=== PATIENT | female | born 1970 | race Caucasian/White ===

== ENCOUNTER → 2022-02-22 | Outpatient (CLI) | payer BC, SELFPAY ==
[2022-02-22 20:54] LABS: Ferritin 84 ng/mL (8-252); Free T3 2.4 pg/mL (2.18-3.98); T4 Free Direct 0.95 ng/dL (0.76-1.46); Thyroid Stim Hormone (TSH) 4.06 uIU/mL (0.358-3.74)
== END | disposition home or self-care (01) ==
LOC: LABSPEC 15:11
PROVIDERS: Referring Provider Nurse Practitioner Family; Visit Provider Nurse Practitioner Family
DX: E03.9 Hypothyroidism, unspecified (principal); R06.00 Dyspnea, unspecified; R53.83 Other fatigue; D64.9 Anemia, unspecified
CPT/HCPCS: 82728; 84439; 84443; 84481

== ENCOUNTER → 2023-06-02 | Outpatient (CLI) | payer BC, SELFPAY ==
[2023-06-02 12:36] VITALS: BP 154/68; PULSE 83; RESP 18; TEMP 36.3; O2SAT 98; BMI 42.0
--- NOTE | 2023-06-02 15:46 | PRO.PCM_ITS ---
Procedure Report Date of Procedure: 06/02/23 PICC insertion Procedures Radiology Radiology Access Procedures: [id number] Central Line/Midline PICC Line Consent Consent obtained:: Yes Consent given by (patient or responsible green party):: Patient Line successful (if no, document why in comments):: Yes Insertion Reason for Insertion: [facility] Medication Date of Insertion: 06/02/23 Ok to use: Yes Type of PICC inserted: Dual Power PICC PICC Lot #: [id number] PICC Reference #: [id number] Microintroducer Used: Yes (in kit) Ultrasound/Equipment Used: Probe Cover Kit Trimmed Length (cm): 44 Insertion Length (cm): 42 Exposed Length (cm): 2 Tip Placement: SVC (Superior Vena Cava) Placement Confirmation: 3CG Insertion Vein: Right Basilic Insertion Attempts: 1 Local Anesthesia Used: Lidocaine 1% (in kit) Dressing Applied: Tegaderm (CHG Tegaderm with kit StatLock) Arm Measurement above site (in cm): 40 Patient Tolerated Procedure: Well Threading Difficulties: No
== END | disposition home or self-care (01) ==
PROVIDERS: PCP Nurse Practitioner Family; Referring Provider Nurse Practitioner Family; Visit Provider Nurse Practitioner Family
DX: N93.0 Postcoital and contact bleeding (principal); B96.5 Pseudomonas (aeruginosa) (mallei) (pseudomallei) as the cause of diseases classified elsewhere; B95.2 Enterococcus as the cause of diseases classified elsewhere; B96.4 Proteus (mirabilis) (morganii) as the cause of diseases classified elsewhere
CPT/HCPCS: 36569

== ENCOUNTER 2025-06-25 19:28 | Outpatient (CLI) | payer BC, SELFPAY ==
--- OUTSIDE RECORDS SUMMARY | 2025-06-25 19:34 | XMS RPT_ITS | CCD ---
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 Name Role Phone Jericho Hair Unavailable Kurpita, Ruslana Vasylivna Unavailable [phone] JOCRAIG, ML Unavailable Unavailable TIFFANY, ML Unavailable Unavailable KURPITA, RUSLANA Unavailable Unavailable URSULA BADILLO Unavailable Unavailable KURPITA, RUSLANA Unavailable Unavailable LUIS ALFREDO SALAZAR Unavailable Unavailable Kurpita, Ruslana Vasylivna Primary Care Provider Krishan Thomason MD, Paco Primary Care Provider [phone] Krishan Thomason MD, Paco Primary Care Provider [phone] Krishan LU, Paco Lopez Primary Care Provi ramana Roz Chinchilla Attending Unavailable Faraz PROFILING MACHINE SET UP OPERATOR, Ursula Harmon Primary Care Unavailmelisa e Faraz PROFILING MACHINE SET UP OPERATOR, Ursula Harmon Consulting Unavailabl e Faraz PROFILING MACHINE SET UP OPERATOR, Ursula Harmon Referring Unavailabl e Faraz PROFILING MACHINE SET UP OPERATOR, Ursula Harmon Primary Care Unavailabl e Faraz PROFILING MACHINE SET UP OPERATOR, Ursula Harmon Attending Unavailabl e Faraz PROFILING MACHINE SET UP OPERATOR, Ursula Harmon Referring Unavailabl e Faraz PROFILING MACHINE SET UP OPERATOR, Ursula Harmon Attending Unavailabl e Faraz AUDITOR/QUALITY, Ursula Primary Care Provider KURPITA, RUSLANA VASYLIVNA Admitting Unava ilable URSULA RUTH Primary Care Unavailable KURPITA, RUSLANA VASYLIVNA Admitting Unava ilable URSULA RUTH Primary Care Unavailable URSULA RUTH Admitting Unavailable URSULA RUTH Primary Care Unavailable URSULA RUTH Primary Care Unavailable KRISTA ALCARAZ Attending Unavailmelisa Fernandez MD, Paco Cervantesylanthony Primary Care Provi ramana [facility], [facility] Provider JAMES, MESSI Attending Unavailable JAMES, MESSI Attending Unavailable JAMES, MESSI Attending Unavailable KENY, CAITLIN Attending Unavailable KENY, CAITLIN Referring Unavailable KENY, CAITLIN Referring Unavailable KENY, CAITLIN Attending Unavailable KENY, CAITLIN Referring Unavailable KENY, CAITLIN Attending Unavailable [place] DO, Ml Primary Care Provider JOLLY, ML Primary Care Unavailable JOLLY, ML Attending Unavailable JOLLY, ML Attending Unavailable JOLLY, ML Primary Care Unavailable JOLLY, ML Attending Unavailable JOLLY, ML Primary Care Unavailable MICHENER, URSULA Primary Care Unavailable MICHENER, URSULA Primary Care Unavailable MICHENER, URSULA Admitting Unavailable Michener AUDITOR/QUALITY, Ursula Primary Care Provider [phone] MICHENER, URSULA Primary Care Unavailable JERICHO BROWN Attending Unavailable MICHENER, URSULA Primary Care Unavailable JERICHO BROWN Referring Unavailable JERICHO BROWN Admitting Unavailable MICHENER, URSULA Primary Care Unavailable BAN SYKES Attending Unavailable DANIELLE SHAY Attending Unavailable MICHENER, URSULA Primary Care Unavailable AMALIA YADAV Attending Unavailable MICHENER, URSULA Primary Care Unavailable MICHENER, URSULA Attending Unavailable MICHENER, URSULA Referring Unavailable KURPITA, RUSLANA Primary Care Unavailable NEKKANTI, PAVITHRA Attending Unavailable NEKKANTI, PAVITHRA Referring Unavailable KURPITA, RUSLANA Primary Care Unavailable NEKKANTI, PAVITHRA Attending Unavailable KURPITA, RUSLANA Primary Care Unavailable NEKKANTI, PAVITHRA Referring Unavailable MICHENER, URSULA Referring Unavailable MICHENER, URSULA Attending Unavailable KURPITA, RUSLANA Primary Care Unavailable NEKKANTI, PAVITHRA Attending Unavailable KURPITA, RUSLANA Primary Care Unavailable NEKKANTI, PAVITHRA Referring Unavailable NEKKANTI, PAVITHRA Referring Unavailable KURPITA, RUSLANA Primary Care Unavailable NEKKANTI, PAVITHRA Attending Unavailable NEKKANTI, PAVITHRA Referring Unavailable KURPITA, RUSLANA Primary Care Unavailable NEKKANTI, PAVITHRA Attending Unavailable MICHENER, URSULA Attending Unavailable MICHENER, URSULA Referring Unavailable KURPITA, RUSLANA Primary Care Unavailable NEKKANTI, PAVITHRA Attending Unavailable KURPITA, RUSLANA Primary Care Unavailable NEKKANTI, PAVITHRA Referring Unavailable MICHENER, URSULA Attending Unavailable MICHENER, URSULA Referring Unavailable KURPITA, RUSLANA Primary Care Unavailable NEKKANTI, PAVITHRA Attending Unavailable NEKKANTI, PAVITHRA Referring Unavailable KURPITA, RUSLANA Primary Care Unavailable NEKKANTI, PAVITHRA Attending Unavailable NEKKANTI, PAVITHRA Referring Unavailable KURPITA, RUSLANA Primary Care Unavailable NEKKANTI, PAVITHRA Attending Unavailable NEKKANTI, PAVITHRA Referring Unavailable KURPITA, RUSLANA Primary Care Unavailable NEKKANTI, PAVITHRA Attending Unavailable NEKKANTI, PAVITHRA Referring Unavailable KURPITA, RUSLANA Primary Care Unavailable NEKKANTI, PAVITHRA Attending Unavailable NEKKANTI, PAVITHRA Referring Unavailable KURPITA, RUSLANA Primary Care Unavailable NEKKANTI, PAVITHRA Attending Unavailable NEKKANTI, PAVITHRA Referring Unavailable KURPITA, RUSLANA Primary Care Unavailable NEKKANTI, PAVITHRA Referring Unavailable KURPITA, RUSLANA Primary Care Unavailable NEKKANTI, PAVITHRA Attending Unavailable NEKKANTI, PAVITHRA Attending Unavailable KURPITA, RUSLANA Primary Care Unavailable NEKKANTI, PAVITHRA Referring Unavailable MICHENER, URSULA Referring Unavailable MICHENER, URSULA Attending Unavailable KURPITA, RUSLANA Primary Care Unavailable MICHENER, URSULA Referring Unavailable MICHENER, URSULA Attending Unavailable KURPITA, RUSLANA Primary Care Unavailable NEKKANTI, PAVITHRA Attending Unavailable KURPITA, RUSLANA Primary Care Unavailable NEKKANTI, PAVITHRA Referring Unavailable MICHENER, URSULA Referring Unavailable MICHENER, URSULA Attending Unavailable KURPITA, RUSLANA Primary Care Unavailable NEKKANTI, PAVITHRA Referring Unavailable KURPITA, RUSLANA Primary Care Unavailable NEKKANTI, PAVITHRA Attending Unavailable MICHENER, URSULA Referring Unavailable KURPITA, RUSLANA Primary Care Unavailable NEKKANTI, PAVITHRA Attending Unavailable NEKKANTI, PAVITHRA Attending Unavailable KURPITA, RUSLANA Primary Care Unavailable NEKKANTI, PAVITHRA Referring Unavailable MICHENER, URSULA Referring Unavailable MICHENER, URSULA Attending Unavailable KURPITA, RUSLANA Primary Care Unavailable NEKKANTI, PAVITHRA Referring Unavailable KURPITA, RUSLANA Primary Care Unavailable NEKKANTI, PAVITHRA Attending Unavailable MICHENER, URSULA Attending Unavailable MICHENER, URSULA Referring Unavailable KURPITA, RUSLANA Primary Care Unavailable MICHENER, URSULA Attending Unavailable MICHENER, URSULA Referring Unavailable KURPITA, RUSLANA Primary Care Unavailable MALERICH, PATIENCE G Attending Unavailable SELF, SELF Referring Unavailable KURPITA, RUSLANA Primary Care Unavailable NEKKANTI, PAVITHRA Attending Unavailable NEKKANTI, PAVITHRA Referring Unavailable KURPITA, RUSLANA Primary Care Unavailable MALERICH, PATIENCE G Attending Unavailable SELF, SELF Referring Unavailable KURPITA, RUSLANA Primary Care Unavailable MALERICH, PATIENCE G Attending Unavailable KURPITA, RUSLANA Primary Care Unavailable SELF, SELF Referring Unavailable MALERICH, PATIENCE G Attending Unavailable SELF, SELF Referring Unavailable KURPITA, RUSLANA Primary Care Unavailable PLOTNER, KACIE N Attending Unavailable KURPITA, RUSLANA Primary Care Unavailable SELF, SELF Referring Unavailable PLOTNER, KACIE N Attending Unavailable KURPITA, RUSLANA Primary Care Unavailable SELF, SELF Referring Unavailable NEKKANTI, PAVITHRA Attending Unavailable NEKKANTI, PAVITHRA Referring Unavailable KURPITA, RUSLANA Primary Care Unavailable NEKKANTI, PAVITHRA Attending Unavailable NEKKANTI, PAVITHRA Referring Unavailable KURPITA, RUSLANA Primary Care Unavailable NEKKANTI, PAVITHRA Attending Unavailable NEKKANTI, PAVITHRA Referring Unavailable KURPITA, RUSLANA Primary Care Unavailable NEKKANTI, PAVITHRA Attending Unavailable KURPITA, RUSLANA Primary Care Unavailable NEKKANTI, PAVITHRA Referring Unavailable NEKKANTI, PAVITHRA Referring Unavailable KURPITA, RUSLANA Primary Care Unavailable NEKKANTI, PAVITHRA Attending Unavailable MICHENER, URSULA Referring Unavailable KURPITA, RUSLANA Primary Care Unavailable NEKKANTI, PAVITHRA Attending Unavailable Allergies Allergy Classification Reported Allergen(s) Allergy Type Date of Onset Reaction(s) Facility Unclassified (1 source) ALLERGIES NOT ON FILE; Translations: [ALLERGIES NOT ON FILE] Propensity to adverse reactions (disorder) [facility] Repository (20 sources) amoxicillin; Translations: [AMOXICILLIN] Drug Allergy 8 Nausea Only [facility] (20 sources) cefuroxime; Translations: [CEFUROXIME AXETIL] Drug Allergy 8 Nausea Only [facility] (20 sources) lactase; Translations: [LACTASE] Drug Allergy 5 [facility] (20 sources) peanut allergenic extract; Translations: [PEANUT] Drug Allergy 5 [facility] (20 sources) wheat gluten extract; Translations: [gluten] Drug Allergy 5 [facility] (20 sources) cornstarch; Translations: [CORN STARCH] Drug Allergy 8 [facility] (20 sources) Ciprofloxacin; Translations: [CIPROFLOXACIN] Drug Allergy 0 GI Intolerance [facility] (20 sources) hydrOXYzine; Translations: [HYDROXYZINE HCL] Drug Allergy 0 Palpitations [facility] (20 sources) Cefuroxime Drug Allergy 8 [facility] (20 sources) Latex; Translations: [LATEX] Propensity to adverse reactions to drug 6 Itching, Rash [facility] (8 sources) Penicillins Propensity to adverse reactions to drug 6 [facility] (13 sources) Cornflour Propensity to adverse reactions to drug 8 [facility] (14 sources) Gluten Propensity to adverse reactions to drug 5 [facility] (13 sources) Latex Propensity to adverse reactions to drug 6 [facility] (13 sources) Penicillins Propensity to adverse reactions to drug 6 [facility] (1 source) GLUTEN PROTEIN; Translations: [GLUTEN PROTEIN] Propensity to adverse reactions to food (disorder) 5 [facility] Repository Medications Current Medications Medication Drug Class(es) Dates Sig (Normalized) Sig (Original) acyclovir 400 mg oral tablet (20 sources) Herpesvirus Nucleoside Analog DNA Polymerase Inhibitor, Herpes Simplex Virus Nucleoside Analog DNA Polymerase Inhibitor, Herpes Zoster Virus Nucleoside Analog DNA Polymerase Inhibitor take 1 tablet by mouth twice daily acyclovir (ZOVIRAX) 400 MG tablet Take 1 (one) tablet (400 mg total) by mouth 2 (two) times a day . Active amoxicillin 500 mg oral capsule (20 sources) Penicillin-class Antibacterial take 1 capsule by mouth three times daily amoxicillin (AMOXIL) 500 MG capsule Take 1 (one) capsule (500 mg total) by mouth 3 (three) times a day . Active azithromycin 500 mg oral tablet (20 sources) Macrolide Antimicrobial take 1 tablet by mouth twice daily azithromycin (ZITHROMAX) 500 MG tablet Take 1 (one) tablet (500 mg total) by mouth 2 (two) times a day . Active cephalexin 500 mg oral capsule (20 sources) Cephalosporin Antibacterial take 1 capsule by mouth four times daily cephALEXin (KEFLEX) 500 MG capsule Take 1 (one) capsule (500 mg total) by mouth 4 (four) times a day Not currently taking . Active cholecalciferol, vitamin D3, (cholecalciferol, vit D3,,bulk,) 100,000 unit/gram Powd (13 sources) take 05512 [IU] by mouth once daily in the morning cholecalciferol, vitamin D3, (cholecalciferol, vit D3,,bulk,) 100,000 unit/gram Powd Take 10,000 Units by mouth every morning . Active take 13899 [IU] by m outh once daily in the morning cholecalciferol, vitamin D3, (cholecalci ferol, vit D3,,bulk,) 100,000 unit/gram Powd Take 10,000 Units by mouth every morning . 0 Active esomeprazole 20 mg delayed release oral capsule (20 sources) Proton Pump Inhibitor take 1 capsule by mouth once daily before breakfast esomeprazole (NEXIUM) 20 MG capsule Indications: heartburn Take 1 (one) capsule (20 mg total) by mouth every morning before breakfast Reasons: heartburn. Active Estradiol (3 sources) Estrogen ESTRADIOL ORAL c ream on upper thigh once daily Active estrogens, conjugated (nursing home) 0.625 mg/ml vaginal cream (20 sources) Estrogen estrogens conjug ated 0.625 MG/GM Cream Insert 0.5 g vaginally daily. Active fluconazole 150 mg oral tablet (16 sources) Azole Antifungal take 1 tablet by mouth once daily fluconazole (DIFLUCAN) 150 MG tablet Take 1 (one) tablet (150 mg total) by mouth daily . Active take 1 tablet by mouth every oth er day fluconazole (DIFLUCAN) 150 mg tablet TAKE 1 TABLET (150 MG) BY MOUTH EVERY OTHER DAY. Active gentamicin 3 mg/ml / prednisoLONE acetate 10 mg/ml ophthalmic suspension (3 sources) Corticosteroid take 1 drop(s) into the eye(s) twice daily gentamicin-prednisoLONE (PRED-G) 0.3-1 % ophthalmic drops 1 drop 2 (two) times a day. Liquid into bladder Active hydrocortisone 10 mg oral tablet (20 sources) Corticosteroid take 0.5 tablet by mouth once daily hydrocortisone (CORTEF) 10 MG tablet Take 0.5 (one-half) tablet (5 mg total) by mouth daily . Active hydrocortisone ( CORTEF) 10 MG tablet Take 5 mg by mouth daily . 0 Active hydrOXYzine pamoate 25 mg oral capsule (20 sources) Antihistamine Start: 04-07-2018 take 1 capsule by mouth three times daily as needed for anxiety hydrOXYzine (VISTARIL) 25 MG capsule Take 1 (one) capsule (25 mg total) by mouth 3 (three) times a day as needed for anxiety. 10 capsule 04/07/2018 Active Lactobac #2-Bifido #1-S. therm (Visbiome) 900 billion cell powder in packet (3 sources) Lactobac #2-Bifi do #1-S. therm (Visbiome) 900 billion cell powder in packet Active Lactobac #2-Bifido #1-S. therm (VSL#3 DS) 900 billion cell PwPk (20 sources) take 1 dose by mouth once daily Lactobac #2-Bifido #1-S. therm (VSL#3 DS) 900 billion cell PwPk Take 1 packet by mouth daily. Active take 1 dose by mouth once daily Lactobac #2-Bifido #1-S. therm (VSL#3 DS) 900 billion cell PwPk Take 1 packet by mouth daily. 0 Active Lactobacillus #2-Bifidobacte r #1-S. Therm 900 Billion Cell Packet (2 sources) take 1 dose by mouth once daily Lactobac #2-Bifido #1-S. therm (VSL#3 DS) 900 billion cell PwPk Take 1 packet by mouth daily. Active Magnesium (20 sources) take 800 mg by mouth once daily in the morning MAGNESIUM PO take 800 mg by mouth daily every morning.. Active take 800 mg by mouth once daily in the morning MAGNESIUM PO take 800 mg by mouth daily every morning.. 0 Active metFORMIN hydrochloride 1000 mg oral tablet (20 sources) Biguanide take 1 tablet by mouth twice daily at mealtime metFORMIN (GLUCOPHAGE) 1000 MG tablet Take 1 (one) tablet (1,000 mg total) by mouth 2 (two) times a day with meals . Active take 2 tablets by [facility] twice daily at mealtime metFORMIN (GLUCOPHAGE) 500 mg tablet SILVANO E 2 TABLETS (1,000 MG) BY MOUTH 2 TIMES PER DAY WITH MEALS Active metroNIDAZOLE 7.5 mg/ml topical cream (7 sources) Nitroimidazole Antimicrobial Start: 12-11-2024 metroNIDAZOLE 0.75 % Cream cream Indications: Rosacea Apply to affected areas on the face up to twice daily for rosacea 45 g 1 12/11/2024 Active metroNIDAZOLE (M ETROGEL) 0.75 % vaginal gel INSERT 1 APPLICATORFUL VAGINALLY TWICE DAILY FOR 5 DAYS Active mupirocin 0.02 mg/mg topical ointment (12 sources) RNA Synthetase Inhibitor Antibacterial Start: 10-05-2023 Mupirocin 2 % ointment Apply to any sores twice daily 30 g 2 10/05/2023 Active nystatin 750329 unt/ml oral suspension (20 sources) Polyene Antifungal take 5 mL by mouth four times daily nystatin (MYCOSTATIN) 100,000 unit/mL suspension Take 5 mL (500,000 Units total) by mouth 4 (four) times a day . Active take 969788 [IU] by mouth four times daily nystatin (MYCOSTATIN) 100,000 unit/mL suspension Take 500,000 Units by mouth 4 (four) times a day. 0 Active take 2 tablets by mouth twice da saman NYSTATIN ORAL Take 2 tablets by mouth 2 (two) times a day . Active Probiotic Product (PROBIOTIC PO) (20 sources) Probiotic Produc t (PROBIOTIC PO) take by mouth at bedtime.. Active Probiotic Produc t (PROBIOTIC PO) take by mouth at bedtime.. 0 Active progesterone 100 mg oral cap pamella (20 sources) Progesterone progesterone 100 MG Cap Take 1 capsule by mouth. Active take 250 mg by mouth once daily PROGESTERONE MICRONIZED ORAL 250mg, once daily Active take 1 capsule by mouth every mo nth progesterone 100 MG Cap take 100 mg by mouth.. 0 Active propranolol hydrochloride 40 mg oral tablet (20 sources) beta-Adrenergic Pricila Start: 03-13-2020 propranolol 40 MG tablet as needed. 03/13/2020 Active rifAXIMin 200 mg oral tablet (20 sources) Rifamycin Antibacterial take 1 tablet by mouth three times daily rifaximin (XIFAXAN) 200 mg tablet Take 1 (one) tablet (200 mg total) by mouth 3 (three) times a day . Active sulfamethoxazole 400 mg / trimethoprim 80 mg oral tablet (5 sources) Dihydrofolate Reductase Inhibitor Antibacterial, Sulfonamide Antimicrobial take 1 tablet by mouth twice daily Sulfamethoxazole- trimethoprim 400-80 MG per tablet Take 1 tablet by mouth 2 times daily. 4/8/25 reports she is taking a break right now Active Testosterone (20 sources) Androgen testosterone 0.1 % topical cream Apply topically 1 (one) time each day. Active Testosterone Pro pionate (FIRST-TESTOSTERONE MC) 2 % Cream Indications: Spider veins of both lower extremities Place on skin. Active Testosterone Pro pionate (FIRST-TESTOSTERONE MC) 2 % Cream Indications: Spider veins of both lower extremities Place on skin. 0 Active Testosterone Pro pionate (FIRST-TESTOSTERONE MC) 2 % Cream Indications: Spider veins of both lower extremities by Transdermal route.. 0 Active thyroid (nursing home) 15 mg oral tablet (20 sources) Start: 01-31-2021 take 1 tablet by mouth once daily [place] Thyroid 15 MG tablet Take 1 tablet by mouth daily. 01/31/2021 Active Start: 01-17-2020 Nature-Throid 32.5 mg tablet 01/17/2020 Active take 2 tablets by mo ut once daily thyroid (ARMOUR) 60 mg tablet Take 2 (two) tablets (120 mg total) by mouth daily . Active take 2 tablets by mo ut once daily thyroid, pork, ([place] Thyroid) 30 mg tablet Take 2 tablets (60 mg total) by mouth 1 (one) time each day. Active take 1 tablet by edouard once daily thyroid, pork, (WP Thyroid) 81.25 mg tablet Take 1 tablet every day by oral route. Active THYROID ORAL (2 sources) take 180 mg by mouth once daily THYROID ORAL Take 180 mg by mouth daily WP Thyroid- T3 /T4 Combo. Active traZODone hydrochloride 50 mg oral tablet (20 sources) Serotonin Reuptake Inhibitor End: 01-12-20 24 take 1 tablet by mouth once daily as needed traZODone (DESYREL) 50 MG tablet Take 1 (one) tablet (50 mg total) by mouth nightly as needed . Active liothyronine sodium 0.005 mg oral tablet (20 sources) l-Triiodothyronine take 2 tablets by mouth once daily liothyronine (CYTOMEL) 5 MCG tablet Take 2 (two) tablets (10 mcg total) by mouth daily . Active UNABLE TO FIND (3 sources) UNABLE TO FIND cream, on upper thigh once daily Active valACYclovir 1000 mg oral tablet (20 sources) Herpesvirus Nucleoside Analog DNA Polymerase Inhibitor, Herpes Simplex Virus Nucleoside Analog DNA Polymerase Inhibitor, Herpes Zoster Virus Nucleoside Analog DNA Polymerase Inhibitor Start: 04-09-20 18 End: 04-19-20 18 take 1 tablet by mouth twice daily valACYclovir (VALTREX) 1000 MG tablet Take 1 (one) tablet (1,000 mg total) by mouth 2 (two) times a day for 10 days. 20 tablet 0 04/09/2018 04/19/2018 Active take 1 tablet by mouth once grant y valACYclovir (VALTREX) 1000 MG tablet Take 1 (one) tablet (1,000 mg total) by mouth daily . Active take 1 tablet by mouth once grant y valACYclovir (VALTREX) 1000 MG tablet Take 1,000 mg by mouth daily . Active vitamin B12 (20 sources) Vitamin B12 Cyanocobalamin ( VITAMIN B12 PO) Take by mouth daily. Active Cyanocobalamin ( VITAMIN B12 PO) Take by mouth daily. 0 Active VITAMIN D PO (20 sources) take 22211 [IU] by m outh once daily in the morning VITAMIN D PO take 10,000 Units by mouth daily every morning.. Active take 81442 [IU] by m outh once daily in the morning VITAMIN D PO take 10,000 Units by mouth daily every morning.. 0 Active vitamin E acetate, bulk, 50 % Powd (13 sources) take 400 mg by mouth once daily in the morning vitamin E acetate, bulk, 50 % Powd Take 400 mg by mouth every morning . Active take 400 mg by mouth once daily in the morning vitamin E acetate, bulk, 50 % Powd Take 400 mg by mouth every morning . 0 Active VITAMIN E PO (20 sources) take 400 mg by mouth once daily in the morning VITAMIN E PO take 400 mg by mouth daily every morning.. Active take 400 mg by mouth once daily in the morning VITAMIN E PO take 400 mg by mouth daily every morning.. 0 Active zolpidem tartrate 6.25 mg extended release oral tablet (20 sources) gamma-Aminobutyric Acid-ergic Agonist Start: 01-31-2020 zolpidem (AMBIEN CR) 6.25 MG ER tablet Indications: Insomnia, unspecified type Take 1 (one) tablet (6.25 mg total) by mouth nightly as needed for sleep (Days supply per fill: 3) . 3 tablet 01/31/2020 Active Completed/Discontinued Medications Medication Drug Class(es) Dates Sig (Normalized) Sig (Original) almond oil, sweet, oil external oil (3 sources) End: 01-12-2024 almond oil, sweet, oil external oil 01/12/2024 Discontinued almond oil, swee t, oil external oil Active Bioflavonoid Products (LINDSEY C PO) (18 sources) End: 12-11-2024 Bioflavonoid Products (LINDSEY C PO) 12/11/2024 Discontinued (Medication Reconciliation (suppress cancel msg)) Bioflavonoid Pro ducts (LINDSEY C PO) Active Bioflavonoid Pro ducts (LINDSEY C PO) cefixime 400 mg oral capsule (14 sources) Cephalosporin Antibacterial Start: 04-10-2024 End: 12-11-2024 take 1 capsule by mouth once daily Cefixime 400 MG capsule Take 1 capsule by mouth daily. 04/10/2024 12/11/2024 Discontinued (Medication Reconciliation (suppress cancel msg)) Digestive Enzymes (ENZYME DIGEST PO) (18 sources) End: 12-11-2024 Digestive Enzymes (ENZYME DIGEST PO) as needed.. 12/11/2024 Discontinued (Medication Reconciliation (suppress cancel msg)) Digestive Enzyme s (ENZYME DIGEST PO) as needed.. Active Digestive Enzyme s (ENZYME DIGEST PO) as needed.. 0 Active Diphenhydramine 50 Mg/Ml Injection Solution (1 source) Histamine-1 Receptor Antagonist Start: 04-07-2018 End: 04-07-2018 diphenhydrAMINE (BENADRYL) injection 25 mg heparin (2 sources) Unfractionated Heparin, Anti-coagulant Start: 06-16-2023 End: 06-16-2023 heparin, porcine (PF) injection 500 Units Multiple Minerals (MINERAL COMPLEX PO) (18 sources) End: 12-11-2024 take 1 tablet by mouth once daily in the morning Multiple Minerals (MINERAL COMPLEX PO) take 1 tablet by mouth daily every morning.. 12/11/2024 Discontinued (Medication Reconciliation (suppress cancel msg)) take 1 tablet by edouard th once daily in the morning Multiple Minerals (MINERAL COMPLEX PO) take 1 tablet by mouth daily every morning.. Active take 1 tablet by edouard th once daily in the morning Multiple Minerals (MINERAL COMPLEX PO) take 1 tablet by mouth daily every morning.. 0 Active omeprazole 40 mg delayed release oral capsule (3 sources) Proton Pump Inhibitor End: 01-12-2024 omeprazole (PriLOSEC) [address] capsule 01/12/2024 Discontinued 24 hr oxybutynin chloride 10 mg extended release oral tablet (6 sources) Cholinergic Muscarinic Antagonist Start: 06-29-2022 End: 11-04-2023 take 1 tablet by mouth once daily oxybutynin CR 10 MG Tab SR 24 HR tablet Take 1 tablet by mouth daily. 30 tablet 3 06/29/2022 11/04/2023 Discontinued oxymetazoline hydrochloride 10 mg/ml topical cream (3 sources) End: 01-12-2024 oxymetazoline (Rhofade) 1 % cream 01/12/2024 Discontinued 125 ml sodium chloride 9 mg/ml prefilled syringe (10 sources) Start: 06-16-2023 End: 06-16-2023 sodium chloride (PF) (NS) flush 20 mL Start: 04-09-2018 End: 04-09-2018 sodium chloride 0.9% (NS) mario bradley 1,000 mL Start: 04-09-2018 End: 04-09-2018 sodium chloride (PF) (NS) fl ush 5 mL Start: 04-07-2018 End: 04-07-2018 sodium chloride 0.9% (NS) mario bradley 1,000 mL Start: 04-07-2018 End: 04-07-2018 sodium chloride (PF) (NS) fl ush 5 mL Start: 02-16-2018 End: 02-16-2018 sodium chloride 0.9% (NS) mario bradley 1,000 mL Start: 02-16-2018 End: 02-17-2018 sodium chloride (PF) (NS) fl ush 5 mL terbinafine hydrochloride 10 mg/ml topical cream (10 sources) Allylamine Antifungal Start: 11-24-2021 End: 11-04-2023 terbinafine 1 % Cream cream Indications: Dermatitis Apply to the groin twice daily for 1 wee 42 g 1 11/24/2021 11/04/2023 Discontinued Problems Active Problems Problem Classification Problem Date Documented Date Episodic/Chronic Abdominal pain (2 sources) Pelvic and perineal pain; Translations: [Pelvic and perineal pain] Onset: 05-29-2025 Episodic Allergic reactions (5 sources) Inflammatory dermatosis; Translations: [Dermatitis, unspecified] Onset: 06-13-2025 Episodic Bacterial infection; unspecified site (7 sources) Pseudomonas (aeruginosa) (mallei) (pseudomallei) as the cause of diseases classified elsewhere; Translations: [Enterococcus as the cause of diseases classified elsewhere] Onset: 06-01-2023 Episodic Cardiac dysrhythmias (3 sources) Palpitations Episodic Disorders of teeth and jaw (2 sources) Jaw pain; Translations: [Jaw pain] Onset: 06-12-2025 Episodic External Injury - Adverse effects of medical drugs (1 source) Adverse reaction to drug Episodic Fluid and electrolyte disorders (1 source) Dehydration Episodic Genitourinary symptoms and ill-defined conditions (4 sources) Urge incontinence of urine; Translations: [Urge incontinence] Onset: 06-12-2025 Chronic Genitourinary symptoms and ill-defined conditions (3 sources) Urgent desire to urinate; Translations: [Urgency of urination] Episodic Malaise and fatigue (2 sources) Chronic fatigue, unspecified; Translations: [Chronic fatigue, unspecified] Onset: 02-27-2024 Chronic Malaise and fatigue (2 sources) Fatigue; Translations: [Asthenia] Episodic Menopausal disorders (2 sources) Other primary ovarian failure; Translations: [Other primary ovarian failure] Onset: 05-01-2024 Chronic Neoplasms of unspecified nature or uncertain behavior (6 sources) Neoplasm of uncertain behavior of skin; Translations: [Neoplasm of uncertain behavior of skin] Onset: 06-24-2025 Episodic Other and ill-defined heart disease (2 sources) Heart disease, unspecified; Translations: [Heart disease, unspecified] Onset: 05-01-2024 Chronic Other and unspecified benign neoplasm (4 sources) Senile angioma; Translations: [Hemangioma of skin and subcutaneous tissue] Episodic Other and unspecified benign neoplasm (4 sources) Multiple benign melanocytic nevi ; Translations: [Melanocytic nevi of unspecified upper limb, including shoulder] Episodic Other and unspecified benign neoplasm (1 source) Angiokeratoma of skin; Translations: [Other benign neoplasm of skin, unspecified] 05-24-2024 Episodic Other and unspecified benign neoplasm (1 source) Fibrous papule of nose; Translations: [Melanocytic nevi of other parts of face] 05-24-2024 Episodic Other and unspecified benign neoplasm (1 source) Melanocytic nevus; Translations: [Melanocytic nevi, unspecified] 06-13-2025 Episodic Other and unspecified benign neoplasm (1 source) Dermatofibroma; Translations: [Other benign neoplasm of skin, unspecified] 06-13-2025 Episodic Other and unspecified benign neoplasm (2 sources) Melanocytic nevi, unspecified; Translations: [Melanocytic nevi, unspecified] Onset: 06-13-2025 Episodic Other and unspecified benign neoplasm (2 sources) Other benign neoplasm of skin, unspecified; Translations: [Other benign neoplasm of skin, unspecified] Onset: 06-13-2025 Episodic Other bone disease and musculoskeletal deformities (20 sources) Segmental and somatic dysfunction of abdomen and other regions; Translations: [Segmental and somatic dysfunction of thoracic region] Onset: 07-14-2015 Resolved: 11-16-2024 07-14-2015 Episodic Other bone disease and musculoskeletal deformities (20 sources) Segmental and somatic dysfunction of thoracic region; Translations: [Somatic dysfunction of thoracic region] Onset: 07-14-2015 Resolved: 11-16-2024 07-14-2015 Episodic Other bone disease and musculoskeletal deformities (20 sources) Segmental and somatic dysfunction of lower extremity; Translations: [Somatic dysfunction of lower limb] Onset: 07-14-2015 Resolved: 11-16-2024 07-14-2015 Episodic Other bone disease and musculoskeletal deformities (20 sources) Segmental and somatic dysfunction of pelvic region; Translations: [Somatic dysfunction of pelvic region] Onset: 08-04-2015 Resolved: 11-16-2024 08-04-2015 Episodic Other bone disease and musculoskeletal deformities (17 sources) Segmental and somatic dysfunction; Translations: [Segmental and somatic dysfunction of cervical region] Onset: 10-22-2024 Episodic Other bone disease and musculoskeletal deformities (3 sources) Somatic dysfunction of cranium; Translations: [Segmental and somatic dysfunction of head region] 12-15-2023 Episodic Other bone disease and musculoskeletal deformities (5 sources) Cervical somatic dysfunction; Translations: [Segmental and somatic dysfunction of cervical region] 12-15-2023 Episodic Other bone disease and musculoskeletal deformities (4 sources) Somatic dysfunction of lumbar region; Translations: [Segmental and somatic dysfunction of lumbar region] 12-15-2023 Episodic Other bone disease and musculoskeletal deformities (2 sources) Somatic dysfunction of bilateral lower extremties; Translations: [Segmental and somatic dysfunction of lower extremity] 12-15-2023 Episodic Other bone disease and musculoskeletal deformities (3 sources) Somatic dysfunction of rib; Translations: [Segmental and somatic dysfunction of rib cage] 01-13-2024 Episodic Other bone disease and musculoskeletal deformities (2 sources) Segmental and somatic dysfunction of cervical region; Translations: [Segmental and somatic dysfunction of cervical region] Onset: 12-15-2023 Episodic Other bone disease and musculoskeletal deformities (3 sources) Segmental and somatic dysfunction of lumbar region; Translations: [Segmental and somatic dysfunction of lumbar region] Onset: 12-15-2023 Episodic Other bone disease and musculoskeletal deformities (2 sources) Somatic dysfunction of upper limb; Translations: [Segmental and somatic dysfunction of upper extremity] 10-22-2024 Episodic Other bone disease and musculoskeletal deformities (2 sources) Segmental and somatic dysfunction of upper extremity; Translations: [Segmental and somatic dysfunction of upper extremity] Onset: 10-22-2024 Episodic Other bone disease and musculoskeletal deformities (1 source) Somatic dysfunction of abdominal region; Translations: [Somatic dysfunction of abdominal region] Onset: 07-14-2015 07-14-2015 Other bone disease and musculoskeletal deformities (1 source) Somatic dysfunction of thoracic region; Translations: [Somatic dysfunction of thoracic region] Onset: 07-14-2015 07-14-2015 Other bone disease and musculoskeletal deformities (1 source) Somatic dysfunction of lower limb; Translations: [Somatic dysfunction of lower extremities] Onset: 07-14-2015 07-14-2015 Other bone disease and musculoskeletal deformities (1 source) Somatic dysfunction of pelvic region; Translations: [Somatic dysfunction of pelvic region] Onset: 08-04-2015 08-04-2015 Other bone disease and musculoskeletal deformities (1 source) Somatic dysfunction of sacral region; Translations: [Somatic dysfunction of sacral region] Onset: 07-14-2015 07-14-2015 Other bone disease and musculoskeletal deformities (1 source) Somatic dysfunction of head region; Translations: [Somatic dysfunction of head region] Onset: 07-14-2015 07-14-2015 Other circulatory disease (2 sources) Presence of other vascular implants and grafts; Translations: [Presence of other vascular implants and grafts] Onset: 06-17-2023 Chronic Other circulatory disease (1 source) Telangiectasia disorder; Translations: [Nevus, non-neoplastic] 05-24-2024 Episodic Other connective tissue disease (5 sources) Pain in right lower limb; Translations: [Pain in right leg] 08-13-2024 Episodic Other connective tissue disease (1 source) Tendinitis of right gluteal tendon; Translations: [Unspecified disorder of synovium and tendon, right thigh] 11-13-2024 Episodic Other connective tissue disease (1 source) Myofascial pain; Translations: [Myalgia, other site] 11-13-2024 Episodic Other connective tissue disease (2 sources) Unspecified disorder of synovium and tendon, right thigh; Translations: [Unspecified disorder of synovium and tendon, right thigh] Onset: 11-13-2024 Episodic Other connective tissue disease (2 sources) Myalgia, other site; Translations: [Myalgia, other site] Onset: 11-13-2024 Episodic Other connective tissue disease (2 sources) Muscle weakness (generalized); Translations: [Muscle weakness (generalized)] Onset: 06-12-2025 Episodic Other connective tissue disease (2 sources) Other specified disorders of muscle; Translations: [Other specified disorders of muscle] Onset: 06-12-2025 Episodic Other diseases of bladder and urethra (2 sources) Overactive bladder; Translations: [Overactive bladder] Onset: 06-12-2025 Chronic Other ear and sense organ disorders (20 sources) Sensorineural hearing loss; Translations: [Unspecified sensorineural hearing loss] Onset: 06-16-2015 06-16-2015 Chronic Other ear and sense organ disorders (1 source) Bilateral tinnitus; Translations: [Tinnitus, bilateral] 12-15-2023 Episodic Other ear and sense organ disorders (1 source) Tinnitus, bilateral; Translations: [Tinnitus, bilateral] Onset: 12-15-2023 Episodic Other endocrine disorders (4 sources) Adrenal cortical hypofunction; Translations: [Chronic adrenal insufficiency (HCC)] Onset: 04-01-2014 07-14-2015 Chronic Other endocrine disorders (1 source) Hypercortisolism; Translations: [Cushingoid side effect of steroids (HCC)] Chronic Other endocrine disorders (20 sources) Hypoadrenalism; Translations: [Unspecified adrenocortical insufficiency] Onset: 04-01-2014 07-14-2015 Chronic Other female genital disorders (2 sources) Postcoital and contact bleeding; Translations: [Postcoital and contact bleeding] Onset: 06-07-2023 Chronic Other female genital disorders (1 source) Vaginal irritation; Translations: [Other specified noninflammatory disorders of vagina] Episodic Other female genital disorders (1 source) Hypertrophy of labia; Translations: [Unspecified hypertrophy of vulva] Episodic Other infections; including parasitic (2 sources) Unspecified infectious disease; Translations: [Unspecified infectious disease] Onset: 06-01-2023 Episodic Other inflammatory condition of skin (2 sources) Rosacea; Translations: [Rosacea, unspecified] 12-11-2024 Chronic Other inflammatory condition of skin (2 sources) Rosacea, unspecified; Translations: [Rosacea, unspecified] Onset: 06-24-2025 Chronic Other inflammatory condition of skin (2 sources) Intertrigo; Translations: [Erythema intertrigo] Episodic Other nervous system disorders (10 sources) Pronator syndrome; 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, right upper limb] Onset: 08-16-2019 08-16-2019 Chronic Other nervous system disorders (11 sources) 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; 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, right upper limb] Onset: 08-16-2019 08-16-2019 Chronic Other nervous system disorders (2 sources) Other chronic pain; Translations: [Other chronic pain] Onset: 09-15-2015 Chronic Other non-epithelial cancer of skin (6 sources) History of malignant basal cell neoplasm of skin; Translations: [Personal history of other malignant neoplasm of skin] Onset: 06-13-2025 Episodic Other non-traumatic joint disorders (2 sources) Hip pain; Translations: [Pain in right hip] 11-15-2024 Episodic Other non-traumatic joint disorders (2 sources) Pain in right hip; Translations: [Pain in right hip] Onset: 11-15-2024 Episodic Other nutritional; endocrine; and metabolic disorders (1 source) Morbid obesity; Translations: [Morbid (severe) obesity due to excess calories] Onset: 02-09-2021 02-09-2021 Chronic Other nutritional; endocrine; and metabolic disorders (20 sources) Body mass index 40+ - severely obese; Translations: [Morbid (severe) obesity due to excess calories] Onset: 02-09-2021 02-09-2021 Chronic Other screening for suspected conditions (not mental disorders or infectious disease) (4 sources) Patient encounter status; Translations: [Encounter for screening for malignant neoplasm of skin] Episodic Other skin disorders (6 sources) Actinic keratosis; Translations: [Actinic keratosis] Episodic Other skin disorders (1 source) Scar; Translations: [Scar conditions and fibrosis of skin] Episodic Other skin disorders (4 sources) Skin tag; Translations: [Other hypertrophic disorders of the skin] Episodic Other skin disorders (1 source) Hypertrophic scar; Translations: [Hypertrophic scar] Episodic Other skin disorders (4 sources) Lentiginosis; Translations: [Other melanin hyperpigmentation] Episodic Other skin disorders (3 sources) Seborrheic keratosis; Translations: [Other seborrheic keratosis] Episodic Other skin disorders (1 source) Post-inflammatory hyperpigmentation; Translations: [Postinflammatory hyperpigmentation] 12-11-2024 Episodic Other skin disorders (1 source) Papule of skin; Translations: [Other skin changes] 12-11-2024 Episodic Other skin disorders (2 sources) Milia; Translations: [Epidermal cyst] 12-11-2024 Episodic Other skin disorders (1 source) Open comedone; Translations: [Acne vulgaris] 02-07-2025 Episodic Other skin disorders (2 sources) Actinic keratosis; Translations: [Actinic keratosis] Onset: 06-24-2025 Episodic Other skin disorders (2 sources) Epidermal cyst; Translations: [Epidermal cyst] Onset: 06-13-2025 Episodic Other skin disorders (2 sources) Other melanin hyperpigmentation; Translations: [Other melanin hyperpigmentation] Onset: 06-13-2025 Episodic Other skin disorders (2 sources) Scar conditions and fibrosis of skin; Translations: [Scar conditions and fibrosis of skin] Onset: 06-12-2025 Episodic Other upper respiratory disease (20 sources) Allergic rhinitis; Translations: [Allergic rhinitis, unspecified] Onset: 06-16-2015 06-16-2015 Chronic Prolapse of female genital organs (2 sources) Other female genital prolapse; Translations: [Other female genital prolapse] Onset: 06-12-2025 Chronic Residual codes; unclassified (1 source) Insomnia; Translations: [Insomnia, unspecified type] Episodic Residual codes; unclassified (4 sources) Pain, unspecified; Translations: [Pain, unspecified] Onset: 11-13-2024 Episodic Thyroid disorders (20 sources) Hypothyroidism; Translations: [Hypothyroidism, unspecified] Onset: 04-01-2014 07-14-2015 Chronic Unclassified (1 source) Unknown / UNK(Unknown) Onset: 05-11-2018 Unclassified (2 sources) ERRONEOUS ENCOUNTER--DISREGARD Unclassified (2 sources) Remove PICC Onset: 06-17-2023 Unclassified (2 sources) OMT Onset: 01-12-2024 Unclassified (1 source) Low back pain, unspecified; Translations: [Low back pain, unspecified] Onset: 09-15-2015 Unclassified (1 source) Pelvic and perineal pain unspecified side; Translations: [Pelvic and perineal pain unspecified side] Onset: 06-12-2025 Past or Other Problems Problem Classification Problem Date Documented Date Episodic/Chronic Mood disorders (3 sources) Mood disorders Onset: 12-15-2023 Resolved: 01-12-2024 12-15-2023 Other bone disease and musculoskeletal deformities (20 sources) Segmental and somatic dysfunction of sacral region; Translations: [Somatic dysfunction of sacral region] Onset: 07-14-2015 Resolved: 11-16-2024 07-14-2015 Episodic Other bone disease and musculoskeletal deformities (20 sources) Segmental and somatic dysfunction of head region; Translations: [Somatic dysfunction of head region] Onset: 07-14-2015 Resolved: 11-16-2024 07-14-2015 Episodic Other bone disease and musculoskeletal deformities (2 sources) Segmental and somatic dysfunction of rib cage; Translations: [Segmental and somatic dysfunction of rib cage] Onset: 08-13-2024 Episodic Other connective tissue disease (2 sources) Pain in right leg; Translations: [Pain in right leg] Onset: 08-13-2024 Episodic Other infections; including parasitic (20 sources) Acute infectious disease; Translations: [Unspecified infectious disease] Onset: 06-01-2023 06-01-2023 Episodic Other inflammatory condition of skin (20 sources) Pruritus of skin; Translations: [Pruritus, unspecified] Onset: 06-16-2015 06-16-2015 Episodic Other skin disorders (4 sources) Other skin changes; Translations: [Other skin changes] Onset: 06-17-2023 Episodic Other skin disorders (2 sources) Postinflammatory hyperpigmentation; Translations: [Postinflammatory hyperpigmentation] Onset: 12-11-2024 Episodic Otitis media and related conditions (20 sources) Dysfunction of eustachian tube; Translations: [Other specified disorders of Eustachian tube, unspecified ear] Onset: 06-16-2015 06-16-2015 Episodic Spondylosis; intervertebral disc disorders; other back problems (20 sources) Low back pain; Translations: [Neck pain] Onset: 09-15-2015 Resolved: 11-16-2024 09-15-2015 Episodic Unclassified (1 source) FATIGUE, LOW GRADE FEVER Onset: 05-14-2018 Unclassified (1 source) Low back pain, unspecified; Translations: [Low back pain, unspecified] Onset: 11-15-2024 Unclassified (1 source) Pelvic and perineal pain unspecified side; Translations: [Pelvic and perineal pain unspecified side] Onset: 06-12-2025 Urinary tract infections (20 sources) Urinary tract infection caused by Pseudomonas; Translations: [Urinary tract infection, site not specified] Onset: 06-01-2023 05-31-2023 Episodic Results Test Name Value Interpretation Reference Range Facility SURG PATH REQUESTon 06-13-20 Case Report [facility] Comment on above: Result Comment: Surg ical Pathology Report Case: [id number] Authorizing Provider: Kacie Keenan MD Collected: 06/13/2025 11:44 AM Ordering Location: [facility] Received: 06/13/2025 11:45 AM [place] Pathologist: Fernando Clemens MD Specimen: Skin Bx Not cyst/tag/debridement/ plastic Performed By: #### S URGP #### [facility] (DEFAULT) [address] [place] [address] Clinical History Associated Diagnoses : Neoplasm of uncertain behavior 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 Clinical History: R/O BCC. [facility] Comment on above: Performed By: #### S URGP #### [facility] (DEFAULT) [address] [place] [address] Diagnosis Comments This lesion is difficult to further characterize, as only the surface is present for evaluation. 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 Depending on the clinical setting, a rebiopsy could be considered. Initial and multiple deeper sections were examined. The patient's clinical history and corresponding images available in the electronic medical record were reviewed. [facility] Comment on above: Performed By: #### S URGP #### [facility] (DEFAULT) [address] [address] Gross Description [facility] Comment on above: Result Comment: The specimen is received in one properly labeled container with the patient's name and accession number. A. The specimen is designated "left nasal sidewall" and consists of an irregular shave of skin that measures 0.4 x 0.3 x <0.1 cm. The surface is ordoñez to white, finely granular and slightly roughened. The surgical margin is inked blue and the specimen is submitted whole. Please note that due to the size of the specimen it may or may not survive processing. TE 1 Lab Use Only: JobID [id number] Grosser for this case was: Desire Collins Performed By: #### S URGP #### [facility] (DEFAULT) [address] [address] Microscopic Description A. The lesion is transected and therefore its base cannot be fully evaluated. Histologic sections show narrow epithelial strands and keratinous cysts embedded in a desmoplastic stroma. Initial and multiple deeper sections were examined. [facility] Comment on above: Performed By: #### S URGP #### [facility] (DEFAULT) [address] [address] Pathologic Diagnosis [facility] Comment on above: Result Comment: A. S kin, left nasal sidewall, shave: Surface of basaloid and trichoepithelial proliferation, see comment. at 1229 EDT Performed By: #### S URGP #### [facility] (DEFAULT) [address] [address] Professional Interpretation Performed at: [facility] Comment on above: Result Comment: [facility] For Immediate Release to Patient's MyChart? Yes [address] [facility], [address] [place], [place] [address] Performed By: #### S URGP #### [facility] (DEFAULT) [address] [place] [address] XR HIP RIGHT 2-3 VIEWS (ROUT INE)on 11-13-2024 XR HIP RIGHT 2-3 VIEWS (ROUTINE) XRAY INTERPRETATION: XR Right Hip 32Views (AP, frog leg): Xrays ordered and reviewed by me. Normal bony alignment. No fracture or dislocation. No significant arthritic changes. Calcification near the enthesis of the gluteus medius tendon suggestive of calcific tendinopathy Dictated by: JERICHO BROWN on TueNov 13, 2024 1:03:36 PM EDT Transcribed by: JERICHO BROWN on TueNov 13, 2024 1:03:36 PM EDT Finalized by: JERICHO BROWN on TueNov 13, 2024 1:03:36 PM EDT Normal [facility] Comment on above: Order Comment: Injur y/Trauma or Illness?:Illness/Other How long have you had these symptoms (acute/chronic)?:Acute Reason for exam?:pain History of cancer?:no Surgeries, chemotherapy, or radiation?:none to chest Type of Exam?:Initial Additional signs and symptoms?:pain COMPREHENSIVE METABOLIC PANE Reed 05-01-2024 Albumin [Mass/Vol] 4.4 g/dL Normal 3.2-5.2 [facility] Comment on above: Order Comment: [facility] has implemented the eGFR calculation approach that does not have a coefficient for race that conforms to the NKF-ASN Task Force Recommendations. Performed By: #### [id number] #### [facility] [address] [place], [place] [address] Sudhir Artis M.D. [id number] ALP [Catalytic activity/Vol] 117 U/L Normal 40-150 [facility] Comment on above: Order Comment: [facility] has implemented the eGFR calculation approach that does not have a coefficient for race that conforms to the NKF-ASN Task Force Recommendations. Performed By: #### [id number] #### [facility] [address] [place] [address] Sudhir Artis M.D. [id number] ALT [Catalytic activity/Vol] 35 U/L Normal 0-35 U/L [facility] Comment on above: Order Comment: [facility] has implemented the eGFR calculation approach that does not have a coefficient for race that conforms to the NKF-ASN Task Force Recommendations. Performed By: #### [id number] #### [facility] [address] [place], [place] [id number] Sudhir Artis M.D. [id number] Anion gap [Moles/Vol] 22 mmol/L High 10-20 [facility] Comment on above: Order Comment: [facility] has implemented the eGFR calculation approach that does not have a coefficient for race that conforms to the NKF-ASN Task Force Recommendations. Performed By: #### [id number] #### [facility] [address] [place] [address] Sudhir Artis M.D. [id number] AST [Catalytic activity/Vol] 12 U/L Normal 0-35 U/L [facility] Comment on above: Order Comment: [facility] has implemented the eGFR calculation approach that does not have a coefficient for race that conforms to the NKF-ASN Task Force Recommendations. Performed By: #### [id number] #### [facility] [address] [place], [place] [id number] Sudhir Artis M.D. [id number] Bilirubin [Mass/Vol] 0.3 mg/dL Normal 0.0-1.3 [facility] Comment on above: Order Comment: [facility] has implemented the eGFR calculation approach that does not have a coefficient for race that conforms to the NKF-ASN Task Force Recommendations. Performed By: #### [id number] #### [facility] [address] [place] [address] Sudhir Artis M.D. [id number] Calcium [Mass/Vol] 9.7 mg/dL Normal 8.4-10.2 [facility] Comment on above: Order Comment: [facility] has implemented the eGFR calculation approach that does not have a coefficient for race that conforms to the NKF-ASN Task Force Recommendations. Performed By: #### 4 6126 #### [facility] [address] [place], [place] [address] Sudhir Artis M.D. [id number] Chloride [Moles/Vol] 103 mmol/L Normal 98-108 [facility] Comment on above: Order Comment: [facility] has implemented the eGFR calculation approach that does not have a coefficient for race that conforms to the NKF-ASN Task Force Recommendations. Performed By: #### 4 6126 #### [facility] [address] [place], [place] [address] Sudhir Artis M.D. [id number] Creatinine [Mass/Vol] 0.64 mg/dL Normal 0.40-1.10 [facility] Comment on above: Order Comment: [facility] has implemented the eGFR calculation approach that does not have a coefficient for race that conforms to the NKF-ASN Task Force Recommendations. Performed By: #### 4 6126 #### [facility] [address] [place] [address] Sudhir Artis M.D. [id number] EGFR 106 mL/min/1.73 m2 Normal >=60 [facility] Comment on above: Order Comment: [facility] has implemented the eGFR calculation approach that does not have a coefficient for race that conforms to the NKF-ASN Task Force Recommendations. Result Comment: Yun mated GFR was calculated using the 2020 CKD-EPI creatinine equation. Performed By: #### 4 6126 #### [facility] [address] [place] [address] Sudhir Artis M.D. [id number] Glucose [Mass/Vol] 155 mg/dL High 65-99 [facility] Comment on above: Order Comment: [facility] has implemented the eGFR calculation approach that does not have a coefficient for race that conforms to the NKF-ASN Task Force Recommendations. Performed By: #### 4 6126 #### [facility] [address] [place] [address] Sudhir Artis M.D. [id number] HCO3 (Bld) [Moles/Vol] 20 mmol/L Low 21-32 [facility] Comment on above: Order Comment: [facility] has implemented the eGFR calculation approach that does not have a coefficient for race that conforms to the NKF-ASN Task Force Recommendations. Performed By: #### 4 6126 #### [facility] [address] [place], [place] [address] Sudhir Artis M.D. [id number] Potassium [Moles/Vol] 4.2 mmol/L Normal 3.5-5.1 [facility] Comment on above: Order Comment: [facility] has implemented the eGFR calculation approach that does not have a coefficient for race that conforms to the NKF-ASN Task Force Recommendations. Performed By: #### 4 6126 #### [facility] [address] [place], [place] [address] Sudhir Artis M.D. [id number] Protein [Mass/Vol] 6.7 g/dL Normal 6.0-8.0 [facility] Comment on above: Order Comment: [facility] has implemented the eGFR calculation approach that does not have a coefficient for race that conforms to the NKF-ASN Task Force Recommendations. Performed By: #### 4 6126 #### [facility] [address] [place] [address] Sudhir Artis M.D. [id number] Sodium [Moles/Vol] 141 mmol/L Normal 135-145 [facility] Comment on above: Order Comment: [facility] has implemented the eGFR calculation approach that does not have a coefficient for race that conforms to the NKF-ASN Task Force Recommendations. Performed By: #### 4 6126 #### [facility] [address] [place] [address] Sudhir Artis M.D. [id number] Urea nitrogen [Mass/Vol] 12 mg/dL Normal 8-25 [facility] Comment on above: Order Comment: [facility] has implemented the eGFR calculation approach that does not have a coefficient for race that conforms to the NKF-ASN Task Force Recommendations. Performed By: #### 4 6126 #### [facility] [address] [place] [address] Sudhir Artis M.D. [id number] Urea nitrogen/Creatini ne [Mass ratio] 18.8 mg/mg Normal 10.0-20.0 [facility] Comment on above: Order Comment: [facility] has implemented the eGFR calculation approach that does not have a coefficient for race that conforms to the NKF-ASN Task Force Recommendations. Performed By: #### 4 6126 #### [facility] [address] [place] [address] 30338 Sudhir Artis M.D. [id number] CORTISOL, RANDOMon CORTISOL RANDOM 7.1 mcg/dL Normal [facility] Comment on above: Order Comment: No es tablished reference range. Performed By: #### 4 5320 #### [facility] [address] [place], [place] [address] Sudhir Artis M.D. [id number] DHEA-SULFATEon 05-01-2024 DHEA-SO4 125 mcg/dL Normal 8-188 [facility] Comment on above: Result Comment: Assa y performed by [employer] DXI Immunoassay. Performed By: #### 4 5442 #### [facility] [address] [place] [address]64 Sudhir Artis M.D. [id number] ESTRADIOLon 05-01-2024 ESTRADIOL 12 pg/mL Low 15-350 [facility] Comment on above: Order Comment: Estra diol Female: Pre Menopausal 15-350 pg/mL Post Menopausal <10 pg/mL Estradiol levels change during the menstrual cycle as follows: Post-menses as low as 15 pg/mL Levels rise during the follicular phase to the 300+ pg/mL range Levels fall in the luteal phase Menses occurs in the 50-100 pg/mL range Performed By: #### 4 5549 #### [facility] [address] [place] [address] Sudhir Artis M.D. [id number] PROGESTERONEon 05-01-2024 PROGESTERONE 2.0 ng/mL Normal [facility] Comment on above: Order Comment: Expec jie Values: Males: 0 -0.6 ng/mL Non females: Follicular phase: 0 - 1.5 ng/mL Luteal phase: 2.3 - 25.0 ng/mL Mid-luteal phase: 3.5 - 25.0 ng/mL Postmenopausal: 0 - 0.7 ng/mL Oral contraceptives: 0 -0.4 ng/mL females: First trimester: 8.1 - 42.0 ng/mL Performed By: #### 4 6361 #### [facility] [address] [place] [address]358 Sudhir Artis M.D. [id number] T3, FREEon 05-01-2024 Free T3 [Mass/Vol] 3.1 pg/mL Normal 2.0-4.4 [facility] Comment on above: Performed By: #### 4 6126 #### [facility] [address] [place] [address] Sudhir Artis M.D. [id number] T3, REVERSEon 05-01-2024 MARK - T3 REVERSE 17 ng/dL Normal 10-24 [facility] Comment on above: Result Comment: ADDITIONAL INFORMATION This test was developed and its performance characteristics determined by [facility] in a manner consistent with CLIA requirements. This test has not been cleared or approved by the [place]. Food and Drug Administration. Test Performed by: [facility] [address] [place] [address] [employer] Up Operator: Haley Jean Baptiste Ph.D.; CLIA# [id number] Performed By: #### 4 6453 #### [facility] [address] [facility] [address] MATT[place]AN T4, FREEon 05-01-2024 Free T4 [Mass/Vol] 1.1 ng/dL Normal 0.7-1.7 [facility] Comment on above: Performed By: #### 4 6567 #### [facility] [address] [place] [address] Sudhir Artis M.D. [id number] TESTOSTERONE, TOTALon 2023 Testosterone [Mass/Vol] 9 ng/dL Normal 6-82 [facility] Comment on above: Result Comment: Valu es <12.0 ng/dL may exhibit a high degree of imprecision and should be interpreted with caution. Performed By: #### 4 6126 #### [facility] [address] [place] [address] Sudhir Artis M.D. [id number] TSHon 05-01-2024 TSH Qn 1.64 m[IU]/L Normal 0.27-4.20 [facility] Comment on above: Performed By: #### 4 6126 #### [facility] [address] [place] [address] 00672 Sudhir Atris M.D. [id number] CBC WITH AUTO DIFFERENTIALon 02-27-2024 AUTO NRBC 0.0 % Normal [facility] Comment on above: Performed By: #### 4 6126 #### [facility] [address] [place] [address]148 Sudhir Artis M.D. [id number] AUTO NRBC ABS COUNT 0.00 K/mcL Normal 0.00-0.00 [facility] Comment on above: Performed By: #### 4 6125 #### [facility] [address] [place], [place] [address] Sudhir Artis M.D. [id number] BASOPHILS ABSOLUTE COUNT 0.03 K/mcL Normal 0.00-0.30 [facility] Comment on above: Performed By: #### 4 61 #### [facility] [address] [place] [address] Sudhir Artis M.D. [id number] Basophils/100 WBC (Bld) 0.6 % Normal [facility] Comment on above: Performed By: #### 4 6151 #### [facility] [address] [place] [address] Sudhir Artis M.D. [id number] Eosinophils (Bld) [#/Vol] 0.13 10*3/uL Normal 0.00-0.50 [facility] Comment on above: Performed By: #### 4 6126 #### [facility] [address] [place] [address] Sudhir Artis M.D. [id number] Eosinophils/100 WBC (Bld) 2.6 % Normal [facility] Comment on above: Performed By: #### 4 6196 #### [facility] [address] [place], [place] [address] Sudhir Artis M.D. [id number] Erythrocyte distribution width (RBC) [Ratio] 12.7 % Normal 11.6-14.8 [facility] Comment on above: Performed By: #### 4 2370 #### [facility] [address] [place], [place] [address] Sudhir Artis M.D. [id number] Hematocrit (Bld) [Volume fraction] 38.5 % Normal 36.0-46.0 [facility] Comment on above: Performed By: #### 4 9106 #### [facility] [address] [id number] Sudhir Artis M.D. [id number] Hemoglobin (Bld) [Mass/Vol] 12.4 g/dL Normal 12.0-16.0 [facility] Comment on above: Performed By: #### 4 6126 #### [facility] [address] [place] [address] Sudhir Artis M.D. [id number] IG ABSOLUTE 0.01 K/mcL Normal 0.00-0.30 [facility] Comment on above: Performed By: #### 4 6126 #### [facility] [address] [place] [address] Sudhir Artis M.D. [id number] IG PERCENT 0.20 % Normal [facility] Comment on above: Result Comment: The IG parameter is the percentage of metamyelocytes, myelocytes and promyelocytes. An immature granulocyte count (IG) of 1% or more suggests the possibility of infection, an IG count of 3% is very likely related to an infection. Performed By: #### 4 6126 #### [facility] [address] [place] [address] Sudhir Artis M.D. [id number] Lymphocytes (Bld) [#/Vol] 1.44 10*3/uL Normal 0.90-4.00 [facility] Comment on above: Performed By: #### 4 6156 #### [facility] [address] [place], [place] [address] Sudhir Artis M.D. [id number] Lymphocytes/100 WBC (Bld) 29.1 % Normal [facility] Comment on above: Performed By: #### 4 6132 #### [facility] [address] [place], [place] [address] Sudhir Artis M.D. [id number] MCH (RBC) [Entitic mass] 28.8 pg Normal 26.0-34.0 [facility] Comment on above: Performed By: #### 4 6126 #### [facility] [address] [place], [place] [address] Sudhir Artis M.D. [id number] MCV (RBC) [Entitic vol] 89.3 fL Normal 80.0-100.0 [facility] Comment on above: Performed By: #### 4 6199 #### [facility] [address] [place] [address] Sudhir Artis M.D. [id number] MEAN CORPUSCULAR HEMOGLOBIN CONC 32.2 g/dL Normal 31.0-37.0 [facility] Comment on above: Performed By: #### 4 6126 #### [facility] [address] [place] [address] Sudhir Artis M.D. [id number] Monocytes (Bld) [#/Vol] 0.25 10*3/uL Low 0.30-0.90 [facility] Comment on above: Performed By: #### 4 6126 #### [facility] [address] [place] [address] Sudhir Artis M.D. [id number] Monocytes/100 WBC (Bld) 5.1 % Normal [facility] Comment on above: Performed By: #### 4 6111 #### [facility] [address] [place], [place] [address] Sudhir Artis M.D. [id number] NEUTROPHILS ABSOLUTE COUNT 3.09 K/mcL Normal 1.70-7.00 [facility] Comment on above: Performed By: #### 4 1800 #### [facility] [address] [place], [place] [address] Sudhir Artis M.D. [id number] Neutrophils/100 WBC (Bld) 62.4 % Normal [facility] Comment on above: Performed By: #### 4 2669 #### [facility] [address] [place] [address] Sudhir Artis M.D. [id number] Platelet mean volume (Bld) [Entitic vol] 10.7 fL Normal 9.4-12.4 [facility] Comment on above: Performed By: #### 4 6126 #### [facility] [address] [place] [address] 8[address]56 Sudhir Artis M.D. [id number] Platelets (Bld) [#/Vol] 300 10*3/uL Normal 150-400 [facility] Comment on above: Performed By: #### 4 6126 #### [facility] [address] [place] [address] 30447 Sudhir Artis M.D. [id number] RBC (Bld) [#/Vol] 4.31 10*6/uL Normal 4.00-5.20 [facility] Comment on above: Performed By: #### 4 6126 #### [facility] [address] [place] [address] 94186 Sudhir Artis M.D. [id number] WBC (Bld) [#/Vol] 4.95 10*3/uL Normal 4.50-11.00 [facility] Comment on above: Performed By: #### 4 6126 #### [facility] [address] [place] [address] 00210 Sudhir Artis M.D. [id number] COMPREHENSIVE METABOLIC PANE [facility] 02-27-2024 Albumin [Mass/Vol] 4.2 g/dL Normal 3.2-5.2 [facility] Comment on above: Order Comment: [facility] has implemented the eGFR calculation approach that does not have a coefficient for race that conforms to the NKF-ASN Task Force Recommendations. Performed By: #### 4 6126 #### [facility] [address] [place] [address]36 Sudhir Artis M.D. [id number] ALP [Catalytic activity/Vol] 106 U/L Normal 40-150 [facility] Comment on above: Order Comment: [facility] has implemented the eGFR calculation approach that does not have a coefficient for race that conforms to the NKF-ASN Task Force Recommendations. Performed By: #### 4 6126 #### [facility] [address] [place], [place] [address] Sudhir Artis M.D. [id number] ALT [Catalytic activity/Vol] 31 U/L Normal 0-35 U/L [facility] Comment on above: Order Comment: [facility] has implemented the eGFR calculation approach that does not have a coefficient for race that conforms to the NKF-ASN Task Force Recommendations. Performed By: #### 4 6126 #### [facility] [address] [place], [place] [address] Sudhir Artis M.D. [id number] Anion gap [Moles/Vol] 16 mmol/L Normal 10-20 [facility] Comment on above: Order Comment: [facility] has implemented the eGFR calculation approach that does not have a coefficient for race that conforms to the NKF-ASN Task Force Recommendations. Performed By: #### 4 6126 #### [facility] [address] [place] [address] 97693 Sudhir Artis M.D. [id number] AST [Catalytic activity/Vol] 22 U/L Normal 0-35 U/L [facility] Comment on above: Order Comment: [facility] has implemented the eGFR calculation approach that does not have a coefficient for race that conforms to the NKF-ASN Task Force Recommendations. Performed By: #### 4 6126 #### [facility] [address] [place] [address] Sudhir Artis M.D. [id number] Bilirubin [Mass/Vol] 0.5 mg/dL Normal 0.0-1.3 [facility] Comment on above: Order Comment: [facility] has implemented the eGFR calculation approach that does not have a coefficient for race that conforms to the NKF-ASN Task Force Recommendations. Performed By: #### 4 6126 #### [facility] [address] [place] [address] 53618 Sudhir Artis M.D. [id number] Calcium [Mass/Vol] 9.6 mg/dL Normal 8.4-10.2 [facility] Comment on above: Order Comment: [facility] has implemented the eGFR calculation approach that does not have a coefficient for race that conforms to the NKF-ASN Task Force Recommendations. Performed By: #### 4 6126 #### [facility] [address] [place] [address]69 Sudhir Artis M.D. [id number] Chloride [Moles/Vol] 104 mmol/L Normal 98-108 [facility] Comment on above: Order Comment: [facility] has implemented the eGFR calculation approach that does not have a coefficient for race that conforms to the NKF-ASN Task Force Recommendations. Performed By: #### 4 6126 #### [facility] [address] [place] [address] 42566 Sudhir Artis M.D. [id number] Creatinine [Mass/Vol] 0.65 mg/dL Normal 0.40-1.10 [facility] Comment on above: Order Comment: [facility] has implemented the eGFR calculation approach that does not have a coefficient for race that conforms to the NKF-ASN Task Force Recommendations. Performed By: #### 4 6126 #### [facility] [address] [place] [address] 24259 Sudhir Artis M.D. [id number] EGFR 107 mL/min/1.73 m2 Normal >=60 [facility] Comment on above: Order Comment: [facility] has implemented the eGFR calculation approach that does not have a coefficient for race that conforms to the NKF-ASN Task Force Recommendations. Result Comment: Yun mated GFR was calculated using the 2020 CKD-EPI creatinine equation. Performed By: #### 4 6126 #### [facility] [address] [place] [address] 37762 Sudhir Artis M.D. [id number] Glucose [Mass/Vol] 159 mg/dL High 65-99 [facility] Comment on above: Order Comment: [facility] has implemented the eGFR calculation approach that does not have a coefficient for race that conforms to the NKF-ASN Task Force Recommendations. Performed By: #### 4 6126 #### [facility] [address] [place] [address] 39537 Sudhir Artis M.D. [id number] HCO3 (Bld) [Moles/Vol] 24 mmol/L Normal 21-32 [facility] Comment on above: Order Comment: [facility] has implemented the eGFR calculation approach that does not have a coefficient for race that conforms to the NKF-ASN Task Force Recommendations. Performed By: #### 4 6126 #### [facility] [address] [place] [address] 45815 Sudhir Artis M.D. [id number] Potassium [Moles/Vol] 4.4 mmol/L Normal 3.5-5.1 [facility] Comment on above: Order Comment: [facility] has implemented the eGFR calculation approach that does not have a coefficient for race that conforms to the NKF-ASN Task Force Recommendations. Performed By: #### 4 6126 #### [facility] [address] [place], [place] [address] Sudhir Artis M.D. [id number] Protein [Mass/Vol] 6.7 g/dL Normal 6.0-8.0 [facility] Comment on above: Order Comment: [facility] has implemented the eGFR calculation approach that does not have a coefficient for race that conforms to the NKF-ASN Task Force Recommendations. Performed By: #### 4 6126 #### [facility] [address] [place], [place] [address] Sudhir Artis M.D. [id number] Sodium [Moles/Vol] 140 mmol/L Normal 135-145 [facility] Comment on above: Order Comment: [facility] has implemented the eGFR calculation approach that does not have a coefficient for race that conforms to the NKF-ASN Task Force Recommendations. Performed By: #### 4 6126 #### [facility] [address] [place], [place] [address] Sudhir Artis M.D. [id number] Urea nitrogen [Mass/Vol] 11 mg/dL Normal 8-25 [facility] Comment on above: Order Comment: [facility] has implemented the eGFR calculation approach that does not have a coefficient for race that conforms to the NKF-ASN Task Force Recommendations. Performed By: #### 4 6126 #### [facility] [address] [place], [place] [address] Sudhir Artis M.D. [id number] Urea nitrogen/Creatini ne [Mass ratio] 16.9 mg/mg Normal 10.0-20.0 [facility] Comment on above: Order Comment: [facility] has implemented the eGFR calculation approach that does not have a coefficient for race that conforms to the NKF-ASN Task Force Recommendations. Performed By: #### 4 6126 #### [facility] [address] [place], [place] [address] Sudhir Artis M.D. [id number] DHEA-SULFATEon 02-27-2024 DHEA-SO4 151 mcg/dL Normal 8-188 [facility] Comment on above: Result Comment: Assa y performed by [employer] Immunoassay. Performed By: #### 4 5442 #### [facility] [address] [place], [place] [address] Sudhir Artis M.D. [id number] ESTRADIOLon 02-27-2024 ESTRADIOL 26 pg/mL Normal 15-350 [facility] Comment on above: Order Comment: [facility] has implemented the eGFR calculation approach that does not have a coefficient for race that conforms to the NKF-ASN Task Force Recommendations. Performed By: #### 4 6126 #### [facility] [address] [place] [address] 57011 Sudhir Artis M.D. [id number] PROGESTERONEon 02-27-2024 PROGESTERONE 2.4 ng/mL Normal [facility] Comment on above: Order Comment: [facility] has implemented the eGFR calculation approach that does not have a coefficient for race that conforms to the NKF-ASN Task Force Recommendations. Performed By: #### 4 6126 #### [facility] [address] [place], [place] [id number] Sudhir Artis M.D. [id number] T3, FREEon 02-27-2024 Free T3 [Mass/Vol] 3.6 pg/mL Normal 2.0-4.4 [facility] Comment on above: Performed By: #### 4 5662 #### [facility] [address] [place], [place] [id number] Sudhir Artis M.D. [id number] T4, FREEon 02-27-2024 Free T4 [Mass/Vol] 0.9 ng/dL Normal 0.7-1.7 [facility] Comment on above: Performed By: #### 4 6126 #### [facility] [address] [place] [address] Sudhir Artis M.D. [id number] TESTOSTERONE, TOTALon 2023 Testosterone [Mass/Vol] 34 ng/dL Normal 6-82 [facility] Comment on above: Performed By: #### 4 6126 #### [facility] [address] [place] [address] Sudhir Artis M.D. [id number] TSHon 02-27-2024 TSH Qn 1.00 m[IU]/L Normal 0.27-4.20 [facility] Comment on above: Performed By: #### 4 6613 #### [facility] [address] [place] [address] Sudhir Artis M.D. [id number] Osteopathic Manipulative Artemio atmenton 01-12-2024 Ml Allen DO 2023 8:19 AM Osteopathic Manipulative Treatment Date/Time: 01/12/2024 1:12 PM Performed by: Ml Allen DO Authorized by: Ml Allen DO Informed Consent: Consent given by: Patient Informed consent discussion completed by Physician/BRYAN with patient: Verbal Procedure: Based on patient's verbal history and today's physical exam findings, osteopathic manipulative treatment is indicated Technique(s) used: cranial manipulation and myofascial release technique Regions Accessed: head, cervical, thoracic and rib cage Total number of regions: 4 Post-procedure: Procedure was tolerated well and no complication were noted Patient instructed to: increase fluid intake, treat increased pain with ice and/or heat intermittently and employ a home exercise program Patient is to return: As needed Comments: Recommend f/u with chiropractic and consider acupuncture. [facility] Osteopathic Manipulative Artemio atmenton 12-29-2023 Ml Allen DO 2023 2:24 PM Osteopathic Manipulative Treatment Date/Time: 12/29/2023 2:20 PM Performed by: Ml Allen DO Authorized by: Ml Allen DO Informed Consent: Consent given by: Patient Informed consent discussion completed by Physician/BRYAN with patient: Verbal Procedure: Based on patient's verbal history and today's physical exam findings, osteopathic manipulative treatment is indicated Technique(s) used: balanced ligamentous tension, cranial manipulation and myofascial release technique Regions Accessed: head, cervical, thoracic, lumbar, sacral, pelvic and rib cage Total number of regions: 7 Post-procedure: Procedure was tolerated well and no complication were noted Patient instructed to: increase fluid intake, treat increased pain with ice and/or heat intermittently and employ a home exercise program Patient is to return: As needed [facility] Osteopathic Manipulative Artemio atmenton 12-15-2023 Ml Allen DO 2023 3:02 PM Osteopathic Manipulative Treatment Date/Time: 12/15/2023 3:00 PM Performed by: Ml Allen DO Authorized by: Ml Allen DO Informed Consent: Patient agrees, verbalizes understanding, and wants to proceed: yes Consent given by: Patient Informed consent discussion completed by Physician/BRYAN with patient: Verbal Procedure: Based on patient's verbal history and today's physical exam findings, osteopathic manipulative treatment is indicated Technique(s) used: balanced ligamentous tension, cranial manipulation and myofascial release technique Regions Accessed: head, cervical, thoracic, lumbar, sacral, pelvic and rib cage Total number of regions: 7 Post-procedure: Procedure was tolerated well and no complication were noted Patient instructed to: increase fluid intake, treat increased pain with ice and/or heat intermittently and employ a home exercise program Patient is to return: As needed [facility] POCT URINE DIPSTICK AUTOMATE Don 11-04-2023 Amorphous sediment LM Ql (Urine sed) [facility] Appearance (U) [facility] Bacteria LM Ql ([facility]rine sed) [facility]l (U) [facility] Casts LM.LPF (Urine sed) [#/Area] [facility] Color (U) yellow [facility] Crystals LM Nom (Urine sed) [facility] Epithelial cells.squamous LM.HPF (Urine sed) [#/Area] [facility] Flow cytometry specialist review Enrique (Unsp spec) [Interp] [facility] Glucose Auto test strip (U) [Mass/Vol] 500 mg/dL [facility] Interpretation and review of laboratory results Abnormal [facility] Ketones [Mass/Vol] Negative mg/dL [facility] Leukocyte esterase Qn (U) [facility] Leukocyte esterase Test strip Ql (U) small [facility] Microscopic observation Gram stain Nom (Bronch spec) [facility] Nitrite Ql (U) Negative [facility] pH (U) 5.5 [pH] 5 - 7 [facility] Protein Ql (U) Negative mg/dL [facility] RBC LM.HPF (Urine sed) [#/Area] [facility] RBC Ql (U) moderate [facility] Specific gravity (U) [Rel density] 1.010 1.001 - 1.035 [facility] Transitional cells LM Ql (Urine sed) [facility] Urobilinogen Qn (U) 0.2 [facility] WBC LM.HPF (Urine sed) [#/Area] [facility] XR CHEST PA/APon 06-17-2023 XR CHEST PA/AP EXAMINATION: XR CHEST PA/AP HISTORY: ORDERING SYSTEM PROVIDED HISTORY: eval for picc location, TECHNOLOGIST PROVIDED HISTORY: Illness/Other Reason for exam: States PICC line replacement today. States new soreness and discomfort after placement. States wants medical evaluation to verify no problems with PICC line. States told to present to ED if having new pain with PICC. States flushed and Heparin locked after placement. Denies chest pain Cancer History: no Surgery, RadiationHistory: none to chest Encounter Type: Initial Additional signs and symptoms: States PICC line replacement today. States new soreness and discomfort after placement. States wants medical evaluation to verify no problems with PICC line. States told to present to ED if having new pain with PICC. States flushed and Heparin locked after placement. Denies chest pain ORDERING SYSTEM PROVIDED DIAGNOSIS CODES: COMPARISON: 05/14/2018 FINDINGS: The lungs are clear of airspace consolidation. There is no appreciable pneumothorax or pleural effusion. The pulmonary vascularity is within normal limits for technique. The cardiomediastinal silhouette is within normal limits. Right PICC line tip in the superior vena cava. IMPRESSION: Lungs are clear no acute cardiopulmonary disease. Right PICC line tip in the superior vena cava. Workstation ID: [id number] Dictated by: DONA HARO on TueJun 17, 2023 1:58:13 AM EDT Transcribed by: DOAN HARO on TueJun 17, 2023 1:58:13 AM EDT Finalized by: DONA HARO on TueJun 17, 2023 1:58:13 AM EDT [facility] Comment on above: Order Comment: Injur y/Trauma or Illness?:Illness/Other How long have you had these symptoms (acute/chronic)?:Acute Reason for exam?:States PICC line replacement today. States new soreness and discomfort after placement. States wants medical evaluation to verify no problems with PICC line. States told to present to ED if having new pain with PICC. States flushed and Heparin locked after placement. Denies chest pain History of cancer?:no Surgeries, chemotherapy, or radiation?:none to chest Type of Exam?:Initial Additional signs and symptoms?:States PICC line replacement today. States new soreness and discomfort after placement. States wants medical evaluation to verify no problems with PICC line. States told to present to ED if having new pain with PICC. States flushed and Heparin locked after placement. Denies chest pain Procedure Reporton 3 Procedure Report [facility] Medical Records Department [address] [place] [address] Procedure Report 06/02/23 1546 MR#: [id number] Acct: [id number] Name: SARA ROJO Rep #: [id number] : 1970 53 From: Roz ROCHEC PCP: WALTER Modi Status:REG CLI Location: RAD Procedure Report Date of Procedure: 06/02/23 PICC insertion Procedures Radiology Radiology Access Procedures: [id number] Central Line/Midline PICC Line Consent Consent obtained:: Yes Consent given by (patient or responsible green party):: Patient Line successful (if no, document why in comments):: Yes Insertion Reason for Insertion: Part Time Flexible Clerk Medication Date of Insertion: 06/02/23 Ok to use: Yes Type of PICC inserted: Dual Power PICC PICC Lot #: [id number] PICC Reference #: [id number] Microintroducer Used: Yes (in kit) Ultrasound/Equipment Used: Probe Cover Kit Trimmed Length (cm): 44 Insertion Length (cm): 42 Exposed Length (cm): 2 Tip Placement: SVC (Superior Vena Cava) Placement Confirmation: 3CG Insertion Vein: Right Basilic Insertion Attempts: 1 Local Anesthesia Used: Lidocaine 1% (in kit) Dressing Applied: Tegaderm (CHG Tegaderm with kit StatLock) Arm Measurement above site (in cm): 40 Patient Tolerated Procedure: Well Threading Difficulties: No 06/02/23 7850 Cosigner Signature (if applicable): CC: PROFILING MACHINE SET UP OPERATOR-C Roz Chinchilla; PROFILING MACHINE SET UP OPERATOR-C Ursula Ruth Signed Normal [facility] DHEA Sulfateon 01-19-2023 DHEA SULFATE 211.0 ug/dL Normal 41.2-243.7 [facility] Comment on above: Order Comment: N Result Comment: Perf ormed at: [facility] [id number] [employer] Set Up Operator: Silas Martin PhD, Phone: [phone] Performed By: #### L 506.0400, L501.9520, L100.0100, L509.4001, L3300.1750, L501.43928, L509.3000, L500.4050, L503.6550, L506.1000, L503.0105, L503.6150, L3300.1500 #### [facility] [address] [place], [place], [id number] CBC W/Diff, Automatedon 01-03 Absolute Lymph 1.85 X10 3/uL Normal 0.83-4.51 [facility] Comment on above: Performed By: #### L 506.0400, L501.9520, L100.0100, L509.4001, L3300.1750, L501.75943, L509.3000, L500.4050, L503.6550, L506.1000, L503.0105, L503.6150, L3300.1500 #### [facility] [address] [place], [address] Absolute Neut 2.2 X10 3/uL Normal 2.0-7.7 [facility] Comment on above: Performed By: #### L 506.0400, L501.9520, L100.0100, L509.4001, L3300.1750, L501.29226, L509.3000, L500.4050, L503.6550, L506.1000, L503.0105, L503.6150, L3300.1500 #### [facility] [address] [place], [address] Basophils/100 WBC (Bld) 0.9 % Normal 0-1 [facility] Comment on above: Performed By: #### L 506.0400, L501.9520, L100.0100, L509.4001, L3300.1750, L501.25131, L509.3000, L500.4050, L503.6550, L506.1000, L503.0105, L503.6150, L3300.1500 #### [facility] [address] [place], [address] Eosinophils/100 WBC (Bld) 2.4 % Normal 0-5 [facility] Comment on above: Performed By: #### L 506.0400, L501.9520, L100.0100, L509.4001, L3300.1750, L501.71161, L509.3000, L500.4050, L503.6550, L506.1000, L503.0105, L503.6150, L3300.1500 #### [facility] [address] [facility] [place], [address] Erythrocyte distribution width (RBC) [Ratio] 12.2 % Normal 11.6-14.6 [facility] Comment on above: Performed By: #### L 506.0400, L501.9520, L100.0100, L509.4001, L3300.1750, L501.54065, L509.3000, L500.4050, L503.6550, L506.1000, L503.0105, L503.6150, L3300.1500 #### [facility] [address] [place], [address] Hematocrit (Bld) [Volume fraction] 39.7 % Normal 37-47 [facility] Comment on above: Performed By: #### L 506.0400, L501.9520, L100.0100, L509.4001, L3300.1750, L501.03544, L509.3000, L500.4050, L503.6550, L506.1000, L503.0105, L503.6150, L3300.1500 #### [facility] [address] [facility] [place], [address] Hemoglobin (Bld) [Mass/Vol] 12.9 g/dL Normal 12.0-15.0 [facility] Comment on above: Performed By: #### L 506.0400, L501.9520, L100.0100, L509.4001, L3300.1750, L501.16939, L509.3000, L500.4050, L503.6550, L506.1000, L503.0105, L503.6150, L3300.1500 #### [facility] [address] [facility] [place], [address] IG% 0.200 Normal 0.0-0.9 [facility] Comment on above: Result Comment: IG% - Immature Granulocytes (promyelocytes, myelocytes and metamyelocytes) > 1% indicates that a LEFT SHIFT is Present. Performed By: #### L 506.0400, L501.9520, L100.0100, L509.4001, L3300.1750, L501.75365, L509.3000, L500.4050, L503.6550, L506.1000, L503.0105, L503.6150, L3300.1500 #### [facility] [address] [facility] [place], [address] Lymphocytes/100 WBC (Bld) 39.8 % Normal 19-41 [facility] Comment on above: Performed By: #### L 506.0400, L501.9520, L100.0100, L509.4001, L3300.1750, L501.59771, L509.3000, L500.4050, L503.6550, L506.1000, L503.0105, L503.6150, L3300.1500 #### [facility] [address], [address] MCH (RBC) [Entitic mass] 30.0 pg Normal 27.0-32.0 [facility] Comment on above: Performed By: #### L 506.0400, L501.9520, L100.0100, L509.4001, L3300.1750, L501.75382, L509.3000, L500.4050, L503.6550, L506.1000, L503.0105, L503.6150, L3300.1500 #### [facility] [address] [facility] [place], [address] MCHC (RBC) [Mass/Vol] 32.5 g/dL Normal 32-36 [facility] Comment on above: Performed By: #### L 506.0400, L501.9520, L100.0100, L509.4001, L3300.1750, L501.85585, L509.3000, L500.4050, L503.6550, L506.1000, L503.0105, L503.6150, L3300.1500 #### [facility] [address] [place], [address] MCV (RBC) [Entitic vol] 92.3 fL Normal 81-99 [facility] Comment on above: Performed By: #### L 506.0400, L501.9520, L100.0100, L509.4001, L3300.1750, L501.07700, L509.3000, L500.4050, L503.6550, L506.1000, L503.0105, L503.6150, L3300.1500 #### [facility] [address] [facility] [place], [address] Monocytes/100 WBC (Bld) 8.6 % Normal 0-10 [facility] Comment on above: Performed By: #### L 506.0400, L501.9520, L100.0100, L509.4001, L3300.1750, L501.99969, L509.3000, L500.4050, L503.6550, L506.1000, L503.0105, L503.6150, L3300.1500 #### [facility] [address] [place], [address] Neutrophils/100 WBC (Bld) 48.1 % Normal 47-70 [facility] Comment on above: Performed By: #### L 506.0400, L501.9520, L100.0100, L509.4001, L3300.1750, L501.46793, L509.3000, L500.4050, L503.6550, L506.1000, L503.0105, L503.6150, L3300.1500 #### [facility] [address] [place], [place], [id number] (334) Nucleated RBC (Bld) [#/Vol] 0 10*3/uL Normal 0-5 [facility] Comment on above: Performed By: #### L 506.0400, L501.9520, L100.0100, L509.4001, L3300.1750, L501.12283, L509.3000, L500.4050, L503.6550, L506.1000, L503.0105, L503.6150, L3300.1500 #### [facility] [address] [place], [place], [id number] (578) Platelet mean volume (Bld) [Entitic vol] 10.9 fL Normal 6.2-12.0 [facility] Comment on above: Performed By: #### L 506.0400, L501.9520, L100.0100, L509.4001, L3300.1750, L501.35820, L509.3000, L500.4050, L503.6550, L506.1000, L503.0105, L503.6150, L3300.1500 #### [facility] [address] [facility] [place], [address] Platelets (Bld) [#/Vol] 310 10*3/uL Normal 150-450 [facility] Comment on above: Performed By: #### L 506.0400, L501.9520, L100.0100, L509.4001, L3300.1750, L501.85449, L509.3000, L500.4050, L503.6550, L506.1000, L503.0105, L503.6150, L3300.1500 #### [facility] [address] [place], [address] RBC (Bld) [#/Vol] 4.30 10*6/uL Normal 4.2-5.4 [facility] Comment on above: Performed By: #### L 506.0400, L501.9520, L100.0100, L509.4001, L3300.1750, L501.54712, L509.3000, L500.4050, L503.6550, L506.1000, L503.0105, L503.6150, L3300.1500 #### [facility] [address] [place], [address] RDW SD 41.6 fl Normal 35.1-43.9 [facility] Comment on above: Performed By: #### L 506.0400, L501.9520, L100.0100, L509.4001, L3300.1750, L501.66066, L509.3000, L500.4050, L503.6550, L506.1000, L503.0105, L503.6150, L3300.1500 #### [facility] [address] [facility] [place], [address] WBC (Bld) [#/Vol] 4.7 10*3/uL Normal 4.4-11.0 [facility] Comment on above: Performed By: #### L 506.0400, L501.9520, L100.0100, L509.4001, L3300.1750, L501.23357, L509.3000, L500.4050, L503.6550, L506.1000, L503.0105, L503.6150, L3300.1500 #### [facility] [address] [place], [address] Comprehensive Metabolic Prof sdon 01-17-2023 Albumin [Mass/Vol] 4.0 g/dL Normal 3.2-5.0 [facility] Comment on above: Performed By: #### L 506.0400, L501.9520, L100.0100, L509.4001, L3300.1750, L501.70361, L509.3000, L500.4050, L503.6550, L506.1000, L503.0105, L503.6150, L3300.1500 #### [facility] [address] [facility]. [place], [place], [id number] (368) Albumin/Globulin [Mass ratio] 0.9 {ratio} Normal 0.9-2.4 [facility] Comment on above: Performed By: #### L 506.0400, L501.9520, L100.0100, L509.4001, L3300.1750, L501.24810, L509.3000, L500.4050, L503.6550, L506.1000, L503.0105, L503.6150, L3300.1500 #### [facility] [address] [place], [place], [id number] ALK P 103 U/L Normal 45-117 [facility] Comment on above: Performed By: #### L 506.0400, L501.9520, L100.0100, L509.4001, L3300.1750, L501.19093, L509.3000, L500.4050, L503.6550, L506.1000, L503.0105, L503.6150, L3300.1500 #### [facility] [address] [place], [address] ALT [Catalytic activity/Vol] 37 U/L Normal 13-56 [facility] Comment on above: Performed By: #### L 506.0400, L501.9520, L100.0100, L509.4001, L3300.1750, L501.34807, L509.3000, L500.4050, L503.6550, L506.1000, L503.0105, L503.6150, L3300.1500 #### [facility] [address] [place], [address] AST [Catalytic activity/Vol] 19 U/L Normal 15-37 [facility] Comment on above: Performed By: #### L 506.0400, L501.9520, L100.0100, L509.4001, L3300.1750, L501.80724, L509.3000, L500.4050, L503.6550, L506.1000, L503.0105, L503.6150, L3300.1500 #### [facility] [address] [place], [place], [id number] Bilirubin [Mass/Vol] 0.30 mg/dL Normal 0.20-1.00 [facility] Comment on above: Result Comment: For patients on eltrombopag therapy, use of Dimension Horton TBIL is not recommended. Performed By: #### L 506.0400, L501.9520, L100.0100, L509.4001, L3300.1750, L501.57968, L509.3000, L500.4050, L503.6550, L506.1000, L503.0105, L503.6150, L3300.1500 #### [facility] [address] [place], [address] BUN/CRE 21.5 RATIO High 10-20 [facility] Comment on above: Performed By: #### L 506.0400, L501.9520, L100.0100, L509.4001, L3300.1750, L501.78564, L509.3000, L500.4050, L503.6550, L506.1000, L503.0105, L503.6150, L3300.1500 #### [facility] [address] [place], [address] CA,Total 9.6 mg/dL Normal 8.5-10.1 [facility] Comment on above: Performed By: #### L 506.0400, L501.9520, L100.0100, L509.4001, L3300.1750, L501.67561, L509.3000, L500.4050, L503.6550, L506.1000, L503.0105, L503.6150, L3300.1500 #### [facility] [address] [place], [address] Chloride [Moles/Vol] 101 mmol/L Normal 98-107 [facility] Comment on above: Performed By: #### L 506.0400, L501.9520, L100.0100, L509.4001, L3300.1750, L501.21892, L509.3000, L500.4050, L503.6550, L506.1000, L503.0105, L503.6150, L3300.1500 #### [facility] [address] [place], [address] CO2 [Moles/Vol] 29.0 mmol/L Normal 21.0-32.0 [facility] Comment on above: Performed By: #### L 506.0400, L501.9520, L100.0100, L509.4001, L3300.1750, L501.94107, L509.3000, L500.4050, L503.6550, L506.1000, L503.0105, L503.6150, L3300.1500 #### [facility] [address] [place], [address] Creatinine [Mass/Vol] 0.70 mg/dL Normal 0.55-1.02 [facility] Comment on above: Result Comment: The validity of the calculated GFR GFRAA in patients over 70 years has not been determined. Clinical correlation is essential. Performed By: #### L 506.0400, L501.9520, L100.0100, L509.4001, L3300.1750, L501.30669, L509.3000, L500.4050, L503.6550, L506.1000, L503.0105, L503.6150, L3300.1500 #### [facility] [address] [place], [place], [id number] EST GFR - AA 114 mL/min Normal >60 [facility] Comment on above: Result Comment: Afri can Uzbek GFR Calc Performed By: #### L 506.0400, L501.9520, L100.0100, L509.4001, L3300.1750, L501.12378, L509.3000, L500.4050, L503.6550, L506.1000, L503.0105, L503.6150, L3300.1500 #### [facility] [address] [place], [place], [id number] GAP 10 Normal 5-15 [facility] Comment on above: Performed By: #### L 506.0400, L501.9520, L100.0100, L509.4001, L3300.1750, L501.95793, L509.3000, L500.4050, L503.6550, L506.1000, L503.0105, L503.6150, L3300.1500 #### [facility] [address] [place], [place], [id number] GFR/1.73 sq M.predicted among non-blacks MDRD (S/P/Bld) [Vol rate/Area] 94 mL/min/{1.73_m2} Normal >60 [facility] Comment on above: Result Comment: Non- GFR Calc Performed By: #### L 506.0400, L501.9520, L100.0100, L509.4001, L3300.1750, L501.47815, L509.3000, L500.4050, L503.6550, L506.1000, L503.0105, L503.6150, L3300.1500 #### [facility] [address] [place], [address] Globulin (S) [Mass/Vol] 4.3 g/dL High 2.2-4.2 [facility] Comment on above: Performed By: #### L 506.0400, L501.9520, L100.0100, L509.4001, L3300.1750, L501.67059, L509.3000, L500.4050, L503.6550, L506.1000, L503.0105, L503.6150, L3300.1500 #### [facility] [address] [place], [address] Glucose [Mass/Vol] 88 mg/dL Normal 74-106 [facility] Comment on above: Performed By: #### L 506.0400, L501.9520, L100.0100, L509.4001, L3300.1750, L501.02936, L509.3000, L500.4050, L503.6550, L506.1000, L503.0105, L503.6150, L3300.1500 #### [facility] [address] [place], [address] Potassium [Moles/Vol] 3.5 mmol/L Normal 3.5-5.1 [facility] Comment on above: Performed By: #### L 506.0400, L501.9520, L100.0100, L509.4001, L3300.1750, L501.09789, L509.3000, L500.4050, L503.6550, L506.1000, L503.0105, L503.6150, L3300.1500 #### [facility] [address] [place], [address] Sodium [Moles/Vol] 140 mmol/L Normal 136-145 [facility] Comment on above: Performed By: #### L 506.0400, L501.9520, L100.0100, L509.4001, L3300.1750, L501.22871, L509.3000, L500.4050, L503.6550, L506.1000, L503.0105, L503.6150, L3300.1500 #### [facility] [address] [place], [place], [id number] (001) T PROT 8.3 g/dL High 6.4-8.2 [facility] Comment on above: Performed By: #### L 506.0400, L501.9520, L100.0100, L509.4001, L3300.1750, L501.76849, L509.3000, L500.4050, L503.6550, L506.1000, L503.0105, L503.6150, L3300.1500 #### [facility] [address] [place], [place], [id number] (961) Urea nitrogen [Mass/Vol] 15 mg/dL Normal 7-18 [facility] Comment on above: Performed By: #### L 506.0400, L501.9520, L100.0100, L509.4001, L3300.1750, L501.16635, L509.3000, L500.4050, L503.6550, L506.1000, L503.0105, L503.6150, L3300.1500 #### [facility] [address] [place], [address] Estradiolon 01-17-2023 ESTRADIOL 19.7 pg/mL Normal [facility] Comment on above: Result Comment: NORM AL REFERENCE RANGES FEMALE FOLLICULAR 21.4 - 164.8 pg/mL MID-CYCLE PEAK 49.9 - 367.2 pg/mL LUTEAL 40.2 - 259.0 pg/mL POST-MENOPAUSAL ON MHT <11.0 - 462.1 pg/mL NOT ON MHT <11.0 - 58.3 pg/mL MALE <11.0 - 52.5 pg/mL NOTE: [facility] HAS CONFIRMED THE DRUG FULVETRANT (FASLODEX) MAY CAUSE FALSELY ELEVATED ESTRADIOL RESULTS WHEN USING THIS TEST METHOD. IF PATIENT IS TAKING FULVESTRANT AN ALTERNATIVE METHOD SHOULD BE USED TO DETERMINE ESTRADIOL CONCENTRATION. Performed By: #### L 506.0400, L501.9520, L100.0100, L509.4001, L3300.1750, L501.15431, L509.3000, L500.4050, L503.6550, L506.1000, L503.0105, L503.6150, L3300.1500 #### [facility] [address] [place], [place], [id number] Ferritinon 01-17-2023 Ferritin [Mass/Vol] 93 ng/mL Normal 8-252 [facility] Comment on above: Performed By: #### L 506.0400, L501.9520, L100.0100, L509.4001, L3300.1750, L501.62797, L509.3000, L500.4050, L503.6550, L506.1000, L503.0105, L503.6150, L3300.1500 #### [facility] [address] [place], [place], [id number] Free T3on 01-17-2023 Free T3 [Mass/Vol] 2.3 pg/mL Normal 2.18-3.98 [facility] Comment on above: Performed By: #### L 506.0400, L501.9520, L100.0100, L509.4001, L3300.1750, L501.98746, L509.3000, L500.4050, L503.6550, L506.1000, L503.0105, L503.6150, L3300.1500 #### [facility] [address] [place], [address] Ironon 01-17-2023 Iron [Mass/Vol] 85 ug/dL Normal 50-170 [facility] Comment on above: Performed By: #### L 506.0400, L501.9520, L100.0100, L509.4001, L3300.1750, L501.96262, L509.3000, L500.4050, L503.6550, L506.1000, L503.0105, L503.6150, L3300.1500 #### [facility] [address] [place], [place], [id number] Progesterone Levelon 023 Progesterone 9.78 ng/mL Normal See Comment [facility] Comment on above: Result Comment: Prog esterone Reference Table: UNITS Female: Follicular 0.15 - 1.40 ng/mL Luteal 3.34 - 25.56 ng/mL Mid-luteal 4.44 - 28.03 ng/mL Postmenopausal 0.0 - 0.73 ng/mL : 1st Trimester 11.22 - 90.00 ng/mL 2nd Trimester 25.55 - 89.40 ng/mL 3rd Trimester 48.40 -422.50 ng/mL Performed By: #### L 506.0400, L501.9520, L100.0100, L509.4001, L3300.1750, L501.06760, L509.3000, L500.4050, L503.6550, L506.1000, L503.0105, L503.6150, L3300.1500 #### [facility] [address] [place], [address] T4 Free Directon 01-17-2023 T4 FREE DIRECT 0.96 ng/dL Normal 0.76-1.46 [facility] Comment on above: Performed By: #### L 506.0400, L501.9520, L100.0100, L509.4001, L3300.1750, L501.65954, L509.3000, L500.4050, L503.6550, L506.1000, L503.0105, L503.6150, L3300.1500 #### [facility] [address] [facility] [place], [place], [id number] Testosterone, Serum Totalon 01-17-2023 Testosterone [Mass/Vol] 28.86 ng/dL Normal [facility] Comment on above: Result Comment: CENT RAL 90% REFERENCE RANGES MALE AGE <50 197.44 - 669.58 ng/dL MALE AGE > or = 50 187.72 - 684.19 ng/dL FEMALE AGE <50 8.38 - 35.01 ng/dL FEMALE AGE > or = 50 <7.00 - 35.92 ng/dL Effective as of 03/31/21 Performed By: #### L 506.0400, L501.9520, L100.0100, L509.4001, L3300.1750, L501.35294, L509.3000, L500.4050, L503.6550, L506.1000, L503.0105, L503.6150, L3300.1500 #### [facility] [address] [place], [address] Thyroid Stim Hormone (TSH)on 01-17-2023 TSH 3.69 uIU/mL Normal 0.358-3.74 [facility] Comment on above: Performed By: #### L 506.0400, L501.9520, L100.0100, L509.4001, L3300.1750, L501.19132, L509.3000, L500.4050, L503.6550, L506.1000, L503.0105, L503.6150, L3300.1500 #### [facility] [address] [place], [address] Vitamin B12on 01-17-2023 Cobalamin (Vitamin B12) [Mass/Vol] pg/mL High 211-911 [facility] Comment on above: Performed By: #### L 506.0400, L501.9520, L100.0100, L509.4001, L3300.1750, L501.80480, L509.3000, L500.4050, L503.6550, L506.1000, L503.0105, L503.6150, L3300.1500 #### [facility] [address] [place], [place], [id number] Vitamin D,25 Hydroxyon 01-17 Vitamin D 25-OH 57.7 ng/mL Normal [facility] Comment on above: Result Comment: Alee min D 25(OH) Status Range Deficiency <20 ng/mL (50nmol/L) Insufficiency 20 - 30 ng/mL (50 - 75 nmol/L) Sufficiency 30 - 100 ng/mL (75 - 250 nmol/L) Toxicity >100 ng/mL (>250 nmol/L) Performed By: #### L 506.0400, L501.9520, L100.0100, L509.4001, L3300.1750, L501.22974, L509.3000, L500.4050, L503.6550, L506.1000, L503.0105, L503.6150, L3300.1500 #### [facility] [address] [facility] [place], [address] POCT URINE DIPSTICK AUTOMATE DOrdered By: Chana Bustos on 06-29-2022 Amorphous sediment LM Ql (Urine sed) [facility] Appearance (U[facility] Clear [facility] Bacteria LM Ql (Urine sed) [facility] Bilirubin Ql (U) Small [facility] Casts LM.LPF (Urine sed) [#/Area] [facility] Color (U) Green [facility] Crystals LM Nom (Urine sed) [facility] Epithelial cells.squamous LM.HPF (Urine sed) [#/Area] [facility] Flow cytometry specialist review Enrique (Unsp spec) [Interp] [facility] Glucose Auto test strip (U) [Mass/Vol] Negative mg/dL [facility] Ketones [Mass/Vol] Negative mg/dL [facility] Leukocyte esterase Qn (U) [facility] Leukocyte esterase Test strip Ql (U) Negative [facility] Microscopic observation Gram stain Nom (Bronch spec) [facility] Nitrite Ql (U) Negative [facility] pH (U) 7.0 [pH] 5 - 7 [facility] Protein Ql (U) Negative mg/dL [facility] RBC LM.HPF (Urine sed) [#/Area] [facility] RBC Ql (U) Trace [facility] Specific gravity (U) [Rel density] 1.015 1.001 - 1.035 [facility] Transitional cells LM Ql (Urine sed) [facility] Urobilinogen Qn (U) 0.2 [facility] WBC LM.HPF (Urine sed) [#/Area] [facility] - Chemistry and C hemistry - challengeon 02-22-2022 Free T4 [Mass/Vol] 0.95 ng/dL 0.76-1.46 [facility] Work Phone: No Panel Informationon 02-22 Free Triiodothyronine (T3) pg/dL 2.4 pg/mL 2.18-3.98 [facility] Work Phone: Thyroid Stimulating Hormone (TSH) 4.06 uIU/mL 0.358-3.74 [facility] Work Phone: Serum or plasma ferritin ara surement (mass/volume)on 02-22-2022 Ferritin [Mass/Vol] 84 ng/mL 8-252 [facility] Work Phone: Estriolon 08-06-2019 ESTRIOL, SERUM <0.10 Normal [facility] Comment on above: Order Comment: Who i s the referring provider? mary Fernandez This order was split into 2 orders: [id number] (FT3,TSH, , ,Free T4,Referring Provider [i]), [id number] (T3, Reverse,Thyroglobulin Ab,Thyroid Peroxidase Ab) A copy of this report will be faxed to: Paco Fernandez Items in this order include: Free T4, , , TSH, FT3 Fasting: NO Result Comment: Adult Reference Ranges for Estriol: Adult Males: < or = 0.18 ng/mL Adult Females (non): < or = 0.21 ng/mL : First Trimester: < or = 2.50 ng/mL Second Trimester: < or = 9.60 ng/mL Third Trimester: < or = 14.60 ng/mL This test was developed and its analytical performance characteristics have been determined by [facility]. It has not been cleared or approved by FDA. This assay has been validated pursuant to the CLIA regulations and is used for clinical purposes. Performed By: #### C 3768, C408, C400, C3403 #### [facility] [address] [place] [address] #### C1800, C1830, C1497 #### Refer to report for performing lab Estroneon 08-06-2019 ESTRONE 66 pg/mL Normal [facility] Comment on above: Order Comment: Who i s the referring provider? mary Fernandez This order was split into 2 orders: [id number] (FT3,TSH, , ,Free T4,Referring Provider [i]), [id number] (T3, Reverse,Thyroglobulin Ab,Thyroid Peroxidase Ab) A copy of this report will be faxed to: Paco Fernandez Items in this order include: Free T4, , , TSH, FT3 Fasting: NO Result Comment: Adult Female Reference Ranges for Estrone: Follicular Phase: 10-138 pg/mL Luteal Phase: 16-173 pg/mL Postmenopausal Phase: < or = 65 pg/mL Pediatric Female Reference Ranges for Estrone: Pre-pubertal (1-9 years): < or = 34 pg/mL 10-11 years: < or = 72 pg/mL 12-14 years: < or = 75 pg/mL 15-17 years: < or = 188 pg/mL This test was developed and its analytical performance characteristics have been determined by [facility]. It has not been cleared or approved by FDA. This assay has been validated pursuant to the CLIA regulations and is used for clinical purposes. Performed By: #### C 3768, C408, C400, C3403 #### [facility] [address] [place] [address] #### C1800, C1830, C1497 #### Refer to report for performing lab Testosterone, Total (Women/C hild)on 08-06-2019 Testosterone [Mass/Vol] 24 ng/dL Normal 2-45 [facility] Comment on above: Order Comment: Who i s the referring provider? mary Fernandez This order was split into 2 orders: [id number] (FT3,TSH, , ,Free T4,Referring Provider [i]), [id number] (T3, Reverse,Thyroglobulin Ab,Thyroid Peroxidase Ab) A copy of this report will be faxed to: Paco Fernandez Items in this order include: Free T4, , , TSH, FT3 Fasting: NO Result Comment: For additional information, please refer to http://education.LiveMinutes.Cellartis/faq/Total TestosteroneLCMSMS (This link is being provided for informational/e ducational purposes only.) This test was developed and its analytical performance characteristics have been determined by [facility]. It has not been cleared or approved by the FDA. This assay has been validated pursuant to the CLIA regulations and is used for clinical purposes. Performed By: #### C 3768, C408, C400, C3403 #### [facility] [address] [place] [address] #### C1800, C1830, C1497 #### Refer to report for performing lab DHEA-Son 08-03-2019 DHEA-S 206.6 ug/dl Normal 33.8-303.4 [facility] Comment on above: Order Comment: Who i s the referring provider? mary Fernandez This order was split into 2 orders: [id number] (FT3,TSH, , ,Free T4,Referring Provider [i]), [id number] (T3, Reverse,Thyroglobulin Ab,Thyroid Peroxidase Ab) A copy of this report will be faxed to: Paco Fernandez Items in this order include: Free T4, , , TSH, FT3 Fasting: NO Performed By: #### C 3768, C408, C400, C3403 #### [facility] [address] [place] [address] #### C1800, C1830, C1497 #### Refer to report for performing lab Estradiolon 08-03-2019 Estradiol 50.0 pg/mL Normal [facility] Comment on above: Order Comment: Who i s the referring provider? mary Fernandez This order was split into 2 orders: [id number] (FT3,TSH, , ,Free T4,Referring Provider [i]), [id number] (T3, Reverse,Thyroglobulin Ab,Thyroid Peroxidase Ab) A copy of this report will be faxed to: Paco Fernandez Items in this order include: Free T4, , , TSH, FT3 Fasting: NO Result Comment: Male <25 - 75 pg/mL Follicular phase 25 - 84 pg/mL Mid-cycle 198 - 693 pg/mL Luteal phase 190 - 270 pg/mL Postmenopausal Female 32 - 73 pg/mL Performed By: #### C 3768, C408, C400, C3403 #### [facility] [address] [place] [address] #### C1800, C1830, C1497 #### Refer to report for performing lab Progesteroneon 08-03-2019 Progesterone 56.14 ng/mL Normal [facility] Comment on above: Order Comment: Who i s the referring provider? mary Fernandez This order was split into 2 orders: [id number] (FT3,TSH, , ,Free T4,Referring Provider [i]), [id number] (T3, Reverse,Thyroglobulin Ab,Thyroid Peroxidase Ab) A copy of this report will be faxed to: Paco Fernandez Items in this order include: Free T4, , , TSH, FT3 Fasting: NO Result Comment: Male <0.1-0.60 ng/mL Follicular phase <1.0 ng/mL Luteal phase 2.50-34.0 ng/mL Postmenopausal Female <0.1-0.45 ng/mL Performed By: #### C 3768, C408, C400, C3403 #### [facility] [address] [place] [address] [address] [place] [address] #### C1800, C1830, C1497 #### Refer to report for performing lab DHEA-Son 11-13-2018 DHEA-S 161.4 ug/dl Normal 33.8-303.4 [facility] Comment on above: Order Comment: Who i s the referring provider? mary Fernandez This order was split into 2 orders: [id number] (FT3,TSH, , ,Free T4,Referring Provider [i]), [id number] (T3, Reverse,Thyroglobulin Ab,Thyroid Peroxidase Ab) A copy of this report will be faxed to: Paco Fernandez Items in this order include: Free T4, , , TSH, FT3 Fasting: NO Performed By: #### C 3768, C408, C400, C3403 #### [facility] [address] [place] [address] [address] [place] [id number] #### C1800, C1830, C1497 #### Refer to report for performing lab Estradiolon 11-13-2018 Estradiol 89.9 pg/mL Normal [facility] Comment on above: Order Comment: Who i s the referring provider? mary Fernandez This order was split into 2 orders: [id number] (FT3,TSH, , ,Free T4,Referring Provider [i]), [id number] (T3, Reverse,Thyroglobulin Ab,Thyroid Peroxidase Ab) A copy of this report will be faxed to: Paco Fernandez Items in this order include: Free T4, , , TSH, FT3 Fasting: NO Result Comment: Male <25 - 75 pg/mL Follicular phase 25 - 84 pg/mL Mid-cycle 198 - 693 pg/mL Luteal phase 190 - 270 pg/mL Postmenopausal Female 32 - 73 pg/mL Performed By: #### C 3768, C408, C400, C3403 #### [facility] [address] [place] [address] [address] [place] [address] #### C1800, C1830, C1497 #### Refer to report for performing lab Progesteroneon 11-13-2018 Progesterone 50.24 ng/mL Normal [facility] Comment on above: Order Comment: Who i s the referring provider? mary Fernandez This order was split into 2 orders: [id number] (FT3,TSH, , ,Free T4,Referring Provider [i]), [id number] (T3, Reverse,Thyroglobulin Ab,Thyroid Peroxidase Ab) A copy of this report will be faxed to: Paco Fernandez Items in this order include: Free T4, , , TSH, FT3 Fasting: NO Result Comment: Male <0.1-0.60 ng/mL Follicular phase <1.0 ng/mL Luteal phase 2.50-34.0 ng/mL Postmenopausal Female <0.1-0.45 ng/mL Performed By: #### C 3768, C408, C400, C3403 #### [facility] [address] [place] [address] #### C1800, C1830, C1497 #### Refer to report for performing lab Sex Hormone Binding Globulin on 11-13-2018 SEX HORMONE BINDING GLOBULIN 34 nmol/L Normal 17-124 [facility] Comment on above: Order Comment: Who i s the referring provider? mary Fernandez This order was split into 2 orders: [id number] (FT3,TSH, , ,Free T4,Referring Provider [i]), [id number] (T3, Reverse,Thyroglobulin Ab,Thyroid Peroxidase Ab) A copy of this report will be faxed to: Paco Fernandez Items in this order include: Free T4, , , TSH, FT3 Fasting: NO Performed By: #### C 3768, C408, C400, C3403 #### [facility] [address] [place] [address] #### C1800, C1830, C1497 #### Refer to report for performing lab Testosterone, Total (Women/C hild)on 11-13-2018 Testosterone [Mass/Vol] 37 ng/dL Normal 2-45 [facility] Comment on above: Order Comment: Who i s the referring provider? mary Fernandez This order was split into 2 orders: [id number] (FT3,TSH, , ,Free T4,Referring Provider [i]), [id number] (T3, Reverse,Thyroglobulin Ab,Thyroid Peroxidase Ab) A copy of this report will be faxed to: Paco Fernandez Items in this order include: Free T4, , , TSH, FT3 Fasting: NO Result Comment: Data from J Clin Invest 1974:53:819-828 and J Clin Endocrinol Metab 1973;36:4080-8406. Men with clinically significant hypogonadal symptoms and testosterone values repeatedly in the range of the 200-300 ng/dL or less, may benefit from testosterone treatment after adequate risk and benefits counseling. For additional information, please refer to http://education.Sanswire/faq/WOW961 (This link is being provided for informational/ educational purposes only.) This test was developed and its analytical performance characteristics have been determined by [facility]. It has not been cleared or approved by the US Food and Drug Administration. This assay has been validated pursuant to the CLIA regulations and is used for clinical purposes. Performed By: #### C 3768, C408, C400, C3403 #### [facility], [facility]. [address] [place] [address] #### C1800, C1830, C1497 #### Refer to report for performing lab DHEA-Son 09-13-2018 DHEA-S 212.9 ug/dl Normal 33.8-303.4 [facility] Comment on above: Order Comment: This order was split into 2 orders: [id number] ( , ,DHEA-S,Progesterone,Estradiol), [id number] (Testosterone, Total (Women/Child)) Items in this order include: Estradiol, Progesterone, DHEA-S, , Fasting: Unknown Performed By: #### C 4200, C4382, C3940 #### [facility], [facility]. [address] [place] [address] #### C3183 #### Refer to report for performing lab Estradiolon 09-13-2018 Estradiol 121.5 pg/mL Normal [facility] Comment on above: Order Comment: This order was split into 2 orders: [id number] ( , ,DHEA-S,Progesterone,Estradiol), [id number] (Testosterone, Total (Women/Child)) Items in this order include: Estradiol, Progesterone, DHEA-S, , Fasting: Unknown Result Comment: Male <25 - 75 pg/mL Follicular phase 25 - 84 pg/mL Mid-cycle 198 - 693 pg/mL Luteal phase 190 - 270 pg/mL Postmenopausal Female 32 - 73 pg/mL Performed By: #### C 4200, C4382, C3940 #### [facility] [address] [place] [address] #### C3183 #### Refer to report for performing lab Progesteroneon 09-13-2018 Progesterone 30.30 ng/mL Normal [facility] Comment on above: Order Comment: This order was split into 2 orders: [id number] ( , ,DHEA-S,Progesterone,Estradiol), [id number] (Testosterone, Total (Women/Child)) Items in this order include: Estradiol, Progesterone, DHEA-S, , Fasting: Unknown Result Comment: Male <0.1-0.60 ng/mL Follicular phase <1.0 ng/mL Luteal phase 2.50-34.0 ng/mL Postmenopausal Female <0.1-0.45 ng/mL Performed By: #### C 4200, C4382, C3940 #### [facility] [address] [place] [address] #### C3183 #### Refer to report for performing lab Testosterone, Total (Women/C hild)on 09-13-2018 Testosterone [Mass/Vol] 50 ng/dL High 2-45 [facility] Comment on above: Order Comment: Who i s the referring provider? mary Fernandez This order was split into 2 orders: [id number] (FT3,TSH, , ,Free T4,Referring Provider [i]), [id number] (T3, Reverse,Thyroglobulin Ab,Thyroid Peroxidase Ab) A copy of this report will be faxed to: Paco Fernandez Items in this order include: Free T4, , , TSH, FT3 Fasting: NO Result Comment: Data from J Clin Invest 1974:53:819-828 and J Clin Endocrinol Metab 1973;36:1116-8307. Men with clinically significant hypogonadal symptoms and testosterone values repeatedly in the range of the 200-300 ng/dL or less, may benefit from testosterone treatment after adequate risk and benefits counseling. For additional information, please refer to http://education.Sanswire/faq/GNS117 (This link is being provided for informational/ educational purposes only.) This test was developed and its analytical performance characteristics have been determined by [facility]. It has not been cleared or approved by the US Food and Drug Administration. This assay has been validated pursuant to the CLIA regulations and is used for clinical purposes. Performed By: #### C 3768, C408, C400, C3403 #### [facility], [facility]. [address] [place] [address] #### C1800, C1830, C1497 #### Refer to report for performing lab FT3on 09-08-2018 FT3 264 pg/dL Normal 200-490 [facility] Comment on above: Order Comment: Who i s the referring provider? mary Fernandez This order was split into 2 orders: [id number] (FT3,TSH, , ,Free T4,Referring Provider [i]), [id number] (T3, Reverse,Thyroglobulin Ab,Thyroid Peroxidase Ab) A copy of this report will be faxed to: Paco Fernandez Items in this order include: Free T4, , , TSH, FT3 Fasting: NO Performed By: #### C 3768, C408, C400, C3403 #### [facility] [address] [place] [address] #### C1800, C1830, C1497 #### Refer to report for performing lab Free T4on 09-08-2018 Free T4 [Mass/Vol] 0.9 ng/dL Normal 0.7-1.8 [facility] Comment on above: Order Comment: Who i s the referring provider? mary Fernandez This order was split into 2 orders: [id number] (FT3,TSH, , ,Free T4,Referring Provider [i]), [id number] (T3, Reverse,Thyroglobulin Ab,Thyroid Peroxidase Ab) A copy of this report will be faxed to: Paco Fernandez Items in this order include: Free T4, , , TSH, FT3 Fasting: NO Performed By: #### C 3768, C408, C400, C3403 #### [facility] [address] [place] [address] #### C1800, C1830, C1497 #### Refer to report for performing lab Referring Provider [i]on Referring Provider mary Fernandez Normal [facility] Comment on above: Order Comment: Who i s the referring provider? mary Fernandez This order was split into 2 orders: [id number] (FT3,TSH, , ,Free T4,Referring Provider [i]), [id number] (T3, Reverse,Thyroglobulin Ab,Thyroid Peroxidase Ab) A copy of this report will be faxed to: Paco Fernandez Items in this order include: Free T4, , , TSH, FT3 Fasting: NO Performed By: #### C 3768, C408, C400, C3403 #### [facility] [place] [address] #### C1800, C1830, C1497 #### Refer to report for performing lab T3, Reverseon 09-08-2018 T3 REVERSE, LC/MS/MS 14 ng/dL Normal 8-25 [facility] Comment on above: Order Comment: This order was split into 2 orders: [id number] (FT3,TSH, , ,Free T4,Referring Provider [i]), [id number] (T3, Reverse,Thyroglobulin Ab,Thyroid Peroxidase Ab) A copy of this report will be faxed to: Paco Fernandez Items in this order include: Thyroid Peroxidase Ab, Thyroglobulin Ab, T3, Reverse Fasting: NO Testing performed at: [facility], [address] [place], [address], Early Childhood Worker: CRISTIAN AVALOS MD,PHD,JENNIFER Result Comment: This test was developed and its analytical performance characteristics have been determined by [facility]. It has not been cleared or approved by FDA. This assay has been validated pursuant to the CLIA regulations and is used for clinical purposes. Performed By: #### C 3768, C408, C400, C3403 #### [facility] [address] [place] [address] #### C1800, C1830, C1497 #### Refer to report for performing lab TSHon 09-08-2018 TSH Qn 2.28 MIU/mL Normal 0.50-6.00 [facility] Comment on above: Order Comment: Who i s the referring provider? mary Fernandez This order was split into 2 orders: [id number] (FT3,TSH, , ,Free T4,Referring Provider [i]), [id number] (T3, Reverse,Thyroglobulin Ab,Thyroid Peroxidase Ab) A copy of this report will be faxed to: Paco Fernandez Items in this order include: Free T4, , , TSH, FT3 Fasting: NO Performed By: #### C 3768, C408, C400, C3403 #### [facility] [address] - [place] [id number] #### C1800, C1830, C1497 #### Refer to report for performing lab Thyroglobulin Abon 9 Thyroglobulin Ab Qn [IU]/mL Normal < or = 1 [facility] Comment on above: Order Comment: Fasti ng: NO Testing performed at: [facility], [address] [place] [address], [phone], Early Childhood Worker: DA URIBE MD Performed By: #### C 3768, C408, C400, C3403 #### [facility] [address] [place] [address] #### C1800, C1830, C1497 #### Refer to report for performing lab Thyroid Peroxidase Abon 0 THYROID PEROXIDASE ANTIBODIES <1 Normal <9 [facility] Comment on above: Order Comment: This order was split into 2 orders: [id number] (FT3,TSH, , ,Free T4,Referring Provider [i]), [id number] (T3, Reverse,Thyroglobulin Ab,Thyroid Peroxidase Ab) A copy of this report will be faxed to: Paco Fernandez Items in this order include: Thyroid Peroxidase Ab, Thyroglobulin Ab, T3, Reverse Fasting: NO Testing performed at: [facility], [address] [place] [address], [place], [address], Early Childhood Worker: DA URIBE MD Performed By: #### C 3768, C408, C400, C3403 #### [facility] [address] [place] [address] #### C1800, C1830, C1497 #### Refer to report for performing lab Thyroid Stimulating Hormoneo n 05-15-2018 Thyrotropin Qn (Bld) 2.91 mcIU/mL Normal 0.45-5.33 [facility] Comment on above: Performed By: #### 2 276-4, 29266-5, 2498-4, 2502-3 ####[facility] [address], [place] Basic Metabolic Panelon 09-0 Anion gap 3 molar conc 9.0 mmol/L Normal 6.0-18.0 [facility] Comment on above: Performed By: #### 2 276-4, 91057-9, 2498-4, 2502-3 ####[facility] [address], [place] Calcium mass conc 9.7 mg/dL Normal 8.9-10.3 [facility] Comment on above: Performed By: #### 2 276-4, 77043-7, 2498-4, 2502-3 ####[facility] [address], [place] Chloride molar conc 102 mmol/L Normal 98-107 [facility] Comment on above: Performed By: #### 2 276-4, 70176-0, 2498-4, 2502-3 ####[facility] [address] [place] CO2 molar conc 24 mmol/L Normal 22-32 [facility] Comment on above: Performed By: #### 2 276-4, 31069-1, 2498-4, 2502-3 ####[facility] [address], [place] Creatinine mass conc 0.66 mg/dL Normal 0.60-1.30 [facility] Comment on above: Performed By: #### 2 276-4, 78914-9, 2498-4, 2502-3 ####[facility] [address] [place] Glucose mass conc 97 mg/dL Normal 70-110 [facility] Comment on above: Performed By: #### 2 276-4, 58672-5, 2498-4, 2502-3 ####[facility] [address] [place] Potassium molar conc 3.9 mmol/L Normal 3.6-5.1 [facility] Comment on above: Performed By: #### 2 276-4, 29944-0, 2498-4, 2502-3 ####[facility] [address] [place] Sodium molar conc 135 mmol/L Low 136-145 [facility] Comment on above: Performed By: #### 2 276-4, 20209-1, 2498-4, 2502-3 ####[facility] [address] [place] Urea nitrogen mass conc (BldV) 12 mg/dL Normal 8-20 [facility] Comment on above: Performed By: #### 2 276-4, 30561-1, 2498-4, 2502-3 ####[facility] [address] [place] CBCon 05-14-2018 Erythrocyte distribution width Entitic volume (RBC) 12.9 % Normal 11.0-14.8 [facility] Comment on above: Performed By: #### 2 276-4, 42394-4, 2498-4, 2502-3 ####[facility] [address] [place] Hematocrit Auto Volume Fraction (Bld) 41.7 % Normal 35.0-45.0 [facility] Comment on above: Performed By: #### 2 276-4, 60665-4, 2498-4, 2502-3 ####[facility] [address] [place] Hemoglobin mass conc (Bld) 14.4 g/dL Normal 12.0-16.0 [facility] Comment on above: Performed By: #### 2 276-4, 90423-4, 2498-4, 2502-3 ####[facility] [address] [place] MCH Auto Entitic mass (RBC) 32.0 Picograms Normal 27.0-34.0 [facility] Comment on above: Performed By: #### 2 276-4, 26629-4, 2498-4, 2502-3 ####[facility] [address] [place] MCHC Auto mass conc (RBC) 34.4 g/dL Normal 32.0-36.0 [facility] Comment on above: Performed By: #### 2 276-4, 94472-9, 2498-4, 2502-3 ####[facility] [address] [place] MCV Auto Entitic volume (RBC) 92.9 fL Normal 80.0-97.0 [facility] Comment on above: Performed By: #### 2 276-4, 34120-6, 2498-4, 2502-3 ####[facility] [address] [place] Platelet mean volume Entitic volume (Bld) 7.9 FL Normal 6.2-12.1 [facility] Comment on above: Performed By: #### 2 276-4, 42783-6, 2498-4, 2502-3 ####[facility] [address] [place] Platelets Auto #/vol (Bld) 311 thou/mcL Normal 142-424 [facility] Comment on above: Performed By: #### 2 276-4, 92562-4, 2498-4, 2502-3 ####[facility] [address] [place] RBC Auto #/vol (Bld) 4.49 million/mcL Normal 3.80-5.10 [facility] Comment on above: Performed By: #### 2 276-4, 66441-9, 2498-4, 2502-3 ####[facility] [address] [place] WBC Auto #/vol (Bld) 6.5 thou/mcL Normal 4.6-10.2 [facility] Comment on above: Performed By: #### 2 276-4, 78301-9, 2498-4, 2502-3 ####[facility] [address] [place] Depart Summaryon 05-14-2018 Depart Summary EMERGENCY DEPARTMENT DISCHARGE SUMMARYPATIENT NAME:SARA ROJO MRN: (COL)-[id number]: 48 Years SEX: Female PHONE:[phone]: 05/14/2018 5:31 PM : 1970 ER PHYSICIAN:Luis Alfredo Salazar MD PCP: Paco Fernandez MD CHIEF COMPLAINT: Fatigue, Insomnia, Reported fever Allergies Ceftin (Reflux) amoxicillin (Reflux)Problems Active Hypothyroidism Prediabetes DISCHARGE DIAGNOSIS: DISCHARGE INSTRUCTIONS: Fatigue HISTORY OF PRESENT ILLNESS:I reviewed the nurses notes. 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 She states she was in [place] last month down on April 23 she was bitten by a flying insect over her right hand which she felt and since then has had some symptoms including fatigue feeling flushed and tired. She's had no weight loss nausea vomiting has had slight diarrhea and feeling of anxiousness. He's had no cold or cough symptoms chest pain sore throat or headache. She denies any urinary complaints. She has had a fever up to 100.4 which was noted at her doctor's office last week. He put her on a ukuh-lwd-rzgawza medication for what he thought was a possible parasite. Family History : Social History : MEDICAL DECISION MAKING: PROCEDURES:Free Text Sentence DISPOSITION:Time of Departure From ER 05/14/2018 18:42 Discharge/Transfer From ER Home 01 MEDICATION LISTS: CURRENT MEDICATION LISTMetFORMIN By Mouth. MEDICATIONS GIVEN DURING MEDICAL VISITNone LAB RESULTS:LABORATORY TESTS: Pending Lab Result(s): __ Date Order Results 05/14/2018 17:55 Thyroid Stimulating Hormone Ordered Abnormal Lab Result(s): __ Date Order Results 05/14/2018 17:55 Blood Urine A Trace-in 05/14/2018 17:55 Sodium Level L 135 mMol/L RADIOLOGY: DIAGNOSTICS: FOLLOW UP:With: Address: When: Paco Fernandez [address] [place] [address] [phone] Business (1) Within 5 to [address] [facility] ED Pat Eduon 05-14-2018 ED [facility] [id number] [place], [place] [phone] Discharge Instructions SARA ROJO , Please provide this information to your Primary Care/Specialist Name : SARA ROJO Current Date : 05/14/2018 18:43:36DOB : 1970 12:00 PM Primary Care Physician: Paco Fernandez MD Diagnosis : Follow-Up Instructions:SARA ROJO has been given these follow-up instructions: Provider: Specialty: Address: Date: Paco Fernandez MD Family Practice [address] [place] [address] [phone] (1) 5 to 7 days Laboratory Orders: Name: Status: Basic Metabolic Panel Completed CBC Completed Hepatic Function Panel Completed Urinalysis with Microscopic Automatic Completed Thyroid Stimulating Hormone Ordered Test Urine Completed GFRaa Completed GFRbb Completed Urinalysis Microscopic Completed Radiology Orders: None Ordered Diagnostic Tests: None Ordered Procedure(s) and Patient Education(s) : Fatigue EMERGENCY SERVICES MEDICATION LISTLista de Medicaciones de los Servicios de Emergencia Name SARA ROJO MRN ([facility])-[id number] [facility]# [id number] PLEASE READ THE FOLLOWING REGARDING YOUR MEDICATIONS Based on the information available during your visit we have given you the medication instructions below. Continue taking medications you took prior to your visit unless you have been told to change. Please share this information with your own doctor. Carry a list of your medications with you in case of an emergency. Update it when medications are stopped, doses are changed, or new medications (including zxeh-xcn-oidrfez products) are added. If you have any questions, check with your doctor. Por la informaci??n disponible pasha jules visita, las instrucciones de medicaci??n aparecen debajo. Favor de continuar tomando las medicaciones Ud. tanya?? antes de jules visita por lo menos que hay cambios. Favor de compartir esta informaci??n con jules medico. Lleva kathrine lista de medicaciones consigo por marcello de emergenc??a. Actualiza la lista cuando Ud. vera de braeden las medicaciones, si cambian las dosis, o si hay nuevas medicaciones a??adidas (incluyendo medicaciones vendidas sin prescripci??n). Favor de preguntar a jlues medico por cualquier elkin. THESE ARE THE MEDICATIONS YOU SHOULD BE TAKINGMetFORMIN By Mouth.MEDICATIONS GIVEN DURING MEDICAL VISITNone NON-MEDICATION PRESCRIPTION SCHEDULING PHONE NUMBER: MEDICATION CHANGE DETAILS (Not your Final Home Medication List) During the course of your visit, your home medication list was updated with the most current information. The details of those changes are shown below: NEW MEDICATIONSNoneUPDATED MEDICATIONSNoneUNCHANGED MEDICATIONSOther MedicationsMetFORMIN By Mouth.Comment STOP TAKING THESE MEDICATIONSNoneDO NOT TAKE UNTIL YOU TALK TO YOUR DOCTORNone [facility] [place], [place] [phone] Discharge Instructions Name: SARA ROJO Current Date: 05/14/2018 18:43:36 : 1970 12:00 PM Primary Physician: Paco Fernandez MD We would like to thank you for choosing [facility] and [facility] for your emergency medical needs. We examined and treated you today on an emergency basis only. This was not a substitute for, or an effort to provide, complete medical care. In most cases, you must let your doctor (or the doctor we referred you to) check you again. Tell your doctor about any new or lasting problems. We cannot recognize and treat all injuries or illnesses in one emergency department visit. After you leave, you should follow the directions attached. Instructions for obtaining X-rays:When following up with your doctor, you may need to take copies of your x-rays that were done in the Emergency Department. If you didn't receive these upon your discharge from the emergency department, please [phone]. When the final report becomes available and it is reviewed, the emergency department will attempt to contact you if there are any changes in your instructions. It is important that you leave accurate information with us on how to contact you. IF you cannot be contacted, YOU must contact the follow-up doctor that you were assigned to make sure that the final official x-ray report does not require a change in your treatment. Instructions for obtaining medical records:If you need a copy of your medical records for follow-up, please contact the Health Information Management Department [phone]. Their office hours are 8 AM- 4:30 PM, Tuesday through Tuesday. Please note: Results are not immediately available. Please allow a minimum of 36 hours for documentation and results.If you were prescribed an antibiotic:Antibiotics are life-saving drugs and they need to be used properly. Your team might change your antibiotic because test results show that a different antibiotic would be better to treat your infection. Like all medications, antibiotics have side effects. Some can be serious. This includes the risk of getting an antibiotic-resistant infection later, which may be difficult to treat. Remember to take your antibiotics as prescribed. If you have any questions please talk to your healthcare team. Seatbelts:There is no doubt that seatbelts save lives. Every day, people without seatbelts have more serious injuries. Have everyone buckle up, using age appropriate seatbelts or car seats, to reduce their risk of injury.Smoking:If you do smoke, we encourage you to stop. Smoking affects all aspects of your health and the health of those around you. Call the [place] [employer] at 8-076-NWEB-USA or the [place] [employer] at 8-583-XZE-1064 for more information.High blood pressure: Your screening blood pressure today was 119 mm Hg / 80 mm Hg. Hypertension (high blood pressure) is blood pressure over 120/80. People with hypertension should contact their primary care provider within 30 days to follow up. Check your patient portal for additional blood pressure information.Immunizations:Imm unization is a way to protect against deadly infections. Discuss this with your child's piercer, or Public Health Department. Your family practice doctor can determine if you need pneumonia or flu vaccine. [facility] Department can be reached at .Domestic Violence:If you are a victim of domestic violence (physical, verbal, or emotional), you are not alone. Discuss this with your physician or a friend and call Choices Hotline ( for assistance and support.You are the most important factor in your recovery. Follow the provided instructions carefully. Take your medications as prescribed. Most importantly, see a doctor again as discussed. If you have problems that we have not discussed, call or visit your doctor right away. If you do not have a primary care physician, we have provided one for you to follow up with. When you call for an appointment, please inform them that you were seen in the emergency department and the date of your visit. If you are unable to reach your doctor and are still experiencing problems, return to the emergency department. For assistance finding a primary care physician, call the Physician Referral Line at .Suicide Hotline:Your mental and emotional well-being is important. If you are in a mental health crisis or are having thoughts of suicide, please call the nationwide suicide hotline, anytime day or night, at 1-240-473-JDXO. Pharmacy Information:Below is a list of 24 hour pharmacies that we are aware of. We suggest that you call the specific pharmacy for their hours before traveling to a location. Hours may vary on holidays. [facility] [place] [address] [address] [place] [address] [phone] [address] [phone] [address] [phone] [place] [address] [phone] [place] [address] [phone] [place] [address] [phone] [place] [address] [phone] Take all medications as directed. If you need prescription assistance, contact the following agencies:?? Partnership for Prescription Assistance at or www.3C Plusx.org ?? [place] Best [facility] at or www.MyDocTimestrx.org ?? Good Rx at or [employer] Patient Education Materials SARA ROJO has been given the following patient education materials: Behavioral HealthFatigueFatigue is feeling tired all of the time, a lack of energy, or a lack of motivation. Occasional or mild fatigue is often a normal response to activity or life in general. However, long-lasting (chronic) or extreme fatigue may indicate an underlying medical condition.HOME CARE INSTRUCTIONSWatch your fatigue for any changes. The following actions may help to lessen any discomfort you are feeling:???Talk to your health care provider about how much sleep you need each night. Try to get the required amount every night.???Take medicines only as directed by your health care provider.???Eat a healthy and nutritious diet. Ask your health care provider if you need help changing your diet.???Drink enough fluid to keep your urine clear or pale yellow.???Practice ways of relaxing, such as yoga, meditation, massage therapy, or acupuncture.???Exercise regularly. ?Change situations that cause you stress. Try to keep your work and personal routine reasonable.???Do not abuse illegal drugs. ???Limit alcohol intake to no more than 1 drink per day for non women and 2 drinks per day for men. One drink equals 12 ounces of beer, 5 ounces of wine, or 1? ounces of hard liquor.???Take a multivitamin, if directed by your health care provider. SEEK MEDICAL CARE IF:???Your fatigue does not get better. ???You have a fever. ?You have unintentional weight loss or gain. ???You have headaches. ?You have difficulty: ?Falling asleep.???Sleeping throughout the night.???You feel angry, guilty, anxious, or sad. ?You are unable to have a bowel movement (constipation). ?You skin is dry. ?Your legs or another part of your body is swollen. ?SEEK IMMEDIATE MEDICAL CARE IF:???You feel confused. ?Your vision is blurry. ???You feel faint or pass out. ?You have a severe headache. ?You have severe abdominal, pelvic, or back pain. ?You have chest pain, shortness of breath, or an irregular or fast heartbeat. ?You are unable to urinate or you urinate less than normal. ?You develop abnormal bleeding, such as bleeding from the rectum, vagina, nose, lungs, or nipples.???You vomit blood. ?You have thoughts about harming yourself or committing suicide. ?You are worried that you might harm someone else. ?This information is not intended to replace advice given to you by your health care provider. Make sure you discuss any questions you have with your health care provider.Document Released: 06/18/2008 Document Revised: 09/12/2015 Document Reviewed: 12/24/2014[employer] Patient Education ?2016 [employer]><><><><><><><><><><><>< ><><><><><><><><><><><><><><> <><><><><><><><><><><><><> Patient Visit Summary Signature SARA ROJO has been given the following list of patient education materials, prescriptions and follow-up instructions: CHAD Jackson AMELIA R, have received the above patient education materials/instructions and have verbalized understanding: Date Time Patient Signature Date Time Provider Signature Normal [facility] ED Physician Noteson 018 ED Physician Notes Patient: SARA ROJO MRN: [facility])-[id number] Age: 48 years Sex: Female : 1970 Associated Diagnoses: None Author: Luis Alfredo Salazar MD History of Present Illness I reviewed the nurses notes. 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 She states she was in [place] last month down on April 23 she was bitten by a flying insect over her right hand which she felt and since then has had some symptoms including fatigue feeling flushed and tired. She's had no weight loss nausea vomiting has had slight diarrhea and feeling of anxiousness. He's had no cold or cough symptoms chest pain sore throat or headache. She denies any urinary complaints. She has had a fever up to 100.4 which was noted at her doctor's office last week. He put her on a aaqm-hwr-ivykdbg medication for what he thought was a possible parasite.Family History:Social History: Review of Systems Constitutional: No feverVision: No blurred visionENT: No rhinorrheaRespiratory: No coughAllergic: + allergiesGU: No blood in urineGI: No blood in stoolHematologic: No bruisingDermatologic: No skin rashMusculoskeletal: No pain in the extremitiesNeuro: No numbness of the extremities Health Status Allergies: Allergic Reactions (Selected)Severity Not DocumentedAmoxicillin- Reflux.Ceftin- Reflux.. Medications: (Selected) Documented MedicationsDocumentedMetFORMI N: PO, Each, 0 Refill(s). Past Medical/ Family/ Social History Medical history Past Medical History Problem List Active Prediabetes Surgical history: section ([id number]).Cholecystectomy ([id number]).. Family history: No family history items have been selected or recorded.. Social history: AlcoholRisk Assessment: Denies Alcohol UseSubstance AbuseRisk Assessment: Denies Substance Abuse. Physical Examination Vital Signs Vital Signs/Measurements 05/14/2018 17:41 EDT Temperature 98.7 Degrees F NML Pulse Rate 97 BPM NML Respiratory Rate 16 Br PM NML Pulse Oximetry 100 % NML Systolic BP 119 mm Hg NML Diastolic BP 80 mm Hg NML Pain Score 0 Pain Intensity Scale Numeric Rating Scale-Verbal (Adults) Weight 99 kg Weight Type Pt reported Weight Lb 218 lbs Weight Oz 4.13 oz Height 162.56 cm Height Ft 5 ft Height in 4 Inch BSA 2.03 m2 Body Mass Index 37.5 kg/m2 . PHYSICAL EXAM:CONSTITUTIONAL: Alert and oriented X3, well-nourished, well appearing, in no apparent distressHEAD: Normocephalic; atraumatic.EYES: PERRL, no scleral icterus.NOSE: The nose is normal in appearance without rhinorrheaRESP: Normal chest excursion with respiration; breath sounds clear and equal bilaterally; no wheezes,rhonchi, or ralesCARD: Regular rhythm, without murmurs, rub or gallopABD: Non-distended; non-tender, soft,without rigidity, rebound or guardingSKIN: Normal for age and race; warm and dry; no apparent lesionsVery shoddy cervical adenopathy anteriorly which a very small also is 1 small right axillary node noted and no left-sided x-ray notes.Throat is clear voice is normal no photophobia or neck stiffnessThere is a very small 1 millimeter or so diameter area of erythema over the right hand in the region of the webspace between thumb and index finger which is nontenderTESTING: Medical Decision Making Our lab work was unremarkable. She will be referred back to her family physician further evaluation if not better within the week. A TSH was still pending at the time of this dictation.CRITICAL CARE TIME: Results review: Procedure Reexamination/ Reevaluation Impression and Plan DIAGNOSIS: Fatigue, fever Plan Condition: Stable. Disposition: Discharged: to home. Patient was given the following educational materials: Fatigue. Follow up with: Paco Fernandez Within 5 to 7 days. Basic Information Patient information:: Chief Complaint from Nursing Triage Note : Chief Complaint-Triage 05/14/2018 17:41 EDT Chief Complaint-Triage Fatigue, Insomnia, Reported fever . Normal [facility] ED Physician Notes PDF Normal [facility] GFRaaon 05-14-2018 GFR/1.73 sq M predicted among blacks MDRD vol rate/area (S/P/Bld) mL/min/{1.73_m2} Normal [facility] Comment on above: Result Comment: The MDRD equation has not been validated for those over 70 years, women, patients with serious co-morbid conditions, or with extremes of bodysize, muscle mass of nutritional status. Performed By: #### 2 276-4, 40864-3, 2498-4, 2502-3 ####[facility] [address], [place] GFRbbon 05-14-2018 GFR/1.73 sq M predicted among non-blacks MDRD vol rate/area (S/P/Bld) mL/min/{1.73_m2} Normal [facility] Comment on above: Performed By: #### 2 276-4, 68465-4, 2498-4, 2502-3 ####[facility] [address], [place] Hepatic Function Panelon Albumin mass conc 4.5 g/dL Normal 3.5-4.8 [facility] Comment on above: Performed By: #### 2 276-4, 22109-7, 2498-4, 2502-3 ####[facility] [address], [place] ALP enzyme act/vol 66 Units/L Normal 32-91 [facility] Comment on above: Performed By: #### 2 276-4, 48828-1, 2498-4, 2502-3 ####[facility] [address], [place] ALT enzyme act/vol 44 Units/L Normal 14-63 [facility] Comment on above: Performed By: #### 2 276-4, 88442-5, 2498-4, 2502-3 ####[facility] [address], [place] AST enzyme act/vol 25 Units/L Normal 15-41 [facility] Comment on above: Performed By: #### 2 276-4, 51006-2, 2498-4, 2502-3 ####[facility] [address], [place] Bilirubin mass conc 0.5 mg/dL Normal 0.3-1.2 [facility] Comment on above: Performed By: #### 2 276-4, 83019-3, 2498-4, 2502-3 ####[facility] [address], [place] Bilirubin.direct mass conc 0.1 mg/dL Normal 0.1-0.5 [facility] Comment on above: Performed By: #### 2 276-4, 17964-1, 2498-4, 2502-3 ####[facility] [address], [place] Bilirubin.indirec t mass conc 0.4 mg/dL Normal 0.0-1.0 [facility] Comment on above: Performed By: #### 2 276-4, 47806-1, 2498-4, 2502-3 ####[facility] [address], [place] Protein mass conc 7.2 g/dL Normal 6.1-7.9 [facility] Comment on above: Performed By: #### 2 276-4, 20776-0, 2498-4, 2502-3 ####[facility] [address] [place] POC CBC and Differentialon 0 05-14-2018 Basophils Auto #/vol (Bld) 0.04 10*3/uL Invalid Interpretation Code [facility] Basophils/100 WBC Auto (Bld) 0.5 % Invalid Interpretation Code [facility] Eosinophils Auto #/vol (Bld) 0.11 10*3/uL Invalid Interpretation Code [facility] Eosinophils/100 WBC Auto (Bld) 1.5 % Invalid Interpretation Code [facility] Erythrocyte distribution width Auto Entitic volume (RBC) 12.5 % Invalid Interpretation Code 11.6 - 14.8 % [facility] Hematocrit Auto Volume Fraction (Bld) 40.8 % Invalid Interpretation Code 36 - 46 % [facility] Hemoglobin mass conc (Bld) 14.3 g/dL Invalid Interpretation Code 12 - 16 g/dL [facility] Immature granulocytes #/vol (Bld) 0.01 10*3/uL Invalid Interpretation Code [facility] Immature granulocytes/100 WBC (Bld) 0.10 % Invalid Interpretation Code [facility] Comment on above: The IG parameter is the percentage of metamyelocytes, myelocytes, and promyelocytes. Lymphocytes Auto #/vol (Bld) 1.83 10*3/uL Invalid Interpretation Code [facility] Lymphocytes/100 WBC Auto (Bld) 25.0 % Invalid Interpretation Code [facility] MCH Auto Entitic mass (RBC) 32.5 pg Invalid Interpretation Code 26 - 34 pg [facility] MCHC Auto mass conc (RBC) 35.0 g/dL Invalid Interpretation Code 31 - 37 g/dL [facility] MCV Auto Entitic volume (RBC) 92.7 fL Invalid Interpretation Code 80 - 100 fL [facility] Monocytes Auto #/vol (Bld) 0.49 10*3/uL Invalid Interpretation Code [facility] Monocytes/100 WBC Auto (Bld) 6.7 % Invalid Interpretation Code [facility] Neutrophils Auto #/vol (Bld) 4.83 10*3/uL Invalid Interpretation Code [facility] Neutrophils/100 WBC Auto (Bld) 66.2 % Invalid Interpretation Code [facility] Platelet mean volume Auto Entitic volume (Bld) 10.3 fL Invalid Interpretation Code 9 - 15.5 fL [facility] Platelets Auto #/vol (Bld) 295 10*3/uL Invalid Interpretation Code [facility] RBC Auto #/vol (Bld) 4.40 10*6/uL Invalid Interpretation Code [facility] WBC Auto #/vol (Bld) 7.31 10*3/uL Invalid Interpretation Code [facility] POC Liver Panel Pluson 05-14 Alanine molar conc (DBS) 49 U/L High 0 - 40 U/L [facility] Albumin mass conc 4.2 g/dL Invalid Interpretation Code 3.2 - 5.2 g/dL [facility] ALP enzyme act/vol (Bld) 65 U/L Invalid Interpretation Code 40 - 150 U/L [facility] Amylase enzyme act/vol 54 U/L Invalid Interpretation Code 25 - 115 U/L [facility] AST Ql 43 U/L Invalid Interpretation Code 0 - 45 U/L [facility] Bilirubin mass conc 0.6 mg/dL Invalid Interpretation Code 0 - 1.3 mg/dL [facility] Gamma glutamyl transferase enzyme act/vol 12 U/L Invalid Interpretation Code 7 - 33 U/L [facility] Interpretation and review of laboratory results Abnormal Invalid Interpretation Code [facility] Protein mass conc (U) 7.4 g/dL Invalid Interpretation Code 6 - 8 g/dL [facility] POC , Urineon 05-14 HCG ( test) Ql (U) Negative Invalid Interpretation Code Negative [facility] Interpretation and review of laboratory results Normal Invalid Interpretation Code [facility] Dilute urine specime ns, as indicated by a low specific gravity (<1.010) may not contain merchandiser retail representative levels of hCG. If is still suspected, a serum test or repeat urine test using a first morning urine specimen should be considered. Invalid Interpretation Code [facility] POC Urinalysis Dipstick, Aut oon 05-14-2018 Bilirubin Ql (U) Negative Invalid Interpretation Code Negative [facility] Glucose Ql (U) Negative Invalid Interpretation Code Negative mg/dL [facility] Hemoglobin Test strip Ql (U) Trace-intact Abnormal Negative [facility] Interpretation and review of laboratory results Abnormal Invalid Interpretation Code [facility] Ketones Ql (U) Negative Invalid Interpretation Code Negative mg/dL [facility] Leukocyte esterase Test strip Ql (U) Negative Invalid Interpretation Code Negative [facility] Nitrite Test strip Ql (U) Negative Invalid Interpretation Code Negative [facility] pH Test strip (U) 5.5 [pH] Invalid Interpretation Code [facility] Protein Test strip Ql (U) Negative Invalid Interpretation Code Negative mg/dL [facility] Specific gravity Relative Density (U) 1.010 Invalid Interpretation Code [facility] Urobilinogen Test strip Qn (U) 0.2 mg/dL Invalid Interpretation Code <2.0 [facility] POC Venous Blood Gases with Full Panelon 05-14-2018 Base excess Calculated molar conc (BldV) 0.7 Invalid Interpretation Code [facility] Calcium.ionized mass conc 4.6 mg/dL Invalid Interpretation Code 4.5 - 5.3 mg/dL [facility] Chloride molar conc 103 mmol/L Invalid Interpretation Code 98 - 108 mmol/L [facility] CO2 ppres (BldV) 44.9 Invalid Interpretation Code [facility] Creatinine mass conc 0.91 mg/dL Invalid Interpretation Code 0.4 - 1.1 mg/dL [facility] GFR/1.73 sq M predicted among non-blacks MDRD vol rate/area (S/P/Bld) The eGFR should be used for monitoring renal function only and not for medication dosing. Invalid Interpretation Code [facility] GFR/1.73 sq M.predicted MDRD vol rate/area 76 mL/min/{1.73_m2} Invalid Interpretation Code >=60 mL/min/1.7 3 m2 [facility] Glucose mass conc 94 mg/dL Invalid Interpretation Code 65 - 99 mg/dL [facility] HCO3 molar conc (Bld) 26.3 mmol/L Invalid Interpretation Code 24 - 28 mmol/L [facility] Hematocrit Auto Volume Fraction (Bld) 46 % Invalid Interpretation Code 36 - 46 % [facility] Hemoglobin mass conc (Bld) 15.5 g/dL Invalid Interpretation Code 12 - 16 g/dL [facility] Interpretation and review of laboratory results Abnormal Invalid Interpretation Code [facility] Lactate molar conc 1.0 mmol/L Invalid Interpretation Code 0.6 - 2 mmol/L [facility] Oxygen ppres (BldV) 43 High [facility] Oxygen saturation in Venous blood 77.1 % Invalid Interpretation Code [facility] pH (BldV) 7.38 Invalid Interpretation Code [facility] Potassium molar conc 3.7 mmol/L Invalid Interpretation Code 3.5 - 5.1 mmol/L [facility] Sodium molar conc 140 mmol/L Invalid Interpretation Code 135 - 145 mmol/L [facility] Test Urineon 05-14 HCG ( test) Ql (U) Negative Normal [facility] Comment on above: Performed By: #### 2 276-4, 86602-8, 2498-4, 2502-3 ####[facility] [address], [place] Urinalysis Microscopicon RBC LM.HPF #/area (Urine sed) 0-5 Normal 0-5/HPF [facility] Comment on above: Performed By: #### 2 276-4, 11386-1, 2498-4, 2502-3 ####[facility] [address], [place] WBC Urine 0-5 Normal 0-5/HPF [facility] Comment on above: Performed By: #### 2 276-4, 09889-7, 2498-4, 2502-3 ####[facility] [address], [place] Urinalysis with Microscopic Automaticon 05-14-2018 Appearance Nom (U) Clear Normal CLEAR [facility] Comment on above: Performed By: #### 2 276-4, 77732-1, 2498-4, 2502-3 ####[facility] [address], [place] Bilirubin Test strip mass conc (U) Negative Normal NEGATIVE [facility] Comment on above: Performed By: #### 2 276-4, 75574-2, 2498-4, 2502-3 ####[facility] [address], [place] Color Nom (U) Yellow Normal YELLOW [facility] Comment on above: Performed By: #### 2 276-4, 90486-9, 2498-4, 2502-3 ####[facility] [address], [place] Glucose Test strip mass conc (U) Negative Normal NORMAL [facility] Comment on above: Performed By: #### 2 276-4, 63089-8, 2498-4, 2502-3 ####[facility] [address], [place] Hemoglobin Test strip Ql (U) Trace-in Abnormal NEGATIVE [facility] Comment on above: Performed By: #### 2 276-4, 70430-0, 2498-4, 2502-3 ####[facility] [address], [place] Ketones mass conc (U) Negative Normal NEGATIVE [facility] Comment on above: Performed By: #### 2 276-4, 02770-2, 2498-4, 2502-3 ####[facility] [address], [place] Leukocyte esterase Test strip Ql (U) Negative Normal NEGATIVE [facility] Comment on above: Performed By: #### 2 276-4, 62615-7, 2498-4, 2502-3 ####[facility] [address], [place] Nitrite Test strip mass conc (U) Negative Normal NEGATIVE [facility] Comment on above: Performed By: #### 2 276-4, 36650-3, 2498-4, 2502-3 ####[facility] [address], [place] pH Test strip (U) 6MG/DL Normal 4.5-8.0 [facility] Comment on above: Performed By: #### 2 276-4, 99077-3, 2498-4, 2502-3 ####[facility] [address], [place] Protein mass conc (U) Negative Normal NEGATIVE [facility] Comment on above: Performed By: #### 2 276-4, 59763-2, 2498-4, 2502-3 ####[facility] [address], [place] Specific gravity Relative Density (U) 1.015 Normal 1.002-1.[address] [facility] Comment on above: Performed By: #### 2 276-4, 34445-6, 2498-4, 2502-3 ####[facility] [address], [place] Urobilinogen Test strip mass conc (U) 0.2MG/D Normal NORMAL [facility] Comment on above: Performed By: #### 2 276-4, 45346-6, 2498-4, 2502-3 ####[facility] [address], [place] XR Chest AP/PA and LATon No acute cardiopulmo nary disease. [employer] Workstation ID: [id number] Invalid Interpretation Code [employer] [facility] Interface, Rad In Fu ji Speechq - 05/14/2018 8:50 PM EDT CLINICAL HISTORY: Chills, weakness. EXAMINATION: PA UPRIGHT AND LATERAL CHEST: 05/14/2018 COMPARISON: PA and lateral chest 02/16/2018. FINDINGS: Two views are provided which demonstrate there is exclusion of the lung apices on the AP view. The visualized osseous structures are normal. The heart size seems normal. No focal infiltrates, pleural effusions, pulmonary edema, pneumothorax. IMPRESSION: No acute cardiopulmonary disease. [employer] Workstation ID: [id number] Invalid Interpretation Code [employer] [facility] CLINICAL HISTORY: Ch ills, weakness. EXAMINATION: PA UPRIGHT AND LATERAL CHEST: 05/14/2018 COMPARISON: PA and lateral chest 02/16/2018. FINDINGS: Two views are provided which demonstrate there is exclusion of the lung apices on the AP view. The visualized osseous structures are normal. The heart size seems normal. No focal infiltrates, pleural effusions, pulmonary edema, pneumothorax. Invalid Interpretation Code [employer] [facility] ED Physician Noteson 018 ED Physician Notes Patient: SARA ROJO MRN: ([id number] Age: 48 years Sex: Female : 1970 Associated Diagnoses: None Author: Ursula Badillo MD History of Present Illness I reviewed the nurses notes.48yo WF, non smoker, with history of 'low iron' comes to the ED with report of vaginal irritation/itching.Patient reports that since yesterday she has felt like her vagina is swollen and itching.She denies any significant discharge.No abdominal or pelvic pain.No fevers/chills/vomiting/diarrh ea.No dysuria.She has been for 25 years and is monogamous. Denies any concern for STI. Review of Systems Constitutional: No feverVision: No vision changesENT: No rhinorrheaRespiratory: No coughAllergic: No allergiesGU: No dysuriaGI: No abdominal/pelvic painHematologic: No bruisingDermatologic: No skin rashMusculoskeletal: No pain in the extremitiesNeuro: No numbness of the extremities Health Status Allergies: Allergic Reactions (Selected)Severity Not DocumentedAmoxicillin- Reflux.Ceftin- Reflux.. Medications: (Selected) PrescriptionsPrescribedDifluc an 150 mg oral tablet: 1 Tab, PO, Daily, 1 Tab, 0 Refill(s)Documented MedicationsDocumentedMetFORMI N: PO, Each, 0 Refill(s). Past Medical/ Family/ Social History Medical history Past Medical History Problem List No active or resolved problems charted Surgical history: section (62022241).Cholecystectomy (25564990).. Family history: No family history items have been selected or recorded.. Social history: Social and Psychosocial RjpgeiHgghtrr58/05/2018 Risk Assessment: Denies Alcohol UseSubstance Abuse04/09/2018 Risk Assessment: Denies Substance Abuse. Physical Examination Vital Signs Vital Signs/Measurements 04/09/2018 19:05 EDT Temperature 98.5 Degrees F NML Temperature Route Oral Pulse Rate 91 BPM NML Respiratory Rate 16 Br PM NML Pulse Oximetry 98 % NML Oxygen Delivery Room air Systolic BP 121 mm Hg NML Diastolic BP 72 mm Hg NML Weight 99.968 kg Weight Type Pt reported Weight Lb 220 lbs Weight Oz 6.27 oz Height 162.56 cm Height Type Pt reported Height Ft 5 ft Height in 4 Inch BSA 2.04 m2 Body Mass Index 37.8 kg/m2 . PHYSICAL EXAM:CONSTITUTIONAL: Alert well-appearing WF, no acute respiratory distress, appropriate with examHEAD: Normocephalic; atraumatic.EYES: PERRL, no scleral icterus.OP: MMMNOSE: The nose is normal in appearance without rhinorrheaRESP: Normal chest excursion with respiration; breath sounds clear and equal bilaterally; no wheezes, rhonchi, or ralesCARD: Regular rhythm, without murmurs, rub or gallopABD: Non-distended; non-tender, soft,without rigidity, rebound or guardingGU: normal ext genitalia without lesions, minimal erythema, some white mucous discharge, no cMTEXT: 2+ radial pulses bilaterallySKIN: Normal for age and race; warm and dry Medical Decision Making TESTING: pelvic examPatient in no distress. Reports that she is feeling improved.I d/w her the urine and pelvic results.She will follow up with her doctor tomorrow as she is concerned about possible allergy related symptoms.Will prescribe diflucan for her to take as needed.Will d/c.CRITICAL CARE TIME: Results review: Lab results : Lab 04/09/2018 19:35 EDT HCG Qualitative Urine NEGATIVE Color Urine Yellow Appearance Urine Clear Specific [place] Urine 1.010 pH Urine 6.5 Glucose Urine Negative Ketones Urine Negative Bilirubin Urine Negative Blood Urine Negative Urobilinogen Urine 0.2MG/D Leukocyte Esterase Urine Negative Nitrite Urine Negative Protein Urine Negative Bacterial Vaginosis NEGATIVE Trichomonas NEGATIVE . Reexamination/ Reevaluation Procedure Impression and Plan DIAGNOSIS:Vaginal irritation Basic Information Patient information:: Chief Complaint from Nursing Triage Note : Chief Complaint-Triage 04/09/2018 19:05 EDT Chief Complaint-Triage vaginal swelling started yesterday . Normal [facility] ED Physician Notes PDF Normal [facility] Bacterial Vaginosis Rapidon 04-09-2018 Bacterial Vaginosis Rapid Negative Normal [facility] Comment on above: Performed By: #### C D:[id number], CD:[id number] ####[facility] [address] [place], [place] Chlamydia Detection by NAATo n 04-09-2018 Chlamydia Detection by NAAT [facility] MicrobiologyPROCEDURE: Chlamydia Detection by NAATSOURCE: Swab BODY SITE:COLLECTED DATE/TIME: 04/09/2018 19:35 EDT RECEIVED DATE/TIME: 04/09/2018 19:35 EDTSTART DATE/TIME: 04/09/2018 19:35 EDT FREE TEXT SOURCE: SWAB-EndocervixINTERFACED REPORTSFinal Report []Verified Date/Time/Personnel: 04/10/2018 14:59 EDT CONTRIBUTOR_SYSTEM, CO_PNNEGATIVE * C TRACHOMATIS NUCLEIC ACID NOT DETECTEDCONTACT LABORATORY FOR RECOMMENDED ADDITIONAL TESTING IFRESULTS ARE INCONSISTENT WITH CLINICAL FINDINGS Normal [facility] Comment on above: Performed By: #### 2 276-4, 84272-8, 2498-4, 2502-3 ####[facility] [address], [place] Depart Summaryon 04-09-2018 Depart Summary EMERGENCY DEPARTMENT DISCHARGE SUMMARYPATIENT NAME:SARA ROJO MRN: [id number]: 48 Years SEX: Female PHONE:[id number]: 04/09/2018 6:54 PM : 1970 ER PHYSICIAN:Ursula Badillo MD PCP: Paco Fernandez MD CHIEF COMPLAINT: vaginal swelling started yesterday Allergies Ceftin (Reflux) amoxicillin (Reflux)Problems No Problems Documented DISCHARGE DIAGNOSIS: Vaginal discomfort DISCHARGE INSTRUCTIONS: Vaginal Yeast Infection, Adult HISTORY OF PRESENT ILLNESS:I reviewed the nurses notes. 48yo WF, non smoker, with history of 'low iron' comes to the ED with report of vaginal irritation/itching. Patient reports that since yesterday she has felt like her vagina is swollen and itching. She denies any significant discharge. No abdominal or pelvic pain. No fevers/chills/vomiting/diarrh ea. No dysuria. She has been for 25 years and is monogamous. Denies any concern for STI. MEDICAL DECISION MAKING: PROCEDURES:Free Text Sentence DISPOSITION:Time of Departure From ER 04/09/2018 20:42 Discharge/Transfer From ER Home 01 MEDICATION LISTS: CURRENT MEDICATION LISTfluconazole (Diflucan 150 mg oral tablet) 1 Tab(s) By Mouth once a day. Refills: 0.MetFORMIN By Mouth. MEDICATIONS GIVEN DURING MEDICAL VISITNone LAB RESULTS:LABORATORY TESTS: Pending Lab Result(s): __ Date Order Results 04/09/2018 19:34 GC Detection by NAAT Ordered 04/09/2018 19:34 Chlamydia Detection by NAAT Ordered RADIOLOGY: DIAGNOSTICS: FOLLOW UP:With: Address: When: Return to Emergency Department With: Address: When: Paco Fernandez [address] [place] [address] [phone] Business (1) Within 1 to [address] [facility] ED Pat Eduon 04-09-2018 ED [facility] Richard Paulino [id number] [place], [place] [phone] Department Discharge Instructions SARA ROJO , Please provide this information to your Primary Care/Specialist Name : SARA ROJO Current Date : 04/09/2018 20:43:22DOB : 1970 12:00 PM Primary Care Physician: Paco Fernandez MD Diagnosis : Vaginal discomfort Follow-Up Instructions:ROJOELBAIA Beverly has been given these follow-up instructions: Provider: Specialty: Address: Date: Paco Fernandez MD [address] [phone] (1) 1 to 2 days Provider: Specialty: Address: Date: Return to Emergency Department Laboratory Orders: Name: Status: Urinalysis with Microscopic Automatic with Reflex Completed Bacterial Vaginosis Rapid Completed Trichomonas Rapid Completed GC Detection by NAAT Ordered Chlamydia Detection by NAAT Ordered Test Urine Completed Radiology Orders: None Ordered Diagnostic Tests: None Ordered Procedure(s) and Patient Education(s) : Vaginal Yeast Infection, Adult EMERGENCY SERVICES MEDICATION LISTLista de Medicaciones de los Servicios de Emergencia Name SARA ROJO PLEASE READ THE FOLLOWING REGARDING YOUR MEDICATIONS Based on the information available during your visit we have given you the medication instructions below. Continue taking medications you took prior to your visit unless you have been told to change. Please share this information with your own doctor. Carry a list of your medications with you in case of an emergency. Update it when medications are stopped, doses are changed, or new medications (including uuys-kzz-frglxhq products) are added. If you have any questions, check with your doctor. Por la informaci??n disponible pasha jules visita, las instrucciones de medicaci??n aparecen debajo. Favor de continuar tomando las medicaciones Ud. tanya?? antes de jules visita por lo menos que hay cambios. Favor de compartir esta informaci??n con jules medico. Lleva kathrine lista de medicaciones consigo por marcello de emergenc??a. Actualiza la lista cuando Ud. vera de braeden las medicaciones, si cambian las dosis, o si hay nuevas medicaciones a??adidas (incluyendo medicaciones vendidas sin prescripci??n). Favor de preguntar a jules medico por cualquier elkin. THESE ARE THE MEDICATIONS YOU SHOULD BE TAKINGfluconazole (Diflucan 150 mg oral tablet) 1 Tab(s) By Mouth once a day. Refills: 0.MetFORMIN By Mouth.MEDICATIONS GIVEN DURING MEDICAL VISITNone NON-MEDICATION PRESCRIPTION SCHEDULING PHONE NUMBER: MEDICATION CHANGE DETAILS (Not your Final Home Medication List) During the course of your visit, your home medication list was updated with the most current information. The details of those changes are shown below: NEW MEDICATIONSPrinted Prescriptionsfluconazole (Diflucan 150 mg oral tablet) 1 Tab(s) By Mouth once a day. Refills: 0.Comment UPDATED MEDICATIONSNoneUNCHANGED MEDICATIONSOther MedicationsMetFORMIN By Mouth.Comment STOP TAKING THESE MEDICATIONSNoneDO NOT TAKE UNTIL YOU TALK TO YOUR DOCTORNone [facility] [phone] Discharge Instructions Name: CHADELBAYOLETTE Paul Current Date: 04/09/2018 20:43:22 : 1970 12:00 PM Primary Physician: Paco Fernandez MD We would like to thank you for choosing [facility] and [facility] for your emergency medical needs. We examined and treated you today on an emergency basis only. This was not a substitute for, or an effort to provide, complete medical care. In most cases, you must let your doctor (or the doctor we referred you to) check you again. Tell your doctor about any new or lasting problems. We cannot recognize and treat all injuries or illnesses in one emergency department visit. After you leave, you should follow the directions attached. Instructions for obtaining X-rays:When following up with your doctor, you may need to take copies of your x-rays that were done in the Emergency Department. If you didn't receive these upon your discharge from the emergency department, please [phone]. When the final report becomes available and it is reviewed, the emergency department will attempt to contact you if there are any changes in your instructions. It is important that you leave accurate information with us on how to contact you. IF you cannot be contacted, YOU must contact the follow-up doctor that you were assigned to make sure that the final official x-ray report does not require a change in your treatment. Instructions for obtaining medical records:If you need a copy of your medical records for follow-up, please contact the Health Information Management Department [phone]. Their office hours are 8 AM- 4:30 PM, Tuesday through Tuesday. Please note: Results are not immediately available. Please allow a minimum of 36 hours for documentation and results.If you were prescribed an antibiotic:Antibiotics are life-saving drugs and they need to be used properly. Your team might change your antibiotic because test results show that a different antibiotic would be better to treat your infection. Like all medications, antibiotics have side effects. Some can be serious. This includes the risk of getting an antibiotic-resistant infection later, which may be difficult to treat. Remember to take your antibiotics as prescribed. If you have any questions please talk to your healthcare team. Seatbelts:There is no doubt that seatbelts save lives. Every day, people without seatbelts have more serious injuries. Have everyone buckle up, using age appropriate seatbelts or car seats, to reduce their risk of injury.Smoking:If you do smoke, we encourage you to stop. Smoking affects all aspects of your health and the health of those around you. Call the [place] [employer] at 2-844-TFBR-[place] or the [place] at 9-094-BOV-6325 for more information.High blood pressure: Your screening blood pressure today was 121 mm Hg / 72 mm Hg. Hypertension (high blood pressure) is blood pressure over 120/80. People with hypertension should contact their primary care provider within 30 days to follow up. Check your patient portal for additional blood pressure information.Immunizations:Imm unization is a way to protect against deadly infections. Discuss this with your child's piercer, or Public Health Department. Your family practice doctor can determine if you need pneumonia or flu vaccine. The [facility] can be reached at .Domestic Violence:If you are a victim of domestic violence (physical, verbal, or emotional), you are not alone. Discuss this with your physician or a friend and call Choices Hotline ( for assistance and support.You are the most important factor in your recovery. Follow the provided instructions carefully. Take your medications as prescribed. Most importantly, see a doctor again as discussed. If you have problems that we have not discussed, call or visit your doctor right away. If you do not have a primary care physician, we have provided one for you to follow up with. When you call for an appointment, please inform them that you were seen in the emergency department and the date of your visit. If you are unable to reach your doctor and are still experiencing problems, return to the emergency department. For assistance finding a primary care physician, call the Physician Referral Line at .Suicide Hotline:Your mental and emotional well-being is important. If you are in a mental health crisis or are having thoughts of suicide, please call the nationwide suicide hotline, anytime day or night, at 3-928-631-QHNM. Pharmacy Information:Below is a list of 24 hour pharmacies that we are aware of. We suggest that you call the specific pharmacy for their hours before traveling to a location. Hours may vary on holidays. [facility] [address] [address] [phone] [address] [phone] [phone] [phone] [address] [address] [phone] [address] [phone] [place] [address] [phone] Take all medications as directed. If you need prescription assistance, contact the following agencies:?? Partnership for Prescription Assistance at or www.pparx.org ?? [place] [facility] at or www.iowabestrx.org ?? Good Rx at or www.ProterraRxAskU Patient Education Materials SARA ROJO has been given the following patient education materials: Obstetrics and GynecologyMonilial VaginitisVaginitis in a soreness, swelling and redness (inflammation) of the vagina and vulva. Monilial vaginitis is not a sexually transmitted infection. CAUSESYeast vaginitis is caused by yeast (rachel) that is normally found in your vagina. With a yeast infection, the rachel has overgrown in number to a point that upsets the chemical balance.SYMPTOMS???White, thick vaginal discharge.???Swelling, itching, redness and irritation of the vagina and possibly the lips of the vagina (vulva).???Burning or painful urination.???Painful intercourse.DIAGNOSISThings that may contribute to monilial vaginitis are:???Postmenopausal and virginal states.???.???Infect ions.???Being tired, sick or stressed, especially if you had monilial vaginitis in the past.???Diabetes. Good control will help lower the chance.??? control pills.???Tight fitting garments.???Using bubble bath, feminine sprays, douches or deodorant tampons.???Taking certain medications that kill germs (antibiotics). ???Sporadic recurrence can occur if you become ill.TREATMENTYour caregiver will give you medication.???There are several kinds of anti monilial vaginal creams and suppositories specific for monilial vaginitis. For recurrent yeast infections, use a suppository or cream in the vagina 2 times a week, or as directed.???Anti-monilial or steroid cream for the itching or irritation of the vulva may also be used. Get your caregiver's permission.???Painting the vagina with methylene blue solution may help if the monilial cream does not work.???Eating yogurt may help prevent monilial vaginitis.HOME CARE INSTRUCTIONS???Finish all medication as prescribed.???Do not have sex until treatment is completed or after your caregiver tells you it is okay.???Take warm sitz baths.???Do not douche.???Do not use tampons, especially scented ones.???Wear cotton underwear.???Avoid tight pants and panty hose.???Tell your sexual partner that you have a yeast infection. They should go to their caregiver if they have symptoms such as mild rash or itching. ???Your sexual partner should be treated as well if your infection is difficult to eliminate.???Practice safer sex. Use condoms.???Some vaginal medications cause latex condoms to fail. Vaginal medications that harm condoms are: ???Cleocin cream.???Butoconazole (Femstat?).???Terconazole (Terazol?) vaginal suppository.???Miconazole (Monistat?) (may be purchased over the counter).SEEK MEDICAL CARE IF:???You have a temperature by mouth above 102? F (38.9? C).???The infection is getting worse after 2 days of treatment.???The infection is not getting better after 3 days of treatment.???You develop blisters in or around your vagina.???You develop vaginal bleeding, and it is not your menstrual period.???You have pain when you urinate.???You develop intestinal problems.???You have pain with sexual intercourse.This information is not intended to replace advice given to you by your health care provider. Make sure you discuss any questions you have with your health care provider.Document Released: 06/01/2006 Document Revised: 11/13/2012 Document Reviewed: 02/13/2010[employer] Patient Education ?2016 [employer].<><><><><><><><><><><><>< ><><><><><><><><><><><><><><> <><><><><><><><><><><><><> Patient Visit Summary Signature SARA ROJO has been given the following list of patient education materials, prescriptions and follow-up instructions: CHAD Jackson AMELIA R, have received the above patient education materials/instructions and have verbalized understanding: Date Time Patient Signature Date Time Provider Signature Normal [facility] GC Detection by NAATon 04-09 Chlamydia sp Ag Ql (Unsp spec) [facility] MicrobiologyPROCEDURE: GC Detection by NAAT Cervix BODY SITE:COLLECTED DATE/TIME: 04/09/2018 19:35 EDT RECEIVED DATE/TIME: 04/09/2018 19:35 EDTSTART DATE/TIME: 04/09/2018 19:35 EDT FREE TEXT SOURCE: CERVIX-CervixINTERFACED REPORTSFinal Report []Verified Date/Time/Personnel: 04/10/2018 15:04 EDT CONTRIBUTOR_SYSTEM, CO_PNNEGATIVE * N.GONORRHOEAE NUCLEIC ACID NOT DETECTED*CONTACT LABORATORY FOR RECOMMENDED ADDITIONAL TESTINGIF RESULTS ARE INCONSISTENT WITH CLINICAL FINDINGS * Normal [facility] Comment on above: Performed By: #### 2 276-4, 39551-4, 2498-4, 2502-3 ####[facility] [address], [place] Test Urineon 04-09 HCG ( test) Ql (U) Negative Normal [facility] Comment on above: Performed By: #### 5 8077-9, 2106-3 ####[facility] [address], [place] Trichomonas Rapidon 04-09-20 18 Trichomonas Rapid Negative Normal [facility] Comment on above: Performed By: #### C D:[id number], CD:[id number] ####[facility] [address] [place], [place] Urinalysis with Microscopic Automatic with Reflexon 04-09-2018 Appearance Nom (U) Clear Normal CLEAR [facility] Comment on above: Performed By: #### 5 8077-9, 2105-11 #### [employer] [facility] Bilirubin Test strip mass conc (U) Negative Normal NEGATIVE [facility] Comment on above: Performed By: #### 5 8077-9, 2105-11 ####[employer] [facility] Color Nom (U) Yellow Normal YELLOW [facility] Comment on above: Performed By: #### 8077-9, 2105-11 ####[place] T[employer] [facility] Glucose Test strip mass conc (U) Negative Normal NORMAL [facility] Comment on above: Performed By: #### 5 8077-9, 2105-11 ####[employer] [facility] Hemoglobin Test strip Ql (U) Negative Normal NEGATIVE [facility] Comment on above: Performed By: #### 5 8077-9, 2105-11 ####[employer] [employer] [facility] Ketones mass conc (U) Negative Normal NEGATIVE [facility] Comment on above: Performed By: #### 5 8077-9, 2105-11 #### [employer] [facility] Leukocyte esterase Test strip Ql (U) Negative Normal NEGATIVE [facility] Comment on above: Performed By: #### 5 8077-9, 2105-11 ####[employer] [facility] Nitrite Test strip mass conc (U) Negative Normal NEGATIVE [facility] Comment on above: Performed By: #### 5 8077-9, 2105-11 ####[employer] [facility] pH Test strip (U) 6.5 [pH] Normal 4.5-8.0 [facility] Comment on above: Performed By: #### 5 8077-9, 2105-11 #### [employer] [facility] [employer] [place] [address] Protein mass conc (U) Negative Normal NEGATIVE [facility] Comment on above: Performed By: #### 5 8077-9, 2105-11 #### [employer] [facility] [employer] [place] [address] Specific gravity Relative Density (U) 1.010 Normal 1.002-1.[address] [facility] Comment on above: Performed By: #### 5 8077-9, 2105-11 #### [employer] [facility] [employer] [place] [address] Urobilinogen Test strip mass conc (U) 0.2MG/D Normal NORMAL [facility] Comment on above: Performed By: #### 5 8077-9, 2105-11 #### [employer] [facility] [employer] [place] [address] CBC Auto Differentialon 08-0 Basophils Auto #/vol (Bld) 0.06 K/mcL Invalid Interpretation Code 0.00 - 0.30 [facility] Basophils/100 WBC Auto (Bld) 0.9 % Invalid Interpretation Code [facility] Eosinophils Auto #/vol (Bld) 0.07 K/mcL Invalid Interpretation Code 0.00 - 0.50 [facility] Eosinophils/100 WBC Auto (Bld) 1.0 % Invalid Interpretation Code [facility] Erythrocyte distribution width Auto Entitic volume (RBC) 11.9 % Invalid Interpretation Code 11.6 - 14.8 % [facility] Hematocrit Auto Volume Fraction (Bld) 41.9 % Invalid Interpretation Code 36 - 46 % [facility] Hemoglobin mass conc (Bld) 14.0 g/dL Invalid Interpretation Code 12 - 16 g/dL [facility] Immature granulocytes #/vol (Bld) 0.03 K/mcL Invalid Interpretation Code 0.00 - 0.30 [facility] Immature granulocytes/100 WBC (Bld) 0.40 % Invalid Interpretation Code [facility] Comment on above: The IG parameter is the percentage of metamyelocytes, myelocytes, and promyelocytes. Lymphocytes Auto #/vol (Bld) 1.52 K/mcL Invalid Interpretation Code 0.90 - 4.00 [facility] Lymphocytes/100 WBC Auto (Bld) 22.0 % Invalid Interpretation Code [facility] MCH Auto Entitic mass (RBC) 31.3 pg Invalid Interpretation Code 26 - 34 pg [facility] MCHC Auto mass conc (RBC) 33.4 g/dL Invalid Interpretation Code 31 - 37 g/dL [facility] MCV Auto Entitic volume (RBC) 93.5 fL Invalid Interpretation Code 80 - 100 fL [facility] Monocytes Auto #/vol (Bld) 0.31 K/mcL Invalid Interpretation Code 0.30 - 0.90 [facility] Monocytes/100 WBC Auto (Bld) 4.5 % Invalid Interpretation Code [facility] Neutrophils Auto #/vol (Bld) 4.91 K/mcL Invalid Interpretation Code 1.70 - 7.00 [facility] Neutrophils/100 WBC Auto (Bld) 71.2 % Invalid Interpretation Code [facility] Nucleated RBC #/vol (Bld) 0.00 K/mcL Invalid Interpretation Code 0.00 - 0.00 [facility] Nucleated RBC/100 WBC Ratio (Bld) 0.0 % Invalid Interpretation Code [facility] Platelet mean volume Auto Entitic volume (Bld) 10.3 fL Invalid Interpretation Code 9 - 15.5 fL [facility] Platelets Auto #/vol (Bld) 280 K/mcL Invalid Interpretation Code 150 - 400 [facility] RBC Auto #/vol (Bld) 4.48 M/mcL Invalid Interpretation Code 4.00 - 5.20 [facility] WBC Auto #/vol (Bld) 6.90 K/mcL Invalid Interpretation Code 4.50 - 11.00 [facility] CBC w/ Diffon 04-07-2018 CBC w/ Diff The following orders were created for panel order CBC w/ Diff. Procedure Abnormality Status --------- ------ CBC Auto Differential[[id number]] Final result Please view results for these tests on the individual orders. Invalid Interpretation Code [facility] Comprehensive Metabolic Pane reed 04-07-2018 Albumin mass conc 4.6 g/dL Invalid Interpretation Code 3.2 - 5.2 g/dL [facility] ALP enzyme act/vol 72 U/L Invalid Interpretation Code 40 - 150 U/L [facility] ALT enzyme act/vol 46 U/L High 0 - 40 U/L [facility] Anion gap 3 molar conc 17 mmol/L Invalid Interpretation Code 10 - 20 mmol/L [facility] AST enzyme act/vol 32 U/L Invalid Interpretation Code 0 - 45 U/L [facility] Bilirubin mass conc 0.3 mg/dL Invalid Interpretation Code 0 - 1.3 mg/dL [facility] Calcium mass conc 9.9 mg/dL Invalid Interpretation Code 8.4 - 10.2 mg/dL [facility] Chloride molar conc 103 mmol/L Invalid Interpretation Code 98 - 108 mmol/L [facility] Creatinine mass conc 0.59 mg/dL Invalid Interpretation Code 0.4 - 1.1 mg/dL [facility] GFR/1.73 sq M predicted among non-blacks MDRD vol rate/area (S/P/Bld) The eGFR should be used for monitoring renal function only and not for medication dosing. Invalid Interpretation Code [facility] GFR/1.73 sq M.predicted CKD-EPI vol rate/area (S/P/Bld) 110 mL/min/1.73 m2 Invalid Interpretation Code >=60 [facility] Glucose mass conc 103 mg/dL High 65 - 99 mg/dL [facility] HCO3 molar conc 28 mmol/L Invalid Interpretation Code 21 - 32 mmol/L [facility] Potassium molar conc 5.0 mmol/L Invalid Interpretation Code 3.5 - 5.1 mmol/L [facility] Protein mass conc 7.7 g/dL Invalid Interpretation Code 6 - 8 g/dL [facility] Sodium molar conc 143 mmol/L Invalid Interpretation Code 135 - 145 mmol/L [facility] Urea nitrogen mass conc 12 mg/dL Invalid Interpretation Code 8 - 25 mg/dL [facility] Urea nitrogen/Creatini ne mass ratio 20.3 mg/mg High 10.0 - 20.0 [facility] EKG 12-leadon 04-07-2018 Atrial Rate 89 BPM Invalid Interpretation Code [facility] P [place] 56 degrees Invalid Interpretation Code [facility]USE P-R Interval 170 ms Invalid Interpretation Code [facility] Q-T Interval 392 ms Invalid Interpretation Code [facility] QRS Duration 92 ms Invalid Interpretation Code [facility] QTC Calculation (Bezet) 476 ms Invalid Interpretation Code [facility]USE R [place] -14 degrees Invalid Interpretation Code [facility] T [place] 23 degrees Invalid Interpretation Code [facility] Ventricular Rate 89 BPM Invalid Interpretation Code [facility] EKG 12-lead Normal sinus rhythm Normal ECG Confirmed by Lucho Mendez ([id number]) on 04/07/2018 1:41:01 PM Invalid Interpretation Code [facility] Lactic Acid, Plasmaon 2017 Interpretation and review of laboratory results Abnormal Invalid Interpretation Code [facility] Lactate molar conc 3.4 mmol/L High 0.6 - 2 mmol/L [facility] Lavender Topon 04-07-2018 Extra Tube Hold for add-ons. Invalid Interpretation Code [facility] Comment on above: Auto resulted. Repeat Lactate (in 4 hours)o n 04-07-2018 Interpretation and review of laboratory results Normal Invalid Interpretation Code [facility] Lactate molar conc 0.7 mmol/L Invalid Interpretation Code 0.6 - 2 mmol/L [facility] Urine Yellow Containeron Urine Yellow Container Invalid Interpretation Code [facility] EKG 12-leadon 02-17-2018 EKG 12-lead Trang adrian MD 02/16/2018 10:20 PM EKG 12-lead Date/Time: 02/16/2018 10:19 PM Performed by: TRANG SNYDER Authorized by: TRANG SNYDER Interpreted by ED attending physician Comparison: not compared with previous ECG Previous ECG: no previous ECG available Rhythm: sinus rhythm BPM: 96 Conduction: conduction normal ST Segments: ST segments normal QRS axis: normal T Waves: T waves normal [place] Interval: 156 QRS Interval: 88 QT Interval: 467 Clinical impression: normal ECG Invalid Interpretation Code [facility]USE XR Chest AP/PA and LATon XR Chest AP/PA and LAT Negative chest x-rays. [employer] Workstation ID: [id number] Invalid Interpretation Code [employer] [facility] XR Chest AP/PA and LAT Interface, Rad In [facility] - 02/16/2018 10:56 PM EDT EXAMINATION: XR CHEST AP/PA AND LAT HISTORY: ORDERING SYSTEM PROVIDED HISTORY: sob, palpitations, TECHNOLOGIST PROVIDED HISTORY: Reason for exam: sob, heart palpitations Illness/Other Cancer History: no Surgery, RadiationHistory: none to chest Encounter Type: Initial Additional signs and symptoms: no ORDERING SYSTEM PROVIDED DIAGNOSIS CODES: COMPARISON: 04/01/2014. FINDINGS: Two images. Cardiomediastinal shadows are normal. No pneumothorax, edema, infiltrate, or effusion. Lung volumes are normal. Bony thorax intact. IMPRESSION: Negative chest x-rays. [employer] Work[employer] ID: [id number] Invalid Interpretation Code [facility] XR Chest AP/PA and LAT EXAMINATION: XR CHEST AP/PA AND LAT HISTORY: ORDERING SYSTEM PROVIDED HISTORY: sob, palpitations, TECHNOLOGIST PROVIDED HISTORY: Reason for exam: sob, heart palpitations Illness/Other Cancer History: no Surgery, RadiationHistory: none to chest Encounter Type: Initial Additional signs and symptoms: no ORDERING SYSTEM PROVIDED DIAGNOSIS CODES: COMPARISON: 04/01/2014. FINDINGS: Two images. Cardiomediastinal shadows are normal. No pneumothorax, edema, infiltrate, or effusion. Lung volumes are normal. Bony thorax intact. Invalid Interpretation Code [facility] BMPon 02-16-2018 Anion gap 16 mmol/L Invalid Interpretation Code 10 - 20 mmol/L [facility] Bicarbonate (HCO3) 29 mmol/L Invalid Interpretation Code 21 - 32 mmol/L [facility] BUN/Creatinine Ratio 15.1 mg/mg Invalid Interpretation Code 10.0 - 20.0 [facility] Calcium 9.6 mg/dL Invalid Interpretation Code 8.4 - 10.2 mg/dL [facility] Chloride 98 mmol/L Invalid Interpretation Code 98 - 108 mmol/L [facility] Creatinine 0.73 mg/dL Invalid Interpretation Code 0.4 - 1.1 mg/dL [facility] eGFR (non-black) 100 mL/min/{1.73_m2} Invalid Interpretation Code >=60 [facility] eGFR (non-black) The eGFR should be u sed for monitoring renal function only and not for medication dosing. Invalid Interpretation Code [facility] Glucose mass conc 108 mg/dL High 65 - 99 mg/dL [facility] Interpretation and review of laboratory results Abnormal Invalid Interpretation Code [facility] Potassium molar conc 3.9 mmol/L Invalid Interpretation Code 3.5 - 5.1 mmol/L [facility] Sodium 139 mmol/L Invalid Interpretation Code 135 - 145 mmol/L [facility] Urea nitrogen 11 mg/dL Invalid Interpretation Code 8 - 25 mg/dL [facility] CBC Auto Differentialon 02-03 Basophils Auto #/vol (Bld) 0.03 K/mcL Invalid Interpretation Code 0.00 - 0.30 [facility] Basophils/100 WBC Auto (Bld) 0.4 % Invalid Interpretation Code [facility] Eosinophils 0.12 K/mcL Invalid Interpretation Code 0.00 - 0.50 [facility] Eosinophils/100 leukocytes 1.5 % Invalid Interpretation Code [facility] Erythrocyte distribution width Auto Entitic volume (RBC) 12.4 % Invalid Interpretation Code 11.6 - 14.8 % [facility] Erythrocytes (RBC) 4.69 M/mcL Invalid Interpretation Code 4.00 - 5.20 [facility] Hematocrit (HCT) 42.9 % Invalid Interpretation Code 36 - 46 % [facility] Hemoglobin mass conc (Bld) 14.4 g/dL Invalid Interpretation Code 12 - 16 g/dL [facility] Immature granulocytes #/vol (Bld) 0.01 K/mcL Invalid Interpretation Code 0.00 - 0.30 [facility] Immature granulocytes/100 WBC (Bld) 0.10 % Invalid Interpretation Code [facility] Comment on above: The IG parameter is the percentage of metamyelocytes, myelocytes, and promyelocytes. Lymphocytes 2.05 K/mcL Invalid Interpretation Code 0.90 - 4.00 [facility] Lymphocytes/100 leukocytes 26.0 % Invalid Interpretation Code [facility] MCH 30.7 pg Invalid Interpretation Code 26 - 34 pg [facility] MCHC mass conc (RBC) 33.6 g/dL Invalid Interpretation Code 31 - 37 g/dL [facility] MCV 91.5 fL Invalid Interpretation Code 80 - 100 fL [facility] Monocytes 0.48 K/mcL Invalid Interpretation Code 0.30 - 0.90 [facility] Monocytes/100 leukocytes 6.1 % Invalid Interpretation Code [facility] Neutrophils 5.20 K/mcL Invalid Interpretation Code 1.70 - 7.00 [facility] Neutrophils/100 WBC Auto (Bld) 65.9 % Invalid Interpretation Code [facility] Nucleated erythrocytes 0.00 K/mcL Invalid Interpretation Code 0.00 - 0.00 [facility] Nucleated erythrocytes/100 erythrocytes 0.0 % Invalid Interpretation Code [facility] Platelet mean volume (PMV) 10.4 fL Invalid Interpretation Code 9 - 15.5 fL [facility] Platelets 285 K/mcL Invalid Interpretation Code 150 - 400 [facility] WBC (Leukocytes) 7.89 K/mcL Invalid Interpretation Code 4.50 - 11.00 [facility] CBC w/ Diffon 02-16-2018 Creatinine The following orders were created for panel order CBC w/ Diff. Procedure Abnormality Status --------- ------ CBC Auto Differential[[id number]] Final result Please view results for these tests on the individual orders. Invalid Interpretation Code [facility] Magnesium Levelon 02-16-2018 Interpretation and review of laboratory results Normal Invalid Interpretation Code [facility] Magnesium 2.0 mg/dL Invalid Interpretation Code 1.6 - 2.4 mg/dL [facility] [place] Topon 02-16-2018 Extra Tube Hold for add-ons. Invalid Interpretation Code [facility] Comment on above: Auto resulted. [place] Topon 02-16-2018 Reasnor Top Invalid Interpretation Code [facility] Renner Drawon 02-16-2018 Creatinine The following orders were created for panel order Renner Draw. Procedure Abnormality Status --------- ------ Lavender Top[[id number]] Final result Mint Green Top[[id number]] Final result Gold Top[[id number]] Final result Light Blue Top[[id number]] Final result Byrd Top[[id number]] Final result Reasnor Top[[id number]] Final result Please view results for these tests on the individual orders. Invalid Interpretation Code [facility] Troponinon 02-16-2018 Troponin T.cardiac mass conc ug/L Invalid Interpretation Code <0.040 ng/mL [facility] Ferritin Levelon 07-15-2017 Ferritin mass conc 87 ng/mL Normal 11-336 [facility] Comment on above: Performed By: #### 2 276-4, 26976-1, 2498-4, 2502-3 ####[facility] [address], [place] Iron % Saturationon 07-15-20 17 Iron saturation mass fraction 30 % sat Normal 20-55 [facility] Comment on above: Performed By: #### 2 276-4, 93105-0, 2498-4, 2502-3 ####[facility] [address], [place] Iron Binding Capacity Profil lamar 07-15-2017 Iron binding capacity mass conc 392 mcg/dL Normal 228-428 [facility] Comment on above: Performed By: #### 2 276-4, 22095-9, 2498-4, 2502-3 ####[facility] [address], [place] Iron Levelon 07-15-2017 Iron mass conc 117 ug/dL Normal 37-145 [facility] Comment on above: Performed By: #### 2 276-4, 27499-3, 2498-4, 2502-3 ####[facility] [address], [place] Vital Signs Date Time Vital Sign Value Performing Clinician Keyana jon 11-15-2024 14:24-0400 Body temperature 98.2 [degF] Ban Sykes Naartjie Work Phone: [facility] 11-15-2024 14:24-0400 Diastolic blood pressure 82 mm[Hg] Ban Sykes Naartjie Work Phone: [facility] 11-15-2024 14:24-0400 Heart rate 95 /min Ban Sykes Naartjie Work Phone: [facility] 11-15-2024 14:24-0400 SaO2% (BldA) [Mass fraction] 95 % Ban Sykes Naartjie Work Phone: [facility] 11-15-2024 14:24-0400 Systolic blood pressure 119 mm[Hg] Ban Sykes Naartjie Work Phone: [facility] 11-13-2024 11:32-0400 Body mass index (BMI) [Ratio] 44.29 kg/m2 Jericho Brown Naartjie Work Phone: [facility] 11-13-2024 11:32-0400 Body weight 117.03 kg Jericho Brown Naartjie Work Phone: [facility] 11-13-2024 11:32-0400 Heart rate 92 /min Jericho Brown Naartjie Work Phone: [facility] 11-13-2024 11:32-0400 SaO2% (BldA) [Mass fraction] 96 % Jericho Brown Naartjie Work Phone: [facility] 10-22-2024 15:20-0500 Body height 162.6 cm Amalia Yadav Naartjie Work Phone: [facility] 10-22-2024 15:20-0500 Body mass index (BMI) [Ratio] 44.3 kg/m2 [facility] Naartjie Work Phone: [facility] 10-22-2024 15:20-0500 Body weight 117.07 kg Amalia Yadav DO Work Phone: [facility] 10-22-2024 15:20-0500 Diastolic blood pressure 79 mm[Hg] Amalia Yadav DO Work Phone: [facility] 10-22-2024 15:20-0500 Heart rate 96 /min Amalia Yadav DO Work Phone: [facility] 10-22-2024 15:20-0500 SaO2% (BldA) [Mass fraction] 96 % Amalia Yadav DO Work Phone: [facility] 10-22-2024 15:20-0500 Systolic blood pressure 125 mm[Hg] Amalia Yadav DO Work Phone: [facility] 08-13-2024 13:08-0500 Body height 162.6 cm Danielle Shay DO Work Phone: [facility] 08-13-2024 13:08-0500 Body mass index (BMI) [Ratio] 44.05 kg/m2 Danielle Shay DO Work Phone: [facility] 08-13-2024 13:08-0500 Body weight 116.39 kg Danielle Shay DO Work Phone: [facility] 08-13-2024 13:08-0500 Diastolic blood pressure 66 mm[Hg] Danielle Shay DO Work Phone: [facility] 08-13-2024 13:08-0500 Heart rate 93 /min Danielle Shay DO Work Phone: [facility] 08-13-2024 13:08-0500 SaO2% (BldA) [Mass fraction] 94 % Danielle Shay DO Work Phone: [facility] 08-13-2024 13:08-0500 Systolic blood pressure 107 mm[Hg] Danielle Jaspal DO Work Phone: [facility] 05-01-2024 11:21-0400 Body height 162.6 cm Juan Green MD Work Phone: [facility] 05-01-2024 11:21-0400 Body mass index (BMI) [Ratio] 41.71 kg/m2 Juan Green MD Work Phone: [facility] 05-01-2024 11:21-0400 Body weight 110.22 kg Juan Green MD Work Phone: [facility] 05-01-2024 11:21-0400 Respiratory rate 14 /min Juan Green MD Work Phone: [facility] 04-17-2024 09:17-0400 Body height 162.6 cm Juan Green MD Work Phone: [facility] 04-17-2024 09:17-0400 Body mass index (BMI) [Ratio] 41.71 kg/m2 Juan Green MD Work Phone: [facility] 04-17-2024 09:17-0400 Body weight 110.22 kg Juan Green MD Work Phone: [facility] 04-17-2024 09:17-0400 Respiratory rate 14 /min Juan Green MD Work Phone: [facility] 01-12-2024 13:04-0400 Body height 162.6 cm Ml Ackermanville DO Work Phone: [facility] 01-12-2024 13:04-0400 Body mass index (BMI) [Ratio] 44.46 kg/m2 Ml Ackermanville DO Work Phone: [facility] 01-12-2024 13:04-0400 Body temperature 97.81 [degF] Ml Ackermanville DO Work Phone: [facility] 01-12-2024 13:04-0400 Body weight 117.48 kg Ml Ackermanville DO Work Phone: [facility] 01-12-2024 13:04-0400 Diastolic blood pressure 72 mm[Hg] Ml Ackermanville DO Work Phone: [facility] 01-12-2024 13:04-0400 Heart rate 83 /min Ml Ackermanville DO Work Phone: [facility] 01-12-2024 13:04-0400 Respiratory rate 16 /min Ml Ackermanville DO Work Phone: [facility] 01-12-2024 13:04-0400 SaO2% (BldA) [Mass fraction] 97 % Ml Ackermanville DO Work Phone: [facility] 01-12-2024 13:04-0400 Systolic blood pressure 107 mm[Hg] Ml Ackermanville DO Work Phone: [facility] 12-29-2023 13:22-0400 Body height 162.6 cm Ml Ackermanville DO Work Phone: [facility] 12-29-2023 13:22-0400 Body mass index (BMI) [Ratio] 45.32 kg/m2 Ml Ackermanville DO Work Phone: [facility] 12-29-2023 13:22-0400 Body temperature 97.9 [degF] Ml Ackermanville DO Work Phone: [facility] 12-29-2023 13:22-0400 Body weight 119.75 kg Ml Ackermanville DO Work Phone: [facility] 12-29-2023 13:22-0400 Diastolic blood pressure 76 mm[Hg] Ml Ackermanville DO Work Phone: [facility] 12-29-2023 13:22-0400 Heart rate 80 /min Ml Ackermanville DO Work Phone: [facility] 12-29-2023 13:22-0400 Respiratory rate 16 /min Ml Ackermanville DO Work Phone: [facility] 12-29-2023 13:22-0400 SaO2% (BldA) [Mass fraction] 98 % Ml Ackermanville DO Work Phone: [facility] 12-29-2023 13:22-0400 Systolic blood pressure 116 mm[Hg] Ml Ackermanville DO Work Phone: [facility] 12-15-2023 13:10-0400 Body height 162.6 cm Ml Ackermanville DO Work Phone: [facility] 12-15-2023 13:10-0400 Body mass index (BMI) [Ratio] 46.35 kg/m2 Ml Ackermanville DO Work Phone: [facility] 12-15-2023 13:10-0400 Body temperature 98.2 [degF] Ml Ackermanville DO Work Phone: [facility] 12-15-2023 13:10-0400 Body weight 122.47 kg Ml Ackermanville DO Work Phone: [facility] 12-15-2023 13:10-0400 Diastolic blood pressure 70 mm[Hg] Ml Ackermanville DO Work Phone: [facility] 12-15-2023 13:10-0400 Heart rate 89 /min Ml Ackermanville DO Work Phone: [facility] 12-15-2023 13:10-0400 SaO2% (BldA) [Mass fraction] 95 % Ml Ackermanville DO Work Phone: [facility] 12-15-2023 13:10-0400 Systolic blood pressure 116 mm[Hg] Ml Ackermanville DO Work Phone: [facility] 11-04-2023 13:47-0500 Body height 162.6 cm Pavithra Chapin MD Work Phone: [facility] 11-04-2023 13:47-0500 Body mass index (BMI) [Ratio] 41.83 kg/m2 Pavithra Chapin MD Work Phone: [facility] 11-04-2023 13:47-0500 Body weight 110.54 kg Pavithra Chapin MD Work Phone: [facility] 11-04-2023 13:47-0500 Diastolic blood pressure 82 mm[Hg] Pavithra Chapin MD Work Phone: 4(181)714-948331 [address] 11-04-2023 13:47-0500 Systolic blood pressure 124 mm[Hg] Pavithra Chapin MD Work Phone: 7(252)606-661709 [place] [address] 07-05-2023 12:10-0400 Body height 162.6 cm Pavithra Chapin MD Work Phone: 4(363)005-207209 [place] [address] 07-05-2023 12:10-0400 Body mass index (BMI) [Ratio] 38.96 kg/m2 Pavithra Chapin MD Work Phone: 5(226)623-606331 [address] 07-05-2023 12:10-0400 Body weight 102.97 kg Pavithra Chapin MD Work Phone: 3(695)810-853009 [place] [address] 07-05-2023 12:10-0400 Diastolic blood pressure 68 mm[Hg] Pavithra Chapin MD Work Phone: 6(519)886-965509 [place] [address] 07-05-2023 12:10-0400 Systolic blood pressure 114 mm[Hg] Pavithra Chapin MD Work Phone: 2(149)304-033731 [address] 06-17-2023 11:23-0400 Body temperature 97.5 [degF] Injection [facility] 06-17-2023 11:23-0400 Diastolic blood pressure 80 mm[Hg] Injection [facility] 06-17-2023 11:23-0400 Heart rate 81 /min Injection [facility] 06-17-2023 11:23-0400 Respiratory rate 16 /min Injection [facility] 06-17-2023 11:23-0400 SaO2% (BldA) [Mass fraction] 97 % Injection [facility] 06-17-2023 11:23-0400 Systolic blood pressure 138 mm[Hg] Injection [facility] 06-29-2022 08:42-0400 Body height 162.6 cm Pavithra Chapin MD Work Phone: [facility] 06-29-2022 08:42-0400 Body mass index (BMI) [Ratio] 39.08 kg/m2 Pavithra Chapin MD Work Phone: [facility] 06-29-2022 08:42-0400 Body weight 103.28 kg Pavithra Chapin MD Work Phone: [facility] 01-31-2020 13:39-0400 BMI (Body Mass Index) 41.2 kg/m2 [facility] 01-31-2020 13:39-0400 Body Temperature 97.2 [degF] [facility] 01-31-2020 13:39-0400 Body weight 108.86 [facility] 01-31-2020 13:39-0400 BP Diastolic 46 mm[Hg] [facility] 01-31-2020 13:39-0400 BP Systolic 115 mm[Hg] [facility] 01-31-2020 13:39-0400 Height 162.6 cm [facility] 01-31-2020 13:39-0400 Pulse (Heart Rate) 77 /min [facility] 01-31-2020 13:39-0400 Pulse Oximetry 98 % [facility] 01-31-2020 13:39-0400 Respiratory Rate 18 /min [facility] 05-14-2018 21:03-0400 Body Temperature 97.9 [degF] Luis Alfredo Lemus [facility] 05-14-2018 21:03-0400 BP Diastolic 76 mm[Hg] Luis Alfredo Lemus [facility] 05-14-2018 21:03-0400 BP Systolic 117 mm[Hg] Luis Alfredo Lemus [facility] 05-14-2018 21:03-0400 Pulse (Heart Rate) 77 /min Luis Alfredo Lemus [facility] 05-14-2018 21:03-0400 Pulse Oximetry 99 % Luis Alfredo Lemus [facility] 05-14-2018 21:03-0400 Respiratory Rate 18 /min Luis Alfredo Lemus [facility] 05-14-2018 19:0400 BMI (Body Mass Index) 37.76 kg/m2 Luis Alfredo Lemus [facility] 05-14-2018 19:0400 Height 162.6 cm Luis Alfredo Lemus [facility] 05-14-2018 19:0400 Weight 99.79 kg Luis Alfredo Lemus [facility] 04-09-2018 13:21-0400 BP Diastolic 51 mm[Hg] [facility] 04-09-2018 13:21-0400 BP Systolic 117 mm[Hg] [facility] 04-09-2018 13:21-0400 Pulse (Heart Rate) 82 /min [facility] 04-09-2018 13:21-0400 Pulse Oximetry 98 % [facility] 04-09-2018 13:21-0400 Respiratory Rate 18 /min [facility] 04-09-2018 12:26-0400 BMI (Body Mass Index) 37.76 kg/m2 [facility] 04-09-2018 12:26-0400 Body Temperature 98.71 [degF] [facility] 04-09-2018 12:26-0400 Height 162.6 cm [facility] 04-09-2018 12:26-0400 Weight 99.79 kg [facility] 04-07-2018 14:48-0400 BP Diastolic 86 mm[Hg] [facility] 04-07-2018 14:48-0400 BP Systolic 154 mm[Hg] [facility] 04-07-2018 14:48-0400 Pulse (Heart Rate) 88 /min [facility] 04-07-2018 14:48-0400 Pulse Oximetry 99 % [facility] 04-07-2018 14:48-0400 Respiratory Rate 16 /min [facility] 04-07-2018 11:04-0400 BMI (Body Mass Index) 37.76 kg/m2 [facility] 04-07-2018 11:04-0400 Body Temperature 99.3 [degF] Ramón Newman [facility] 04-07-2018 11:04-0400 Height 162.6 cm Ramón Newman [facility] 04-07-2018 11:04-0400 Weight 99.79 kg Ramón Newman [facility] 02-16-2018 23:30-0400 BP Diastolic 67 mm[Hg] Trangcharity Snyder [facility] 02-16-2018 23:30-0400 BP Systolic 115 mm[Hg] Trangcharity Snyder [facility] 02-16-2018 23:30-0400 Pulse (Heart Rate) 86 /min Trang Snyder [facility] 02-16-2018 23:30-0400 Pulse Oximetry 98 % Trang Snyder [facility] 02-16-2018 23:30-0400 Respiratory Rate 18 /min Trang Snyder [facility] 02-16-2018 20:58-0400 BMI (Body Mass Index) 37.76 kg/m2 Trangcharity Snyder [facility] 02-16-2018 20:58-0400 Body Temperature 98.29 [degF] Trangcharity Snyder [facility] 02-16-2018 20:58-0400 Height 162.6 cm [facility] [place] [facility] 02-16-2018 20:58-0400 Weight 99.79 kg Trang Snyder [facility] Encounters Encounter Date Encounter Type Care Provider Facility Start: 06-24-2025 End: 06-24-2025 Office outpatient visit 15 minutes Kacie Keenan MD Work Phone: [facility] Comment on above: Neoplasm of uncertai n behavior of skin (Primary Dx); AK (actinic keratosis); Rosacea Start: 06-24-2025 ambulatory KACIE KEENAN Facili ty:[facility] Start: 06-13-2025 ambulatory KACIE N SERJIO Facili ty:[facility] Start: 06-13-2025 End: 06-13-2025 Office outpatient visit 15 minutes Kacie Keenan MD Work Phone: [facility] Comment on above: Actinic skin damage (Primary Dx); Multiple pigmented nevi; Lentigines; Actinic keratosis; Dermatofibroma; Milial cyst; Neoplasm of uncertain behavior of skin; History of basal cell carcinoma Start: 06-12-2025 ambulatory PAVITHRA NEKKANTI Facility :[facility] Start: 05-29-2025 ambulatory PAVITHRA NEKKANTI Facility :[facility] Start: 05-01-2025 ambulatory PAVITHRA NEKKANTI Facility :[facility] Start: 04-24-2025 ambulatory PAVITHRA NEKKANTI Facility :[facility] Start: 04-17-2025 ambulatory PAVITHRA NEKKANTI Facility :[facility] Start: 04-11-2025 ambulatory PAVITHRA NEKKANTI Facility :[facility] Start: 03-27-2025 ambulatory PAVITHRA NEKKANTI Facility :[facility] Start: 03-20-2025 ambulatory PAVITHRA NEKKANTI Facility :[facility] Start: 03-15-2025 ambulatory PAVITHRA NEKKANTI Facility :[facility] Start: 02-27-2025 ambulatory PAVITHRA NEKKANTI Facility :[facility] Start: 02-13-2025 ambulatory PAVITHRA NEKKANTI Facility :[facility] Start: 02-07-2025 ambulatory PATIENCE ESCOBEDO Fac ility:[facility] Start: 02-07-2025 End: 02-07-2025 Office outpatient visit 15 minutes Patience Escobedo MD Work Phone: [facility] [place] Comment on above: Neoplasm of uncertai n behavior of skin (Primary Dx); Open comedone Start: 02-06-2025 ambulatory PAVITHRA NEKKANTI Facility :[facility] Start: 01-23-2025 ambulatory PAVITHRA NEKKANTI Facility :[facility] Start: 01-16-2025 ambulatory PAVITHRA NEKKANTI Facility :[facility] Start: 01-02-2025 ambulatory PAVITHRA NEKKANTI Facility :[facility] Start: 12-19-2024 ambulatory PAVITHRA NEKKANTI Facility :[facility] Start: 12-12-2024 ambulatory PAVITHRA NEKKANTI Facility :[facility] Start: 12-11-2024 End: 12-11-2024 Office outpatient visit 25 minutes Patience Escobedo MD Work Phone: [facility] [place] Comment on above: Post-inflammatory hy perpigmentation (Primary Dx); Inflammatory papule; Milial cyst; Rosacea Start: 12-11-2024 ambulatory PATIENCE Maxwell ility:[facility] Start: 12-05-2024 ambulatory [facility] Facility :[facility] Start: 11-28-[address] [facility] Start: 11-15-2024 End: 11-19-2024 ambulatory [facility] Start: 11-15-2024 End: 11-15-2024 Office outpatient visit 15 minutes Ban Sykes DO Work Phone: [facility] Comment on above: Chronic bilateral lo w back pain without sciatica (Primary Dx); Right hip pain; Somatic dysfunction of pelvis region; Somatic dysfunction of lower extremity; Somatic dysfunction of abdominal region Start: 11-13-2024 End: 11-17-2024 ambulatory [facility] Start: 11-13-2024 End: 11-13-2024 Office outpatient new 20 minutes Jericho Brown DO Work Phone: [facility] Comment on above: 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); Chronic myofascial pain Start: 10-31-2024 ambulatory URSULA RUTH Facilit y:[facility] Start: 10-22-2024 End: 10-26-2024 ambulatory AMALIA [facility] Start: 10-22-2024 End: 10-22-2024 Office outpatient visit 15 minutes Amalia Yadav DO Work Phone: [facility] Comment on above: Chronic bilateral lo w back pain without sciatica (Primary Dx); Right leg pain; Somatic dysfunction of spine, cervical; Somatic dysfunction of thoracic region; Somatic dysfunction of rib; Somatic dysfunction of upper extremity; Somatic dysfunction of lumbar region; Somatic dysfunction of lower extremity Start: 10-17-2024 ambulatory URSULA MARYENER [facility]ilit y[facility] Start: 10-10-2024 ambulatory URSULA MICHENER [facility]ilit [facility] Start: 10-08-2024 End: 10-08-2024 Office outpatient visit 15 minutes Patience Escobedo MD Work Phone: [facility] [place] [facility] Comment on above: AK (actinic keratosi s) (Primary Dx); Skin cancer screening; Lentigines; Multiple benign nevi; SK (seborrheic keratosis); Shah angioma; Skin tag Start: 10-08-2024 ambulatory PATIENCE Montemayor CAINALLY Fac ility: Start: 10-03-2024 ambulatory URSULA MICHENER Facilit y: Start: 09-26-2024 ambulatory URSULA MICHENER Facilit y: Start: 09-20-2024 ambulatory PATIENCE Albina FANNY Fac ility: Start: 09-20-2024 End: 09-20-2024 Patient encounter procedure Patience Escobedo MD Work Phone: [facility] [place] [facility] Comment on above: AK (actinic keratosi s) (Primary Dx) Start: 09-19-2024 ambulatory URSULA MICHENER Facilit y: Start: 08-30-2024 ambulatory PAVITHRA NEKKANTI Facility : Start: 08-24-2024 ambulatory PAVITHRA NEKKANTI Facility : Start: 08-22-2024 ambulatory URSULA MICHENER Facilit y: Start: 08-14-2024 ambulatory URSULA MICHENER Facilit y: Start: 08-13-2024 End: 08-13-2024 Office outpatient new 30 minutes Danielle Shay DO Work Phone: [facility] Comment on above: Chronic bilateral lo w back pain with right-sided sciatica (Primary Dx); Right leg pain; Segmental and somatic dysfunction of thoracic region; Segmental and somatic dysfunction of rib cage; Segmental and somatic dysfunction of lower extremity; Somatic dysfunction of pelvis region Start: 08-13-2024 End: 08-17-2024 ambulatory DANIELLE SHAY [facility] Start: 08-10-2024 ambulatory URSULA MICHENER Facilit y: Start: 07-30-2024 ambulatory PAVITHRA NEKKANTI Facility : Start: 07-24-2024 ambulatory PAVITHRA NEKKANTI Facility : Start: 07-13-2024 ambulatory URSULA MICHENER Facilit y: Start: 07-11-2024 ambulatory PAVITHRA NEKKANTI Facility :[facility] Start: 07-05-2024 ambulatory URSULA RUTH Facilit y:[facility] Start: 06-28-2024 ambulatory URSULA FARAZ Facilit y:[facility] Start: 05-24-2024 End: 05-24-2024 Office outpatient visit 15 minutes Patience Escobedo MD Work Phone: [facility] [place] Comment on above: Angiokeratoma (Prima ry Dx); Fibrous papule of nose; Telangiectasia Start: 05-01-2024 End: 05-05-2024 [facility] Start: 05-01-2024 End: 05-01-2024 Office outpatient visit 15 minutes Juan Green MD Work Phone: [facility] [place] [facility] Comment on above: Dysfunction of both eustachian tubes (Primary Dx) Start: 04-17-2024 End: 04-17-2024 Office outpatient new 30 minutes Juan Green MD Work Phone: [facility] [place] [facility] Comment on above: Dysfunction of both eustachian tubes (Primary Dx); Recurrent acute otitis media of both ears Start: 02-27-2024 End: 03-02-2024 [facility] Start: 02-21-2024 ambulatory [facility] Start: 02-14-2024 End: 02-14-2024 Office outpatient visit 15 minutes Patience Escobedo MD Work Phone: [facility] [place] Comment on above: Intertrigo (Primary Dx) Start: 01-12-2024 End: 01-12-2024 ambulatory ML ALLEN [facility] Start: 01-12-2024 End: 01-12-2024 Office outpatient visit 10 minutes Ml Allen DO Work Phone: [facility] Comment on above: Neck pain, chronic ( Primary Dx); Cranial somatic dysfunction; Cervical somatic dysfunction; Thoracic region somatic dysfunction; Rib cage region somatic dysfunction Start: 01-12-2024 End: 01-12-2024 Patient encounter procedure Ml Allen DO Work Phone: [facility] Start: 12-29-2023 End: 12-29-2023 ambulatory ML ALLEN [facility] Start: 12-29-2023 End: 12-29-2023 Office outpatient visit 10 minutes Ml Allen DO Work Phone: [facility] Comment on above: Neck pain, chronic ( Primary Dx); Cranial somatic dysfunction; Cervical somatic dysfunction; Thoracic region somatic dysfunction; Lumbar region somatic dysfunction; Sacral region somatic dysfunction; Somatic dysfunction of both lower extremities; Pelvic somatic dysfunction Start: 12-29-2023 End: 12-29-2023 Patient encounter procedure Ml Allen DO Work Phone: [facility] Start: 12-15-2023 End: 12-15-2023 ambulatory ML ALLEN [facility] Start: 12-15-2023 End: 12-15-2023 Office outpatient visit 15 minutes Ml Allen DO Work Phone: [facility] Comment on above: Tinnitus, bilateral; Cranial somatic dysfunction; Cervical somatic dysfunction; Thoracic region somatic dysfunction; Lumbar region somatic dysfunction; Sacral region somatic dysfunction; Somatic dysfunction of both lower extremities; Pelvic somatic dysfunction Start: 12-15-2023 End: 12-15-2023 Patient encounter procedure Ml Allen DO Work Phone: [facility] Start: 11-04-2023 End: 12-01-2023 Office outpatient visit 15 minutes Pavithra Chapin MD Work Phone: [facility] Comment on above: Urinary urgency (Yumiko arpit Dx); Complicated UTI (urinary tract infection) Start: 10-05-2023 End: 10-05-2023 Office outpatient visit 15 minutes Patience Escobedo MD Work Phone: [facility] [place] [facility] Comment on above: Skin cancer screenin g (Primary Dx); History of basal cell carcinoma (BCC); Shah angioma; Multiple benign melanocytic nevi of upper extremity, lower extremity, and trunk; Lentigines; SK (seborrheic keratosis); Skin tag; Eczema, unspecified type Start: 09-19-2023 End: 09-19-2023 ambulatory CAITLIN KENY Facility:[facility] Start: 09-19-2023 Evaluation and manag ement of inpatient [facility] Start: 08-16-2023 End: 08-16-2023 ambulatory CAITLIN KENY Facility:[facility] Start: 08-16-2023 Evaluation and manag ement of inpatient [facility] Start: 08-03-2023 End: 08-03-2023 [facility] Start: 08-03-2023 Evaluation and manag ement of inpatient [facility] Start: 07-05-2023 End: 07-05-2023 Office outpatient visit 25 minutes Pavithra Chapin MD Work Phone: [facility] Comment on above: Complicated UTI (uri nary tract infection) (Primary Dx) Start: 06-17-2023 End: 06-17-2023 [facility] Start: 06-17-2023 End: 06-17-2023 Nursing evaluation of patient and report Ursula Ruth [facility] Work Phone: [facility] Start: 06-17-2023 End: 06-17-2023 Emergency department patient visit [facility] Start: 06-16-2023 End: 06-16-2023 ambulatory [facility] Start: 06-16-2023 End: 06-16-2023 Nursing evaluation of patient and report Paco Fernandez MD Work Phone: [facility] Comment on above: Acute infectious dis ease (Primary Dx); Urinary tract infection due to Pseudomonas aeruginosa Start: 06-09-2023 End: 06-09-2023 ambulatory [facility] Start: 06-02-2023 End: 06-02-2023 ambulatory Roz Chinchilla [place] [place] Start: 06-02-2023 Nursing evaluation o f patient and report Maureen Keane RN [facility] Start: 06-01-2023 Orders Only Maureen Keane RN [facility] Comment on above: Acute infectious dis ease; Urinary tract infection due to Pseudomonas aeruginosa Start: 05-31-2023 Orders Only Maureen Keane RN [facility] Comment on above: Pseudomonas urinary tract infection (Primary Dx) Start: 01-17-2023 ambulatory 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 Start: 10-19-2022 End: 10-19-2022 Office outpatient visit 15 minutes Dinesh West DO Work Phone: [facility] [place] [facility] Comment on above: Segmental and somati c dysfunction of thoracic region; Segmental and somatic dysfunction of lumbar region; Segmental and somatic dysfunction of sacral region Start: 10-05-2022 End: 10-05-2022 Office outpatient visit 15 minutes Patience Escobedo MD Work Phone: [facility] [place] [facility] Comment on above: Skin cancer screenin g (Primary Dx); History of basal cell carcinoma (BCC); Shah angioma; Multiple benign melanocytic nevi of upper extremity, lower extremity, and trunk; Lentigines; SK (seborrheic keratosis); Skin tag; Intertrigo Start: 06-29-2022 End: 06-29-2022 Office outpatient visit 25 minutes Pavithra Chapin MD Work Phone: [facility] Comment on above: Urinary urgency (Yumiko arpit Dx); Urge urinary incontinence; Vaginal irritation; Labial hypertrophy; Urge incontinence; Nocturia Start: 02-22-2022 End: 02-22-2022 Patient encounter procedure [facility], Specimen Start: 01-20-2022 End: 01-20-2022 Office outpatient visit 15 minutes Patience Escobedo MD Work Phone: [facility] [place] Comment on above: AK (actinic keratosi s) (Primary Dx); Neoplasm of uncertain behavior of skin; Hypertrophic scar Start: 01-07-2022 End: 01-07-2022 Patient encounter procedure Dinesh West DO Work Phone: [facility] Comment on above: ERRONEOUS ENCOUNTER- -DISREGARD (Primary Dx) Start: 01-05-2022 End: 01-05-2022 Office outpatient visit 15 minutes Patience Escobedo MD Work Phone: [facility] [place] Comment on above: Skin cancer screenin g (Primary Dx); History of basal cell carcinoma (BCC); AK (actinic keratosis); Scar; Shah angioma; Multiple benign melanocytic nevi of upper extremity, lower extremity, and trunk; Skin tag; Dermatitis Start: 12-17-2021 End: 12-17-2021 Office outpatient visit 15 minutes Dinesh West DO Work Phone: [facility] Comment on above: Segmental and somati c dysfunction of cervical region; Segmental and somatic dysfunction of thoracic region; Segmental and somatic dysfunction of lumbar region; Segmental and somatic dysfunction of sacral region Start: 04-09-2021 End: 04-09-2021 Patient encounter procedure Dinesh West DO Work Phone: [facility] Comment on above: ERRONEOUS ENCOUNTER- -DISREGARD (Primary Dx) Start: 01-31-2020 End: 01-31-2020 [facility] Comment on above: 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); Insomnia, unspecified type Start: 05-14-2018 End: 05-14-2018 Emergency department patient visit CARRIETONYAAbhinav FERNANDEZ Facility:P Start: 05-14-2018 End: 05-14-2018 Emergency department patient visit Luis Alfredo Lemus Work Phone: [facility] Comment on above: Weakness (Primary Dx ); Fatigue, unspecified type Start: 04-09-2018 End: 04-09-2018 [facility] Start: 04-09-2018 End: 04-09-2018 Emergency department patient visit Duane Higgins Work Phone: [facility] Start: 04-07-2018 End: 04-07-2018 Emergency department patient visit Ramón Butlerricardasydnee Work Phone: [facility] Start: 02-16-2018 End: 02-16-2018 Emergency department patient visit Trang Echavarria Claudio Work Phone: [facility] Start: 07-16-2017 End: 07-16-2017 Patient encounter ML JOLLY Facility:[facility] Procedures Date Procedure Procedure Detail Performing Clinician Start: 01-12-2024 Osteopathic manipulative tx 3-4 body regions Ml Ackermanville DO Work Phone: Start: 01-12-2024 Adult depression screening assessment Ml Ackermanville DO Work Phone: Start: 12-29-2023 Osteopathic manipulative tx 7-8 body regions Ml Ackermanville DO Work Phone: Start: 12-29-2023 Adult depression screening assessment Ml Ackermanville DO Work Phone: Start: 12-15-2023 Osteopathic manipulative tx 7-8 body regions Ml Ackerman[place] DO Work Phone: Start: 12-15-2023 Adult depression screening assessment Ml Ackermanville DO Work Phone: Start: 11-04-2023 Urnls dip stick/tablet rgnt auto w/o microscopy Pavithra Chapin MD Work Phone: Start: 06-29-2022 Urnls dip stick/tablet rgnt auto w/o microscopy Pavithra Chapin MD Work Phone: Start: 01-16-2021 Lipid 1996 panel - Serum or Plasma Dinesh West DO Work Phone: Start: 05-14-2018 End: 05-14-2018 Radiologic exam chest 2 views Luis Alfredo Lemus Work Phone: Start: 05-14-2018 End: 05-14-2018 Calcium ionized Luis Alfredo Lemus Work Phone: Start: 05-14-2018 End: 05-14-2018 Albumin serum plasma/whole blood Luis Alfredo Lemus Work Phone: Start: 05-14-2018 End: 05-14-2018 Bacteria identified in Blood by Culture Luis Alfredo Latifmiquelcas Work Phone: Start: 05-14-2018 End: 05-14-2018 Blood count complete auto&auto difrntl wbc Luis Alfredo Lemus Work Phone: Start: 05-14-2018 End: 05-14-2018 Choriogonadotropin ( test) [Presence] in Urine Luis Alfredo Latifmiquelcas Work Phone: Start: 05-14-2018 End: 05-14-2018 Urnls dip stick/tablet rgnt auto w/o microscopy Luis Alfredo Lemus Work Phone: Plan of Treatment Date Care Activity Detail Author Start: 09-09-2026 DTaP,Tdap,and Td Vaccines (3 - Td or Tdap) DTaP,Tdap,and Td Vaccines (3 - Td or Tdap) [facility] Start: 09-09-2026 Tetanus vaccination [facility] Start: 06-19-2026 End: 06-19-2026 Patient encounter procedure 06/19/2026 11:40 AM EDT Office Visit [facility] [place] [address] [place] [address] Kacie Keenan MD [address] [place] [address] [facility] [place] Start: 01-16-2026 Fasting lipid profile LIPID SCREENING [facility] Start: 01-16-2026 Lipid panel [facility] Start: 01-06-2026 End: 01-06-2026 Patient encounter procedure 01/06/2026 9:40 AM EDT Office Visit [facility] [place] [address] [place] [address] Kacie Keenan MD [address] [place] [phone] [facility] [place] Start: 10-10-2025 End: 10-10-2025 Patient encounter procedure [facility] Start: 08-21-2025 End: 08-21-2025 Patient encounter procedure 08/21/2025 10:00 AM EST Rehab Services Visit [facility]patient [facility] [address] [place] [address] Pavithra Chapin MD [address] [address] Charlotte Monroy, PT [address] [place] [address] [facility] Start: 08-14-2025 End: 08-14-2025 Patient encounter procedure 08/14/2025 10:00 AM EST Rehab Services Visit [facility] [address] [place] [address] Pavithra Chapin MD [address] [address] Charlotte Monroy, PT [address] [place] [address] [facility] Start: 08-07-2025 End: 08-07-2025 Patient encounter procedure 08/07/2025 10:00 AM EST Rehab Services Visit [facility] [address] [place] [address] Pavithra Chapin MD [address] [phone] Charlotte Monroy, PT [address] [place] [address] [facility] Start: 07-31-2025 End: 07-31-2025 Patient encounter procedure 07/31/2025 10:00 AM EST Rehab Services Visit [facility] [address] [place] [address] Pavithra Chapin MD [address] [phone] Charlotte Monroy, PT [address] [place] [address] [facility] Start: 07-24-2025 End: 07-24-2025 Patient encounter procedure 07/24/2025 10:00 AM EST Rehab Services Visit [facility] [address] [place] [address] Pavithra Chapin MD [address] [address] Charlotte Monroy, PT [address] [place] [address] [facility] Start: 07-17-2025 End: 07-17-2025 Patient encounter procedure 07/17/2025 10:45 AM EST Rehab Services Visit [facility] [address] [place] [address] Pavithra Chapin MD [address] [address] Charlotte Monroy, PT [address] [place] [address] [facility] Start: 07-10-2025 End: 07-10-2025 Patient encounter procedure 07/10/2025 12:45 PM EST Rehab Services Visit [facility] [address] [place] [address] Pavithra Chapin MD [address] [phone] Charlotte Monroy, PT [address] [place] [address] [facility] Start: 07-03-2025 End: 07-03-2025 Patient encounter procedure 07/03/2025 10:45 AM EDT Rehab Services Visit [facility] [address] [place] [address] Pavithra Chapin MD [address] [phone] Charlotte Monroy, PT [address] [place] [address] [facility] Start: 06-19-2025 End: 06-19-2025 Patient encounter procedure 06/19/2025 12:45 PM EDT Rehab Services Visit [facility] [address] [place] [address] Pavithra Chapin MD [address] [phone] Charlotte Monroy, PT [address] [place] [address] [facility] Start: 05-28-2025 End: 05-28-2025 Patient encounter procedure 05/28/2025 10:30 AM EDT Office Visit [facility] [address] [place] [address] Patience Escobedo MD [address] [facility] [address] [place] [address] [facility] Start: 05-06-2025 COVID-19 VACCINE ( season) COVID-19 VACCINE () [facility] Start: 05-06-2025 COVID-19 VACCINE ( season) COVID-19 VACCINE ( season) [facility] Start: 05-06-2025 Influenza vaccination [facility] Start: 03-27-2025 End: 03-27-2025 Patient encounter procedure 03/27/2025 10:30 AM EDT Rehab Services Visit [facility] [address] [place] [address] Pavithra Chapin MD [address] [place] [address] Charlotte Monroy, PT [facility] Start: 03-20-2025 End: 03-20-2025 Patient encounter procedure 03/20/2025 11:00 AM EDT Rehab Services Visit [facility] [address] [place] [address] Pavithra Chapin MD [address] [address] Charlotte Monroy, PT [facility] Start: 03-06-2025 End: 03-06-2025 Patient encounter procedure 03/06/2025 11:30 AM EDT Rehab Services Visit [facility] [address] [place] [address] Pavithra Chapin MD [address] [phone] Charlotte Monroy, PT [facility] Start: 02-27-2025 End: 02-27-2025 Patient encounter procedure 02/27/2025 11:30 AM EDT Rehab Services [facility] [address] [place] [address] Pavithra Chapin MD [address] [phone] Charlotte Monroy, PT [facility] Start: 02-20-2025 End: 02-20-2025 Patient encounter procedure 02/20/2025 11:30 AM EDT Rehab Services Visit [facility] [address] [place] [address] Pavithra Chapin MD [address] [phone] Charlotte Monroy, PT [facility] Start: 02-13-2025 End: 02-13-2025 Patient encounter procedure 02/13/2025 11:30 AM EDT Rehab Services Visit [facility] [address] [place] [address] Pavithra Chapin MD [address] [address] Charlotte Monroy, PT [facility] Start: 01-17-2025 End: 01-17-2025 Patient encounter procedure 01/17/2025 2:10 PM EDT Procedure visit [facility] [address] [place] [address] [facility] Start: 01-11-2025 Adolescent depression screening assessment Depression Screening [facility] Start: 01-02-2025 End: 01-02-2025 Patient encounter procedure 01/02/2025 11:00 AM EDT Rehab Services Visit [facility] [address] [place] [address] Pavithra Chapin MD [address] [address] Charlotte Monroy, PT [facility] Start: 12-28-2024 Adolescent depression screening assessment Depression Screening [facility] Start: 12-26-2024 End: 12-26-2024 Patient encounter procedure 12/26/2024 11:30 AM EDT Rehab Services Visit [facility] [address] [place] [address] Pavithra Chapin MD [address] [place] [phone] Charlotte Monroy, PT [facility] Start: 12-19-2024 End: 12-19-2024 Patient encounter procedure 12/19/2024 11:30 AM EDT Rehab Services Visit [facility] [address] [place] [address] Pavithra Chapin MD [address] [phone] Charlotte Monroy, PT [facility] Start: 12-17-2024 End: 12-17-2024 Patient encounter procedure 12/17/2024 1:10 PM EDT Procedure visit [facility] [address] [place] [address] [facility] Start: 12-14-2024 Adolescent depression screening assessment Depression Screening [facility] Start: 12-12-2024 End: 12-12-2024 Patient encounter procedure 12/12/2024 12:45 PM EDT Rehab Services Visit [facility] [address] [place] [address] Pavithra Chapin MD [address] [place] [address] Charlotte Monroy, PT [facility] Start: 12-03-2024 End: 12-03-2024 Patient encounter procedure 12/03/2024 1:30 PM EDT Office Visit [facility] [address] [place] [phone] [facility] Start: 11-21-2024 End: 11-21-2024 Patient encounter procedure 11/21/2024 11:00 AM EDT Rehab Services Visit [facility] [address] [place] [address] Ursula Ruth, AUDITOR/QUALITY [address] [place] [phone] Charlotte Monroy, PT [facility] Start: 11-15-2024 End: 11-15-2024 Patient encounter procedure 11/15/2024 2:10 PM EDT Procedure visit [facility] [address] [place] [phone] [facility] Start: 11-08-2024 End: 11-08-2024 Patient encounter procedure 11/08/2024 11:00 AM EST Office Visit [facility] [place] [address] [place] [address] Kacie Keenan MD [address] [place] [address] [facility] [place] Start: 11-07-2024 End: 11-07-2024 Patient encounter procedure 11/07/2024 11:00 AM EST Rehab Services Visit [facility] [address] [place] [address] Ursula Ruth CNP [address] [place] [address] Charlotte Monroy, PT [facility] Start: 10-31-2024 End: 10-31-2024 Patient encounter procedure 10/31/2024 11:00 AM EST Rehab Services Visit [facility] [address] [place] [address] Ursula Ruth CNP [address] [place] [phone] Charlotte Monroy, PT [facility] Start: 10-24-2024 End: 10-24-2024 Patient encounter procedure 10/24/2024 10:00 AM EST Rehab Services Visit [facility] [address] [place] [address] Ursula Ruth CNP [address] [place] [phone] Charlotte Monroy, PT [facility] Start: 10-22-2024 End: 10-22-2024 Patient encounter procedure 10/22/2024 3:10 PM EST Procedure visit [facility] [address] [place] [address] [place] [phone] [facility] Start: 10-17-2024 End: 10-17-2024 Patient encounter procedure 10/17/2024 11:00 AM EST Rehab Services Visit [facility] [address] [place] [address] Ursula Ruth CNP [address] [place] [phone] Charlotte Mnoroy, PT [facility] Start: 10-10-2024 End: 10-10-2024 Patient encounter procedure 10/10/2024 11:00 AM EST Rehab Services Visit [facility] [address] [place] [address] Ursula Ruth CNP [address] [place] [address] Charlotte Monroy, PT [facility] Start: 10-08-2024 End: 10-08-2024 Patient encounter procedure 10/08/2024 1:15 PM EST Office Visit [facility] [address] [place] [address] Patience Escobedo MD [address] [facility] [address] [place] [address] [facility] [place] [facility] Start: 10-03-2024 End: 10-03-2024 Patient encounter procedure 10/03/2024 11:00 AM EST Rehab Services Visit [facility] [address] [place] [address] Ursula Ruth CNP [address] [place] [address] Charlotte Monroy, PT [facility] Start: 09-26-2024 End: 09-26-2024 Patient encounter procedure 09/26/2024 12:30 PM EST Rehab Services Visit [facility] [address] [place] [address] Ursula Ruth CNP [address] [place] [address] Charlotte Monroy, PT [facility] Start: 08-23-2024 End: 08-23-2024 Patient encounter procedure 08/23/2024 11:30 AM EST Rehab Services Visit [facility] [address] [place] [address] Pavithra Chapin MD [address] [phone] Charlotte Monroy, PT [facility] Start: 08-16-2024 End: 08-16-2024 Patient encounter procedure 08/16/2024 11:30 AM EST Rehab Services Visit [facility] [address] [place] [address] Pavithra Chapin MD [address] [phone] Charlotte Monroy, PT [facility] Start: 08-09-2024 End: 08-09-2024 Patient encounter procedure 08/09/2024 11:30 AM EST Rehab Services Visit [facility] [address] [place] [address] Pavithra Chapin MD [address] [phone] Charlotte Monroy, PT [facility] Start: 08-01-2024 End: 08-01-2024 Patient encounter procedure 08/01/2024 11:00 AM EST Rehab Services Visit [facility] [address] [place] [phone] Pavithra Chapin MD [address] [phone] Charlotte Monroy, PT [facility] Start: 07-26-2024 End: 07-26-2024 Patient encounter procedure 07/26/2024 11:30 AM EST Rehab Services Visit [facility] [address] [place] [address] Pavithra Chapin MD [address] [phone] Charlotte Monroy, PT [facility] Start: 07-19-2024 End: 07-19-2024 Patient encounter procedure 07/19/2024 11:30 AM EST Rehab Services Visit [facility] [address] [place] [address] Pavithra Chapin MD [address] [phone] Charlotte Monroy, PT [facility] Start: 07-12-2024 End: 07-12-2024 Patient encounter procedure 07/12/2024 11:30 AM EST Rehab Services Visit [facility] [address] [place] [address] Pavithra Chapin MD [address] [phone] Charlotte Monroy, PT [facility] Start: 07-05-2024 End: 07-05-2024 Patient encounter procedure 07/05/2024 11:30 AM EDT Rehab Services Visit [facility] [address] [place] [address] Pavithra Chapin MD [address] [phone] Charlotte Monroy, PT [facility] Start: 06-28-2024 End: 06-28-2024 Patient encounter procedure 06/28/2024 11:30 AM EDT Rehab Services Visit [facility] [address] [place] [address] Pavithra Chapin MD [address] [address] Charlotte Monroy, PT [facility] Start: 06-20-2024 End: 06-20-2024 Patient encounter procedure 06/20/2024 10:00 AM EDT Rehab Services Visit [facility] [address] [place] [address] Pavithra Chapin MD [address] [address] Charlotte Monroy, PT [facility] Start: 05-30-2024 End: 05-30-2024 Patient encounter procedure 05/30/2024 2:15 PM EDT Rehab Services Visit Outpatient [facility] [place] [address] [facility] [address] [place] [address] Ursula Ruth, PJ [address] [facility] [address] [place] [phone] Kristen Foote, PT [address] [facility] [address] [place] [address] Outpatient [facility] [place] Start: 05-15-2024 End: 05-15-2024 Patient encounter procedure 05/15/2024 10:00 AM EDT Rehab Services Visit Outpatient Rehabilitation Outpatient Care [address] [place] [phone] Ursula Ruth, AUDITOR/QUALITY [address] [facility] [address] [place] [phone] Carmen Metzger, PT [address] [facility] [place] [address] [facility] [place] Start: 05-09-2024 End: 05-09-2024 Patient encounter procedure 05/09/2024 1:30 PM EDT Rehab Services Visit [facility] [place] [address] [place], [place] [phone] Kristen Foote, PT [address] [facility] [address] [place] [address] Outpatient [facility] [place] Start: 05-06-2024 COVID-19 VACCINE ( season) COVID-19 VACCINE ( season) [facility] Start: 05-06-2024 COVID-19 Vaccine ( season) COVID-19 Vaccine ( season) [facility] Start: 05-06-2024 Influenza vaccination [facility] Start: 05-02-2024 End: 05-02-2024 Patient encounter procedure 05/02/2024 1:30 PM EDT Rehab Services Visit [facility]patient [facility] [place] [address] [place] [address] Kristen Foote, PT [address] [facility] [address] [place] [address] Outpatient [facility] [place] Start: 04-26-2024 End: 04-26-2024 Patient encounter procedure 04/26/2024 10:00 AM EDT Rehab Services Visit Outpatient Rehabilitation Outpatient Care [address] [place] [phone] Ursula Ruth, AUDITOR/QUALITY [address] [place] [phone] Carmen Metzger, PT [address] [place] [phone] [facility] [place] Start: 04-24-2024 End: 04-24-2024 Patient encounter procedure 04/24/2024 12:45 PM EDT Rehab Services Visit [facility] [place] [address] [place], [place] [phone] Kristen Foote, PT [address] [facility] [address] [place] [address] Out[facility] [place] Start: 04-18-2024 End: 04-18-2024 Patient encounter procedure 04/18/2024 2:15 PM EDT Rehab Services Visit [facility]patient [facility] [place] [address] [place], [place] [phone] Kristen Foote, PT [address] [facility] [address] [place] [address] Outpatient [facility] [place] Start: 02-23-2024 End: 02-23-2024 Patient encounter procedure 02/23/2024 1:00 PM EDT Rehab Services Visit Outpatient Rehabilitation [facility] [address] [place] [phone] Pavithra Chapin MD [address] [place] [address] Charlotte Monroy, PT Outpatient Rehabilitation [facility] Start: 02-20-2024 End: 02-20-2024 Patient encounter procedure 02/20/2024 11:30 AM EDT Rehab Services Visit [facility]patient [facility] [place] [address] [facility] [address] [place] [phone] Ursula Ruth, AUDITOR/QUALITY [address] [place] [phone] Carmen Metzger, PT [address] [place] [address] [place] [address] [facility] [place] Start: 02-07-2024 End: 02-07-2024 Patient encounter procedure 02/07/2024 12:45 PM EDT Procedure visit [facility] [address] [place] [phone] Ml Allen, 55 [place] [address] [facility] Start: 02-01-2024 End: 02-01-2024 Patient encounter procedure 02/01/2024 10:00 AM EDT Rehab Services Visit Outpatient Rehabilitation [facility] [address] [place] [phone] Pavithra Chapin MD [address] [place] [address] Charlotte Monroy, PT Outpatient Rehabilitation [facility] Start: 01-25-2024 End: 01-25-2024 Patient encounter procedure 01/25/2024 10:00 AM EDT Rehab Services Visit Outpatient Rehabilitation [facility] [address] [place] [address] Pavithra Chapin MD [address] [place] [address] Charlotte Monroy, PT Outpatient Rehabilitation [facility] Start: 01-17-2024 End: 01-17-2024 Patient encounter procedure 01/17/2024 10:00 AM EDT Rehab Services Visit Outpatient Rehabilitation [facility] [address] [place] [address] Pavithra Chapin MD [address] [place] [address] Charlotte Monroy, PT Outpatient Rehabilitation [facility] Start: 01-12-2024 End: 01-12-2024 Patient encounter procedure 01/12/2024 1:00 PM EDT Office Visit [facility] [address] [place] [phone] Ml Allen DO 55 [place] [address] [facility] Start: 01-11-2024 End: 01-11-2024 Patient encounter procedure 01/11/2024 10:00 AM EDT Rehab Services Visit Outpatient Rehabilitation [facility] [address] [place] [address] Pavithra Chapin MD [address] [address] Charlotte Monroy, PT Outpatient Rehabilitation [facility] Start: 01-04-2024 End: 01-04-2024 Patient encounter procedure 01/04/2024 10:00 AM EDT Rehab Services Visit Outpatient Rehabilitation [facility] [address] [place] [address] Pavithra Chapin MD [address] [address] Charlotte Monroy, PT Outpatient Rehabilitation [facility] Start: 01-02-2024 End: 01-02-2024 Patient encounter procedure 01/02/2024 1:30 PM EDT Rehab Services Visit Outpatient Rehabilitation Outpatient Care [address] [phone] Ursula Ruth, AUDITOR/QUALITY [address] [place] [phone] Carmen Metzger, PT [address] [place] [address] [place] [address] [facility] [place] Start: 12-29-2023 End: 12-29-2023 Patient encounter procedure 12/29/2023 1:15 PM EDT Procedure visit [facility] [address] [place] [phone] Ml Allen DO 55 [place] [address] [facility] Start: 12-28-2023 End: 12-28-2023 Patient encounter procedure Outpatient Rehabilitation [facility] Start: 12-20-2023 End: 12-20-2023 Patient encounter procedure 12/20/2023 10:00 AM EDT Rehab Services Visit Outpatient Rehabilitation [facility] [address] [place] [address] Pavithra Chapin MD [address] [place] [address] Charlotte Monroy, PT Outpatient Rehabilitation [facility] Start: 12-19-2023 End: 12-19-2023 Patient encounter procedure 12/19/2023 2:30 PM EDT Rehab Services Visit Outpatient [facility] Outpatient Care [address] [address] Pavithra Chapin MD [address] [place] [address] Carmen Metzger, PT [address] [place] [address] [place] [address] [facility] [place] Start: 12-14-2023 End: 12-14-2023 Patient encounter procedure 12/14/2023 10:00 AM EDT Rehab Services Visit Outpatient Rehabilitation [facility] [address] [place] [address] Pavithra Chapin MD [address] [address] Charlotte Monroy, PT Outpatient Rehabilitation [facility] Start: 12-13-2023 End: 12-13-2023 Patient encounter procedure 12/13/2023 12:30 PM EDT Rehab Services Visit Outpatient Rehabilitation Outpatient Care [address] [phone] Ursula Ruth, AUDITOR/QUALITY [address] [phone] Carmen Metzger, PT [address] [place] [address] [place] [address] Outpatient Rehabilitation Outpatient [facility] Start: 12-07-2023 End: 12-07-2023 Patient encounter procedure 12/07/2023 1:00 PM EDT Rehab Services Visit Outpatient [facility] [address] [place] [address] Pavithra Chapin MD [address] [address] Charlotte Monroy, PT Outpatient Rehabilitation [facility] Start: 12-06-2023 End: 12-06-2023 Patient encounter procedure 12/06/2023 3:30 PM EDT Rehab Services Visit Outpatient Rehabilitation Outpatient [address] [address] Pavithra Chapin MD [address] [address] Carmen Metzger, PT [address] [place] [address] [place] [address] Outpatient Rehabilitation Outpatient [facility] Start: 10-26-2023 End: 10-26-2023 Patient encounter procedure 10/26/2023 12:00 PM EST Rehab Services Visit Outpatient Rehabilitation [facility] [address] [place] [address] Pavithra Chapin MD [address] [address] Charlotte Monroy, PT Outpatient Rehabilitation [facility] Start: 10-24-2023 End: 10-24-2023 Patient encounter procedure 10/24/2023 12:30 PM EST Rehab Services Visit Outpatient Rehabilitation Outpatient [address] [phone] Pavithra Chapin MD [address] [address] Carmen Metzger, PT [address] [place] [address] Outpatient Rehabilitation Outpatient [facility] Start: 10-12-2023 End: 10-12-2023 Patient encounter procedure 10/12/2023 12:00 PM EST Rehab Services Visit Outpatient Rehabilitation [facility] [address] [place] [address] Pavithra Chapin MD [address] [address] Charlotte Monroy, PT Outpatient Rehabilitation [facility] Start: 10-05-2023 End: 10-05-2023 Patient encounter procedure D[facility]at[facility] [place] Start: 09-28-2023 End: 09-28-2023 Patient encounter procedure 09/28/2023 12:00 PM EST Rehab Services Visit Outpatient Rehabilitation [facility] [address] [place] [address] Pavithra Chapin MD [address] [phone] Charlotte Monroy, PT Outpatient Rehabilitation [facility] Start: 09-21-2023 End: 09-21-2023 Patient encounter procedure 09/21/2023 12:00 PM EST Rehab Services Visit Outpatient Rehabilitation [facility] [address] [place] [address] Pavithra Chapin MD [address] [phone] Charlotte Monroy, PT Outpatient Rehabilitation [facility] Start: 09-14-2023 End: 09-14-2023 Patient encounter procedure 09/14/2023 12:00 PM EST Rehab Services Visit Outpatient Rehabilitation [facility] [address] [place] [address] Pavithra Chapin MD [address] [phone] Charlotte Monroy, PT Outpatient Rehabilitation [facility] Start: 09-07-2023 End: 09-07-2023 Patient encounter procedure 09/07/2023 12:00 PM EST Rehab Services Visit Outpatient Rehabilitation [facility] [address] [place] [address] Pavithra Chapin MD [address] [phone] Charlotte Monroy, PT Outpatient Rehabilitation [facility] Start: 08-24-2023 End: 08-24-2023 Patient encounter procedure 08/24/2023 1:00 PM EST Rehab Services Visit Outpatient Rehabilitation [facility] [address] [place] [phone] Pavithra Chapin MD [address] [address] Charlotte Monroy, PT Outpatient Rehabilitation [facility] Start: 08-17-2023 End: 08-17-2023 Patient encounter procedure 08/17/2023 1:30 PM EST Rehab Services Visit Outpatient Rehabilitation Outpatient [facility] [address] [facility] [address] [place] [address] Ursula Ruth, AUDITOR/QUALITY [address] [place] [phone] Carmen Metzger, PT [address] [place] [address] [place] [address] Outpatient [facility] [place] Start: 08-10-2023 End: 08-10-2023 Patient encounter procedure 08/10/2023 1:00 PM EST Rehab Services Visit Outpatient [facility] [address] [place] [phone] Pavithra Chapin MD [address] [place] [address] Charlotte Monroy, PT Outpatient Rehabilitation [facility] Start: 06-23-2023 End: 06-23-2023 Nursing evaluation of patient and report 06/23/2023 11:30 AM EDT Nurse Only [facility] [address] [facility] [address] [place] [address] [facility] Start: 05-06-2023 COVID-19 VACCINE ( season) COVID-19 VACCINE ( season) [facility] Start: 05-06-2023 Influenza vaccination [facility] Start: 01-03-2023 Screening for malignant neoplasm of cervix Cervical Cancer Screening: Pap Smear [facility] Start: 12-20-2022 End: 12-20-2022 ambulatory 12/20/2022 Rehab Services Visit Physical Therapy Pavithra Chapin MD [address] [place] [address] Charlotte Mnoroy, PT Outpatient Rehabilitation [facility] Start: 12-01-2022 Thyroid stimulating hormone measurement TSH [facility] Start: 11-15-2022 End: 11-15-2022 ambulatory 11/15/2022 Rehab Services Visit Physical Therapy Pavithra Chapin MD [address] [place] [address] Charlotte Monroy, PT Outpatient Rehabilitation [facility] Start: 07-08-2022 End: 07-08-2022 Patient encounter procedure 07/08/2022 Office Visit Dermatology Patience Escobedo MD [address] [facility] [address] [place] [address] Dermatology [place] Start: 05-06-2022 Influenza vaccination [facility] Start: 2022 Administration of herpes zoster vaccine Zoster Vaccines (1 of 2) [facility] Start: 2022 Pneumococcal vaccination PNEUMOCOCCAL VACCINE SERIES (1 of 1 - PCV) [facility] Start: 2022 Pneumococcal Vaccine: Age 50+ (1 of 1 - PCV) Pneumococcal Vaccine: Age 50+ (1 of 1 - PCV) [facility] Start: 2022 Screening for malignant neoplasm of colon Flexible sigmoidoscopy [facility] Start: 2022 Zoster vaccine hzv live for subcutaneous use ZOSTER (SHINGLES) VACCINE (1 of 2) [facility] Start: 02-15-2022 End: 02-15-2022 Patient encounter procedure 02/15/2022 Office Visit Sports Medicine Luis Alfredo Brock DO [address] [place] [phone] Sports Medicine [facility] Start: 01-07-2022 End: 01-07-2022 Patient encounter procedure 01/07/2022 Office Visit Sports Medicine Dinesh West DO [address] [facility] [place] [phone] Sports Medicine [facility] [place] Start: 01-05-2022 End: 01-05-2022 Patient encounter procedure 01/05/2022 Office Visit Dermatology Patience Escobedo MD [address] [facility] [address] [place] [address] Dermatology [place] Start: 05-25-2021 End: 05-25-2021 Patient encounter procedure 05/25/2021 Office 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 [employer]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 [employer]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 Pavithra Chapin MD [address] [place] [address] Obstetrics, Gynecology and Midwifery [facility] Start: 05-06-2021 Influenza vaccination INFLUENZA VACCINE (#1) [facility] Start: 04-14-2021 End: 04-14-2021 ambulatory 04/14/2021 Rehab Services Visit Physical Therapy Pavithra Chapin MD [address] [place] [address] Charlotte Monroy, PT Outpatient Rehabilitation [facility] Start: 05-06-2020 Influenza vaccination given Sequential Influenza Vaccine (Season Ended) [facility] Start: 09-20-2019 Hepatitis C screening Hepatitis C Screening [facility] Start: 09-20-2019 HIV screening HIV Screening [facility] Start: 09-20-2019 Screening for malignant neoplasm of colon Colorectal Cancer Screening: Colonoscopy [facility] Start: 09-20-2019 Social Influencers of Health Screening Social [employer] of Health Screening [facility] Start: 05-06-2018 Influenza vaccination [facility] Start: 2017 Colonoscopy COLORECTAL CANCER SCREENING DISCUSSION [facility] Start: 2017 Screening for malignant neoplasm of colon COLORECTAL CANCER SCREENING DISCUSSION [facility] Start: 04-21-2012 Thyroid stimulating hormone measurement TSH [facility] Start: 2012 Screening for malignant neoplasm of breast [facility] Start: 2012 Screening mammography MAMMOGRAM SCREENING DISCUSSION [facility] Start: 2002 Screening for malignant neoplasm of cervix [facility] Start: 1993 Screening for malignant neoplasm of cervix [facility] Start: 1991 Hepatitis B vaccination HEP B VACCINE (1 of 3 - 19+ 3-dose series) [facility] Start: 1991 Hepatitis B Vaccines (1 of 3 - 19+ 3-dose series) Hepatitis B Vaccines (1 of 3 - 19+ 3-dose series) [facility] Start: 1991 Third diphtheria, tetanus and acellular pertussis (DTaP) vaccination TDAP (ADULT) [facility] Start: 1991 Zoster Vaccines (1 of 2) Zoster Vaccines (1 of 2) [facility] Start: 1990 Hepatitis C screening Hepatitis C Screening [facility] Start: 1990 Tetanus vaccination TETANUS [facility] Start: 1987 HIV screening [facility] Start: 1984 COVID-19 VACCINE (1) COVID-19 VACCINE (1) [facility] Start: 1984 Depression screening using PHQ-9 (Patient Health Questionnaire 9) score [facility] Start: 1978 Pneumococcal Vaccine: Pediatrics (0 to 5 Years) and At-Risk Patients (6 to 64 Years) (1 of 2 - PCV) Pneumococcal Vaccine: Pediatrics (0 to 5 Years) and At-Risk Patients (6 to 64 Years) (1 of 2 - PCV) [facility] Start: 1977 COVID-19 VACCINE (#1) COVID-19 VACCINE (#1) [facility] Start: 1977 COVID-19 VACCINE (1) COVID-19 VACCINE (1) [facility] Start: 1975 History and physical examination, annual for health maintenance Wellness Visit [facility] Start: 1972 COVID-19 VACCINE (#1) COVID-19 VACCINE (#1) [facility] Start: 1972 Hepatitis B vaccination HEP B VACCINE (1 of 3 - 3-dose series) [facility] Start: 1972 Hepatitis C antibody, confirmatory test HEPATITIS C VIRUS SCREENING [facility] Start: 1972 Hepatitis C screening HEPATITIS C VIRUS SCREENING [facility] Start: 1972 Screening for malignant neoplasm of breast Breast Cancer Screening [facility] Start: 1972 Screening for malignant neoplasm of cervix PAP SMEAR [facility] Start: 1972 Screening for malignant neoplasm of colon [facility] Start: 1972 Screening mammography Mammogram [facility] Start: 1972 Tetanus vaccination TETANUS EVERY 10 YR [facility] Bacteria identified Cx Nom (Bld) [facility] BACTERIAL VAGINOSIS PANEL BACTERIAL VAGINOSIS PANEL Microbiology Routine Vaginal irritation 06/29/2022 3:31 PM EDT [facility] RACHEL/ TRICHOMONAS PANEL RACHEL/ TRICHOMONAS PANEL Microbiology Routine Vaginal irritation 06/29/2022 3:31 PM EDT [facility] End: 06-01-2024 CBC panel - Blood by Automated count [facility] Work Phone: Comment on above: weekly for 4 Occurrences starting 2022 until 06/01/2024 monthly for 10 Occur rences starting 06/01/2023 until 06/01/2024 End: 06-01-2024 Comprehensive metabolic 2000 panel - Serum or Plasma [facility] Comment on above: weekly for 4 Occurrences starting 2022 until 06/01/2024 monthly for 12 Occur rences starting 06/01/2023 until 06/01/2024 Destruction premalignant lesion 1st NH DESTRUC PREMALIGNANT, FIRST LESION NH Charge Routine AK (actinic keratosis) Ordered: 01/05/2022 [facility] Comment on above: Ordered: 01/05/2022 Destruction premalignant lesion 1st NH DESTRUCTION PREMALIGNANT LESION 1ST NH Charge Routine AK (actinic keratosis) Ordered: 09/20/2024 [facility] Comment on above: Ordered: 09/20/2024 Destruction premalignant lesion 1st NH DESTRUCTION PREMALIGNANT LESION 1ST NH Charge Routine AK (actinic keratosis) Ordered: 10/08/2024 [facility] Comment on above: Ordered: 10/08/2024 Destruction premalignant lesion 1st NH DESTRUCTION PREMALIGNANT LESION 1ST NH Charge Routine Actinic keratosis Ordered: 06/13/2025 [facility] Comment on above: Ordered: 06/13/2025 Destruction premalignant lesion 1st NH DESTRUCTION PREMALIGNANT LESION 1ST NH Charge Routine AK (actinic keratosis) Ordered: 06/24/2025 [facility] Comment on above: Ordered: 06/24/2025 Ferritin Ferritin Add-On 04/07/2018 11:27 AM EDT [facility] Carol post-voiding residual urine&/bladder cap NH CAROL,POST-VOID RES,US,NON-IMAGING NH Charge Routine Urinary urgency Ordered: 06/29/2022 [facility] Comment on above: Ordered: 06/29/2022 Myringotomy aspir&/eustachian tube nfltj NH MYRINGOTOMY ASPIR&/EUSTACHIAN TUBE NFLTJ NH Charge Routine Dysfunction of both eustachian tubes Recurrent acute otitis media of both ears Ordered: 04/17/2024 [facility] Comment on above: Ordered: 04/17/2024 Myringotomy aspir&/eustachian tube nfltj NH MYRINGOTOMY ASPIR&/EUSTACHIAN TUBE NFLTJ NH Charge Routine Dysfunction of both eustachian tubes Ordered: 05/01/2024 [facility] Comment on above: Ordered: 05/01/2024 Osteopathic manipulative tx 1-2 body regions NH OSTEOPATHIC MANIP,1-2 BODY REGN NH Charge Routine Segmental and somatic dysfunction of cervical region Segmental and somatic dysfunction of thoracic region Segmental and somatic dysfunction of lumbar region Segmental and somatic dysfunction of sacral region Ordered: 12/17/2021 [facility] Comment on above: Ordered: 12/17/2021 Osteopathic manipulative tx 1-2 body regions NH OSTEOPATHIC MANIP,1-2 BODY REGN NH Charge Routine Segmental and somatic dysfunction of thoracic region Segmental and somatic dysfunction of lumbar region Segmental and somatic dysfunction of sacral region Ordered: 10/19/2022 [facility] Comment on above: Ordered: 10/19/2022 Punch biopsy skin single lesion NH PUNCH BIOPSY SKIN SINGLE LESION NH Charge Routine Neoplasm of uncertain behavior of skin Ordered: 06/24/2025 [facility] Comment on above: Ordered: 06/24/2025 Renner Draw Renner Draw STA T 04/07/2018 11:27 AM EDT [facility] SURG PATH REQUEST SURG PATH REQU EST Surg Path Routine Neoplasm of uncertain behavior of skin 01/20/2022 1:09 PM EDT [facility] SURG PATH REQUEST SURG PATH REQU EST Surg Path Routine Neoplasm of uncertain behavior of skin 06/13/2025 11:44 AM EDT [facility] SURG PATH REQUEST SURG PATH REQU EST Surg Path Routine Neoplasm of uncertain behavior of skin 06/24/2025 12:02 PM EDT [facility] Tangential biopsy sk in single lesion NH TANGENTIAL BIOPSY SKIN SINGLE LESION NH Charge Routine Neoplasm of uncertain behavior of skin Ordered: 01/20/2022 [facility] Comment on above: Ordered: 01/20/2022 Tangential biopsy sk in single lesion NH TANGENTIAL BIOPSY SKIN SINGLE LESION NH Charge Routine Neoplasm of uncertain behavior of skin Ordered: 06/13/2025 [facility] Comment on above: Ordered: 06/13/2025 Urine Culture [employer] Urine Culture [employer] Container STAT 04/07/2018 2:03 PM EDT [facility] Immunizations Immunization Date Immunization Notes Care Provider Fa [place] 09-09-2016 tetanus toxoid, redu gabi diphtheria toxoid, and acellular pertussis vaccine, adsorbed Ml Ackermanville DO Work Phone: [facility] 10-17-2011 diphtheria, tetanus toxoids and acellular pertussis vaccine Ml Ackermanville DO Work Phone: [facility] Payers Date Payer Category Payer Managed Care (unspecified) [facility] Member Subscriber Plan / Payer (Effective 2024-Present) Name: Sara Rojo Relation to Subscriber: Spouse Name: CHADLIESA Date of : 1898 Address: [address] [place] [address] Payer ID: [id number] (NAIC) Type: Not on file Address: [address] [place] [id number] 2023 Self-pay 2020 Unknown ANTHEM ANTHEM HM O PPO POS [id number] 2020-Present [address] [place] [address] [id number] [id number]. 7.3.079578.315 2017 Unknown [id number] 2014 Blue Cross Blue Shield 1.2.8 [id number]. 7.3.882137.315 2014 Unknown ANTHEM ANTHEM BLUE/PREF/HMO/PPO xxxxxxxxxxxx 2014-Present [id number] 1.2.840.581477.1.13.385.2. 7.3.798667.315 2014 Unknown 1.2.840.451770. 1.13.172.2. 7.3.506668.315 2014 Unknown [id number] 1972 Unknown [id number] .0.1.820962.3.579.2. 1972 Unknown [id number] 2.840.1.061349.3.579.2. 1972 Unknown [id number] .840.1.219123.3.579.2. 1972 Unknown [id number] .0.1.190132.3.579.2. 1972 Unknown [id number] .840.1.780127.3.579.2. 1142 1972 Unknown [id number] .840.1.365195.3.579.2. 1142 1972 Unknown [id number] 2.840.1.427028.3.579.2. 1143 1972 Unknown [id number] 2.840.1.879739.3.579.2. 900 1972 Unknown [id number] 2.840.1.738138.3.579.2. 900 1972 Unknown [id number] 2.840.1.645355.3.579.2. 903 1972 Unknown [id number] 2.840.1.448352.3.579.2. 903 1972 Unknown [id number] 2.840.1.815451.3.579.2. 90 1972 Unknown [id number] 2.0.1.995087.3.579.2. 90 1972 Unknown [id number] 2..1.564183.3.579.2. 90 1972 Unknown [id number] 2.840.1.892768.3.579.2. 594 1972 Unknown [id number] .0.1.271624.3.579.2. 594 1972 Unknown [id number] 10.21.830.1.059621.3.579.2. 594 1972 Unknown [id number] 10.21.830.1.139107.3.579.2. 594 1972 Unknown [id number] 840.1.122400.3.579.2. 594 1972 Unknown [id number] 840.1.589786.3.579.2. 594 1972 Unknown [id number] 2.840.1.109443.3.579.2. 594 1972 Unknown [id number] 2840.1.530305.3.579.2. 594 1972 Unknown [id number] 840.1.494659.3.579.2. 594 1972 Unknown [id number] .840.1.955097.3.579.2. 594 1972 Unknown [id number] .840.1.270961.3.579.2. 594 1972 Unknown [id number] .840.1.978476.3.579.2. 594 1972 Unknown [id number] .840.1.908850.3.579.2. 594 1972 Unknown [id number] .0.1.022216.3.579.2. 594 1972 Unknown [id number] 10.21.830.1.946454.3.579.2. 594 1972 Unknown [id number] 10.21.830.1.650634.3.579.2. 594 1972 Unknown [id number] 840.1.126823.3.579.2. 594 1972 Unknown [id number] 10.21.830.1.893608.3.579.2. 594 1972 Unknown [id number] 10.21.830.1.974307.3.579.2. 594 1972 Unknown [id number] 10.21.830.1.236573.3.579.2. 594 1972 Unknown [id number] 840.1.267293.3.579.2. 594 1972 Unknown [id number] 840.1.630316.3.579.2. 594 1972 Unknown [id number] 840.1.229344.3.579.2. 594 1972 Unknown [id number] 840.1.798991.3.579.2. 594 1972 Unknown [id number] 840.1.878818.3.579.2. 594 1972 Unknown [id number] .840.1.437917.3.579.2. 594 1972 Unknown [id number] 2.840.1.007936.3.579.2. 594 1972 Unknown [id number] .0.1.079312.3.579.2. 594 1972 Unknown [id number] 2.840.1.490051.3.579.2. 594 1972 Unknown [id number] .0.1.010830.3.579.2. 594 1972 Unknown [id number] .0.1.921641.3.579.2. 594 1972 Unknown [id number] .1.028575.3.579.2. 594 1972 Unknown [id number] .0.1.155907.3.579.2. 594 1972 Unknown [id number] .1.496093.3.579.2. 594 1972 Unknown [id number] .1.226243.3.579.2. 594 1972 Unknown [id number] .1.524810.3.579.2. 594 1972 Unknown [id number] 10.21.830.1.518221.3.579.2. 594 1972 Unknown [id number] 10.21.830.1.209673.3.579.2. 594 1972 Unknown [id number] .840.1.176920.3.579.2. 594 1972 Unknown [id number] 840.1.978801.3.579.2. 594 1972 Unknown [id number] 2.16.840.1.907866.3.579.2. 594 1972 Unknown [id number] 2.16.840.1.493866.3.579.2. 594 Unknown [id number] 2.16.840.1.024865.3.579.2. 462 Unknown [id number] 2.16.840.1.253425.3.579.2. 462 Unknown [id number] 2.16.840.1.512793.3.579.2. 462 Unknown [id number] 2.16.840.1.528216.3.579.2. 512 Unknown [id number] 2.16.840.1.780322.3.579.2. 512 Unknown [id number] 2.16.840.1.315094.3.579.2. 512 Social History Date Type Detail Facility Start: 02-16-2018 End: 07-05-2023 Tobacco smoking status NHIS Never smoker [facility] Start: 1970 Sex Assigned At Not on file [facility] [place] Start: 01-31-2020 End: 06-13-2025 Alcohol intake Current non-drinker of alcohol (finding) [facility] Exposure to SARS-CoV -2 (event) Not sure [facility] Start: 04-21-2011 End: 07-05-2023 Tobacco use and exposure Never used [facility] Start: 12-04-2021 End: 10-19-2022 Exposure to SARS-CoV-2 (event) Unable to assess [facility] Start: 1970 Sex Assigned At Female [facility] Start: 07-23-2021 End: 06-13-2025 Alcohol intake [facility] Start: 07-23-2021 End: 06-13-2025 Tobacco use panel [facility] Start: 04-07-2018 Gender identity Identifies as female gender (finding) [facility] Start: 04-07-2018 Sexual orientation Choose not to dis close [facility] Start: 12-15-2023 End: 01-12-2024 Alcoholic beverage intake Lifetime non-drinker (finding) [facility] Start: 06-26-2021 Alcohol Comment What is your l evel of alcohol consumption: None [employer] Start: 10-08-2012 Sex Female (finding) [facility] Medical Equipment Procedure Code Equipment Code Equipment Original Text Equi pment Identifier Dates Goals Date Patient Goal Desired Activity /State Personal health goal Comment on above: Formatting of this n ote might be different from the original. Goals established 11/15/2022 Note: Re-establish goals to start PT now that Pt is back in [place] plus new goals below on 06/21/2023 Pt will demonstrate and verbalize independence with home exercise program including though not limited to bladder training, pelvic girdle strengthening, body mechanics, scar tissue release, ROM in order to reduce urinary leakage. 02/02/2023: Goal met with current exercises Pt will demonstrate 30 degrees B hip internal rotation to optimize pelvic girdle mechanics for continence. 02/02/2023: Right side pain is down; B hip mobility continue 06/21/2023: progressing continue for the right side Pt will perform 5x sit to stand test in 10 seconds or less without urinary leakage to improve Pt continence. 02/02/2023: Not tested today; but with sit to stands no leakage 06/21/2023: Pt continue to work on time of this, no leakage today Pt will report < 20% impairment or better on the ICIQ to reduce severity of urinary incontinence. 02/02/2023: progression, Pt having PT in [place] to continue 06/21/2023: progressing continue Pt will demonstrate abdominal strength on the Sarhmann scale up to or greater than level 2.0 to support posture, body mechanics, organs, continence. 02/02/2023: progression, Pt having PT in [place] to continue 06/21/2023: 1.0 today 6. NEW 06/21/2023 Pt will demonstrate normative relaxation of pelvic floor muscles following tonic contraction 10 second hold and phasic contractions x 10 reps for muscle coordination and continence. 7. NEW 06/21/2023 Pt will demonstrate hip flexor strength functional with 10 raises over yoga block and / strength tested isolation for strength around the lower urinary tract. Formatting of this n ote might be different from the original. Goals established 11/15/2022 Note: Re-establish goals to start PT now that Pt is back in [place] plus new goals below on 06/21/2023 Pt will demonstrate and verbalize independence with home exercise program including though not limited to bladder training, pelvic girdle strengthening, body mechanics, scar tissue release, ROM in order to reduce urinary leakage. 02/02/2023: Goal met with current exercises Pt will demonstrate 30 degrees B hip internal rotation to optimize pelvic girdle mechanics for continence. 02/02/2023: Right side pain is down; B hip mobility continue 06/21/2023: progressing continue for the right side Pt will perform 5x sit to stand test in 10 seconds or less without urinary leakage to improve Pt continence. 02/02/2023: Not tested today; but with sit to stands no leakage 06/21/2023: Pt continue to work on time of this, no leakage today Pt will report < 20% impairment or better on the ICIQ to reduce severity of urinary incontinence. 02/02/2023: progression, Pt having PT in [place] to continue 06/21/2023: progressing continue Pt will demonstrate abdominal strength on the Sarhmann scale up to or greater than level 2.0 to support posture, body mechanics, organs, continence. 02/02/2023: progression, Pt having PT in [place] to continue 06/21/2023: 1.0 today 6. NEW 06/21/2023 Pt will demonstrate normative relaxation of pelvic floor muscles following tonic contraction 10 second hold and phasic contractions x 10 reps for muscle coordination and continence. 7. NEW 06/21/2023 Pt will demonstrate hip flexor strength functional with 10 raises over yoga block and 5/5 strength tested isolation for strength around the lower urinary tract. 8. NEW 08/17/2023 Pt will participate in trials of dry needling to improve mobility of scar to improve overall abdominal/LE mobility and minimize pain/tightness related to scar. Formatting of this n ote might be different from the original. Goals established 11/15/2022 Note: Re-establish goals to start PT now that Pt is back in [place] plus new goals below on 06/21/2023 Pt will demonstrate and verbalize independence with home exercise program including though not limited to bladder training, pelvic girdle strengthening, body mechanics, scar tissue release, ROM in order to reduce urinary leakage. 02/02/2023: Goal met with current exercises 11/22/2023: Pt compliance high Pt will demonstrate 30 degrees B hip internal rotation to optimize pelvic girdle mechanics for continence. 02/02/2023: Right side pain is down; B hip mobility continue 06/21/2023: progressing continue for the right side 11/22/2023: progressing continue; was 20 degrees start of session today Pt will perform 5x sit to stand test in 10 seconds or less without urinary leakage to improve Pt continence. 02/02/2023: Not tested today; but with sit to stands no leakage 06/21/2023: Pt continue to work on time of this, no leakage today 11/22/2023: No leakage, just pressure sensation and right groin Pt will report < 20% impairment or better on the ICIQ to reduce severity of urinary incontinence. 02/02/2023: progression, Pt having PT in [place] to continue 06/21/2023: progressing continue 11/22/2023: progressing continue; at 40% impairment Pt will demonstrate abdominal strength on the Sarhmann scale up to or greater than level 2.0 to support posture, body mechanics, organs, continence. 02/02/2023: progression, Pt having PT in [place] to continue 06/21/2023: 1.0 today 11/22/2023: 1.0 today 6. NEW 06/21/2023 Pt will demonstrate normative relaxation of pelvic floor muscles following tonic contraction 10 second hold and phasic contractions x 10 reps for muscle coordination and continence. 11/22/2023: with tactile cues able to perform this today though not for 10 reps 7. NEW 06/21/2023 Pt will demonstrate hip flexor strength functional with 10 raises over yoga block and 5/5 strength tested isolation for strength around the lower urinary tract. 11/22/2023: progressing continue 8. NEW 08/17/2023 Pt will participate in trials of dry needling to improve mobility of scar to improve overall abdominal/LE mobility and minimize pain/tightness related to scar. 9: NEW 11/25/2023 Pt will demonstrate symmetrical AROM Mandibular translation for improved muscle performance, decreased pain, improved mechanics with jaw ROM (also carry over to eating, breathing, talking, etc and connection with head neck mobility and pelvic floor function). 10. NEW 11/25/2023 Pt will demonstrate improvement in score on the Patient Specific Functional Scale by an average score by 2 points or improvement in single activity score by 3 points for significant improvement in functional mobility, daily activity performance, independence. 11. NEW 11/25/2023 Pt will demonstrate consistent adherence to TMJ home program and posture education for integration into adl's and sustainability of improvements from PT upon discharge. Formatting of this n ote might be different from the original. Goals established 11/15/2022 Note: Re-establish goals to start PT now that Pt is back in [place] plus new goals below on 06/21/2023 Pt will demonstrate and verbalize independence with home exercise program including though not limited to bladder training, pelvic girdle strengthening, body mechanics, scar tissue release, ROM in order to reduce urinary leakage. 02/02/2023: Goal met with current exercises 11/22/2023: Pt compliance high Pt will demonstrate 30 degrees B hip internal rotation to optimize pelvic girdle mechanics for continence. 02/02/2023: Right side pain is down; B hip mobility continue 06/21/2023: progressing continue for the right side 11/22/2023: progressing continue; was 20 degrees start of session today 01/25/2024: goal met Pt will perform 5x sit to stand test in 10 seconds or less without urinary leakage to improve Pt continence. 02/02/2023: Not tested today; but with sit to stands no leakage 06/21/2023: Pt continue to work on time of this, no leakage today 11/22/2023: No leakage, just pressure sensation and right groin 01/25/2024: goal met Pt will report < 20% impairment or better on the ICIQ to reduce severity of urinary incontinence. 02/02/2023: progression, Pt having PT in [place] to continue 06/21/2023: progressing continue 11/22/2023: progressing continue; at 40% impairment 01/25/2024: progressing continue Pt will demonstrate abdominal strength on the Sarhmann scale up to or greater than level 2.0 to support posture, body mechanics, organs, continence. 02/02/2023: progression, Pt having PT in [place] to continue 06/21/2023: 1.0 today 11/22/2023: 1.0 today 01/25/2024: goal met today; just some straining with it 6. NEW 06/21/2023 Pt will demonstrate normative relaxation of pelvic floor muscles following tonic contraction 10 second hold and phasic contractions x 10 reps for muscle coordination and continence. 11/22/2023: with tactile cues able to perform this today though not for 10 reps 01/25/2024: working on repetitions 7. NEW 06/21/2023 Pt will demonstrate hip flexor strength functional with 10 raises over yoga block and 5/5 strength tested isolation for strength around the lower urinary tract. 11/22/2023: progressing continue 01/25/2024: did not test today 8. NEW 08/17/2023 Pt will participate in trials of dry needling to improve mobility of scar to improve overall abdominal/LE mobility and minimize pain/tightness related to scar. 9: NEW 11/25/2023 Pt will demonstrate symmetrical AROM Mandibular translation for improved muscle performance, decreased pain, improved mechanics with jaw ROM (also carry over to eating, breathing, talking, etc and connection with head neck mobility and pelvic floor function). 10. NEW 11/25/2023 Pt will demonstrate improvement in score on the Patient Specific Functional Scale by an average score by 2 points or improvement in single activity score by 3 points for significant improvement in functional mobility, daily activity performance, independence. 11. NEW 11/25/2023 Pt will demonstrate consistent adherence to TMJ home program and posture education for integration into adl's and sustainability of improvements from PT upon discharge. Formatting of this n ote might be different from the original. Goals established 11/15/2022 Note: Re-establish goals to start PT now that Pt is back in [place] plus new goals below on 06/21/2023 Pt will demonstrate and verbalize independence with home exercise program including though not limited to bladder training, pelvic girdle strengthening, body mechanics, scar tissue release, ROM in order to reduce urinary leakage. 02/02/2023: Goal met with current exercises 11/22/2023: Pt compliance high Pt will demonstrate 30 degrees B hip internal rotation to optimize pelvic girdle mechanics for continence. 02/02/2023: Right side pain is down; B hip mobility continue 06/21/2023: progressing continue for the right side 11/22/2023: progressing continue; was 20 degrees start of session today 01/25/2024: goal met Pt will perform 5x sit to stand test in 10 seconds or less without urinary leakage to improve Pt continence. 02/02/2023: Not tested today; but with sit to stands no leakage 06/21/2023: Pt continue to work on time of this, no leakage today 11/22/2023: No leakage, just pressure sensation and right groin 01/25/2024: goal met Pt will report < 20% impairment or better on the ICIQ to reduce severity of urinary incontinence. 02/02/2023: progression, Pt having PT in [place] to continue 06/21/2023: progressing continue 11/22/2023: progressing continue; at 40% impairment 01/25/2024: progressing continue 06/20/2024: Goal met as incontinence is mild Pt will demonstrate abdominal strength on the Sarhmann scale up to or greater than level 2.0 to support posture, body mechanics, organs, continence. 02/02/2023: progression, Pt having PT in [place] to continue 06/21/2023: 1.0 today 11/22/2023: 1.0 today 01/25/2024: goal met today; just some straining with it 6. NEW 06/21/2023 Pt will demonstrate normative relaxation of pelvic floor muscles following tonic contraction 10 second hold and phasic contractions x 10 reps for muscle coordination and continence. 11/22/2023: with tactile cues able to perform this today though not for 10 reps 01/25/2024: working on repetitions 06/20/2024: Pt has met this goal, though summer with sickness and limited PT treatments 7. NEW 06/21/2023 Pt will demonstrate hip flexor strength functional with 10 raises over yoga block and 5/5 strength tested isolation for strength around the lower urinary tract. 11/22/2023: progressing continue 01/25/2024: did not test today 06/20/2024: progressing, still stiffness more than weakness 8. NEW 08/17/2023 Pt will participate in trials of dry needling to improve mobility of scar to improve overall abdominal/LE mobility and minimize pain/tightness related to scar. 9: NEW 11/25/2023 Pt will demonstrate symmetrical AROM Mandibular translation for improved muscle performance, decreased pain, improved mechanics with jaw ROM (also carry over to eating, breathing, talking, etc and connection with head neck mobility and pelvic floor function). 06/20/2024: progressing continue 10. NEW 11/25/2023 Pt will demonstrate improvement in score on the Patient Specific Functional Scale by an average score by 2 points or improvement in single activity score by 3 points for significant improvement in functional mobility, daily activity performance, independence. 06/20/2024: progressing continue 11. NEW 11/25/2023 Pt will demonstrate consistent adherence to TMJ home program and posture education for integration into adl's and sustainability of improvements from PT upon discharge. 06/20/2024: changes in her medical status with this; re-assessment today with more shoulder/ thoracic spine release prior to jaw 12. NEW 06/20/2024 Pt will demonstrate 4/5 pelvic floor muscle strength on Laycock scale with full relaxation return to baseline. 13. NEW 06/20/2024 Pt will demonstrate improvement in thoracic spine mobility for wall antony with hand and arm contact at 80% ROM. Comment on above: Formatting of this n ote might be different from the original. Goals established with Pt at evaluation 04/14/2021 Pt will demonstrate and verbalize independence with home exercise program including though not limited to muscle coordination, nervous system down training, muscle strength in order to reduce pain and promote pelvic girdle strength for functional mobility in 16 weeks. Pt will demonstrate 10 second pelvic brace contraction with normative relaxation as measured with sEMG or PT palpation in 16 week for pelvic girdle strength. Pt will demonstrate 0-1/10 pressure sensation with external palpation to the levator ani to reduce severity of pelvic floor myalgia in 16 weeks. Pt will demonstrate < 10% impairment on the ICIQ short form in 16 weeks to reduce pain and incontinence. Clinical Notes 04-09-2021 to 06-24-2025 Kacie Keenan MD - 06/24/2025 10:30 AM EDTPatient InstructionsKayce Wild - 06/13/2025 9:20 AM Tiffani Keenan MD - 06/13/2025 9:20 AM EDTPatient InstructionsPatient InstructionsAttachments Note Date & Type Note Facility 06-24-2025 History of Present illness Narrative Follow-up from tangential bx. She asks about rough spot on forehead and vessels on face. Reasnor scaling macule at hairline L upper forehead Reasnor papule with central erythema L nasal SW Telangiectasias cheeks and perinasal with background patchy erythema A. Skin, left nasal sidewall, shave: Surface of basaloid and trichoepithelial proliferation, see comment. at 1229 EDT Diagnosis Comments This lesion is difficult to further characterize, as only the surface is present for evaluation. 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 Depending on the clinical setting, a rebiopsy could be considered. Initial and multiple deeper sections were examined. The patient's clinical history and corresponding images available in the electronic medical record were reviewed. ICD-10-CM 1. Neoplasm of uncertain behavior of skin D48.5 SURG PATH REQUEST [facility] PUNCH BIOPSY SKIN SINGLE LESION 2. AK (actinic keratosis) L57.0 NH DESTRUCTION PREMALIGNANT LESION 1ST 3. Rosacea L71.9 2 mm punch biopsy to subcutaneous fat after consent obtained reviewing risk of scarring, bleeding, infection Area prepped with alcohol and anesthetized with 2cc intradermal normal saline Biopsy performed and site closed with gel foam Specimen submitted to pathology <1cc estimated blood loss, procedure well-tolerated Wound covered with petroleum jelly and bandaid Wound care instructions provided Cryotherapy with liquid nitrogen x 2 cycles x 3 seconds each x 1 AK Educated regarding pain, blistering, dyspigmentation, potential for recurrence and wound care instructions Patient tolerated procedure well Post-procedure care instructions given Briefly discussed PDL for rosacea documented in this encounter [facility] 06-24-2025 Instructions Dianna Padron - 06/24/2025 10:30 AM EDT Skin Cancer Prevention 1. Every day, apply a broad spectrum sunscreen SPF 30 with reapplication every 2 hours when out in the sun for extended periods of time. 2. If possible, avoid being out in the sun during peak hours of 10am-4pm. 3. Wear protective clothing when out in the sun during sun exposure. Examples include broad-rimmed hats, long sleeved shirts, or pants. You can also purchase clothing with built in sun protection called UPF or ultraviolet protection factor. Many sports store sell clothing with this built in. Some popular brands carry a UPF line like [employer] or [employer]. You can also purchase clothing from companies such as [employer]) and [employer] which sell a variety of clothing with built in UPF. 4. Wear protective sunglasses while out in the sun. Purchase glasses which that block 99 to 100 percent of both UVA and UVB rays. Avoid sunglasses that are labeled "cosmetic" and those that don't offer details on UV protection. 5. Perform monthly self-skin exams. Observe for any new lesions or moles. Watch for changes in color, shape and size. Use the handy reminder of the ABCDEs. Look for lesions with: -Asymmetry. The left side looks different than the right. The top is different from the bottom. -Borders. The borders are irregular or resemble a fluffy cloud or a puzzle piece. -Color. The mole has variation of colors including ordoñez, brown, black, blue, red, pink And white. -Diameter. The mole is increasing in size or bigger than 6 mm (approx size of a pencil eraser) -Evolving. If any of your moles are changing in size, shape or color 6. If you have a history of melanoma, also examine the glands in your neck, armpits and groin. Your crank hand or oncologist with assist you with identifying the correct areas to examine. 7. Consider taking Vitamin D 3 supplementation of 1000 IU if practicing strict photoprotection. 8. If you have a personal or family history of melanoma, we recommend first degree relatives (your parents, your brothers and sisters and your children) receive a full skin exam by a crank hand. Wound Care for Open or Sutured Wounds after Skin Biopsy Wound care is done to clean the wound, prevent infection and prevent scab formation. Wounds heal faster when scabs are not allowed to form on wounds. When to do wound Care Leave original dressing in place for 24 hours. Then, do wound care once daily as directed. Stop wound care when skin has healed over or stiches are removed. Supplies (use items checked) _x_White Petroleum jelly (Vaseline or Aquaphor) _x_ Band-Aid or Non-Adherent gauze dressing (Telfa) and tape _x_Cotton tip applicators (Q-Tips) Care of the Wound 1. First wash your hands with soap and water. Gently remove the old dressing. If the dressing is stuck, wet the dressing with tap water, wait 3-5 minutes and then remove it, or remove old dressing in the bath or shower. 2. Then clean the wound by the method checked below : Allow soap, water, and/or shampoo to wash over wound, and then rinse the wound with tap water. 3. Dry the wound with a clean cotton ball or Q-tip. 4. With clean Q-tip , apply thick layer of ointment. 5. Cover the wound with a band-aid or non-stick pad. Cut the pad with clean scissors to fit the wound. Then tape around the pad. In case of bleeding To prevent bleeding, avoid drinking alcohol,. If there is a large amount of bleeding (hemorrhage), follow these steps: 1. Apply direct pressure firmly over the wound for 20 minutes, timed by the clock. If bleeding has not stopped, apply pressure for 20 more minutes along with ice. 2. If bleeding still has not stopped, continue holding pressure on the wound and call your crank hand or go to your local emergency room. In Case of Pain Local anesthesia will wear off in approximately 1-3 hours. The area may burn, throb, feel tender or sore but should NOT be excruciatingly painful. If your wound hurts, take Tylenol or Extra-Strength Tylenol (acetaminophen) as directed on bottle, as needed. What to Expect after Surgery The wound may have a slight pink or brown colored fluid leaking from it. This may show on the dressing. Mild pain. Mild tenderness at the wound site, like a bruise. Mild color changes to skin, like a bruise. A black eye can appear with facial surgeries. Swelling of the eyelids may happen with facial surgeries. Swelling will get worse for the first three days before it will start to improve. To reduce the amount of swelling that may occur, you can apply an ice pack to the area once an hour for 20 minutes at a time. Call your Doctor if you have: Bleeding not controlled by pressure. Increase in redness Pain not controlled by Tylenol Swelling Increases or severe pain Drainage of pus Fever over 100.5 degrees Red streaks extending from the operative site. A marble size bump ( Hematoma)under the skin that is blue/purple/and/or red Who to call [facility] at for problems Tuesday through Tuesday in the morning or afternoon. For Urgent problems in the evenings or after hours , call the hospital hard rock drill operator at and ask for the Cephalometric Analyst transportation department head. TEST RESULTS: We will make every effort to communicate your biopsy test results within ten business days. Certain results may take longer, but are usually received within fourteen days. Your results will be communicated to you in one of two ways; Mailed to you Reviewed with you over the phone If you have any questions about your visit today or your tests, please call us at [phone] Option 2. Please remember the side-effects of cryotherapy including blistering, skin discoloration, infection, non-healing, reoccurrence and rarely scarring. CRYOSURGERY CRYOSURGERY INVOLVES THE USE OF LIQUID NITROGEN TO REMOVE SKIN GROWTHS. LIQUID NITROGEN IS VERY COLD (-196C). WITH IT WE CAN TREAT MANY GROWTHS AND LEAVE VERY LITTLE SCARRING, ALTHOUGH SOMETIMES A LIGHT CHANGE IN PIGMENTATION CAN OCCUR. WHEN LIQUID NITROGEN IS APPLIED, THE SKIN TURNS WHITE AND THEN SLOWLY REDDENS. SOME STINGING OCCURS DURING TREATMENT, BUT SHOULD SUBSIDE WITHIN THE HOUR. THROBBING DISCOMFORT MAY OCCUR A FEW HOURS AFTER THE TREATMENT, TAKING TYLENOL, ELEVATING THE TREATMENT SITE AND THE USE OF COOL WATER COMPRESSES CAN HELP RELIEVE THE DISCOMFORT. A WELT WILL FORM FOLLOWING TREATMENT AND MAY BECOME A BLISTER IN A FEW HOURS. SWELLING MAY OCCUR 24-48 HOURS AFTER CRYOSURGERY. KEEP THE AREA CLEAN POSSIBLE AFTER TREATMENT. PLEASE USE THE FOLLOWING STEPS: 1. CLEAN THE TREATED AREA WITH SOAP AND WATER 1-2 TIME A DAY. 2. IF THE AREAS OPEN OR SCAB PLEASE KEEP THEM MOIST WITH VASELINE AT LEAST TWICE DAILY AND AVOID PICKING THE AREA. IF POSSIBLE, COVER WITH A BANDAID TO PROTECT THE AREA. 3. CALL THE OFFICE IF EVIDENCE OF INFECTION OCCURS. IF YOU MUST BREAK A BLISTER TO RELIEVE PRESSURE, USE A NEEDLE THAT HAS BEEN HEATED WITH A FLAME OR CLEANED WITH ALCOHOL. documented in this encounter [facility] 06-13-2025 History of Present illness Narrative Personal history of skin cancer? BCC History of abnormal moles (dysplastic nevus)? No Family history of skin cancer and type? Father - SCC or nursing? No Patient was reminded to remove makeup, nail equatorial guinean, hair pieces, and undergarments yes CC: Chief Complaint Patient presents with Skin Exam Full body, spots on face HPI: Sara Rojo is an 55 y.o. year old female who returns for follow-up: Duration: 6 month follow-up Location: full body Associated Symptoms: scattered spots Severity: mild Additional History: Hx of BCC, c/o spots on face. Physical Exam: Exam included: Scalp Face Lips Eyelids, conjunctiva neck chest abdomen back R arm L arm R leg L leg Digits, nails Mons Buttocks All normal except: Actinic damage to sun exposed areas Scattered over skin surface several brown and ordoñez macules and domed papules Scattered over skin surface, favoring photo-exposed areas, numerous brown macules Involving upper forehead pink, rough, macules x 1 - cryo Hyperpigmented, subcutaneous papule with + dimple sign left posterior shoulder Small, white, subcutaneous papule left nasal ala Left nasal sidewall 5 x 5 mm pink papule - pineda bx Impression/Plan: ICD-10-CM 1. Actinic skin damage L57.8 2. Multiple pigmented nevi D22.9 3. Lentigines L81.4 4. Actinic keratosis L57.0 NH DESTRUCTION PREMALIGNANT LESION 1ST 5. Dermatofibroma D23.9 6. Milial cyst L72.0 7. Neoplasm of uncertain behavior of skin D48.5 SURG PATH REQUEST NH TANGENTIAL BIOPSY SKIN SINGLE LESION 8. History of basal cell carcinoma Z85.828 - education, reassurance regarding benign-appearing lesions on exam today - hand-out provided on AVS reviewing sunsmarts including recommendation for daily sunscreen spf 30, sun-protective clothing, sun avoidance, and benefit of self skin exams Cryotherapy with liquid nitrogen x 2 cycles x 3 seconds each x 1 Educated regarding pain, blistering, dyspigmentation, potential for recurrence and wound care instructions Patient tolerated procedure well Post-procedure care instructions given - can try an at home comedone extractor for milial cysts Tangential biopsy performed after consent obtained reviewing risk of scarring, bleeding, infection Area prepped with alcohol and anesthetized with 1cc intradermal 1% lidocaine with 1:100,000 epinephrine Specimen submitted to pathology <1cc estimated blood loss, procedure well-tolerated Wound covered with petroleum jelly and bandaid Wound care instructions provided Return in about 1 year (around 06/13/2026) for skin exam. Prescriptions written or refilled today include: Requested Prescriptions No prescriptions requested or ordered in this encounter -Referring Provider for today's consult: Self, Self Allergies / Medications / Immunizations: The patient is allergic to ceftin [cefuroxime], corn starch, gluten meal, latex, and penicillins. The patient has a current medication list which includes the following prescription(s): armour thyroid, cyanocobalamin, estrogens conjugated, magnesium, metronidazole, mupirocin, probiotic product, progesterone, propranolol, sulfamethoxazole-trimethoprim, first-testosterone mc, vitamin d, and vitamin e. IKayce CMA, served as a scribe and medical brooch and bracelet maker for this encounter on 06/13/2025 I have reviewed this documentation from by Kayce Wild MA, scribe and medical brooch and bracelet maker, and it is accurate. Kacie Keenan MD documented in this encounter [facility] 06-13-2025 Instructions Kayce Gonzalezibhector Wild - 06/13/2025 9:20 AM EDT Images from the original note were not included. Can purchase a comedone extractor for milial cysts Recommend over the counter Isdin Eryfotona Actinica sunscreen for the face Skin Cancer Prevention 1. Every day, apply a broad spectrum sunscreen SPF 30. Reapply every 2 hours when out in the sun for extended periods of time. 2. If possible, avoid being out in the sun during peak hours of 10am-4pm. 3. Wear protective clothing when out in the sun during sun exposure. Examples include broad-rimmed hats, long sleeved shirts, or pants. You can also purchase clothing with built in sun protection called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 treatment - Follow-up in 8 weeks and as needed for continued OMT treatments [facility] 10-22-2024 Evaluation + Plan note Associated Problem(s): Somatic dysfunction of thoracic region - OMT performed using DMFR of the entire thoracic and posterior rib unit. Patient tolerated procedure well and tissue texture changes, mobility improved on recheck. [facility] 10-22-2024 Miscellaneous Notes Associated Problem(s): Low back pain - OMT performed in office today after verbal consent was obtained and benefits/risks were discussed. - Pt tolerated the treatments well and was with subjective improvement in their symptoms. Findings on osteopathic structural exam re-check and ROM testing showed complete resolution - Encouraged the pt to drink lots of water throughout the next 24 hours, to keep the treated regions active, and to take ibuprofen/Tylenol/ice for any post-treatment soreness. Encouraged the pt to reach out if they continue to have soreness 4-5 days after their treatment - Follow-up in 8 weeks and as needed for continued OMT treatments Associated Problem(s): Somatic dysfunction of thoracic region - OMT performed using DMFR of the entire thoracic and posterior rib unit. Patient tolerated procedure well and tissue texture changes, mobility improved on recheck. documented in this encounter [facility] 10-22-2024 Miscellaneous Notes Associated Problem(s): Low back pain - OMT performed in office today after verbal consent was obtained and benefits/risks were discussed. - Pt tolerated the treatments well and was with subjective improvement in their symptoms. Findings on osteopathic structural exam re-check and ROM testing showed complete resolution - Encouraged the pt to drink lots of water throughout the next 24 hours, to keep the treated regions active, and to take ibuprofen/Tylenol/ice for any post-treatment soreness. Encouraged the pt to reach out if they continue to have soreness 4-5 days after their treatment - Follow-up in 8 weeks and as needed for continued OMT treatments Associated Problem(s): Somatic dysfunction of thoracic region - OMT performed using DMFR of the entire thoracic and posterior rib unit. Patient tolerated procedure well and tissue texture changes, mobility improved on recheck. documented in this encounter [facility] 10-22-2024 Instructions Amalia Yadav DO - 10/22/2024 4:18 PM EST Postural Activation Exercises Pelvic Floor + Transversus Abdominus + Gluteal Activation = The Easy Squeezies While laying down: 1. Engage the pelvic floor. Imagine stopping the flow of urine with a squeeze. This is a Kegel squeeze. Engage and hold. 2. Gently suck in the belly button or draw your belly button towards your spine. Engage and hold. 3. Squeeze your glutes together until you feel an even engagement on both sides. Once you feel it's a balanced activation, hold. Try to reduce to focus the activation on your glutes, not your hamstrings. Hold all three of these for a 5-10 second count. Repeat at least 10 times. While sitting: All three can be engaged while sitting, it will feel like you're raising up off the seat with glute engagement. While standin. Stand with your feet about shoulder width apart, or a comfortable, natural stance. 2. Draw your belly button in and pull your feet apart without letting them move. Try to spread the floor with your feet. 3. You will feel tension build along the sides of your legs and ascend to the outside of your buttocks. Once you feel the tension there, hold it for 15-20 seconds. Hip bridges Step 1 - Set your pelvis with the Easy Squeezies Step 2 - Slowly lift hips off the table maintaining gluteal activation Step 3 - Hold for 15-60 seconds Once you lift off the ground, you need to feel the tension primarily in your buttocks. You will feel slight tension in the back of your legs (hamstrings), which is appropriate. However, the majority of the tension should be felt in your gluteal muscles. MODIFY: If you feel too much tension in your hamstrings, bring your bridge back down to the floor, reset your Easy Squeezies and start by raising 2-3 inches off of the floor. Intentionally squeeze your gluteal muscles until they are where the majority of the tension is felt. PROGRESSION: You can add a band above your knees for increased gluteal activation maintaining glute muscle engagement. Scapular activation 1. Pull the shoulder blades back and together - NOT UP. Your goal is to avoid activating your trapezius muscles, which will cause your shoulders to elevate. 2. While maintaining the scapular squeeze, pull the shoulder blades down into your back pockets. 3. Hold for at least 5 seconds and repeat 5-10 times. PROGRESSION: Band T's 1. Hold a band out in front of you. 2. As you pull the band apart, the majority of the squeeze/pull should come from the shoulder blades pulling together and then down (not up). 3. Hold for 3-5 seconds and repeat up to 15 times. To make sure you're doing this right, it's helpful to perform these in front of a window or mirror or any other reflective surface. Your goal is always to avoid activating your trapezius muscles, which will make your shoulders elevate. Combine upper and lower activation exercises while laying down or standing throughout the day and especially prior to engaging in exercise! The following attachments cannot be sent through Care Everywhere.Piriformis Syndrome: Exercises (Chilean)documented in this encounter [facility] 10-22-2024 Instructions Amalia Yadav DO - 10/22/2024 4:18 PM EST Postural Activation Exercises Pelvic Floor + Transversus Abdominus + Gluteal Activation = The Easy Squeezies While laying down: 1. Engage the pelvic floor. Imagine stopping the flow of urine with a squeeze. This is a Kegel squeeze. Engage and hold. 2. Gently suck in the belly button or draw your belly button towards your spine. Engage and hold. 3. Squeeze your glutes together until you feel an even engagement on both sides. Once you feel it's a balanced activation, hold. Try to reduce to focus the activation on your glutes, not your hamstrings. Hold all three of these for a 5-10 second count. Repeat at least 10 times. While sitting: All three can be engaged while sitting, it will feel like you're raising up off the seat with glute engagement. While standin. Stand with your feet about shoulder width apart, or a comfortable, natural stance. 2. Draw your belly button in and pull your feet apart without letting them move. Try to spread the floor with your feet. 3. You will feel tension build along the sides of your legs and ascend to the outside of your buttocks. Once you feel the tension there, hold it for 15-20 seconds. Hip bridges Step 1 - Set your pelvis with the Easy Squeezies Step 2 - Slowly lift hips off the table maintaining gluteal activation Step 3 - Hold for 15-60 seconds Once you lift off the ground, you need to feel the tension primarily in your buttocks. You will feel slight tension in the back of your legs (hamstrings), which is appropriate. However, the majority of the tension should be felt in your gluteal muscles. MODIFY: If you feel too much tension in your hamstrings, bring your bridge back down to the floor, reset your Easy Squeezies and start by raising 2-3 inches off of the floor. Intentionally squeeze your gluteal muscles until they are where the majority of the tension is felt. PROGRESSION: You can add a band above your knees for increased gluteal activation maintaining glute muscle engagement. Scapular activation 1. Pull the shoulder blades back and together - NOT UP. Your goal is to avoid activating your trapezius muscles, which will cause your shoulders to elevate. 2. While maintaining the scapular squeeze, pull the shoulder blades down into your back pockets. 3. Hold for at least 5 seconds and repeat 5-10 times. PROGRESSION: Band T's 1. Hold a band out in front of you. 2. As you pull the band apart, the majority of the squeeze/pull should come from the shoulder blades pulling together and then down (not up). 3. Hold for 3-5 seconds and repeat up to 15 times. To make sure you're doing this right, it's helpful to perform these in front of a window or mirror or any other reflective surface. Your goal is always to avoid activating your trapezius muscles, which will make your shoulders elevate. Combine upper and lower activation exercises while laying down or standing throughout the day and especially prior to engaging in exercise! The following attachments cannot be sent through Care Everywhere.Piriformis Syndrome: Exercises (Chilean)documented in this encounter [facility] 10-22-2024 History of Present illness Narrative Images from the original note were not included. Sara Rojo is a 54 y.o. female Chief Complaint Patient presents with Procedure omt Back Pain Neck Pain abdomen pain Assessment and Plan: Assessment & Plan Chronic bilateral low back pain without sciatica - OMT performed in office today after verbal consent was obtained and benefits/risks were discussed. - Pt tolerated the treatments well and was with subjective improvement in their symptoms. Findings on osteopathic structural exam re-check and ROM testing showed complete resolution - Encouraged the pt to drink lots of water throughout the next 24 hours, to keep the treated regions active, and to take ibuprofen/Tylenol/ice for any post-treatment soreness. Encouraged the pt to reach out if they continue to have soreness 4-5 days after their treatment - Follow-up in 8 weeks and as needed for continued OMT treatments Right leg pain Chronic, with contributions from multiple C-sections and fascial symptoms resulting OMT as below Somatic dysfunction of spine, cervical - OMT performed using BLT, ME. Patient tolerated procedure well and tissue texture changes, mobility improved on recheck. Somatic dysfunction of thoracic region - OMT performed using DMFR of the entire thoracic and posterior rib unit. Patient tolerated procedure well and tissue texture changes, mobility improved on recheck. Somatic dysfunction of rib - OMT performed using ST, ME to the diaphragm. Patient tolerated procedure well and tissue texture changes, mobility improved on recheck. Somatic dysfunction of upper extremity - OMT performed using BLT. Patient tolerated procedure well and tissue texture changes, mobility improved on recheck. Somatic dysfunction of lumbar region - OMT performed using ME. Patient tolerated procedure well and tissue texture changes, mobility improved on recheck. Somatic dysfunction of lower extremity - OMT performed using ST to the glute, DMFR/BLT combination technique for the fascial unwinding. Patient tolerated procedure well and tissue texture changes, mobility improved on recheck. Verbal consent provided to perform osteopathic manipulation today. Risks and benefits of procedure understood. HPI: OMT Last OMT with Dr. Shay on 08/13 In the process of tongue tie release, palate surgery Got benefit for about a week after last visit Pain throughout her back, shoulder, neck Continuing with pelvic floor PT weekly Injury History: No recent car accidents, surgeries No concussion history Physical Exam Vitals: 10/22/24 1520 BP: 125/79 BP Location: Right arm Patient Position: Sitting BP Cuff Size: X-large Adult Pulse: 96 SpO2: 96% Weight: 117.1 kg (258 lb 1.6 oz) Height: 5' 4" Body mass index is 44.3 kg/m . Physical Exam Constitutional: General: She is not in acute distress. Appearance: She is obese. She is not ill-appearing. HENT: Head: Normocephalic and atraumatic. Eyes: Extraocular Movements: Extraocular movements intact. Neck: Comments: Hypertonicity noted surrounding 1st rib, most prominent on the right (further documented in Osteopathic Exam) Pulmonary: Effort: Pulmonary effort is normal. Abdominal: General: Abdomen is flat. Musculoskeletal: Cervical back: Normal range of motion. Right lower leg: No edema. Left lower leg: No edema. Neurological: General: No focal deficit present. Mental Status: She is alert. Motor: No weakness. Gait: Gait normal. Psychiatric: Mood and Affect: Mood normal. Osteopathic Medical Exam: Cervical/Neck: Cervical Exam C2: Left: FRS TART Exam: Full TART exam positive. Thoracic: Treatment Comments: Arrow noting direction of myofascial restriction Lumbar: Osteopathic Lumbar Exam: L3: Left: ERS TART Exam: TART exam positive for tissue texture and ROM. Lower Extremity: Osteopathic Exam Hip: External Rotation Dysfunction: Right: Positive TART exam: Full TART exam positive. Treatment Comments: Drawing indicating fascial pull throughout RLE Upper Extremity: Ribs: 1: Inhalation: Right OMT Abbreviations BLT = Balanced ligamentous tension CD = Continuum distortion (FDM) CS = Counterstrain Beata = Cylinder distortion (FDM) DMFR = Direct myofascial release FD = Folding distortion (FDM) FDM = Fascial Distortion Model FPR = Facilitated positional release HTP = Herniated trigger point (FDM) HVLA = High velocity low amplitude IMFR = Indirect myofascial release LAS = Ligamentous Articular Strain LVMA = Low velocity medium amplitude ME = Muscle energy OMM = Osteopathic Manipulative Medicine OMT = Osteopathic Manipulative Treatment rFD = Refolding distortion (FDM) ROM = Range of Motion ST = Stills technique TB = trigger band (FDM) TF = Tectonic fixation (FDM) TP = Tender point TrPt = Trigger Point TTC = Tissue Texture Changes TTP = Tenderness to palpation uFD = Unfolding distortion (FDM) For any new medications prescribed today, patient was educated about indications for the medication, how to take the medication and potential side effects of the medications. Patient is instructed to call the office immediately if there are any new complaints or worsening of the current complaints. All questions answered. Portions of this note may have utilized [employer] Dictation software, please excuse for any typographical or grammatical errors. Patient instructions As part of your treatment today, Osteopathic Manipulative Therapy may have been performed. This may cause you to be sore over the next couple of days. Reviewed with patient to stay hydrated and discussed appropriate means for managing these symptoms Amalia Yadav DO PGY-3 [facility] documented in this encounter [facility] 10-22-2024 Note Sara Rojo is a 54 y.o. female Chief Complaint Patient presents with Procedure omt Back Pain Neck Pain abdomen pain Assessment and Plan: Assessment & Plan Chronic bilateral low back pain without sciatica - OMT performed in office today after verbal consent was obtained and benefits/risks were discussed. - Pt tolerated the treatments well and was with subjective improvement in their symptoms. Findings on osteopathic structural exam re-check and ROM testing showed complete resolution - Encouraged the pt to drink lots of water throughout the next 24 hours, to keep the treated regions active, and to take ibuprofen/Tylenol/ice for any post-treatment soreness. Encouraged the pt to reach out if they continue to have soreness 4-5 days after their treatment - Follow-up in 8 weeks and as needed for continued OMT treatments Right leg pain Chronic, with contributions from multiple C-sections and fascial symptoms resulting OMT as below Somatic dysfunction of spine, cervical - OMT performed using BLT, ME. Patient tolerated procedure well and tissue texture changes, mobility improved on recheck. Somatic dysfunction of thoracic region - OMT performed using DMFR of the entire thoracic and posterior rib unit. Patient tolerated procedure well and tissue texture changes, mobility improved on recheck. Somatic dysfunction of rib - OMT performed using ST, ME to the diaphragm. Patient tolerated procedure well and tissue texture changes, mobility improved on recheck. Somatic dysfunction of upper extremity - OMT performed using BLT. Patient tolerated procedure well and tissue texture changes, mobility improved on recheck. Somatic dysfunction of lumbar region - OMT performed using ME. Patient tolerated procedure well and tissue texture changes, mobility improved on recheck. Somatic dysfunction of lower extremity - OMT performed using ST to the glute, DMFR/BLT combination technique for the fascial unwinding. Patient tolerated procedure well and tissue texture changes, mobility improved on recheck. Verbal consent provided to perform osteopathic manipulation today. Risks and benefits of procedure understood. HPI: OMT Last OMT with Dr. Shay on 08/13 In the process of tongue tie release, palate surgery Got benefit for about a week after last visit Pain throughout her back, shoulder, neck Continuing with pelvic floor PT weekly Injury History: No recent car accidents, surgeries No concussion history Physical Exam Vitals: 10/22/24 1520 BP: 125/79 BP Location: Right arm Patient Position: Sitting BP Cuff Size: X-large Adult Pulse: 96 SpO2: 96% Weight: 117.1 kg (258 lb 1.6 oz) Height: 5' 4" Body mass index is 44.3 kg/m . Physical Exam Constitutional: General: She is not in acute distress. Appearance: She is obese. She is not ill-appearing. HENT: Head: Normocephalic and atraumatic. Eyes: Extraocular Movements: Extraocular movements intact. Neck: Comments: Hypertonicity noted surrounding 1st rib, most prominent on the right (further documented in Osteopathic Exam) Pulmonary: Effort: Pulmonary effort is normal. Abdominal: General: Abdomen is flat. Musculoskeletal: Cervical back: Normal range of motion. Right lower leg: No edema. Left lower leg: No edema. Neurological: General: No focal deficit present. Mental Status: She is alert. Motor: No weakness. Gait: Gait normal. Psychiatric: Mood and Affect: Mood normal. Osteopathic Medical Exam: Cervical/Neck: Cervical Exam C2: Left: FRS TART Exam: Full TART exam positive. Thoracic: Treatment Comments: Arrow noting direction of myofascial restriction Lumbar: Osteopathic Lumbar Exam: L3: Left: ERS TART Exam: TART exam positive for tissue texture and ROM. Lower Extremity: Osteopathic Exam Hip: External Rotation Dysfunction: Right: Positive TART exam: Full TART exam positive. Treatment Comments: Drawing indicating fascial pull throughout RLE Upper Extremity: Ribs: 1: Inhalation: Right OMT Abbreviations BLT = Balanced ligamentous tension CD = Continuum distortion (FDM) CS = Counterstrain Beata = Cylinder distortion (FDM) DMFR = Direct myofascial release FD = Folding distortion (FDM) FDM = Fascial Distortion Model FPR = Facilitated positional release HTP = Herniated trigger point (FDM) HVLA = High velocity low amplitude IMFR = Indirect myofascial release LAS = Ligamentous Articular Strain LVMA = Low velocity medium amplitude ME = Muscle energy OMM = Osteopathic Manipulative Medicine OMT = Osteopathic Manipulative Treatment rFD = Refolding distortion (FDM) ROM = Range of Motion ST = Stills technique TB = trigger band (FDM) TF = Tectonic fixation (FDM) TP = Tender point TrPt = Trigger Point TTC = Tissue Texture Changes TTP = Tenderness to palpation uFD = Unfolding distortion (FDM) For any new medications prescribed today, patient (more content not included)... [facility] 10-08-2024 History of Present illness Narrative Last office visit: 09/20/2024 CC: Chief Complaint Patient presents with Skin Exam Pt presents for FBSE HPI: Sara Rojo is an 54 y.o. year old female who presents for: FBSE Narrative/Interval History: Pt reports that lesion on the lip didn't totally clear up. Hx of AK: Location: right cutaneous lip 5 mm from lateral edge (09/20/2024) Treatment: cryotherapy General Questions for Skin Cancer Screening Yes No Comments Previous history of Skin Cancer? If yes, see comments [x] [] BCC-right restorationist Previous history of systemic cancers? If yes, see comments [] [x] Family history of skin cancer? [x] [] Dad-SCC Family History of Cancers? If so what types? [x] [] Mother - lung cancer Pathologic Diagnosis A. Skin, base of neck, shave: Intradermal melanocytic nevus. at 1110 01/13/2004 A. Skin, right restorationist, shave: - Melanocytic nevus, principally intradermal type 11/28/2002 A. Skin, left posterior hip, shave: - Compound nevus ROS: Constitutional: normal Skin: no other skin complaints PMHx: She has a past medical history of Anemia, Cat-scratch disease, EBV positive mononucleosis syndrome, GERD (gastroesophageal reflux disease), H. pylori infection, and Lyme disease. Allergies / Medications / Immunizations: The patient is allergic to ceftin [cefuroxime], corn starch, gluten meal, latex, and penicillins. The patient has a current medication list which includes the following prescription(s): armour thyroid, cyanocobalamin, estrogens conjugated, magnesium, probiotic product, progesterone, propranolol, sulfamethoxazole-trimethoprim, first-testosterone mc, vitamin d, vitamin e, bioflavonoid products, cefixime, digestive enzymes, multiple minerals, and mupirocin. Physical Exam: Physical Exam: WD, WN, NAD, A&O x 3. Exam included: A medical program specialist or DOCUMENTATION CONSULTANT was present as scribe and as medical brooch and bracelet maker during this portion of the visit. [x] A full body skin exam was performed including scalp, face, lips, eyelids, neck, back, chest, buttocks, groin, right arm, left arm, right leg, left leg, digits [] A focused waist up exam of scalp, face, lips, eyelids, neck, back, chest, left arm, right arm, and digits performed [] A lymph node exam was performed [] A genital exam was performed [] A focused exam of the following areas was performed: All normal except: Light brown, evenly pigmented macules in sun-exposed areas Scattered skin colored to dark brown macules and papules Stuck on skin colored to brown waxy papule(s) Shah angiomas: Bright red dome shaped papule(s) Pedunculated skin colored to brown papule(s) located axillae Actinic keratoses: Scaly erythmatous rough papules located right upper cutaneous lip 5 mm from lateral edge x 1 Impression/Plan: 1. Skin cancer screening 2. Lentigines Reviewed sunsmarts including recommendation for daily suscreen of spf 30, sun-protective clothing, sun avoidance, and benefit of self skin exams. 3. Multiple benign nevi The ABCD's of melanoma (Asymmetry, Border irregulatiry, Color irregulatiry, and Diameter bigger than a pencil eraser) discuss with patient. Patient was encouraged to perform self skin exams, and to followup sooner for new, changing, or worrisome moles. 4. SK (seborrheic keratosis) Information regarding seborrheic keratoses was provided. Pt asked to call if any lesions become irritated or bothersome 5. Shah angioma Explained that lesion is benign. Reassured. 6. Skin tag Discussed benign nature of these lesions and the option to monitor or remove cosmetically. - Patient Elects to Monitor 7. AK (actinic keratosis) The patient elected treatment with cryotherapy for actinic keratoses. -Verbal informed consent obtained. -Side effects discussed including hypopigmentation, blistering and possible scarring. -Liquid nitrogen x 2 cycles to a total of 1 lesions with use of cryac. -Wound care reviewed. If lesions do not improve, will need to biopsy to r/o SCC Informed pt to follow-up via [facility] in 6 weeks if scale is still present. Return in about 1 year (around 10/08/2025) for skin exam. Prescriptions written or refilled today include: Requested Prescriptions No prescriptions requested or ordered in this encounter I, Selene Browne CMA , served as a scribe and acted as the medical brooch and bracelet maker for this exam/procedure/test/treatment for this encounter on 10/08/2024 Attestation Below: This exam/procedure/test/treatment was conducted the presence of a medical brooch and bracelet maker. I have reviewed the dictated documentation as scribed by Selene Browne CMA and it accurately reflects the work performed and the decisions made. I saw and independently examined this patient today. I discussed my findings and the therapeutic plan with the patient. I agree with the history, physical examination, and medical decisions as outlined. I have reviewed the documentation, which accurately reflects the work performed and the decisions made. Patience Escobedo MD [facility] documented in this encounter [facility] 10-08-2024 Instructions Jahaira Browne - 10/08/2024 1:15 PM EST Cryosurgery Post Treatment Patient Instructions DEFINITION CRYOSURGERY INVOLVES THE USE OF LIQUID NITROGEN TO REMOVE SKIN GROWTHS. LIQUID NITROGEN IS VERY COLD (-196 C), WITH IT WE CAN TREAT MANY GROWTHS AND LEAVE VERY LITTLE SCARRING, ALTHOUGH SOMETIMES A LIGHT CHANGE IN PIGMENTATION CAN OCCUR. COURSE OF HEALING WHEN LIQUID NITROGEN IS APPLIED, THE SKIN TURNS WHITE AND THEN SLOWLY REDDENS. SOME STINGING OCCURS DURING TREATMENT, BUT SHOULD SUBSIDE WITHIN THE HOUR. THROBBING DISCOMFORT MAY OCCUR A FEW HOURS AFTER THE TREATMENT. A WELT WILL FORM FOLLOWING TREATMENT AND MAY BECOME A BLISTER IN A FEW HOURS. SWELLING MAY OCCUR 24-48 HOURS AFTER CRYOSURGERY. PAIN RELIEF IF THROBBING DISCOMFORT IS EXPERIENCED USING TYLENOL, ELEVATING THE TREATMENT SITE AND COOL WATER COMPRESSES CAN HELP RELIEVE THE DISCOMFORT. WOUND CARE KEEP THE AREA CLEAN POSSIBLE AFTER TREATMENT, PLEASE USE THE FOLLOWING STEPS: CLEAN THE TREATED AREA WITH SOAP AND WATER 1-2TIMES A DAY. THE AREAS MAY BE LEFT OPEN, UNLESS LOCATED WHERE CLOTHING MAY IRRITATE IT OR IF IT IS UNCOMFORTABLE. SPECIAL INSTRUCTIONS MAY BE GIVEN IN SOME CASES. CALL THE OFFICE IF EVIDENCE OF INFECTION OCCURS BREAKING BLISTERS IS DISCOURAGED BECAUSE WHEN SKIN IS BROKEN, INFECTION MAY OCCUR. IF YOU MUST BREAK A BLISTER TO RELIEVE PRESSURE, USE A NEEDLE THAT HAS BEEN HEATED WITH A FLAME OR CLEANED WITH ALCOHOL. Sunscreen Suggestions Remember to wear a sunscreen every day! Reapply sunscreen every 2 hours when active outdoors Daily sun protection - focusing on exposed areas of skin (face, ears, neck, arms, hands). These sunscreens tend to be a thinner consistency and leave less residue than waterproof products). CeraVe AM SPF 30 Eucerin Extra Protective Moisture Lotion L oreal Sublime Sun Olay Complete Daily Defense SunBLOCK with physical blockers - Titanium Dioxide and Zinc Oxide These are best for sensitive skin as well as for patients concerned about the chemicals in chemical blockers. They are more likely than others to leave a slightly whitish sheen on some skin especially around hairs Blue Lizard Burkinan Sunscreen Vanicream Sunscreen for Sensitive Skin Neutrogena Sensitive Skin Sunblock Glytone Sunscreen Lotion [place] Baby Sunscreen Lotion/Stick Other Special Circumstances Dry Skin - While each of these products can be used on all skin types, the creamier vehicle of CeraVe AM lends itself for use in patients with dry skin or those who prefer a thicker base. Sensitive Skin - If your skin is very sensitive, a strictly physical pricila agent is appropriate. The SunBLOCKS above are good as are: SkinCeuticals Physicial Fusion UV Defense SPF 30 contains zinc and titanium but no chemical sunscreen ingredients. both tinted and sheer options are available. Neutrogena Pure and Free Baby Faces SPF 50+ contains only physical blockers, fragrance free and tear-free. Marketed as part of a baby sunscreen line but it is an appropriate choice for any age group. Oily skin - Some patients with oily skin prefer a sunscreen that is as light as possible, especially during the humid summer months. Recs: La Christiano Posay Anthelios 60 Ultra Light Sunscreen Fluid, Neutrogena Pure and Free Liquid SPF, Shiseido Extra Smooth Sun Protection Lotion SPF 38. Acne-Prone Skin - I recommend moisturizers with sunscreen for use in the morning. They provide UV protection while also minimizing the irritation of topical acne medications. Some products are oil-free (using dimethicone rather than petrolatum (dimethicone can make the skin appear less oily by absorbing oil). Recs: Cetaphil DermaControl Moisturizer SPF30, Neutrogena Clear Face Sunscreen, EltaMD UV Clear SPF 46 contains niacinimide to soothe the skin. Red Skin/Rosacea - this type of skin can benefit from anti-inflammatory additives. Aveeno Ultra Calming Daily Moisturizer SPF 15 contains feverfew, a botanical similar to chamomile, which helps reduce irritated skin. Eucerin Redness Relief Daily Perfecting Lotion SPF 15, formulated with a licorice root extract to soothes red skin documented in this encounter [facility] 09-20-2024 History of Present illness Narrative Last office visit: 05/24/2024 CC: Chief Complaint Patient presents with Skin Lesion Pt reports lesion on the left upper lip Duration: 4-5 months Hx of BCC HPI: Sara Rojo is an 54 y.o. year old female who presents for: lesion on the upper lip Narrative/Interval History: Pt presents for a lesion on the upper lip - Duration: 1 month - Will appear and disappear for the past 4-5 months General Questions for Skin Cancer Screening Yes No Comments Previous history of Skin Cancer? If yes, see comments [x] [] BCC Previous history of systemic cancers? If yes, see comments [] [] Family history of skin cancer? [] [] Family History of Cancers? If so what types? [] [] ROS: Constitutional: normal Skin: no other skin complaints PMHx: She has a past medical history of Anemia, Cat-scratch disease, EBV positive mononucleosis syndrome, GERD (gastroesophageal reflux disease), H. pylori infection, and Lyme disease. Allergies / Medications / Immunizations: The patient is allergic to ceftin [cefuroxime], corn starch, gluten meal, latex, and penicillins. The patient has a current medication list which includes the following prescription(s): armour thyroid, bioflavonoid products, cefixime, cyanocobalamin, digestive enzymes, estrogens conjugated, magnesium, multiple minerals, mupirocin, probiotic product, progesterone, propranolol, first-testosterone mc, vitamin d, and vitamin e. Physical Exam: Physical Exam: WD, WN, NAD, A&O x 3. Exam included: A medical program specialist or DOCUMENTATION CONSULTANT was present as scribe and as medical brooch and bracelet maker during this portion of the visit. [] A full body skin exam was performed including scalp, face, lips, eyelids, neck, back, chest, buttocks, groin, right arm, left arm, right leg, left leg, digits [] A focused waist up exam of scalp, face, lips, eyelids, neck, back, chest, left arm, right arm, and digits performed [] A lymph node exam was performed [] A genital exam was performed [x] A focused exam of the following areas was performed: upper lip All normal except: Actinic keratoses: Scaly erythmatous rough papules located right cutaneous lip 5 mm from lateral edge x 1 Impression/Plan: 1. AK (actinic keratosis) The patient elected treatment with cryotherapy for actinic keratoses. -Verbal informed consent obtained. -Side effects discussed including hypopigmentation, blistering and possible scarring. -Liquid nitrogen x 2 cycles to a total of 1 lesions with use of cryac. -Wound care reviewed. If lesions do not improve, will need to biopsy to r/o SCC Return if symptoms worsen or fail to improve. Prescriptions written or refilled today include: Requested Prescriptions No prescriptions requested or ordered in this encounter I, Selene Browne CMA , served as a scribe and acted as the medical brooch and bracelet maker for this exam/procedure/test/treatment for this encounter on 09/20/2024 Attestation Below: This exam/procedure/test/treatment was conducted the presence of a medical brooch and bracelet maker. I have reviewed the dictated documentation as scribed by Selene Browne CMA and it accurately reflects the work performed and the decisions made. I saw and independently examined this patient today. I discussed my findings and the therapeutic plan with the patient. I agree with the history, physical examination, and medical decisions as outlined. I have reviewed the documentation, which accurately reflects the work performed and the decisions made. Patience Escobedo MD [facility] documented in this encounter [facility] 09-20-2024 Instructions Jahaira Browne - 09/20/2024 2:30 PM EST Cryosurgery Post Treatment Patient Instructions DEFINITION CRYOSURGERY INVOLVES THE USE OF LIQUID NITROGEN TO REMOVE SKIN GROWTHS. LIQUID NITROGEN IS VERY COLD (-196 C), WITH IT WE CAN TREAT MANY GROWTHS AND LEAVE VERY LITTLE SCARRING, ALTHOUGH SOMETIMES A LIGHT CHANGE IN PIGMENTATION CAN OCCUR. COURSE OF HEALING WHEN LIQUID NITROGEN IS APPLIED, THE SKIN TURNS WHITE AND THEN SLOWLY REDDENS. SOME STINGING OCCURS DURING TREATMENT, BUT SHOULD SUBSIDE WITHIN THE HOUR. THROBBING DISCOMFORT MAY OCCUR A FEW HOURS AFTER THE TREATMENT. A WELT WILL FORM FOLLOWING TREATMENT AND MAY BECOME A BLISTER IN A FEW HOURS. SWELLING MAY OCCUR 24-48 HOURS AFTER CRYOSURGERY. PAIN RELIEF IF THROBBING DISCOMFORT IS EXPERIENCED USING TYLENOL, ELEVATING THE TREATMENT SITE AND COOL WATER COMPRESSES CAN HELP RELIEVE THE DISCOMFORT. WOUND CARE KEEP THE AREA CLEAN POSSIBLE AFTER TREATMENT, PLEASE USE THE FOLLOWING STEPS: CLEAN THE TREATED AREA WITH SOAP AND WATER 1-2TIMES A DAY. THE AREAS MAY BE LEFT OPEN, UNLESS LOCATED WHERE CLOTHING MAY IRRITATE IT OR IF IT IS UNCOMFORTABLE. SPECIAL INSTRUCTIONS MAY BE GIVEN IN SOME CASES. CALL THE OFFICE IF EVIDENCE OF INFECTION OCCURS BREAKING BLISTERS IS DISCOURAGED BECAUSE WHEN SKIN IS BROKEN, INFECTION MAY OCCUR. IF YOU MUST BREAK A BLISTER TO RELIEVE PRESSURE, USE A NEEDLE THAT HAS BEEN HEATED WITH A FLAME OR CLEANED WITH ALCOHOL. documented in this encounter [facility] 08-13-2024 Note Supervision of care, Direct: I was present in the office at the time of patients visit today and physically saw the patient alongside the resident physician. I discussed the case with the resident physician and directly participated in the critical and sumner portions of the management provided. All critical aspects of the medical decision making were discussed. I agree with the resident's findings and plan as documented in his/her note with the following additions. Sara Rojo is a 54 y.o. female seen today in the office by the resident physician. -Back pain - Improvement in pain with OMT today. Continue home stretches, PT, and follow up in 2 months Tamiko Robles DO AUTHENTICATED BY TAMIKO ROBLES, [place] 08/13/2024 14:53:44 [facility] 08-13-2024 History of Present illness Narrative Supervision of care, Direct: I was present in the office at the time of patients visit today and physically saw the patient alongside the resident physician. I discussed the case with the resident physician and directly participated in the critical and sumner portions of the management provided. All critical aspects of the medical decision making were discussed. I agree with the resident's findings and plan as documented in his/her note with the following additions. Sara Rojo is a 54 y.o. female seen today in the office by the resident physician. -Back pain - Improvement in pain with OMT today. Continue home stretches, PT, and follow up in 2 months Tamiko Robles DO Images from the original note were not included. OMT Visit Note Assessment and Plan: 1. Chronic bilateral low back pain with right-sided sciatica (Primary) Patient reports 50% improvement in symptoms of pain / range of motion after OMT today. Suspicious for lower cross syndrome involvement and myofascial restriction 2/2 extensive surgical hx. Pt instructed to continue conservative management with home (stretches), heat therapy, increasing fluid intake, and prn Tylenol / Ibuprofen. Home stretches demonstrated with patient today. Planned f/u in 2mo for OMT visit, or earlier as needed. 2. Right leg pain Patient reports 75% improvement in symptoms of pain / range of motion after OMT today. Most suspicious for right LE fascial restriction, as noted above. Pt instructed to continue conservative management with home (stretches), heating therapy, increasing fluid intake, and prn Tylenol / Ibuprofen. Home stretches demonstrated with patient today. 3. Segmental and somatic dysfunction of thoracic region - OMT performed using ME, DMFR. Patient tolerated procedure well and tissue texture changes, mobility improved on recheck. 4. Segmental and somatic dysfunction of rib cage - OMT performed using FPR, Still's. Patient tolerated procedure well and tissue texture changes, mobility improved on recheck. 5. Segmental and somatic dysfunction of lower extremity - OMT performed using ME, Still's, SCS. Patient tolerated procedure well and tissue texture changes, mobility improved on recheck. 6. Somatic dysfunction of pelvis region - OMT performed using ME. Patient tolerated procedure well and tissue texture changes, mobility improved on recheck. After examination, we decided to proceed with osteopathic manipulation today. Verbal consent provided to perform osteopathic manipulation today. Risks and benefits of procedure understood. OMT Abbreviations: FPR = Facilitated positional release BLT = Balanced ligamentous tension ME = Muscle energy HVLA = High velocity low amplitude LVMA = Low velocity medium amplitude CS = Counterstrain LAS = Ligamentous Articular Strain ST = Stills technique DMFR = Direct myofascial release IMFR = Indirect myofascial release ROM = Range of Motion TTP = Tenderness to palpation TTC = Tissue Texture Changes TP = Tender point TrPt = Trigger Point OMT = Osteopathic Manipulative Treatment OMM = Osteopathic Manipulative Medicine Sara Rojo is a 54 y.o. female Chief Complaint Patient presents with Procedure omt Back Pain HPI: Patient presenting for evaluation of right head, right leg, right generalized discomfort, low back, mid back. Has had multiple surgeries in past leading to build up of scar tissue. Does have plan for palate surgery. Patient is a new patient for OMT clinic, but has had OMT in the past with success. 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 Physical Exam Constitutional: General: She is not in acute distress. Appearance: She is obese. She is not ill-appearing. HENT: Head: Normocephalic and atraumatic. Eyes: Extraocular Movements: Extraocular movements intact. Neck: Comments: Hypertonicity noted surrounding 1st rib, most prominent on the right (further documented in Osteopathic Exam) Pulmonary: Effort: Pulmonary effort is normal. Abdominal: General: Abdomen is flat. Musculoskeletal: Cervical back: Normal range of motion. Right lower leg: No edema. Left lower leg: No edema. Neurological: General: No focal deficit present. Mental Status: She is alert. Motor: No weakness. Gait: Gait normal. Psychiatric: Mood and Affect: Mood normal. Osteopathic Medical Exam: Thoracic: T5: Right: FRS T7: Right: FRS Thoracic Kyphosis: Increased TART Exam: Full TART exam positive. Pelvis: Right Innominate anterior. TART exam: Full TART exam positive. Lower Extremity: Osteopathic Exam Hip: External Rotation Dysfunction: Right: Positive TART exam: Full TART exam positive. Treatment Comments: Psoas tender-points noted bilaterally Ribs: 1: Inhalation: Right TART exam: TART exam positive for tissue texture, asymmetry and tenderness. Patient instructions: As part of your treatment today, Osteopathic Manipulative Therapy was performed. This may cause you to be sore over the next couple of days. Please drink 6-8 glasses per day and use an NSAID such as Tylenol or Advil if needed. Please call the office if there are any new complaints or worsening of current complaints. Danielel Shay D.O. PGY-[address] [facility] documented in this encounter [facility] 08-13-2024 History of Present illness Narrative Images from the original note were not included. OMT Visit Note Assessment and Plan: 1. Chronic bilateral low back pain with right-sided sciatica (Primary) Patient reports 50% improvement in symptoms of pain / range of motion after OMT today. Suspicious for lower cross syndrome involvement and myofascial restriction 2/2 extensive surgical hx. Pt instructed to continue conservative management with home (stretches), heat therapy, increasing fluid intake, and prn Tylenol / Ibuprofen. Home stretches demonstrated with patient today. Planned f/u in 2mo for OMT visit, or earlier as needed. 2. Right leg pain Patient reports 75% improvement in symptoms of pain / range of motion after OMT today. Most suspicious for right LE fascial restriction, as noted above. Pt instructed to continue conservative management with home (stretches), heating therapy, increasing fluid intake, and prn Tylenol / Ibuprofen. Home stretches demonstrated with patient today. 3. Segmental and somatic dysfunction of thoracic region - OMT performed using ME, DMFR. Patient tolerated procedure well and tissue texture changes, mobility improved on recheck. 4. Segmental and somatic dysfunction of rib cage - OMT performed using FPR, Still's. Patient tolerated procedure well and tissue texture changes, mobility improved on recheck. 5. Segmental and somatic dysfunction of lower extremity - OMT performed using ME, Still's, SCS. Patient tolerated procedure well and tissue texture changes, mobility improved on recheck. 6. Somatic dysfunction of pelvis region - OMT performed using ME. Patient tolerated procedure well and tissue texture changes, mobility improved on recheck. After examination, we decided to proceed with osteopathic manipulation today. Verbal consent provided to perform osteopathic manipulation today. Risks and benefits of procedure understood. OMT Abbreviations: FPR = Facilitated positional release BLT = Balanced ligamentous tension ME = Muscle energy HVLA = High velocity low amplitude LVMA = Low velocity medium amplitude CS = Counterstrain LAS = Ligamentous Articular Strain ST = Stills technique DMFR = Direct myofascial release IMFR = Indirect myofascial release ROM = Range of Motion TTP = Tenderness to palpation TTC = Tissue Texture Changes TP = Tender point TrPt = Trigger Point OMT = Osteopathic Manipulative Treatment OMM = Osteopathic Manipulative Medicine Sara Rojo is a 54 y.o. female Chief Complaint Patient presents with Procedure omt Back Pain HPI: Patient presenting for evaluation of right head, right leg, right generalized discomfort, low back, mid back. Has had multiple surgeries in past leading to build up of scar tissue. Does have plan for palate surgery. Patient is a new patient for OMT clinic, but has had OMT in the past with success. 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 Physical Exam Constitutional: General: She is not in acute distress. Appearance: She is obese. She is not ill-appearing. HENT: Head: Normocephalic and atraumatic. Eyes: Extraocular Movements: Extraocular movements intact. Neck: Comments: Hypertonicity noted surrounding 1st rib, most prominent on the right (further documented in Osteopathic Exam) Pulmonary: Effort: Pulmonary effort is normal. Abdominal: General: Abdomen is flat. Musculoskeletal: Cervical back: Normal range of motion. Right lower leg: No edema. Left lower leg: No edema. Neurological: General: No focal deficit present. Mental Status: She is alert. Motor: No weakness. Gait: Gait normal. Psychiatric: Mood and Affect: Mood normal. Osteopathic Medical Exam: Thoracic: T5: Right: FRS T7: Right: FRS Thoracic Kyphosis: Increased TART Exam: Full TART exam positive. Pelvis: Right Innominate anterior. TART exam: Full TART exam positive. Lower Extremity: Osteopathic Exam Hip: External Rotation Dysfunction: Right: Positive TART exam: Full TART exam positive. Treatment Comments: Psoas tender-points noted bilaterally Ribs: 1: Inhalation: Right TART exam: TART exam positive for tissue texture, asymmetry and tenderness. Patient instructions: As part of your treatment today, Osteopathic Manipulative Therapy was performed. This may cause you to be sore over the next couple of days. Please drink 6-8 glasses per day and use an NSAID such as Tylenol or Advil if needed. Please call the office if there are any new complaints or worsening of current complaints. Danielle Shay D.O. PGY-[address] [facility] documented in this encounter [facility] 08-13-2024 Note OMT Visit Note Assessment and Plan: 1. Chronic bilateral low back pain with right-sided sciatica (Primary) Patient reports 50% improvement in symptoms of pain / range of motion after OMT today. Suspicious for lower cross syndrome involvement and myofascial restriction 2/2 extensive surgical hx. Pt instructed to continue conservative management with home (stretches), heat therapy, increasing fluid intake, and prn Tylenol / Ibuprofen. Home stretches demonstrated with patient today. Planned f/u in 2mo for OMT visit, or earlier as needed. 2. Right leg pain Patient reports 75% improvement in symptoms of pain / range of motion after OMT today. Most suspicious for right LE fascial restriction, as noted above. Pt instructed to continue conservative management with home (stretches), heating therapy, increasing fluid intake, and prn Tylenol / Ibuprofen. Home stretches demonstrated with patient today. 3. Segmental and somatic dysfunction of thoracic region - OMT performed using ME, DMFR. Patient tolerated procedure well and tissue texture changes, mobility improved on recheck. 4. Segmental and somatic dysfunction of rib cage - OMT performed using FPR, Still's. Patient tolerated procedure well and tissue texture changes, mobility improved on recheck. 5. Segmental and somatic dysfunction of lower extremity - OMT performed using ME, Still's, SCS. Patient tolerated procedure well and tissue texture changes, mobility improved on recheck. 6. Somatic dysfunction of pelvis region - OMT performed using ME. Patient tolerated procedure well and tissue texture changes, mobility improved on recheck. After examination, we decided to proceed with osteopathic manipulation today. Verbal consent provided to perform osteopathic manipulation today. Risks and benefits of procedure understood. OMT Abbreviations: FPR = Facilitated positional release BLT = Balanced ligamentous tension ME = Muscle energy HVLA = High velocity low amplitude LVMA = Low velocity medium amplitude CS = Counterstrain LAS = Ligamentous Articular Strain ST = Stills technique DMFR = Direct myofascial release IMFR = Indirect myofascial release ROM = Range of Motion TTP = Tenderness to palpation TTC = Tissue Texture Changes TP = Tender point TrPt = Trigger Point OMT = Osteopathic Manipulative Treatment OMM = Osteopathic Manipulative Medicine Sara Rojo is a 54 y.o. female Chief Complaint Patient presents with Procedure omt Back Pain HPI: Patient presenting for evaluation of right head, right leg, right generalized discomfort, low back, mid back. Has had multiple surgeries in past leading to build up of scar tissue. Does have plan for palate surgery. Patient is a new patient for OMT clinic, but has had OMT in the past with success. 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 Physical Exam Constitutional: General: She is not in acute distress. Appearance: She is obese. She is not ill-appearing. HENT: Head: Normocephalic and atraumatic. Eyes: Extraocular Movements: Extraocular movements intact. Neck: Comments: Hypertonicity noted surrounding 1st rib, most prominent on the right (further documented in Osteopathic Exam) Pulmonary: Effort: Pulmonary effort is normal. Abdominal: General: Abdomen is flat. Musculoskeletal: Cervical back: Normal range of motion. Right lower leg: No edema. Left lower leg: No edema. Neurological: General: No focal deficit present. Mental Status: She is alert. Motor: No weakness. Gait: Gait normal. Psychiatric: Mood and Affect: Mood normal. Osteopathic Medical Exam: Thoracic: T5: Right: FRS T7: Right: FRS Thoracic Kyphosis: Increased TART Exam: Full TART exam positive. Pelvis: Right Innominate anterior. TART exam: Full TART exam positive. Lower Extremity: Osteopathic Exam Hip: External Rotation Dysfunction: Right: Positive TART exam: Full TART exam positive. Treatment Comments: Psoas tender-points noted bilaterally Ribs: 1: Inhalation: Right TART exam: TART exam positive for tissue texture, asymmetry and tenderness. Patient instructions: As part of your treatment today, Osteopathic Manipulative Therapy was performed. This may cause you to be sore over the next couple of days. Please drink 6-8 glasses per day and use an NSAID such as Tylenol or Advil if need (more content not included)... [facility] 05-24-2024 History of Present illness Narrative Patient has verified full name and . -last office visit: 02/14/2024 for [facility] CC: Chief Complaint Patient presents with Skin Lesion Patient has lesion on vaginal area, thigh, and arm. Patient has a family hx of skin cancer. No pain or itching. HPI: Sara Rojo is an 54 y.o. year old female who presents for: FBSE Narrative/Interval History: Patient has seen a spot on the labia she would like checked. General Questions for Skin Cancer Screening Yes No Comments Previous history of Skin Cancer? If yes, see comments [x] [] BCC- right restorationist Previous history of systemic cancers? If yes, see comments [] [x] Family history of skin cancer? [x] [] Dad- SCC Family History of Cancers? If so what types? [x] [] Mother-Lung Cancer ROS: Constitutional: normal Skin: no other skin complaints PMHx: She has a past medical history of Anemia, Cat-scratch disease, EBV positive mononucleosis syndrome, GERD (gastroesophageal reflux disease), H. pylori infection, and Lyme disease. Allergies / Medications / Immunizations: The patient is allergic to ceftin [cefuroxime], corn starch, gluten meal, latex, and penicillins. The patient has a current medication list which includes the following prescription(s): armour thyroid, cyanocobalamin, estrogens conjugated, magnesium, probiotic product, progesterone, propranolol, first-testosterone mc, vitamin d, vitamin e, bioflavonoid products, cefixime, digestive enzymes, multiple minerals, and mupirocin. Physical Exam: Physical Exam: WD, WN, NAD, A&O x 3. Exam included: A medical program specialist or DOCUMENTATION CONSULTANT was present as scribe and as medical brooch and bracelet maker during this portion of the visit. [] A full body skin exam was performed including scalp, face, lips, eyelids, neck, back, chest, buttocks, groin, right arm, left arm, right leg, left leg, digits [] A focused waist up exam of scalp, face, lips, eyelids, neck, back, chest, left arm, right arm, and digits performed [] A lymph node exam was performed [] A genital exam was performed [x] A focused exam of the following areas was performed: groin, face All normal except: - 3mm red/purple papule on left mucosal labia - 2mm flesh colored papule on nose -Telangiectasia on face Impression/Plan: 1. Favor Angiokeratoma left mucosal labia - favor that lesion is benign. Will follow for change 2. Fibrous papule of nose - Explained that lesion is benign. Reassured 3. Telangiectasia face - Patient is interested in PDL will [facility]. With female physician in [place] in about 1 year (around 05/24/2025) for Cosmetic consult with AP or JS for PDL. Prescriptions written or refilled today include: Requested Prescriptions No prescriptions requested or ordered in this encounter IDianna [facility] served as a scribe and acted as the medical brooch and bracelet maker for this exam/procedure/test/treatment for this encounter on 05/24/2024 Attestation Below: This exam/procedure/test/treatment was conducted the presence of a medical brooch and bracelet maker. I have reviewed the dictated documentation as scribed by Dianna Sutton and it accurately reflects the work performed and the decisions made. I saw and independently examined this patient today. I discussed my findings and the therapeutic plan with the patient. I agree with the history, physical examination, and medical decisions as outlined. I have reviewed the documentation, which accurately reflects the work performed and the decisions made. Patience Escobedo MD [facility] documented in this encounter [facility] 05-24-2024 Instructions Dianna Sutton - 05/24/2024 9:45 AM EDT Sunscreen Suggestions There are two types of sun rays that are harmful to the skin. UVA rays cause skin aging and skin cancer, such as melanoma. UVB rays cause sunburns, cataracts, and also contribute to skin cancer. The [employer] recommends wearing a broad spectrum, waterproof sunscreen with a Sun Protection Factor (SPF) of 15-30 or higher. It is important to check the ingredient label to be sure the sunscreen will protect the skin from both UVA and UVB sunrays. Your sunscreen should contain at least one of the following ingredients: titanium dioxide, zinc oxide, or avobenzone. Sunscreen will not be effective unless it is applied to all exposed skin. Sunscreens work best if they are applied 30 minutes before sun exposure. They should be reapplied every 2 hours and after any water exposure. Sunscreen is not perfect. It is important to use other methods to protect the skin from sun exposure also. Wear hats, sunglasses and other sun protective clothing when outdoors. Stay in the shade during the peak hours of sun exposure between 10 AM and 4 PM. Remember to wear a sunscreen every day! Reapply sunscreen every 2 hours when active outdoors Daily sun protection - focusing on exposed areas of skin (face, ears, neck, arms, hands). These sunscreens tend to be a thinner consistency and leave less residue than waterproof products). CeraVe AM SPF 30 Eucerin Extra Protective Moisture Lotion L oreal Sublime Sun Olay Complete Daily Defense SunBLOCK with physical blockers - Titanium Dioxide and Zinc Oxide These are best for sensitive skin as well as for patients concerned about the chemicals in chemical blockers. They are more likely than others to leave a slightly whitish sheen on some skin especially around hairs Blue Lizard Burkinan Sunscreen Vanicream Sunscreen for Sensitive Skin Neutrogena Sensitive Skin Sunblock Glytone Sunscreen Lotion [place] Baby Sunscreen Lotion/Stick Other Special Circumstances Dry Skin - While each of these products can be used on all skin types, the creamier vehicle of CeraVe AM lends itself for use in patients with dry skin or those who prefer a thicker base. Sensitive Skin - If your skin is very sensitive, a strictly physical pricila agent is appropriate. The SunBLOCKS above are good as are: SkinCeuticals Physicial Fusion UV Defense SPF 30 contains zinc and titanium but no chemical sunscreen ingredients. both tinted and sheer options are available. Neutrogena Pure and Free Baby Faces SPF 50+ contains only physical blockers, fragrance free and tear-free. Marketed as part of a baby sunscreen line but it is an appropriate choice for any age group. Oily skin - Some patients with oily skin prefer a sunscreen that is as light as possible, especially during the humid summer months. Recs: La Christiano Posay Anthelios 60 Ultra Light Sunscreen Fluid, Neutrogena Pure and Free Liquid SPF, Shiseido Extra Smooth Sun Protection Lotion SPF 38. Acne-Prone Skin - I recommend moisturizers with sunscreen for use in the morning. They provide UV protection while also minimizing the irritation of topical acne medications. Some products are oil-free (using dimethicone rather than petrolatum (dimethicone can make the skin appear less oily by absorbing oil). Recs: Cetaphil DermaControl Moisturizer SPF30, Neutrogena Clear Face Sunscreen, EltaMD UV Clear SPF 46 contains niacinimide to soothe the skin. Red Skin/Rosacea - this type of skin can benefit from anti-inflammatory additives. Aveeno Ultra Calming Daily Moisturizer SPF 15 contains feverfew, a botanical similar to chamomile, which helps reduce irritated skin. Eucerin Redness Relief Daily Perfecting Lotion SPF 15, formulated with a licorice root extract to soothes red skin Monitor your own skin for the warning signs of a melanoma: - A - Asymmetry. Your mole should look the same right side versus left side, and top versus bottom. - B - Borders. Your mole should have straight edges. Borders that are jagged or when you can't see where it starts and stops have an increased risk of being troublesome. - C - Color. All of your moles should be the same color which corresponds to your hair color, eye color, and skin type. Any mole that looks different, whether black, blue, red, white, or otherwise different is at a higher risk. - D - Diameter. Your moles should be less than 6mm which is the width of a pencil. - E - Evolution. If any mole is changing color, size, shape, or otherwise, it is at a higher risk. *If you are worried about a mole, please make an appointment to be seen. If a mole has one or more of these features, it does not mean that it is a melanoma, but does mean it is higher risk to be a melanoma and should be evaluated. documented in this encounter [facility] 05-01-2024 History of Present illness Narrative Images from the original note were not included. Office Visit Note - 05/01/2024 Patient: SARA ROJO Attending Physician: Juan Green MD CC: Chief Complaint Patient presents with Follow-up Patient here for possible tube insertion. Patient c/o left ear fullness. Informant: The history was obtained from the patient HPI: F/U visit for ETD. She notes a history of ETD for at least a few years bilaterally. She has seen Dr. Morgan at [facility] and also Dr. Sharp. She has previously been scoped with noted turbinate hty. They have recommended ear tubes. She saw Noemí ALMARAZ in 2019 and tubes/myringotomy were also discussed. She denies hearing loss, tinnitus, vertigo. She does note subjective right otorrhea. No prior otologic surgeries. She is planning to get a palatal expansion surgery. Last seen 04/17/24 with myringotomy at the time. She notes improved R ear fullness since, with persistent left ear fullness. The past medical history, past surgical history, family history, social history, medications, allergies, and review of systems were reviewed today and are documented in [facility] &/or a scanned document completed by the patient (or guardian). Physical Exam: Resp. rate 14, height 1.626 m (5' 4"), weight 110.2 kg (243 lb), not currently . Head and Face Inspection: Normocephalic and atraumatic without masses or lesions Palpation: No mastoid tenderness or fluctuance Salivary Glands: No masses or tenderness Facial Strength: Facial motility symmetric and full bilaterally Left- House-Brackman Grade 1/6 Right- House-Brackman Grade 1/6 Ear Periauricular Skin: Left - No lesions Right - No lesions Pinna: Left - External ear intact and fully developed Right - External ear intact and fully developed External canal: Left - Canal is patent with intact skin Right - Canal is patent with intact skin Tympanic Membranes: Left - Clear and mobile Right - Small perforation posteroinferiorly with some surrounding crust Middle Ears: Left - Aerated, no effusion, no masses Right - Aerated, no effusion, no masses Procedure Note: Preoperative diagnosis: Left Eustachian Tube Dysfunction Postoperative diagnosis: Same Procedure: Left Myringotomy Anesthesia: Topical Phenol Indications and Consent: The patient is a 54 y.o. female who presents for myringotomy for failure of the above condition to improve. Prior to the procedure, the benefits and risks of myringotomy were discussed with the patient (and/or the consenting guardian), including but not limited to bleeding, infection, injury to skin of the ear canal, recurrence of the present condition, persistent perforation of the tympanic membrane, hearing loss, and the need for further procedure(s). The patient (guardian) understood and wished to proceed. Procedure: The left tympanic membrane was visualized using the operating microscope. Topical phenol was applied to the surface of the tympanic membrane to provide local anesthesia. A myringotomy knife was then used to incise the tympanic membrane in a radial fashion in the anterior/inferior quadrant. Findings: Fluid present - None Tympanic Membrane - Normal Other Findings - none EBL: Minimal Complications: None Disposition: The patient's condition was stable throughout the procedure. She was discharged in good condition. Medical Decision Making: Data Reviewed: None Surgical/Management Risk Factors: Obesity Impression: Eustachian tube dysfunction, bilateral Aural fullness Plan: Discussed option of tubes in both ears. Would wait in right ear until TM has healed. She was interested in trial myringotomy on the left Myringotomy done today. Continue dry ear precautions She will call to schedule follow-up after she has recovered from her oral surgery Juan Green MD Professor - Otology, Neurotology & Cranial Base Surgery Department of Otolaryngology-Head and Neck Surgery [address] [place] [address], [address] [place], [place] [id number] [place] [address] documented in this encounter [facility] 04-17-2024 History of Present illness Narrative Images from the original note were not included. Office Visit Note - 04/17/2024 Patient: SARA ROJO Attending Physician: Juan Green MD CC: Chief Complaint Patient presents with Consult Patient referred for dysfunction of both eustachian tubes. Informant: The history was obtained from the patient. HPI: Ms. Sara Rojo is a 54 y.o. female with eustachian tube problems. She notes a history of ETD for at least a few years bilaterally. She has seen Dr. Morgan at [facility] and also Dr. Sharp. She has previously been scoped with noted turbinate hty. They have recommended ear tubes. She saw Noemí ALMARAZ in 2019 and tubes/myringotomy were also discussed. She gets episodes of R AOM requiring antibiotics (every few months for the last 2 years). She denies hearing loss, tinnitus, vertigo. She does note subjective right otorrhea. No prior otologic surgeries. She is planning to get a palatal expansion surgery. The past medical history, past surgical history, family history, social history, medications, allergies, and review of systems were reviewed today and are documented in IHIS &/or a scanned document completed by the patient (or guardian). Physical Exam: Resp 14 Ht 1.626 m (5' 4") Wt 110.2 kg (243 lb) BMI 41.71 kg/m Smoking Status Never Head and Face Inspection: Normocephalic and atraumatic without masses or lesions Palpation: No mastoid tenderness or fluctuance Salivary Glands: No masses or tenderness Facial Strength: Facial motility symmetric and full bilaterally Left- House-Brackman Grade 1/6 Right- House-Brackman Grade 1/6 Ear Periauricular Skin: Left - No lesions Right - No lesions Pinna: Left - External ear intact and fully developed Right - External ear intact and fully developed External canal: Left - Canal is patent with intact skin Right - Canal is patent with intact skin Tympanic Membranes: Left - Normal Right - Normal Middle Ears: Left - Aerated, no effusion, no masses Right - Aerated, no effusion, no masses Tuning Fork Exam: Armenta: Midline Rinne Right: Air conduction > Bone conduction Rinne Left: Air conduction > Bone conduction Procedure Note: Preoperative diagnosis: Bilateral Eustachian Tube Dysfunction Postoperative diagnosis: Same Procedure: Right Myringotomy Anesthesia: Topical Phenol Indications and Consent: The patient is a 54 y.o. female who presents for myringotomy for failure of the above condition to improve. Prior to the procedure, the benefits and risks of myringotomy were discussed with the patient (and/or the consenting guardian), including but not limited to bleeding, infection, injury to skin of the ear canal, recurrence of the present condition, persistent perforation of the tympanic membrane, hearing loss, and the need for further procedure(s). The patient (guardian) understood and wished to proceed. Procedure: The right tympanic membrane was visualized using the operating microscope. Topical phenol was applied to the surface of the tympanic membrane to provide local anesthesia. A myringotomy knife was then used to incise the tympanic membrane in a radial fashion in the posterior/inferior quadrant. Findings: Fluid present - None Tympanic Membrane - Normal Other Findings - none EBL: None Complications: None Disposition: The patient's condition was stable throughout the procedure. She was discharged in good condition. Medical Decision Making: Data Reviewed: None Independent Interpretation of Tests: None Surgical/Management Risk Factors: Obesity Impression: Eustachian tube dysfunction, right > left Recurrent AOM Plan: Ms. Rojo's history, physical examination, and audiogram are most consistent with a diagnosis of bilateral Eustachian Tube Dysfunction and Recurrent AOM. I had a discussion with the patient today regarding the natural history of the disease and the difficulty in treating the symptoms. Medical treatment options include observation, nasal steroid, oral steroid, oral decongestant, &/or autoinsufflation of the middle ear space. Surgical options include myringotomy with or without placement of a tympanostomy tube. All of these options were discussed with Ms. Rojo and her questions were answered. Based on Ms. Rojo's present condition, I have recommended we proceed with trial myringotomy and she agrees. We will see how she feels in 7-10 days and can discuss tubes if improvement with myringotomy. Juan Green MD Professor - Otology, Neurotology & Cranial Base Surgery Department of Otolaryngology-Head and Neck Surgery [address] [place] [address], [address] [place] [address] [place] [address] documented in this encounter [facility] 02-14-2024 History of Present illness Narrative Date of last visit: 10/05/2023 Diagnosis and treatment plan from last visit: FBSE CC: Chief Complaint Patient presents with Rash Did bring blood work with her Used to live in [place] had a was told she was not straight cath and now has multiple infections Got Bacterial swab results today from mouth and was positive for Prevotella Had GI Maps test Has been using Clindamycin HPI: Sara Rojo is an 53 y.o. year old female who presents for: FBSE Location: Groin Associated Symptoms: irritation, itching(not any more) Severity: mild Current Treatments: none Past Treatments: Ketoconazole Cream, Clindamycin Cream Narrative/Interval History: Patient has noticed some irritation in groin line for a while. She has been dealing with on going issue with Prevotella infection. She has been using Clindamycin Cream which does seem to help just a little. Has been using suppository every night and had bladder leakage when she sneezes. Mentions wanting an appointment at the [facility] but called them and they could not get her in until November 2024 Pt states worsens after overnight treatments with inserts and some drainage, also some urine loss ROS: Constitutional: normal Skin: no other skin complaints PMHx: She has a past medical history of Cat-scratch disease, EBV positive mononucleosis syndrome, H. pylori infection, and Lyme disease. Allergies / Medications / Immunizations: The patient is allergic to ceftin [cefuroxime], corn starch, gluten meal, latex, and penicillins. The patient has a current medication list which includes the following prescription(s): armour thyroid, bioflavonoid products, cyanocobalamin, digestive enzymes, estrogens conjugated, magnesium, multiple minerals, mupirocin, probiotic product, progesterone, propranolol, first-testosterone mc, vitamin d, and vitamin e. Physical Exam: Physical Exam: WD, WN, NAD, A&O x 3. Exam included: A medical program specialist or DOCUMENTATION CONSULTANT was present as scribe and as medical brooch and bracelet maker during this portion of the visit: [] A full body skin exam was performed including scalp, face, lips, eyelids, neck, back, chest, buttocks, groin, right arm, left arm, right leg, left leg, digits [] A focused waist up exam of scalp, face, lips, eyelids, neck, back, chest, left arm, right arm, and digits performed [] A lymph node exam was performed [] A genital exam was performed [x] A focused exam of the following areas was performed: groin All normal except: -Mild erythema in groin with mild erythema,with no scale or pustules but macerated 1.1cm patch blanchable patch of erythema left mid thigh Impression/Plan: 1. Favor Intertrigo -Counseled that intertrigo is often due to combination of moisture, heat, or yeast. -Start using barrier paste (zinc oxide 40%, aka diaper cream, can get over the counter) every day for 2 weeks. Return if symptoms worsen or fail to improve. Prescriptions written or refilled today include: Requested Prescriptions No prescriptions requested or ordered in this encounter IDianna [facility] served as a scribe and acted as the medical brooch and bracelet maker for this exam/procedure/test/treatment for this encounter on 02/14/2024 Attestation Below: This exam/procedure/test/treatment was conducted the presence of a medical brooch and bracelet maker. I have reviewed the dictated documentation as scribed by Dianna Sutton and it accurately reflects the work performed and the decisions made. I saw and independently examined this patient today. I discussed my findings and the therapeutic plan with the patient. I agree with the history, physical examination, and medical decisions as outlined. I have reviewed the documentation, which accurately reflects the work performed and the decisions made. Patience Escobedo MD [facility] documented in this encounter [facility] 02-14-2024 Instructions Dianna Sutton - 02/14/2024 3:00 PM EDT Images from the original note were not included. documented in this encounter [facility] 01-12-2024 History of Present illness Narrative Associated Order(s): Osteopathic Manipulative Treatment Post-Procedure Diagnose(s): Neck pain, chronic PATIENT'S PCP: Ml Allen DO LAST VISIT IN THIS DEPARTMENT: Visit date not found Sara Rojo is a 53 y.o. (: 1970) female who presents today for: Chief Complaint Patient presents with OMT neck ASSESSMENT AND PLAN: Neck pain, chronic (Primary) - Osteopathic Manipulative Treatment Cranial somatic dysfunction Cervical somatic dysfunction Thoracic region somatic dysfunction Rib cage region somatic dysfunction FOLLOW-UP: No follow-ups on file. SUBJECTIVE: Here for OMT for neck pain. She did not notice much relief after last treatment. Has upcoming surgery to expand her palate next week. Review of Systems Constitutional: ROS per HPI OBJECTIVE: Visit Vitals BP 107/72 (BP Location: Right arm, Patient Position: Sitting) Pulse 83 Temp 36.6 C (97.8 F) Resp 16 Ht 1.626 m (64") Wt 117 kg (259 lb) SpO2 97% BMI 44.46 kg/m Smoking Status Never BSA 2.18 m BP Readings from Last 3 Encounters: 01/12/24 107/72 12/29/23 116/76 12/15/23 116/70 Wt Readings from Last 3 Encounters: 01/12/24 117 kg (259 lb) 12/29/23 120 kg (264 lb) 12/15/23 122 kg (270 lb) Physical Exam: Physical Exam Constitutional: Appearance: Normal appearance. She is obese. Musculoskeletal: Comments: T1 rotated right. 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 R temporal IR. R 1st rib elevated. Neurological: Mental Status: She is alert. Osteopathic Manipulative Treatment Date/Time: 01/12/2024 1:12 PM Performed by: Ml Allen DO Authorized by: Ml Allen DO Informed Consent: Consent given by: Patient Informed consent discussion completed by Physician/BRYAN with patient: Verbal Procedure: Based on patient's verbal history and today's physical exam findings, osteopathic manipulative treatment is indicated Technique(s) used: cranial manipulation and myofascial release technique Regions Accessed: head, cervical, thoracic and rib cage Total number of regions: 4 Post-procedure: Procedure was tolerated well and no complication were noted Patient instructed to: increase fluid intake, treat increased pain with ice and/or heat intermittently and employ a home exercise program Patient is to return: As needed Comments: Recommend f/u with chiropractic and consider acupuncture. MEDICATION: Outpatient Encounter Medications as of 01/12/2024 Medication Sig Dispense Refill Accu-Chek Softclix Lancets USE TWICE DAILY blood sugar diagnostic (Accu-Chek Guide test strips) test strip USE TWICE DAILY DIRECTED ESTRADIOL ORAL cream on upper thigh once daily Lactobac #2-Bifido #1-S. therm (Visbiome) 900 billion cell powder in packet PROGESTERONE MICRONIZED ORAL 250mg, once daily thyroid, pork, (Erie Thyroid) 15 mg tablet thyroid, pork, (Erie Thyroid) 30 mg tablet Take 2 tablets (60 mg total) by mouth 1 (one) time each day. fluconazole (DIFLUCAN) 150 mg tablet TAKE 1 TABLET (150 MG) BY MOUTH EVERY OTHER DAY. (Patient not taking: Reported on 12/15/2023) gentamicin-prednisoLONE (PRED-G) 0.3-1 % ophthalmic drops 1 drop 2 (two) times a day. Liquid into bladder (Patient not taking: Reported on 12/29/2023) metFORMIN (GLUCOPHAGE) 1,000 mg tablet (Patient not taking: Reported on 12/15/2023) metFORMIN (GLUCOPHAGE) 500 mg tablet TAKE 2 TABLETS (1,000 MG) BY MOUTH 2 TIMES PER DAY WITH MEALS (Patient not taking: Reported on 12/15/2023) metroNIDAZOLE (METROGEL) 0.75 % vaginal gel INSERT 1 APPLICATORFUL VAGINALLY TWICE DAILY FOR 5 DAYS (Patient not taking: Reported on 12/29/2023) propranoloL (INDERAL) 40 mg tablet testosterone 0.1 % topical cream Apply topically 1 (one) time each day. thyroid, pork, (WP Thyroid) 81.25 mg tablet Take 1 tablet every day by oral route. (Patient not taking: Reported on 12/15/2023) UNABLE TO FIND cream, on upper thigh once daily (Patient not taking: Reported on 12/29/2023) valACYclovir (VALTREX) 1 gram tablet (Patient not taking: Reported on 12/15/2023) [DISCONTINUED] almond oil, sweet, oil external oil (Patient not taking: Reported on 12/15/2023) [DISCONTINUED] omeprazole (PriLOSEC) [address] capsule (Patient not taking: Reported on 12/29/2023) [DISCONTINUED] oxymetazoline (Rhofade) 1 % cream (Patient not taking: Reported on 12/15/2023) [DISCONTINUED] traZODone (DESYREL) 50 mg tablet (Patient not taking: Reported on 12/15/2023) No facility-administered encounter medications on file as of 01/12/2024. LABORATORY: No visits with results within 3 Month(s) from this visit. Latest known visit with results is: Abstract on 06/26/2021 Component Date Value Ref Range Status Depression Screening 05/18/2021 abstracted Final Pap smear 01/04/2020 no interpretation,abstracted Final Ml Allen DO documented in this encounter [facility] 12-29-2023 History of Present illness Narrative Associated Order(s): Osteopathic Manipulative Treatment Post-Procedure Diagnose(s): Neck pain, chronic PATIENT'S PCP: Ml Allen DO LAST VISIT IN THIS DEPARTMENT: Visit date not found Sara Rojo is a 53 y.o. (: 1970) female who presents today for: Chief Complaint Patient presents with OMT Neck and back ASSESSMENT AND PLAN: Neck pain, chronic (Primary) Cranial somatic dysfunction Cervical somatic dysfunction Thoracic region somatic dysfunction Lumbar region somatic dysfunction Sacral region somatic dysfunction Somatic dysfunction of both lower extremities Pelvic somatic dysfunction Other orders - Osteopathic Manipulative Treatment FOLLOW-UP: No follow-ups on file. SUBJECTIVE: Here for OMT today for her neck, upper back, and low back pain that has been chronic. No new injury. Will be having surgery to expand palate within the next month. She feels last OMT helped. She is also doing dry needling which is helping. She is stretching at home almost daily. Review of Systems Constitutional: ROS per HPI OBJECTIVE: Visit Vitals BP 116/76 (BP Location: Right arm, Patient Position: Sitting) Pulse 80 Temp 36.6 C (97.9 F) Resp 16 Ht 1.626 m (64") Wt 120 kg (264 lb) SpO2 98% BMI 45.32 kg/m Smoking Status Never BSA 2.2 m BP Readings from Last 3 Encounters: 12/29/23 116/76 12/15/23 116/70 05/18/21 116/79 Wt Readings from Last 3 Encounters: 12/29/23 120 kg (264 lb) 12/15/23 122 kg (270 lb) 05/18/21 102 kg (223 lb 15.8 oz) Physical Exam: Physical Exam Constitutional: Appearance: Normal appearance. She is obese. Musculoskeletal: Comments: Left ilium anterior. Sacral base flexed. Increased lumbar lordosis. T1 rotated right. OA restricted bilateral - Right greater than left. R temporal IR. Decreased dorsiflexion b/l ankles R>L. Thoracic diaphragm restricted. Neurological: Mental Status: She is alert. Osteopathic Manipulative Treatment Date/Time: 12/29/2023 2:20 PM Performed by: Ml Allen DO Authorized by: Ml Allen DO Informed Consent: Consent given by: Patient Informed consent discussion completed by Physician/BRYAN with patient: Verbal Procedure: Based on patient's verbal history and today's physical exam findings, osteopathic manipulative treatment is indicated Technique(s) used: balanced ligamentous tension, cranial manipulation and myofascial release technique Regions Accessed: head, cervical, thoracic, lumbar, sacral, pelvic and rib cage Total number of regions: 7 Post-procedure: Procedure was tolerated well and no complication were noted Patient instructed to: increase fluid intake, treat increased pain with ice and/or heat intermittently and employ a home exercise program Patient is to return: As needed MEDICATION: Outpatient Encounter Medications as of 12/29/2023 Medication Sig Dispense Refill ESTRADIOL ORAL cream on upper thigh once daily Lactobac #2-Bifido #1-S. therm (Visbiome) 900 billion cell powder in packet PROGESTERONE MICRONIZED ORAL 250mg, once daily propranoloL (INDERAL) 40 mg tablet testosterone 0.1 % topical cream Apply topically 1 (one) time each day. thyroid, pork, (Erie Thyroid) 30 mg tablet Take 2 tablets (60 mg total) by mouth 1 (one) time each day. Accu-Chek Softclix Lancets USE TWICE DAILY almond oil, sweet, oil external oil (Patient not taking: Reported on 12/15/2023) blood sugar diagnostic (Accu-Chek Guide test strips) test strip USE TWICE DAILY DIRECTED fluconazole (DIFLUCAN) 150 mg tablet TAKE 1 TABLET (150 MG) BY MOUTH EVERY OTHER DAY. (Patient not taking: Reported on 12/15/2023) gentamicin-prednisoLONE (PRED-G) 0.3-1 % ophthalmic drops 1 drop 2 (two) times a day. Liquid into bladder (Patient not taking: Reported on 12/29/2023) metFORMIN (GLUCOPHAGE) 1,000 mg tablet (Patient not taking: Reported on 12/15/2023) metFORMIN (GLUCOPHAGE) 500 mg tablet TAKE 2 TABLETS (1,000 MG) BY MOUTH 2 TIMES PER DAY WITH MEALS (Patient not taking: Reported on 12/15/2023) metroNIDAZOLE (METROGEL) 0.75 % vaginal gel INSERT 1 APPLICATORFUL VAGINALLY TWICE DAILY FOR 5 DAYS (Patient not taking: Reported on 12/29/2023) omeprazole (PriLOSEC) [address] capsule (Patient not taking: Reported on 12/29/2023) oxymetazoline (Rhofade) 1 % cream (Patient not taking: Reported on 12/15/2023) thyroid, pork, (Erie Thyroid) 15 mg tablet TAKE 1 TABLET (15 MG) BY MOUTH DAILY ON AN EMPTY STOMACH (Patient not taking: Reported on 12/29/2023) thyroid, pork, (WP Thyroid) 81.25 mg tablet Take 1 tablet every day by oral route. (Patient not taking: Reported on 12/15/2023) traZODone (DESYREL) 50 mg tablet (Patient not taking: Reported on 12/15/2023) UNABLE TO FIND cream, on upper thigh once daily (Patient not taking: Reported on 12/29/2023) valACYclovir (VALTREX) 1 gram tablet (Patient not taking: Reported on 12/15/2023) No facility-administered encounter medications on file as of 12/29/2023. LABORATORY: No visits with results within 3 Month(s) from this visit. Latest known visit with results is: Abstract on 06/26/2021 Component Date Value Ref Range Status Depression Screening 05/18/2021 abstracted Final Pap smear 01/04/2020 no interpretation,abstracted Final Ml Allen DO documented in this encounter [facility] 12-15-2023 History of Present illness Narrative Associated Order(s): Osteopathic Manipulative Treatment Post-Procedure Diagnose(s): Tinnitus, bilateral PATIENT'S PCP: Ml Allen DO LAST VISIT IN THIS DEPARTMENT: Visit date not found Sara Rojo is a 53 y.o. (: 1970) female who presents today for: Chief Complaint Patient presents with OMT Neck shoulders and back ASSESSMENT AND PLAN: Tinnitus, bilateral (Primary) Cranial somatic dysfunction Cervical somatic dysfunction Thoracic region somatic dysfunction Lumbar region somatic dysfunction Sacral region somatic dysfunction Somatic dysfunction of both lower extremities Pelvic somatic dysfunction Other orders - Osteopathic Manipulative Treatment FOLLOW-UP: No follow-ups on file. SUBJECTIVE: Here for OMT today for tinnitus and for her neck and low back pain that has been chronic. Denies injury. Had a slip onto her backside about a year ago. No hx of MVA. Has had 1 and 5 babies via . She does not work. She has been seeing a PROFILING MACHINE SET UP OPERATOR in [facility] - being treated bladder infections and for Lyme Disease. She is giving herself the antibiotic cocktail at home through a catheter. Has been getting OMT in [place], [place] - last time was about 6 wks ago. Review of Systems Constitutional: ROS per HPI OBJECTIVE: Visit Vitals BP 116/70 (BP Location: Left arm, Patient Position: Sitting) Pulse 89 Temp 36.8 C (98.2 F) Ht 1.626 m (64") Wt 122 kg (270 lb) SpO2 95% BMI 46.35 kg/m Smoking Status Never BSA 2.22 m BP Readings from Last 3 Encounters: 12/15/23 116/70 05/18/21 116/79 04/07/21 113/82 Wt Readings from Last 3 Encounters: 12/15/23 122 kg (270 lb) 05/18/21 102 kg (223 lb 15.8 oz) 04/07/21 106 kg (233 lb 15.9 oz) Physical Exam: Physical Exam Constitutional: Appearance: Normal appearance. She is obese. Musculoskeletal: Comments: Left ilium anterior. Sacral base flexed. Increased lumbar lordosis. T1 rotated right. OA restricted bilateral - Right greater than left. Neurological: Mental Status: She is alert. Osteopathic Manipulative Treatment Date/Time: 12/15/2023 3:00 PM Performed by: Ml Allen DO Authorized by: Ml Allen DO Informed Consent: Patient agrees, verbalizes understanding, and wants to proceed: yes Consent given by: Patient Informed consent discussion completed by Physician/BRYAN with patient: Verbal Procedure: Based on patient's verbal history and today's physical exam findings, osteopathic manipulative treatment is indicated Technique(s) used: balanced ligamentous tension, cranial manipulation and myofascial release technique Regions Accessed: head, cervical, thoracic, lumbar, sacral, pelvic and rib cage Total number of regions: 7 Post-procedure: Procedure was tolerated well and no complication were noted Patient instructed to: increase fluid intake, treat increased pain with ice and/or heat intermittently and employ a home exercise program Patient is to return: As needed MEDICATION: Outpatient Encounter Medications as of 12/15/2023 Medication Sig Dispense Refill ESTRADIOL ORAL cream on upper thigh once daily Lactobac #2-Bifido #1-S. therm (Visbiome) 900 billion cell powder in packet PROGESTERONE MICRONIZED ORAL 250mg, once daily testosterone 0.1 % topical cream Apply topically 1 (one) time each day. thyroid, pork, (Erie Thyroid) 30 mg tablet Take 2 tablets (60 mg total) by mouth 1 (one) time each day. UNABLE TO FIND cream, on upper thigh once daily Accu-Chek Softclix Lancets USE TWICE DAILY almond oil, sweet, oil external oil (Patient not taking: Reported on 12/15/2023) blood sugar diagnostic (Accu-Chek Guide test strips) test strip USE TWICE DAILY DIRECTED fluconazole (DIFLUCAN) 150 mg tablet TAKE 1 TABLET (150 MG) BY MOUTH EVERY OTHER DAY. (Patient not taking: Reported on 12/15/2023) gentamicin-prednisoLONE (PRED-G) 0.3-1 % ophthalmic drops 1 drop 2 (two) times a day. Liquid into bladder metFORMIN (GLUCOPHAGE) 1,000 mg tablet (Patient not taking: Reported on 12/15/2023) metFORMIN (GLUCOPHAGE) 500 mg tablet TAKE 2 TABLETS (1,000 MG) BY MOUTH 2 TIMES PER DAY WITH MEALS (Patient not taking: Reported on 12/15/2023) metroNIDAZOLE (METROGEL) 0.75 % vaginal gel INSERT 1 APPLICATORFUL VAGINALLY TWICE DAILY FOR 5 DAYS omeprazole (PriLOSEC) [address] capsule oxymetazoline (Rhofade) 1 % cream (Patient not taking: Reported on 12/15/2023) propranoloL (INDERAL) 40 mg tablet TAKE 1 TABLET BY MOUTH TWICE A DAY (PAR BRAND) (Patient not taking: Reported on 12/15/2023) thyroid, pork, (Erie Thyroid) 15 mg tablet TAKE 1 TABLET (15 MG) BY MOUTH DAILY ON AN EMPTY STOMACH thyroid, pork, (WP Thyroid) 81.25 mg tablet Take 1 tablet every day by oral route. (Patient not taking: Reported on 12/15/2023) traZODone (DESYREL) 50 mg tablet (Patient not taking: Reported on 12/15/2023) valACYclovir (VALTREX) 1 gram tablet (Patient not taking: Reported on 12/15/2023) No facility-administered encounter medications on file as of 12/15/2023. LABORATORY: No visits with results within 3 Month(s) from this visit. Latest known visit with results is: Abstract on 06/26/2021 Component Date Value Ref Range Status Depression Screening 05/18/2021 abstracted Final Pap smear 01/04/2020 no interpretation,abstracted Final Ml Allen DO documented in this encounter [facility] 11-04-2023 History of Present illness Narrative Reason for Visit: follow up Interval History: Dianna reports that she was doing catheters BID for instillations with PCP, being treated with linezolid. States that pseudomonas was cleared. Reports that urinary symptoms have been better after last treatment with meropenem and linezolid but has urinary urgency. Presents today for evaluation of seeing some blood with catheter use and some soreness. Going to PFPT with [place], is getting dry needling which has been helpful with pelvic floor symptoms. She has not seen ID. Previous History: Sara Rojo is a 53 y.o. female, presents in self-referral for consultation and evaluation of Uterovaginal prolapse. Previous abdominal/pelvic surgery: Laparoscopic cholecystectomy delivery x5 Endometrial ablation Previous urogynecologic workup: None Previous urogynecologic therapy and outcome: none Her primary complaint is prolapse but also complains of urinary incontinence and dyspareunia. She reports a several year(s) history of leakage of urine with coughing, laughing, sneezing, with urge, with a full bladder. She has urge predominant urinary incontinence. Her MELQUIADES episodes occur approximately 1 times per week(s). These leaks are small. These symptoms have been stable over the last few years. Her urge symptoms include urinary frequency, urinary urgency, urge-related incontinence and nocturia. She estimates 5 urge incontinent episodes per week(s). These leaks are small. These symptoms have been stable over the last few years. She voids every 2-3 hours. She reports nocturia times 1-2 and no enuresis. The patient is not using pads. At this point she feels that this is impacting her quality of life not at all. She has not attempted any interventions. With regard to voiding function, she does not have difficulty starting her stream of urine all of the time, feels that the flow is continuous, and that she empties to completion all the time. She denies hematuria, dysuria and kidney stones. She has a history of recurrent UTIs (5 UTIs in the last 18 months, treated with Macrobid/Keflex). Her last UTI was 4 months ago, and she reports improvement with better glycemic control as well as using Chromium, Burberine and Sygysium. The patient admits to a bulge of tissue above the vaginal opening occasionally (1x/month) for the last 1 year. Her complaints include frequent pressure that extends from her scar to her groin area. She notices the pressure is worse when her bladder is full and is partly relieved after emptying. She reports her symptoms have improved since her 20-lb weight loss, though continues to feel pressure most days. She does not have splinting with voiding. She does not have splinting with defecation. At this point her prolapse impacts her quality of life moderately. She has not tried any interventions. She reports using progesterone daily, as well as DHEA and estradiol creams 1x/week for perimenopausal symptoms (anxiety and vaginal dryness per patient). She denies constipation. She admits to fecal incontinence 1x/1-2 weeks when having fecal urgency. She has bowel movements 7 days per week. She denies stool softeners/laxatives. This is impacting her quality of life as she must have a bowel movement before leaving the house daily to avoid an accident. Her PO fluid intake includes: 48 oz water/day, 1 cups of decaf coffee/day, denies pop, denies alcohol . She is sexually active. She reports intermittent dyspareunia associated with vaginal dryness and occasionally with deep penetration and/or with insertion. She is not using lubrication. Since her endometrial ablation, she reports occasional vaginal sensitivity during her monthly spotting. Obstetrical History: The patient is a . She had 1 vaginal delivery and 5 deliveries. She had no operative delivery(s) and no significant lacerations / episiotomies. Her largest baby was 8 lbs, 13 oz, infant delivered by was 8lb 1oz. . Gynecological History: Paps: normal, last performed 2019. Mammograms: normal, last performed 2019. Menstrual: No LMP recorded. Patient has had an ablation. Spotting monthly Menopausal: No Prior hysterectomy: No BCM: N/A Sexual History: Sexually active: Yes Desires to be sexually active in future: Yes Dyspareunia: Yes (see HPI) No LMP recorded. Patient has had an ablation. Past Medical History: Diagnosis Date Cat-scratch disease EBV positive mononucleosis syndrome H. pylori infection Lyme disease Past Surgical History: Procedure Laterality Date BREAST SURGERY SECTION, CLASSIC CHOLECYSTECTOMY, LAPAROSCOPIC Medications: Outpatient Medications Prior to Visit Medication Sig Dispense Refill [place] Thyroid 15 MG tablet Take 1 tablet by mouth daily. Bioflavonoid Products (LINDSEY C PO) Cyanocobalamin (VITAMIN B12 PO) Take by mouth daily. Digestive Enzymes (ENZYME DIGEST PO) as needed.. estrogens conjugated 0.625 MG/GM Cream Insert 0.5 g vaginally daily. MAGNESIUM PO take 800 mg by mouth daily every morning.. Multiple Minerals (MINERAL COMPLEX PO) take 1 tablet by mouth daily every morning.. Mupirocin 2 % ointment Apply to any sores twice daily 30 g 2 oxybutynin CR 10 MG Tab SR 24 HR tablet Take 1 tablet by mouth daily. 30 tablet 3 Probiotic Product (PROBIOTIC PO) take by mouth at bedtime.. progesterone 100 MG Cap Take 1 capsule by mouth. propranolol 40 MG tablet terbinafine 1 % Cream cream Apply to the groin twice daily for 1 wee (Patient not taking: Reported on 10/05/2023) 42 g 1 Testosterone Propionate (FIRST-TESTOSTERONE MC) 2 % Cream Place on skin. VITAMIN D PO take 10,000 Units by mouth daily every morning.. VITAMIN E PO take 400 mg by mouth daily every morning.. No facility-administered medications prior to visit. Allergies: Allergies Allergen Reactions Ceftin [Cefuroxime] [place] Starch Gluten Meal Latex Penicillins GI Upset/Erosions in stomach. Social History reports that she has never smoked. She has never used smokeless tobacco. She reports that she does not drink alcohol and does not use drugs. Family History: family history includes Diabetes in her mother and paternal grandmother; Hypertension in her father, paternal grandmother, and paternal uncle; Lung Cancer in her mother. Denies family history of breast, ovarian, uterine, colon cancer. Review of Systems A comprehensive review of systems was negative. Per HPI, all other systems reviewed and negative Physical Exam: Smoking Status Never There is no height or weight on file to calculate BMI. General: Well appearing female, appropriate in interaction. Psychiatric: Appropriate mood and affect Head: extraocular eye movements are intact. Head with normal shape, no apparent lesions, masses or foreign bodies. Respiratory: Easy work of breathing, symmetric expansion Genitourinary: Deferred, previous exam: Cough test negative External genitalia without erythema or lesions, right labia with inferior labial hypertrophy, noted to physically feel irritated with touch during exam, Vaginal mucosa normal with minimal discharge, cervix normal in appearance POP-Q: Neurologic: Normal external genitalia sensation and bulbocavernosus/anal reflex Rectal: [id number] urinalysis: Lab Results Component Value Date APPEARANCE Clear 06/29/2022 COLOR Green 06/29/2022 SPECIFICGRAV 1.015 06/29/2022 BLOOD Trace 06/29/2022 PH 7.0 06/29/2022 PROTEIN Neg 06/29/2022 UROBILINOGEN 0.2 06/29/2022 NITRITE Neg 06/29/2022 LEUKOCYTE Neg 06/29/2022 LEUKOCESTUR Negative 02/09/2021 Post void residual: by bladder scan Assessment: This is a 53 y.o. female with ? Recurrent UTIs versus asymptomatic bacteruria; urinary urgency Plan: - I discussed with Dianna again today my concern about using abx chronically and that many patients have colonization and are overtreated based on laboratory testing. I advised that I would prefer to have her consult with ID based on the abx that she has been utilizing via bladder instillations. A new referral to ID was placed today. - reviewed OAB pathway management options given symptoms of urgency were reviewed to not necessarily be 2/2 to infectious process but idiopathic in nature. She is currently going to PFPT, reviewed behavioral modifications. Currently hold off on OAB medication therapy based on wishes but can review again in future but more pressing issue is use of abx chronically. - Voiced understanding of plan, all questions/concerns answered. Pavithra Chapin MD Division of Female Pelvic Medicine and Reconstructive Surgery Patient presents for vaginal bleeding and inflammation. Sara Rojo was offered and declined a Medical Power Reactor Supervisor for this exam/procedure/test 11/04/2023. Alesha Solano documented in this encounter [facility] 10-05-2023 History of Present illness Narrative -last office visit: 10/05/2022 CC: Chief Complaint Patient presents with Skin Exam -Spot on left lower leg, forehead at hairline Hx of BCC on right restorationist Father with hx of SCC HPI: Sara Rojo is an 53 y.o. year old female who presents for: FBSE Duration: 1 year Location: full body Associated Symptoms: scattered nevi and spots Severity: mild to moderate Modifying factors/treatments tried: skin checks Narrative/Interval History: Here for FBSE with hx of BCC. She has a spot on the left inner thigh she would like Dr. Escobedo to take a look at. Since she has been getting her scar treated since then she has noticed this issue. Social History- dealing with cat-scratch disease Hx of mole removal of buttocks and pubic area (both benign) Hx of acupuncture on the C section scar General Questions for Skin Cancer Screening Yes No Comments Previous history of Skin Cancer? If yes, see comments [x] [] BCC- right restorationist Previous history of systemic cancers? If yes, see comments [] [x] Family history of skin cancer? [x] [] Dad- SCC Family History of Cancers? If so what types? [x] [] Mother-Lung Cancer ROS: Constitutional: normal Skin: no other skin complaints PMHx: She has a past medical history of Cat-scratch disease, EBV positive mononucleosis syndrome, H. pylori infection, and Lyme disease. Allergies / Medications / Immunizations: The patient is allergic to ceftin [cefuroxime], corn starch, gluten meal, latex, and penicillins. The patient has a current medication list which includes the following prescription(s): armour thyroid, cyanocobalamin, digestive enzymes, estrogens conjugated, magnesium, multiple minerals, oxybutynin cr, probiotic product, progesterone, propranolol, first-testosterone mc, vitamin d, vitamin e, bioflavonoid products, mupirocin, and terbinafine. Physical Exam: Physical Exam: WD, WN, NAD, A&O x 3. Exam included: A medical program specialist or DOCUMENTATION CONSULTANT was present as scribe and as medical brooch and bracelet maker during this portion of the visit. [x] A full body skin exam was performed including scalp, face, lips, eyelids, neck, back, chest, buttocks, groin, right arm, left arm, right leg, left leg, digits [] A focused waist up exam of scalp, face, lips, eyelids, neck, back, chest, left arm, right arm, and digits performed [] A lymph node exam was performed [] A genital exam was performed [] A focused exam of the following areas was performed: All normal except: -Scar on back and right restorationist, NER -Shah angiomas: Bright red dome shaped papule(s) located torso -Scattered skin colored to dark brown brown macules and papules on torso, arms, legs. -Light brown, evenly pigmented macules in sun-exposed areas -Stuck on skin colored to brown waxy papule(s) located torso, arms -Pedunculated skin colored to brown papule(s) located underarms -Scaly, erythematous, lichenified thin plaques located left inner thigh Impression/Plan: 1. Skin cancer screening 2. History of basal cell carcinoma (BCC) Reviewed sunsmarts including recommendation for daily suscreen of spf 30, sun-protective clothing, sun avoidance, and benefit of self skin exams. 3. Shha angioma - Explained that lesion is benign. Reassured. 4. Multiple benign melanocytic nevi of upper extremity, lower extremity, and trunk 5. Lentigines The ABCD's of melanoma (Asymmetry, Border irregulatiry, Color irregulatiry, and Diameter bigger than a pencil eraser) discuss with patient. Patient was encouraged to perform self skin exams, and to followup sooner for new, changing, or worrisome moles. 6. SK (seborrheic keratosis) -Information regarding seborrheic keratoses was provided. Pt asked to call if any lesions become irritated or bothersome 7. Skin tag Explained that lesion(s) is/are skin tags. Reassured 8. Eczema, unspecified type Start using Mupirocin Ointment on the affected skin twice daily Return in about 1 year (around 10/05/2024) for skin exam, or sooner if needed. Prescriptions written or refilled today include: Requested Prescriptions Signed Prescriptions Disp Refills Mupirocin 2 % ointment 30 g 2 Sig: Apply to any sores twice daily IDianna [facility] served as a scribe and acted as the medical brooch and bracelet maker for this exam/procedure/test/treatment for this encounter on 10/05/2023 Attestation Below: This exam/procedure/test/treatment was conducted the presence of a medical brooch and bracelet maker. I have reviewed the dictated documentation as scribed by Dianna Sutton and it accurately reflects the work performed and the decisions made. I saw and independently examined this patient today. I discussed my findings and the therapeutic plan with the patient. I agree with the history, physical examination, and medical decisions as outlined. I have reviewed the documentation, which accurately reflects the work performed and the decisions made. Patience Escobedo MD [facility] documented in this encounter [facility] 07-05-2023 History of Present illness Narrative Patient was last seen on 06/29/22. Here today for follow up. Patient reports going to PT seems to be helping. She mentioned that [place] and her results showed multiple bacteria so she is now doing bladder instillations. Chana Bustos07/05/23 (12:22 PM) Reason for Visit: follow up Interval History: Last seen 06/2022. Here to discuss UTI concerns with present for visit. She reports that PCP (Camelia Garibay CNP) is managing bladder instillations with meropenem and then linezolid. Had UTI testing (UTI guidance test) with PCP with various bacteria that were identified, resulting in extended abx treatment. Has been on instillations for 2 weeks. States that she is feeling better with these instillations. Feels like MELQUIADES has improved 85%. States feeling less anxious with tx. Previous History: Sara Rojo is a 53 y.o. female, presents in self-referral for consultation and evaluation of Uterovaginal prolapse. Previous abdominal/pelvic surgery: Laparoscopic cholecystectomy delivery x5 Endometrial ablation Previous urogynecologic workup: None Previous urogynecologic therapy and outcome: none Her primary complaint is prolapse but also complains of urinary incontinence and dyspareunia. She reports a several year(s) history of leakage of urine with coughing, laughing, sneezing, with urge, with a full bladder. She has urge predominant urinary incontinence. Her MELQUIADES episodes occur approximately 1 times per week(s). These leaks are small. These symptoms have been stable over the last few years. Her urge symptoms include urinary frequency, urinary urgency, urge-related incontinence and nocturia. She estimates 5 urge incontinent episodes per week(s). These leaks are small. These symptoms have been stable over the last few years. She voids every 2-3 hours. She reports nocturia times 1-2 and no enuresis. The patient is not using pads. At this point she feels that this is impacting her quality of life not at all. She has not attempted any interventions. With regard to voiding function, she does not have difficulty starting her stream of urine all of the time, feels that the flow is continuous, and that she empties to completion all the time. She denies hematuria, dysuria and kidney stones. She has a history of recurrent UTIs (5 UTIs in the last 18 months, treated with Macrobid/Keflex). Her last UTI was 4 months ago, and she reports improvement with better glycemic control as well as using Chromium, Burberine and Sygysium. The patient admits to a bulge of tissue above the vaginal opening occasionally (1x/month) for the last 1 year. Her complaints include frequent pressure that extends from her scar to her groin area. She notices the pressure is worse when her bladder is full and is partly relieved after emptying. She reports her symptoms have improved since her 20-lb weight loss, though continues to feel pressure most days. She does not have splinting with voiding. She does not have splinting with defecation. At this point her prolapse impacts her quality of life moderately. She has not tried any interventions. She reports using progesterone daily, as well as DHEA and estradiol creams 1x/week for perimenopausal symptoms (anxiety and vaginal dryness per patient). She denies constipation. She admits to fecal incontinence 1x/1-2 weeks when having fecal urgency. She has bowel movements 7 days per week. She denies stool softeners/laxatives. This is impacting her quality of life as she must have a bowel movement before leaving the house daily to avoid an accident. Her PO fluid intake includes: 48 oz water/day, 1 cups of decaf coffee/day, denies pop, denies alcohol . She is sexually active. She reports intermittent dyspareunia associated with vaginal dryness and occasionally with deep penetration and/or with insertion. She is not using lubrication. Since her endometrial ablation, she reports occasional vaginal sensitivity during her monthly spotting. Obstetrical History: The patient is a . She had 1 vaginal delivery and 5 deliveries. She had no operative delivery(s) and no significant lacerations / episiotomies. Her largest baby was 8 lbs, 13 oz, infant delivered by was 8lb 1oz. . Gynecological History: Paps: normal, last performed 2019. Mammograms: normal, last performed 2019. Menstrual: No LMP recorded. Patient has had an ablation. Spotting monthly Menopausal: No Prior hysterectomy: No BCM: N/A Sexual History: Sexually active: Yes Desires to be sexually active in future: Yes Dyspareunia: Yes (see HPI) No LMP recorded. Patient has had an ablation. Past Medical History: Diagnosis Date Cat-scratch disease EBV positive mononucleosis syndrome H. pylori infection Lyme disease Past Surgical History: Procedure Laterality Date BREAST SURGERY SECTION, CLASSIC CHOLECYSTECTOMY, LAPAROSCOPIC Medications: Outpatient Medications Prior to Visit Medication Sig Dispense Refill [place] Thyroid 15 MG tablet Take 1 tablet by mouth daily. Bioflavonoid Products (LINDSEY C PO) Cyanocobalamin (VITAMIN B12 PO) Take by mouth daily. Digestive Enzymes (ENZYME DIGEST PO) as needed.. estrogens conjugated 0.625 MG/GM Cream Insert 0.5 g vaginally daily. MAGNESIUM PO take 800 mg by mouth daily every morning.. Multiple Minerals (MINERAL COMPLEX PO) take 1 tablet by mouth daily every morning.. oxybutynin CR 10 MG Tab SR 24 HR tablet Take 1 tablet by mouth daily. 30 tablet 3 Probiotic Product (PROBIOTIC PO) take by mouth at bedtime.. progesterone 100 MG Cap Take 1 capsule by mouth. propranolol 40 MG tablet terbinafine 1 % Cream cream Apply to the groin twice daily for 1 wee 42 g 1 Testosterone Propionate (FIRST-TESTOSTERONE MC) 2 % Cream Place on skin. VITAMIN D PO take 10,000 Units by mouth daily every morning.. VITAMIN E PO take 400 mg by mouth daily every morning.. No facility-administered medications prior to visit. Allergies: Allergies Allergen Reactions Ceftin [Cefuroxime] [place] Starch Gluten Meal Latex Penicillins GI Upset/Erosions in stomach. Social History reports that she has never smoked. She has never used smokeless tobacco. She reports that she does not drink alcohol and does not use drugs. Family History: family history includes Diabetes in her mother and paternal grandmother; Hypertension in her father, paternal grandmother, and paternal uncle; Lung Cancer in her mother. Denies family history of breast, ovarian, uterine, colon cancer. Review of Systems A comprehensive review of systems was negative. Per HPI, all other systems reviewed and negative Physical Exam: BP 114/68 (BP Location: Left arm, BP Position: Sitting) Ht 5' 4" (1.626 m) Wt 227 lb (103 kg) BMI 38.96 kg/m Smoking Status Never Body mass index is 38.96 kg/m . General: Well appearing female, appropriate in interaction. Psychiatric: Appropriate mood and affect Head: extraocular eye movements are intact. Head with normal shape, no apparent lesions, masses or foreign bodies. Respiratory: Easy work of breathing, symmetric expansion Genitourinary: Deferred, previous exam: Cough test negative External genitalia without erythema or lesions, right labia with inferior labial hypertrophy, noted to physically feel irritated with touch during exam, Vaginal mucosa normal with minimal discharge, cervix normal in appearance POP-Q: Neurologic: Normal external genitalia sensation and bulbocavernosus/anal reflex Rectal: [id number] urinalysis: Lab Results Component Value Date APPEARANCE Clear 06/29/2022 COLOR Green 06/29/2022 SPECIFICGRAV 1.015 06/29/2022 BLOOD Trace 06/29/2022 PH 7.0 06/29/2022 PROTEIN Neg 06/29/2022 UROBILINOGEN 0.2 06/29/2022 NITRITE Neg 06/29/2022 LEUKOCYTE Neg 06/29/2022 LEUKOCESTUR Negative 02/09/2021 Post void residual: by bladder scan Assessment: This is a 53 y.o. female with urge urinary incontinence and urgency, vaginal irritation, and posterior vaginal prolapse Plan: - had extensive discussion with patient and about current abx instillations that she is receiving and that would highly recommend discussion/management of these type of abx with ID involved as she has not seen them. It is unclear as if truly having recurrence as not all lab results have been positive cultures but had UTI guidance test completed. Discussed that we don't typically need to rely on this for management and a urine culture in setting of true infectious source would be positive and adequate for decision making of treatment. She reports feeling overall improved with this treatment regimen but again voiced concern about whether she would need this extensive of treatment and worry for continued development of antibiotic resistance. ID referral placed. RTC PRN Pavithra Chapin MD Division of Female Pelvic Medicine and Reconstructive Surgery documented in this encounter [facility] 06-17-2023 History of Present illness Narrative Patient had called in this am to report that she had been in ED last pm. She reports that she wants to have the picc line removed. I had instructed her to call her PROFILING MACHINE SET UP OPERATOR who had originally ordered the picc line to have her fax us an order. We did receive the order and scanned into chart. PICC line removed without any problems. Line intact 44 cm removed. Pressure applied x 5 minutes. Patient in trendelenburg position and holding breath while picc line removed. Patient arm does have areas of pinkness where some of the adhesives have been. Site itself is free of any signs of infection. Vaseline applied to gauze and applied to site, covered with opsite 3000. Patient instructed to leave in place x 24 hr then ok to remove. Patient verb understanding. Pain in right arm is much improved upon discharge documented in this encounter [facility] 10-19-2022 History of Present illness Narrative History of Present Illness Chief Complaint Patient presents with Middle Back - Follow-up Pt reports today with lower and middle back pain. Dull achy pain with stiffness. Average pain is 3-4/10. Heat and stretching for pain control. Lower Back - Follow-up Back Pain This is a recurrent problem. The current episode started 1 to 4 weeks ago. The problem occurs daily. The problem is unchanged. The pain is present in the lumbar spine, sacro-iliac and thoracic spine. The quality of the pain is described as aching. The pain does not radiate. The pain is moderate. The symptoms are aggravated by bending and twisting. Stiffness is present all day. Pertinent negatives include no bladder incontinence, fever, leg pain, numbness, paresthesias, tingling or weakness. She has tried home exercises and heat for the symptoms. The treatment provided mild relief. Review of Systems Constitutional: Negative for chills and fever. Genitourinary: Negative for bladder incontinence. Musculoskeletal: Positive for arthralgias, back pain and myalgias. Neurological: Negative for tingling, weakness, numbness and paresthesias. Vitals: not currently . Physical Exam Vitals and nursing note reviewed. Constitutional: Appearance: She is well-developed and well-nourished. HENT: Head: Normocephalic and atraumatic. Eyes: Extraocular Movements: EOM normal. Pupils: Pupils are equal, round, and reactive to light. Musculoskeletal: General: Tenderness present. No edema. Cervical back: Normal range of motion and neck supple. Lymphadenopathy: Cervical: No cervical adenopathy. Skin: General: Skin is warm and dry. Findings: No rash. Neurological: Mental Status: She is alert and oriented to person, place, and time. Motor: Motor strength is normal. No abnormal muscle tone. Coordination: Coordination normal. Gait: Gait normal. Deep Tendon Reflexes: Reflexes are normal and symmetric. Reflexes normal. Reflex Scores: Tricep reflexes are 2+ on the right side and 2+ on the left side. Bicep reflexes are 2+ on the right side and 2+ on the left side. Brachioradialis reflexes are 2+ on the right side and 2+ on the left side. Patellar reflexes are 2+ on the right side and 2+ on the left side. Achilles reflexes are 2+ on the right side and 2+ on the left side. Neurological Exam Mental Status Alert. Oriented to person, place, and time. Cranial Nerves CN III, IV, : Extraocular movements intact bilaterally. Pupils equal round and reactive to light bilaterally. Motor Strength is 5/5 throughout all four extremities. Reflexes Deep tendon reflexes are 2+ and symmetric in all four extremities. Right Left Brachioradialis 2+ 2+ Biceps 2+ 2+ Triceps 2+ 2+ Patellar 2+ 2+ Achilles 2+ 2+ Gait Normal gait. Assessment and Plan ICD-10-CM 1. Segmental and somatic dysfunction of thoracic region M99.02 [place] OSTEOPATHIC MANIP,1-2 BODY REGN 2. Segmental and somatic dysfunction of lumbar region M99.03 [place] OSTEOPATHIC MANIP,1-2 BODY REGN 3. Segmental and somatic dysfunction of sacral region M99.04 [place] OSTEOPATHIC MANIP,1-2 BODY REGN OSTEOPATHIC MANIPULATION THERAPY PROCEDURE NOTE Specific Osteopathic findings include: posterior T6, T7 and T8 right posterior L2-3, L4-5 and L5-S1 right and left Structural Evaluation reveals negative Scoliosis, negative Postural imbalance, and negative Pelvic Side Shift. The right shoulder , inferior angle of the scapula , iliac crest and femoral head heights are equal to corresponding areas on the left. OSTEOPATHIC MANIPULATION THERAPY PROCEDURE NOTE PROCEDURE PERFORMED BY: Dinesh West DO BIOINFORMATICS ANALYST(S): None ATTENDING: Dinesh West DO PROCEDURE DATE: 10/19/2022 PROCEDURE START TIME: 11:33 AM CONSENT: Informed consent was obtained prior to the procedure after discussion of the risks, benefits, and alternatives and expected outcomes were discussed with the patient; consent placed in chart. The possibilities of reaction to medication, pulmonary aspiration, bleeding, infection, the need for additional procedures, failure to diagnosis a condition, and creating a complication requiring transfusion or operation were discussed with the patient. The patient concurred with the proposed plan, giving informed consent. DOES THIS PROCEDURE REQUIRE A UNIVERSAL PROTOCOL? No. Unviersal Protocol is not required for this procedure. ANESTHESIA: None PROCEDURE DETAILS: Decreased intersegmental motion found at the following areas: lumbar spine, lumbosacral spine, thoracic spine and thoracolumbar spine. Osteopathic manipulation was performed to the above area(s) using high velocity, low amplitude, soft tissue manipulation and myofascial technique. Sara Rojo tolerated the procedure well without complications. Myofascial release technique was performed to the above area(s) for 30 minutes. Sara Rojo tolerated the procedure well without complications. SPECIMEN(S) REMOVED: None DISPOSITION OF SPECIMEN(S): N/A. ESTIMATED FLUIDS: NA. ESTIMATED BLOOD LOSS: None FINDINGS: See findings noted previously. CONDITION: Stable. Patient tolerated procedure well. COMPLICATIONS: None. PLAN: Follow-up prn. documented in this encounter [facility] 10-19-2022 Instructions Dinesh West DO - 10/19/2022 10:50 AM EST Patient instructed on a stretching, range of motion and flexibility program. Patient was advised on the use of ice, moist heat, and anti-inflammatory medication. Patient instructed on activity modification. Patient was instructed to follow up as directed. If Patient has no signs of improvement or symptoms worsen they are to follow up in 7-10 days. documented in this encounter [facility] 10-05-2022 History of Present illness Narrative -last office visit 01/20/2022 CC: Chief Complaint Patient presents with Skin Exam Pt presents for FBSE HPI: Sara Rojo is an 52 y.o. year old female who presents for: FBSE Duration: 6 months follow up Location: full body Associated Symptoms: scattered nevi and spots Severity: mild to moderate Modifying factors/treatments tried: skin checks Narrative/Interval History: Here for FBSE with hx of BCC. Social History- dealing with cat-scratch disease Hx of mole removal of buttocks and pubic area (both benign) Hx of acupuncture on the C section scar General Questions for Skin Cancer Screening Yes No Comments Previous history of Skin Cancer? If yes, see comments [x] [] BCC- right restorationist Previous history of systemic cancers? If yes, see comments [] [] Family history of skin cancer? [x] [] Dad- SCC Family History of Cancers? If so what types? [] [] A. Skin, left posterior hip, shave: - Compound nevus A. Skin, right restorationist, shave: - Melanocytic nevus, principally intradermal type 11/29/02 Pathologic Diagnosis A. Skin, base of neck, shave: Intradermal melanocytic nevus. at 1110 ROS: Constitutional: normal Skin: no other skin complaints PMHx: She has a past medical history of Cat-scratch disease, EBV positive mononucleosis syndrome, H. pylori infection, and Lyme disease. Allergies / Medications / Immunizations: The patient is allergic to ceftin [cefuroxime], corn starch, gluten meal, latex, and penicillins. The patient has a current medication list which includes the following prescription(s): armour thyroid, bioflavonoid products, cyanocobalamin, digestive enzymes, estrogens conjugated, magnesium, multiple minerals, oxybutynin cr, probiotic product, progesterone, propranolol, terbinafine, first-testosterone mc, vitamin d, and vitamin e. Physical Exam: Physical Exam: WD, WN, NAD, A&O x 3. Exam included: A medical program specialist or DOCUMENTATION CONSULTANT was present as scribe and as medical brooch and bracelet maker during this portion of the visit. [x] A full body skin exam was performed including scalp, face, lips, eyelids, neck, back, chest, buttocks, groin, right arm, left arm, right leg, left leg, digits [] A focused waist up exam of scalp, face, lips, eyelids, neck, back, chest, left arm, right arm, and digits performed [] A lymph node exam was performed [] A genital exam was performed [] A focused exam of the following areas was performed: All normal except: Scar on back and right restorationist, NER Shah angiomas: Bright red dome shaped papule(s) located torso Scattered skin colored to dark brown brown macules and papules on torso, arms, legs. Light brown, evenly pigmented macules in sun-exposed areas Stuck on skin colored to brown waxy papule(s) located torso, arms Pedunculated skin colored to brown papule(s) located underarms Macerated erythematous patches in skin folds located groin/thighs Impression/Plan: 1. Skin cancer screening 2. History of basal cell carcinoma (BCC) Reviewed sunsmarts including recommendation for daily suscreen of spf 30, sun-protective clothing, sun avoidance, and benefit of self skin exams. 3. Shah angioma - Explained that lesion is benign. Reassured. 4. Multiple benign melanocytic nevi of upper extremity, lower extremity, and trunk 5. Lentigines The ABCD's of melanoma (Asymmetry, Border irregulatiry, Color irregulatiry, and Diameter bigger than a pencil eraser) discuss with patient. Patient was encouraged to perform self skin exams, and to followup sooner for new, changing, or worrisome moles. 6. SK (seborrheic keratosis) -Information regarding seborrheic keratoses was provided. Pt asked to call if any lesions become irritated or bothersome 7. Skin tag Explained that lesion(s) is/are skin tags. Reassured 8. Intertrigo Continue Terbinafine cream Return in about 1 year (around 10/05/2023) for skin exam. Prescriptions written or refilled today include: Requested Prescriptions No prescriptions requested or ordered in this encounter IJena LPN, served as a scribe and acted as the medical brooch and bracelet maker for this exam/procedure/test/treatment for this encounter on 10/05/2022 Attestation Below: This exam/procedure/test/treatment was conducted by Dr. Escobedo in the presence of a medical brooch and bracelet maker. I have reviewed and updated the documentation which was scribed and updated it for accuracy. Patience Escobedo MD [facility] Instructions Jena (Scribe) Sierra - 10/05/2022 1:30 PM EST Sunscreen Suggestions There are two types of sun rays that are harmful to the skin. UVA rays cause skin aging and skin cancer, such as melanoma. UVB rays cause sunburns, cataracts, and also contribute to skin cancer. The [employer] recommends wearing a broad spectrum, waterproof sunscreen with a Sun Protection Factor (SPF) of 30 or higher. It is important to check the ingredient label to be sure the sunscreen will protect the skin from both UVA and UVB sunrays. Your sunscreen should contain at least one of the following ingredients: titanium dioxide, zinc oxide, or avobenzone. Sunscreen will not be effective unless it is applied to all exposed skin. Sunscreens work best if they are applied 30 minutes before sun exposure. They should be reapplied every 2 hours and after any water exposure. Sunscreen is not perfect. It is important to use other methods to protect the skin from sun exposure also. Wear hats, sunglasses and other sun protective clothing when outdoors. Stay in the shade during the peak hours of sun exposure between 10 AM and 4 PM. Remember to wear a sunscreen every day! Reapply sunscreen every 2 hours when active outdoors Daily sun protection - focusing on exposed areas of skin (face, ears, neck, arms, hands). These sunscreens tend to be a thinner consistency and leave less residue than waterproof products). CeraVe AM SPF 30 Eucerin Extra Protective Moisture Lotion L oreal Sublime Sun Olay Complete Daily Defense SunBLOCK with physical blockers - Titanium Dioxide and Zinc Oxide These are best for sensitive skin as well as for patients concerned about the chemicals in chemical blockers. They are more likely than others to leave a slightly whitish sheen on some skin especially around hairs Blue Lizard Burkinan Sunscreen Vanicream Sunscreen for Sensitive Skin Neutrogena Sensitive Skin Sunblock Glytone Sunscreen Lotion [place] Baby Sunscreen Lotion/Stick Other Special Circumstances Dry Skin - While each of these products can be used on all skin types, the creamier vehicle of CeraVe AM lends itself for use in patients with dry skin or those who prefer a thicker base. Sensitive Skin - If your skin is very sensitive, a strictly physical pricila agent is appropriate. The SunBLOCKS above are good as are: SkinCeuticals Physicial Fusion UV Defense SPF 30 contains zinc and titanium but no chemical sunscreen ingredients. both tinted and sheer options are available. Neutrogena Pure and Free Baby Faces SPF 50+ contains only physical blockers, fragrance free and tear-free. Marketed as part of a baby sunscreen line but it is an appropriate choice for any age group. Oily skin - Some patients with oily skin prefer a sunscreen that is as light as possible, especially during the humid summer months. Recs: [place] Christiano Posay Anthelios 60 Ultra Light Sunscreen Fluid, Neutrogena Pure and Free Liquid SPF, Shiseido Extra Smooth Sun Protection Lotion SPF 38. Acne-Prone Skin - I recommend moisturizers with sunscreen for use in the morning. They provide UV protection while also minimizing the irritation of topical acne medications. Some products are oil-free (using dimethicone rather than petrolatum (dimethicone can make the skin appear less oily by absorbing oil). Recs: Cetaphil DermaControl Moisturizer SPF30, Neutrogena Clear Face Sunscreen, EltaMD UV Clear SPF 46 contains niacinimide to soothe the skin. Red Skin/Rosacea - this type of skin can benefit from anti-inflammatory additives. Aveeno Ultra Calming Daily Moisturizer SPF 15 contains feverfew, a botanical similar to chamomile, which helps reduce irritated skin. Eucerin Redness Relief Daily Perfecting Lotion SPF 15, formulated with a licorice root extract to soothes red skin Monitor your own skin for the warning signs of a melanoma: - A - Asymmetry. Your mole should look the same right side versus left side, and top versus bottom. - B - Borders. Your mole should have straight edges. Borders that are jagged or when you can't see where it starts and stops have an increased risk of being troublesome. - C - Color. All of your moles should be the same color which corresponds to your hair color, eye color, and skin type. Any mole that looks different, whether black, blue, red, white, or otherwise different is at a higher risk. - D - Diameter. Your moles should be less than 6mm which is the width of a pencil. - E - Evolution. If any mole is changing color, size, shape, or otherwise, it is at a higher risk. *If you are worried about a mole, please make an appointment to be seen. If a mole has one or more of these features, it does not mean that it is a melanoma, but does mean it is higher risk to be a melanoma and should be evaluated. documented in this encounter [facility] 06-29-2022 History of Present illness Narrative Reason for Visit: follow up Interval History: Last seen 02/2021, today presents with the following: States that she is currently being treated for Lyme disease (ongoing for past 7 years), concern for "cystitis", about to get PICC for IV abx. Sx of urinary urgency and UUI, voids 3-4x/day and nocturia Concerned about BG, recent A1C of 5.7%. Had a wart on her finger, frozen by dermatology but concerned about passing it to vaginal tissue with wiping. Notices a bulge that is intermittent, notices after standing for long periods of time, not bothersome. Bothersome right side of labia, has been ongoing for past few weeks, feels "sore" Saw [facility] for PFPT previously and is considering going back to PT. Previous History: Sara Rojo is a 52 y.o. female, presents in self-referral for consultation and evaluation of Uterovaginal prolapse. Previous abdominal/pelvic surgery: Laparoscopic cholecystectomy delivery x5 Endometrial ablation Previous urogynecologic workup: None Previous urogynecologic therapy and outcome: none Her primary complaint is prolapse but also complains of urinary incontinence and dyspareunia. She reports a several year(s) history of leakage of urine with coughing, laughing, sneezing, with urge, with a full bladder. She has urge predominant urinary incontinence. Her MELQUIADES episodes occur approximately 1 times per week(s). These leaks are small. These symptoms have been stable over the last few years. Her urge symptoms include urinary frequency, urinary urgency, urge-related incontinence and nocturia. She estimates 5 urge incontinent episodes per week(s). These leaks are small. These symptoms have been stable over the last few years. She voids every 2-3 hours. She reports nocturia times 1-2 and no enuresis. The patient is not using pads. At this point she feels that this is impacting her quality of life not at all. She has not attempted any interventions. With regard to voiding function, she does not have difficulty starting her stream of urine all of the time, feels that the flow is continuous, and that she empties to completion all the time. She denies hematuria, dysuria and kidney stones. She has a history of recurrent UTIs (5 UTIs in the last 18 months, treated with Macrobid/Keflex). Her last UTI was 4 months ago, and she reports improvement with better glycemic control as well as using Chromium, Burberine and Sygysium. The patient admits to a bulge of tissue above the vaginal opening occasionally (1x/month) for the last 1 year. Her complaints include frequent pressure that extends from her scar to her groin area. She notices the pressure is worse when her bladder is full and is partly relieved after emptying. She reports her symptoms have improved since her 20-lb weight loss, though continues to feel pressure most days. She does not have splinting with voiding. She does not have splinting with defecation. At this point her prolapse impacts her quality of life moderately. She has not tried any interventions. She reports using progesterone daily, as well as DHEA and estradiol creams 1x/week for perimenopausal symptoms (anxiety and vaginal dryness per patient). She denies constipation. She admits to fecal incontinence 1x/1-2 weeks when having fecal urgency. She has bowel movements 7 days per week. She denies stool softeners/laxatives. This is impacting her quality of life as she must have a bowel movement before leaving the house daily to avoid an accident. Her PO fluid intake includes: 48 oz water/day, 1 cups of decaf coffee/day, denies pop, denies alcohol . She is sexually active. She reports intermittent dyspareunia associated with vaginal dryness and occasionally with deep penetration and/or with insertion. She is not using lubrication. Since her endometrial ablation, she reports occasional vaginal sensitivity during her monthly spotting. Obstetrical History: The patient is a . She had 1 vaginal delivery and 5 deliveries. She had no operative delivery(s) and no significant lacerations / episiotomies. Her largest baby was 8 lbs, 13 oz, infant delivered by was 8lb 1oz. . Gynecological History: Paps: normal, last performed 2019. Mammograms: normal, last performed 2019. Menstrual: No LMP recorded. Patient has had an ablation. Spotting monthly Menopausal: No Prior hysterectomy: No BCM: N/A Sexual History: Sexually active: Yes Desires to be sexually active in future: Yes Dyspareunia: Yes (see HPI) No LMP recorded. Patient has had an ablation. Past Medical History: Diagnosis Date Cat-scratch disease EBV positive mononucleosis syndrome H. pylori infection Lyme disease Past Surgical History: Procedure Laterality Date BREAST SURGERY SECTION, CLASSIC CHOLECYSTECTOMY, LAPAROSCOPIC Medications: Outpatient Medications Prior to Visit Medication Sig Dispense Refill [place] Thyroid 15 MG tablet Take 15 mg by mouth daily. Bioflavonoid Products (LINDSEY C PO) Cyanocobalamin (VITAMIN B12 PO) Take by mouth daily. Digestive Enzymes (ENZYME DIGEST PO) as needed.. estrogens conjugated 0.625 MG/GM Cream Insert 0.5 g vaginally daily. MAGNESIUM PO take 800 mg by mouth daily every morning.. Multiple Minerals (MINERAL COMPLEX PO) take 1 tablet by mouth daily every morning.. Probiotic Product (PROBIOTIC PO) take by mouth at bedtime.. progesterone 100 MG Cap take 100 mg by mouth.. propranolol 40 MG tablet terbinafine 1 % Cream cream Apply to the groin twice daily for 1 wee 42 g 1 Testosterone Propionate (FIRST-TESTOSTERONE MC) 2 % Cream Place on skin. VITAMIN D PO take 10,000 Units by mouth daily every morning.. VITAMIN E PO take 400 mg by mouth daily every morning.. No facility-administered medications prior to visit. Allergies: Allergies Allergen Reactions Ceftin [Cefuroxime] [place] Starch Gluten Meal Latex Penicillins GI Upset/Erosions in stomach. Social History reports that she has never smoked. She has never used smokeless tobacco. She reports that she does not drink alcohol and does not use drugs. Family History: family history includes Diabetes in her mother and paternal grandmother; Hypertension in her father, paternal grandmother, and paternal uncle; Lung Cancer in her mother. Denies family history of breast, ovarian, uterine, colon cancer. Review of Systems A comprehensive review of systems was negative except for: Integumentary: blisters Musculoskeletal: Joint Pain, Neck Pain and Back Pain Hematologic: Swollen Glands Physical Exam: Ht 5' 4" (1.626 m) Wt 227 lb 11.2 oz (103.3 kg) BMI 39.08 kg/m Smoking Status Never Body mass index is 39.08 kg/m . General: Well appearing female, appropriate in interaction. Psychiatric: Appropriate mood and affect Head: extraocular eye movements are intact. Head with normal shape, no apparent lesions, masses or foreign bodies. Respiratory: Easy work of breathing, symmetric expansion Abdomen: Soft, non-tender, and nondistended with no masses, Pfannenstiel incision scar without tenderness to palpation. No hernias. Genitourinary: Cough test negative External genitalia without erythema or lesions, right labia with inferior labial hypertrophy, noted to physically feel irritated with touch during exam, Vaginal mucosa normal with minimal discharge, cervix normal in appearance POP-Q: POINT Aa: -2 POINT Ba: -2 POINT C: -7 POINT GH: 2.5 POINT PB: 3.5 POINT TVL: 8 POINT Ap: -1.5 POINT Bp: -1.5 POINT D: -8 Neurologic: Normal external genitalia sensation and bulbocavernosus/anal reflex Rectal: [id number] urinalysis: Lab Results Component Value Date APPEARANCE Clear 06/29/2022 COLOR Green 06/29/2022 SPECIFICGRAV 1.015 06/29/2022 BLOOD Trace 06/29/2022 PH 7.0 06/29/2022 PROTEIN Neg 06/29/2022 UROBILINOGEN 0.2 06/29/2022 NITRITE Neg 06/29/2022 LEUKOCYTE Neg 06/29/2022 LEUKOCESTUR Negative 02/09/2021 Post void residual: PVR: 1 ml by bladder scan Assessment: This is a 52 y.o. female with urge urinary incontinence and urgency, vaginal irritation, and posterior vaginal prolapse Plan: 1. Urinary frequency/urgency/nocturia: We discussed various options for the management of her overactive bladder symptoms which included behavioral modifications with fluid management and timed voids. We also reviewed pharmacotherapy, how they work and potential side effects like dry mouth, dry eyes, constipation, and difficulty emptying her bladder. We also brief discussed advanced therapies if she fails conservative management and medication use. This included use of intradetrusor Botox injections and neurostimulation in the form of PTNS and Interstim. She was given the [facility] patient handout on OAB to review. She will be started on oxybutynin XL 10 mg daily. She will follow up appointment with Chani Mcghee CNP in 6-7 weeks. 2. Pelvic organ prolapse: Dianna has evidence of stage 1 posterior vaginal prolapse on exam today. She is not bothered by her symptoms and feels that this is not affecting her quality of life. We discussed the pathophysiology of her complaints in relation to her exam. We reviewed all management options, which included expectant management with observation, pessary, pelvic floor PT and would review further management if sx more bothersome. 3. Vaginal irritation - discussed exam without lesions given patient's concerns but does have some inferior labial hypertrophy that may be contributing to sx - vaginal swabs collected and will treat if indicated - list of vaginal moisturizers provided - currently on bioidenticals 4. Pelvic floor muscle weakness: She has symptoms and findings consistent with pelvic floor muscle weakness. We discussed the relationship between the pelvic floor and her other bothersome symptoms. I recommend a pelvic floor muscle exercise regimen to strengthen her pelvic floor. Referral for PFPT placed, desires to re-establish with Charlotte, her previous PT. 5. Health care maintenance - currently not seeing laminating machine operator helper, will call to re-establish. RTC in 6 weeks for follow up with Chani Mcghee APRN-PJ Chapin MD Division of Female Pelvic Medicine and Reconstructive Surgery documented in this encounter [facility] 06-29-2022 Instructions Pavithra Chapin MD - 06/29/2022 8:30 AM EDT Lubricants and moisturizers list The welp-hib-psuuuvm vaginal moisturizer and lubricant products can be confusing to sort through, especially since there are no FDA requirements for how they can be marketed or labeled. In general there are 3 categories of products: Vaginal lubricants should be used at the time of intercourse to decrease friction. Long acting vaginal moisturizers are used at least twice weekly to increase vaginal (internal) lubrication and elasticity. Vulvar moisturizers are for external use for vulvar comfort and do not impact vaginal lubrication or elasticity. Vaseline petroleum products and oils (baby oil, coconut, olive oil,) can make condoms break, so should not be used with condoms. In many women, these can cause infections. However, if you have sore spots on the vulva (outer lips), then petroleum jelly can sometimes be helpful. All of the products listed below are over the counter. Many can be bought in any drugstore or online. Also, many [employer] stores do carry high-quality lubricant products. VAGINAL LUBRICANTS: (For use during sexual activity) Lubricants should be applied to the outside and opening of the vagina at the time of sexual activity. The lubricant can also be applied to the penis or a device. Silicone based lubricants should not be used on silicone vibrators or toys. Both silicone and water based lubricants are condom compatible. If you use a water based lubricant, it is also important to choose a lubricant with low osmolality since lubricants with high osmolality increase the chance of irritation and infection. Osmolality information can be hard to find. All of the following lubricants have a low osmolality, are pH balanced, and are preservative free. WATER BASED LUBRICANTS Good Clean Love (made of organic ingredients) Pulse H2Oh! Sylk Natural System Nguyen PreSeed (Does not impact sperm motility and can be used if trying to conceive, also good for those with multiple sensitivities, though may not work as well) SILICONE BASED LUBRICANTS Uber lube Replens Silky Smooth Pulse Aloe-ahh Wet Inaja NGUYEN Premium Personal Lubricant PINK Silicone Lubricant SLIQUID Organics silk Pulse is a hands free personal lubricant warming dispenser and is sold with water or silicone based lubricant pods that some women prefer for travel. LONG ACTING VAGINAL MOISTURIZERS: (For regular use inside vagina to maintain moisture) Long acting vaginal moisturizers should be used at least twice weekly on a regular basis. Many women find they need to use a moisturizer 3-5 times/week. In addition, it is important to not only apply the moisturizer inside the vagina, but also to apply to the vestibule (the external area surrounding the opening of the vagina). Women who are not sexually active often find that the regular use of a long acting vaginal moisturizer makes them feel more comfortable. Nuclear Power Plant Engineer beware: many lubricants are labeled as moisturizers to make them more appealing to consumers (even though they don t function as a true moisturizer). Replens Long Acting Vaginal Moisturizer (Available in all drugstores) HyaloGyn Vaginal Hydrating Gel (hybrid moisturizer, but can function as lubricant too) Revaree (hyaluronic acid) VULVAR MOISTURIZERS: (For external use) Replens Moisture Restore Comfort Gel is to be used externally for dry vulvar skin. Aquaphor can also be applied externally for comfort. [place] Aloe Ewing: Many people are allergic to aloe, so keep this in mind with products like this that have aloe in it. Medicine Mama s V magic: Not much medical studies on this, but many patients swear by it, has oil, beeswax and honey in it- best used externally only. documented in this encounter [facility] 01-20-2022 Instructions NOEMI MASCORRO - 01/20/2022 11:53 AM EDT Wound Care for Open or Sutured Wounds after Skin Biopsy Wound care is done to clean the wound, prevent infection and prevent scab formation. Wounds heal faster when scabs are not allowed to form on wounds. When to do wound Care Leave original dressing in place for 24 hours. Then, do wound care once daily as directed. Stop wound care when skin has healed over or stiches are removed. Supplies (use items checked) _x_White Petroleum jelly (Vaseline or Aquaphor) _x_ Band-Aid or Non-Adherent gauze dressing (Telfa) and tape _x_Cotton tip applicators (Q-Tips) Care of the Wound 1. First wash your hands with soap and water. Gently remove the old dressing. If the dressing is stuck, wet the dressing with tap water, wait 3-5 minutes and then remove it, or remove old dressing in the bath or shower. 2. Then clean the wound by the method checked below : Allow soap, water, and/or shampoo to wash over wound, and then rinse the wound with tap water. 3. Dry the wound with a clean cotton ball or Q-tip. 4. With clean Q-tip , apply thick layer of ointment. 5. Cover the wound with a band-aid or non-stick pad. Cut the pad with clean scissors to fit the wound. Then tape around the pad. In case of bleeding To prevent bleeding, avoid drinking alcohol,. If there is a large amount of bleeding (hemorrhage), follow these steps: 1. Apply direct pressure firmly over the wound for 20 minutes, timed by the clock. If bleeding has not stopped, apply pressure for 20 more minutes along with ice. 2. If bleeding still has not stopped, continue holding pressure on the wound and call your crank hand or go to your local emergency room. In Case of Pain Local anesthesia will wear off in approximately 1-3 hours. The area may burn, throb, feel tender or sore but should NOT be excruciatingly painful. If your wound hurts, take Tylenol or Extra-Strength Tylenol (acetaminophen) as directed on bottle, as needed. What to Expect after Surgery The wound may have a slight pink or brown colored fluid leaking from it. This may show on the dressing. Mild pain. Mild tenderness at the wound site, like a bruise. Mild color changes to skin, like a bruise. A black eye can appear with facial surgeries. Swelling of the eyelids may happen with facial surgeries. Swelling will get worse for the first three days before it will start to improve. To reduce the amount of swelling that may occur, you can apply an ice pack to the area once an hour for 20 minutes at a time. Call your Doctor if you have: Bleeding not controlled by pressure. Increase in redness Pain not controlled by Tylenol Swelling Increases or severe pain Drainage of pus Fever over 100.5 degrees Red streaks extending from the operative site. A marble size bump ( Hematoma)under the skin that is blue/purple/and/or red Who to call [facility] at for problems Tuesday through Tuesday in the morning or afternoon. For Urgent problems in the evenings or after hours , call the hospital hard rock drill operator at and ask for the Cephalometric Analyst transportation department head. TEST RESULTS: We will make every effort to communicate your biopsy test results within ten business days. Certain results may take longer, but are usually received within fourteen days. Your results will be communicated to you in one of two ways; Mailed to you Reviewed with you over the phone If you have any questions about your visit today or your tests, please call us at [phone] Option 4. Please remember the side-effects of cryotherapy including blistering, skin discoloration, infection, non-healing, reoccurrence and rarely scarring. CRYOSURGERY CRYOSURGERY INVOLVES THE USE OF LIQUID NITROGEN TO REMOVE SKIN GROWTHS. LIQUID NITROGEN IS VERY COLD (-196C). WITH IT WE CAN TREAT MANY GROWTHS AND LEAVE VERY LITTLE SCARRING, ALTHOUGH SOMETIMES A LIGHT CHANGE IN PIGMENTATION CAN OCCUR. WHEN LIQUID NITROGEN IS APPLIED, THE SKIN TURNS WHITE AND THEN SLOWLY REDDENS. SOME STINGING OCCURS DURING TREATMENT, BUT SHOULD SUBSIDE WITHIN THE HOUR. THROBBING DISCOMFORT MAY OCCUR A FEW HOURS AFTER THE TREATMENT, TAKING TYLENOL, ELEVATING THE TREATMENT SITE AND THE USE OF COOL WATER COMPRESSES CAN HELP RELIEVE THE DISCOMFORT. A WELT WILL FORM FOLLOWING TREATMENT AND MAY BECOME A BLISTER IN A FEW HOURS. SWELLING MAY OCCUR 24-48 HOURS AFTER CRYOSURGERY. KEEP THE AREA CLEAN POSSIBLE AFTER TREATMENT. PLEASE USE THE FOLLOWING STEPS: 1. CLEAN THE TREATED AREA WITH SOAP AND WATER 1-2 TIME A DAY. 2. IF THE AREAS OPEN OR SCAB PLEASE KEEP THEM MOIST WITH VASELINE AT LEAST TWICE DAILY AND AVOID PICKING THE AREA. IF POSSIBLE, COVER WITH A BANDAID TO PROTECT THE AREA. 3. CALL THE OFFICE IF EVIDENCE OF INFECTION OCCURS. IF YOU MUST BREAK A BLISTER TO RELIEVE PRESSURE, USE A NEEDLE THAT HAS BEEN HEATED WITH A FLAME OR CLEANED WITH ALCOHOL. documented in this encounter [facility] 01-20-2022 History of Present illness Narrative -Last visit 01/05/2022 CC: Chief Complaint Patient presents with Follow-up HPI: Sara Rojo is an 51 y.o. year old female who presents for: FBSE Duration: years Location: Forehead finger neck Associated Symptoms: scattered spots, right inner thigh Severity: mild Modifying factors/treatments tried: cryo Narrative/Interval History: Patient present for spot check General Questions for Skin Cancer Screening Yes No Comments Previous history of Skin Cancer? If yes, see comments [x] [] BCC- right restorationist Previous history of systemic cancers? If yes, see comments [] [x] Family history of skin cancer? [x] [] Dad- SCC Family History of Cancers? If so what types? [] [x] ROS: Constitutional: normal Skin: no other skin complaints PMHx: She has a past medical history of Cat-scratch disease, EBV positive mononucleosis syndrome, H. pylori infection, and Lyme disease. Allergies / Medications / Immunizations: The patient is allergic to ceftin [cefuroxime], corn starch, gluten meal, latex, and penicillins. The patient has a current medication list which includes the following prescription(s): armour thyroid, bioflavonoid products, cyanocobalamin, digestive enzymes, estrogens conjugated, magnesium, multiple minerals, probiotic product, progesterone, propranolol, terbinafine, first-testosterone mc, vitamin d, and vitamin e. Physical Exam: Physical Exam: WD, WN, NAD, A&O x 3. Exam included: A medical program specialist or DOCUMENTATION CONSULTANT was present as scribe and as medical brooch and bracelet maker during this portion of the visit. [x] A full body skin exam was performed including scalp, face, lips, eyelids, neck, back, chest, buttocks, groin, right arm, left arm, right leg, left leg, digits [] A focused waist up exam of scalp, face, lips, eyelids, neck, back, chest, left arm, right arm, and digits performed [] A lymph node exam was performed [] A genital exam was performed [] A focused exam of the following areas was performed: All normal except: Actinic keratoses: Scaly erythmatous rough papules located right scalp, neck. Right cheek Left Second finger - 4mm crusted papule Central neck - 6mm crusted papule Impression/Plan: 1. AK (actinic keratosis) The patient elected treatment with cryotherapy for actinic keratoses. -Verbal informed consent obtained. -Side effects discussed including hypopigmentation, blistering and possible scarring. -Liquid nitrogen x 2 cycles to a total of 2 lesions with use of cryac. -Wound care reviewed. If lesions do not improve, will need to biopsy to r/o SCC 2. Neoplasm of uncertain behavior of skin Neoplasm of Uncertain Behavior [] Shave Removal performed with intent for complete removal. Size documented [x] Tangential Skin Biopsy performed with intent for diagnosis before treatment Skin biopsy x 1after risks, benefits, alternatives discussed. Informed consent obtained. 1. Site: central neck R/o: SCC v. Irritated tag v. Nevus Explained the risk of scarring, bleeding, infection and wound care instructions. Area(s) prepped with alcohol and anesthetized with 1cc intradermal 1% lidocaine with 1:100,000 epinephrine Sterile shave blade used to remove lesion(s) Specimen submitted to pathology Specimen(s) submitted to pathology. <1cc estimated blood loss, procedure well-tolerated Wound covered with aquaphor and bandaid Wound care instructions given 4. Hypertrophic scar v. Verruca finger - Education provided. Treatment options discussed. Treatment today includes cryotherapy. Verbal informed consent obtained. Side effects discussed. -Liquid nitrogen x 2 cycles, 10 sec each to a total of 1lesions with use of cryac. Return if symptoms worsen or fail to improve. Prescriptions written or refilled today include: Requested Prescriptions No prescriptions requested or ordered in this encounter Noemi Jackson LPN, served as a scribe and acted as the medical brooch and bracelet maker for this exam/procedure/test/treatment for this encounter on 01/20/2022 Attestation Below: This exam/procedure/test/treatment was conducted by Dr. Escobedo in the presence of a medical brooch and bracelet maker. I have reviewed and updated the documentation which was scribed and updated it for accuracy. Patience Escobedo MD [facility] documented in this encounter [facility] 01-07-2022 History of Present illness Narrative This encounter was opened in error. Please disregard. documented in this encounter [facility] 01-05-2022 Instructions BAN SIMONS - 01/05/2022 10:56 AM EDT Please remember to arrive at your appointment 15 minutes early for registration. Skin Cancer Prevention 1. Every day, apply a broad spectrum sunscreen SPF 50. Reapply every 2 hours when out in the sun for extended periods of time. 2. If possible, avoid being out in the sun during peak hours of 10am-4pm. 3. Wear protective clothing when out in the sun during sun exposure. Examples include broad-rimmed hats, long sleeved shirts, or pants. You can also purchase clothing with built in sun protection called UPF or ultraviolet protection factor. Many sports store sell clothing with this built in. Some popular brands include [employer], [employer], and [employer]™ which sell a variety of clothing with built in UPF. Sun-protective clothing also may be found at Sporting Goods stores such as [employer]. 4. Wear protective sunglasses while out in the sun. Purchase glasses that block 99 to 100 percent of both UVA and UVB rays. Avoid sunglasses that are labeled "cosmetic" and those that don't offer details on UV protection. 5. Perform monthly self-skin exams. Enlist the help of a friend, family member or partner to check your back. Observe for any new lesions or moles. Watch for changes in color, shape and size. Use the handy reminder of the ABCDEs to identify potentially concerning features of your skin lesions. Look for lesions with: -Asymmetry. The left side looks different than the right. The top is different from the bottom. -Borders. The borders are irregular or resemble a fluffy cloud or a puzzle piece. -Color. The mole has variation of colors including ordoñez, brown, black, blue, red, pink And white. -Diameter. The mole is increasing in size or bigger than 6 mm (approx size of a pencil eraser) -Evolving. If any of your moles are changing in size, shape or color Call your crank hand at to schedule an appointment if you detect a concerning lesion on self skin examination. Also, schedule an appointment for a check if you have any skin lesions that are painful, bleeding, or non-healing. These may be symptoms of non-melanoma skin cancer (squamous cell carcinoma, basal cell carcinoma). 6. If you have a history of melanoma, also examine the glands in your neck, armpits and groin. Your crank hand or oncologist with assist you with identifying the correct areas to examine. 7. Consider taking Vitamin D 3 supplementation of 1000 IU if practicing strict photoprotection. 8. If you have a personal or family history of melanoma, we recommend first degree relatives (your parents, your brothers and sisters and your children) receive a full skin exam by a crank hand. 9. Please remove all makeup and nail equatorial guinean prior to your crank hand appointment. Makeup and nail equatorial guinean can hide skin cancers and we recommend having full body skin exams performed with both completely removed. Please remember the side-effects of cryotherapy including blistering, skin discoloration, infection, non-healing, reoccurrence and rarely scarring. CRYOSURGERY CRYOSURGERY INVOLVES THE USE OF LIQUID NITROGEN TO REMOVE SKIN GROWTHS. LIQUID NITROGEN IS VERY COLD (-196C). WITH IT WE CAN TREAT MANY GROWTHS AND LEAVE VERY LITTLE SCARRING, ALTHOUGH SOMETIMES A LIGHT CHANGE IN PIGMENTATION CAN OCCUR. WHEN LIQUID NITROGEN IS APPLIED, THE SKIN TURNS WHITE AND THEN SLOWLY REDDENS. SOME STINGING OCCURS DURING TREATMENT, BUT SHOULD SUBSIDE WITHIN THE HOUR. THROBBING DISCOMFORT MAY OCCUR A FEW HOURS AFTER THE TREATMENT, TAKING TYLENOL, ELEVATING THE TREATMENT SITE AND THE USE OF COOL WATER COMPRESSES CAN HELP RELIEVE THE DISCOMFORT. A WELT WILL FORM FOLLOWING TREATMENT AND MAY BECOME A BLISTER IN A FEW HOURS. SWELLING MAY OCCUR 24-48 HOURS AFTER CRYOSURGERY. KEEP THE AREA CLEAN POSSIBLE AFTER TREATMENT. PLEASE USE THE FOLLOWING STEPS: 1. CLEAN THE TREATED AREA WITH SOAP AND WATER 1-2 TIME A DAY. 2. IF THE AREAS OPEN OR SCAB PLEASE KEEP THEM MOIST WITH VASELINE AT LEAST TWICE DAILY AND AVOID PICKING THE AREA. IF POSSIBLE, COVER WITH A BANDAID TO PROTECT THE AREA. 3. CALL THE OFFICE IF EVIDENCE OF INFECTION OCCURS. IF YOU MUST BREAK A BLISTER TO RELIEVE PRESSURE, USE A NEEDLE THAT HAS BEEN HEATED WITH A FLAME OR CLEANED WITH ALCOHOL. documented in this encounter [facility] 01-05-2022 History of Present illness Narrative -Last visit 11/24/2021 Dr. Bustamante CC: Chief Complaint Patient presents with Skin Exam FBSE HPI: Sara Rojo is an 51 y.o. year old female who presents for: FBSE Duration: years Location: FBSE Associated Symptoms: scattered spots, right inner thigh Severity: mild Modifying factors/treatments tried: Terbinafine, Ciclopirox Narrative/Interval History: Patient states no new areas she has noticed, but had recent ringworm to right inner thigh. General Questions for Skin Cancer Screening Yes No Comments Previous history of Skin Cancer? If yes, see comments [x] [] BCC- right restorationist Previous history of systemic cancers? If yes, see comments [] [x] Family history of skin cancer? [x] [] Dad- SCC Family History of Cancers? If so what types? [] [x] ROS: Constitutional: normal Skin: no other skin complaints PMHx: She has a past medical history of Cat-scratch disease, EBV positive mononucleosis syndrome, H. pylori infection, and Lyme disease. Allergies / Medications / Immunizations: The patient is allergic to ceftin [cefuroxime], corn starch, gluten meal, latex, and penicillins. The patient has a current medication list which includes the following prescription(s): armour thyroid, bioflavonoid products, cyanocobalamin, digestive enzymes, estrogens conjugated, magnesium, multiple minerals, probiotic product, progesterone, propranolol, terbinafine, vitamin d, vitamin e, and first-testosterone mc. Physical Exam: Physical Exam: WD, WN, NAD, A&O x 3. Exam included: A medical program specialist or DOCUMENTATION CONSULTANT was present as scribe and as medical brooch and bracelet maker during this portion of the visit. [x] A full body skin exam was performed including scalp, face, lips, eyelids, neck, back, chest, buttocks, groin, right arm, left arm, right leg, left leg, digits [] A focused waist up exam of scalp, face, lips, eyelids, neck, back, chest, left arm, right arm, and digits performed [] A lymph node exam was performed [] A genital exam was performed [] A focused exam of the following areas was performed: All normal except: Actinic damage to sun exposed areas Actinic keratoses: Scaly erythmatous rough papules located right medial brow Shiny, thick, woody linear scar located right restorationist- NER Shah angiomas: Bright red dome shaped papule(s) located trunk Scattered over skin surface several brown and ordoñez macules and domed papules- scalp , face , upper and lower extremities and trunk Pedunculated skin colored to brown papule(s) located axilla and neck Hyperpigmented macules/patches located right inner thigh Two 3mm uniform brown macules left dorsal foot Impression/Plan: 1. Skin cancer screening 2. History of basal cell carcinoma (BCC) Stable. Recommend photoprotective measures including SPF, UPF clothing, hats, and sunglasses. Recommend over the counter medication: broad spectrum SPF 50 3. AK (actinic keratosis) right lateral eyebrow above BCC scar Actinic Keratosis: Cryotherapy Note: -Verbal informed consent obtained. -Side effects discussed including hypopigmentation, blistering and possible scarring. -Liquid nitrogen x 2 cycles freeze thaw each to a total of 1 lesions with use of cryac. -Wound care reviewed. If lesions do not improve, will need to biopsy to r/o SCC 4. Scar- NER Well healed. Reassured. No need for further treatment at this time 5. Shah angioma - Explained that lesion is benign. Reassured. 6. Multiple benign melanocytic nevi of upper extremity, lower extremity, and trunk -Lesions today demonstrate reassuring features -Discussed the ABCD's of melanoma (Asymmetry, Border irregulatiry, Color irregulatiry, and Diameter bigger than a pencil eraser) with patient. Patient was encouraged to perform self skin exams, and to followup sooner for new, changing, or worrisome moles. 7. Skin tag -Explained that lesion(s) is/are skin tags. Reassured 8. Dermatitis - right inner thigh - hyperpigmented macules Return in about 6 months (around 07/08/2022) for upper body skin exam. Prescriptions written or refilled today include: Requested Prescriptions No prescriptions requested or ordered in this encounter I, Ban Simons RN, served as a scribe and acted as the medical brooch and bracelet maker for this exam/procedure/test/treatment for this encounter on 01/05/2022 Attestation Below: This exam/procedure/test/treatment was conducted by Dr. Escobedo in the presence of a medical brooch and bracelet maker. I have reviewed and updated the documentation which was scribed and updated it for accuracy. Patience Escobedo MD [facility] documented in this encounter [facility] 12-17-2021 History of Present illness Narrative History of Present Illness Chief Complaint Patient presents with Middle Back - Follow-up Patient presents for OMT. States that she just had a fall and landed on her back down the stairs. Back Pain This is a new problem. The current episode started in the past 7 days ((+) fall). The problem occurs daily. The problem is unchanged. The pain is present in the lumbar spine, sacro-iliac, thoracic spine and gluteal. The quality of the pain is described as aching. The pain is moderate. The symptoms are aggravated by bending, twisting and position. Stiffness is present all day. Pertinent negatives include no bladder incontinence, fever, numbness, paresthesias or tingling. She has tried home exercises for the symptoms. The treatment provided no relief. Review of Systems Constitutional: Negative for chills and fever. Genitourinary: Negative for bladder incontinence. Musculoskeletal: Positive for arthralgias, back pain, myalgias, neck pain and neck stiffness. Neurological: Negative for tingling, numbness and paresthesias. Vitals: not currently . Physical Exam Vitals and nursing note reviewed. Constitutional: Appearance: She is well-developed. HENT: Head: Normocephalic and atraumatic. Eyes: Pupils: Pupils are equal, round, and reactive to light. Musculoskeletal: General: Tenderness present. Cervical back: Normal range of motion and neck supple. Lymphadenopathy: Cervical: No cervical adenopathy. Skin: General: Skin is warm and dry. Findings: No rash. Neurological: Mental Status: She is alert and oriented to person, place, and time. Motor: No abnormal muscle tone. Coordination: Coordination normal. Gait: Gait normal. Deep Tendon Reflexes: Reflexes are normal and symmetric. Reflexes normal. Reflex Scores: Tricep reflexes are 2+ on the right side and 2+ on the left side. Bicep reflexes are 2+ on the right side and 2+ on the left side. Brachioradialis reflexes are 2+ on the right side and 2+ on the left side. Patellar reflexes are 2+ on the right side and 2+ on the left side. Achilles reflexes are 2+ on the right side and 2+ on the left side. Neurological Exam Mental Status Alert. Oriented to person, place, and time. Cranial Nerves CN III, IV, : Pupils equal round and reactive to light bilaterally. Reflexes Deep tendon reflexes are 2+ and symmetric in all four extremities. Right Left Brachioradialis 2+ 2+ Biceps 2+ 2+ Triceps 2+ 2+ Patellar 2+ 2+ Achilles 2+ 2+ Gait Normal gait. Assessment and Plan ICD-10-CM 1. Segmental and somatic dysfunction of cervical region M99.01 [place] OSTEOPATHIC MANIP,1-2 BODY REGN 2. Segmental and somatic dysfunction of thoracic region M99.02 [place] OSTEOPATHIC MANIP,1-2 BODY REGN 3. Segmental and somatic dysfunction of lumbar region M99.03 [place] OSTEOPATHIC MANIP,1-2 BODY REGN 4. Segmental and somatic dysfunction of sacral region M99.04 [place] OSTEOPATHIC MANIP,1-2 BODY REGN OSTEOPATHIC MANIPULATION THERAPY PROCEDURE NOTE Specific Osteopathic findings include: posterior C3, C5 and C6 right and left posteriorT3, T4 and T6 right and left posterior L2-3, L4-5 and L5-S1 right and left Structural Evaluation reveals negative Scoliosis, negative Postural imbalance, and negative Pelvic Side Shift. The right shoulder , inferior angle of the scapula , iliac crest and femoral head heights are equal to corresponding areas on the left. OSTEOPATHIC MANIPULATION THERAPY PROCEDURE NOTE PROCEDURE PERFORMED BY: Dinesh West DO BIOINFORMATICS ANALYST(S): None ATTENDING: Dinesh West DO PROCEDURE DATE: 12/17/2021 PROCEDURE START TIME: 1:39 PM CONSENT: Informed consent was obtained prior to the procedure after discussion of the risks, benefits, and alternatives and expected outcomes were discussed with the patient; consent placed in chart. The possibilities of reaction to medication, pulmonary aspiration, bleeding, infection, the need for additional procedures, failure to diagnosis a condition, and creating a complication requiring transfusion or operation were discussed with the patient. The patient concurred with the proposed plan, giving informed consent. DOES THIS PROCEDURE REQUIRE A UNIVERSAL PROTOCOL? No. Unviersal Protocol is not required for this procedure. ANESTHESIA: None PROCEDURE DETAILS: Decreased intersegmental motion found at the following areas: cervical spine, cervicothoracic spine, lumbar spine, lumbosacral spine, thoracic spine and thoracolumbar spine. Osteopathic manipulation was performed to the above area(s) using high velocity, low amplitude, muscle energy, soft tissue manipulation and myofascial technique. Sara Rojo tolerated the procedure well without complications. Myofascial release technique was performed to the above area(s) for 30 minutes. Sara Rojo tolerated the procedure well without complications. SPECIMEN(S) REMOVED: None DISPOSITION OF SPECIMEN(S): N/A. ESTIMATED FLUIDS: NA. ESTIMATED BLOOD LOSS: None FINDINGS: See findings noted previously. CONDITION: Stable. Patient tolerated procedure well. COMPLICATIONS: None. PLAN: Follow-up prn. documented in this encounter [facility] 12-17-2021 Instructions Dinesh West DO - 12/17/2021 1:30 PM EDT Patient instructed on a stretching, range of motion and flexibility program. Patient was advised on the use of ice, moist heat, and anti-inflammatory medication. Patient instructed on activity modification. Patient was instructed to follow up as directed. If Patient has no signs of improvement or symptoms worsen they are to follow up in 7-10 days. documented in this encounter [facility] 04-09-2021 History of Present illness Narrative Error documented in this encounter [facility] Evaluation note Diagnosis ERRONEOUS ENCOUNTER--DISREGARD- Primary [facility] Diagnosis Segmental and somatic dysfunction of cervical region Nonallopathic lesion of cervical region, not elsewhere classified Segmental and somatic dysfunction of thoracic region Nonallopathic lesion of thoracic region, not elsewhere classified Segmental and somatic dysfunction of lumbar region Nonallopathic lesion of lumbar region, not elsewhere classified Segmental and somatic dysfunction of sacral region Nonallopathic lesion of sacral region, not elsewhere classified [facility] Diagnosis Skin cancer screening- Primary Screening for malignant neoplasm of the skin History of basal cell carcinoma (BCC) AK (actinic keratosis) Actinic keratosis Scar Scar condition and fibrosis of skin Shah angioma Nevus, non-neoplastic Multiple benign melanocytic nevi of upper extremity, lower extremity, and trunk Skin tag Unspecified hypertrophic and atrophic condition of skin Dermatitis Contact dermatitis and other eczema, due to unspecified cause [facility] Diagnosis ERRONEOUS ENCOUNTER--DISREGARD- Primary [facility] Diagnosis AK (actinic keratosis)- Primary Actinic keratosis Neoplasm of uncertain behavior of skin Hypertrophic scar Keloid scar [facility] information available [facility] Work Phone: Evaluation note* Diagnosis Urinary urgency- Primary Urgency of urination Urge urinary incontinence Urge incontinence Vaginal irritation Unspecified noninflammatory disorder of vagina Labial hypertrophy Hypertrophy of labia Urge incontinence Nocturia [facility] Diagnosis Skin cancer screening- Primary Screening for malignant neoplasm of the skin History of basal cell carcinoma (BCC) Shah angioma Nevus, non-neoplastic Multiple benign melanocytic nevi of upper extremity, lower extremity, and trunk Lentigines Other dyschromia SK (seborrheic keratosis) Other seborrheic keratosis Skin tag Unspecified hypertrophic and atrophic condition of skin Intertrigo Other specified erythematous condition [facility] Diagnosis Segmental and somatic dysfunction of thoracic region Nonallopathic lesion of thoracic region, not elsewhere classified Segmental and somatic dysfunction of lumbar region Nonallopathic lesion of lumbar region, not elsewhere classified Segmental and somatic dysfunction of sacral region Nonallopathic lesion of sacral region, not elsewhere classified documented in this encounter [facility]* Diagnosis Pseudomonas urinary tract infection- Primary documented in this encounter [facility] note* Diagnosis Acute infectious disease Unspecified infectious and parasitic diseases Urinary tract infection due to Pseudomonas aeruginosa documented in this encounter [facility] note* Diagnosis Acute infectious disease- Primary Unspecified infectious and parasitic diseases Urinary tract infection due to Pseudomonas aeruginosa documented in this encounter [facility] note* Diagnosis Complicated UTI (urinary tract infection)- Primary Urinary tract infection, site not specified documented in this encounter [facility]* Diagnosis Skin cancer screening- Primary Screening for malignant neoplasm of the skin History of basal cell carcinoma (BCC) Shah angioma Nevus, non-neoplastic Multiple benign melanocytic nevi of upper extremity, lower extremity, and trunk Lentigines Other dyschromia SK (seborrheic keratosis) Other seborrheic keratosis Skin tag Unspecified hypertrophic and atrophic condition of skin Eczema, unspecified type [facility] Diagnosis Urinary urgency- Primary Urgency of urination Complicated UTI (urinary tract infection) Urinary tract infection, site not specified documented [facility]* Diagnosis Tinnitus, bilateral Unspecified tinnitus Cranial somatic dysfunction Cervical somatic dysfunction Thoracic region somatic dysfunction Nonallopathic lesion of thoracic region, not elsewhere classified Lumbar region somatic dysfunction Nonallopathic lesion of lumbar region, not elsewhere classified Sacral region somatic dysfunction Nonallopathic lesion of sacral region, not elsewhere classified Somatic dysfunction of both lower extremities Pelvic somatic dysfunction documented in this encounter [facility]* Diagnosis Neck pain, chronic- Primary Cranial somatic dysfunction Cervical somatic dysfunction Thoracic region somatic dysfunction Nonallopathic lesion of thoracic region, not elsewhere classified Lumbar region somatic dysfunction Nonallopathic lesion of lumbar region, not elsewhere classified Sacral region somatic dysfunction Nonallopathic lesion of sacral region, not elsewhere classified Somatic dysfunction of both lower extremities Pelvic somatic dysfunction documented in this encounter [facility] note* Diagnosis Neck pain, chronic- Primary Cranial somatic dysfunction Cervical somatic dysfunction Thoracic region somatic dysfunction Nonallopathic lesion of thoracic region, not elsewhere classified Rib cage region somatic dysfunction Nonallopathic lesion of rib cage, not elsewhere classified documented in this encounter [facility] note* Diagnosis Intertrigo- Primary Other specified erythematous condition [facility] Diagnosis Dysfunction of both eustachian tubes- Primary Dysfunction of Eustachian tube Recurrent acute otitis media of both ears Unspecified otitis media [facility] Diagnosis Dysfunction of both eustachian tubes- Primary Dysfunction of Eustachian tube Pelvic floor weakness- Primary Other specified genital prolapse Jaw pain Scar Scar condition and fibrosis of skin OAB (overactive bladder) Hypertonicity of bladder Pelvic pressure in female Other specified symptom associated with female genital organs Muscle weakness Muscle weakness (generalized) Pelvic floor dysfunction Pelvic muscle wasting [facility] Diagnosis Angiokeratoma- Primary Benign neoplasm of skin, site unspecified Fibrous papule of nose Benign neoplasm of skin of other and unspecified parts of face Telangiectasia Other and unspecified capillary diseases [facility] Diagnosis Chronic bilateral low back pain with right-sided sciatica- Primary Right leg pain Pain in soft tissues of limb Segmental and somatic dysfunction of thoracic region Segmental and somatic dysfunction of rib cage Segmental and somatic dysfunction of lower extremity Somatic dysfunction of pelvis region Nonallopathic lesion of pelvic region, not elsewhere classified [facility] Diagnosis Chronic bilateral low back pain with right-sided sciatica- Primary Right leg pain Pain in soft tissues of limb Segmental and somatic dysfunction of thoracic region Segmental and somatic dysfunction of rib cage Segmental and somatic dysfunction of lower extremity Somatic dysfunction of pelvis region Nonallopathic lesion of pelvic region, not elsewhere classified [facility] Diagnosis AK (actinic keratosis)- Primary Actinic keratosis [facility] Diagnosis AK (actinic keratosis)- Primary Actinic keratosis Skin cancer screening Screening for malignant neoplasm of the skin Lentigines Other dyschromia Multiple benign nevi Benign neoplasm of skin, site unspecified SK (seborrheic keratosis) Other seborrheic keratosis Shah angioma Nevus, non-neoplastic Skin tag Unspecified hypertrophic and atrophic condition of skin [facility] Diagnosis Chronic bilateral low back pain without sciatica- Primary Right leg pain Pain in soft tissues of limb Somatic dysfunction of spine, cervical Somatic dysfunction of thoracic region Nonallopathic lesion of thoracic region, not elsewhere classified Somatic dysfunction of rib Somatic dysfunction of upper extremity Somatic dysfunction of lumbar region Nonallopathic lesion of lumbar region, not elsewhere classified Somatic dysfunction of lower extremity [facility]* Diagnosis Chronic bilateral low back pain without sciatica- Primary Right leg pain Pain in soft tissues of limb Somatic dysfunction of spine, cervical Somatic dysfunction of thoracic region Nonallopathic lesion of thoracic region, not elsewhere classified Somatic dysfunction of rib Somatic dysfunction of upper extremity Somatic dysfunction of lumbar region Nonallopathic lesion of lumbar region, not elsewhere classified Somatic dysfunction of lower extremity [facility]* Diagnosis Chronic bilateral low back pain without sciatica- Primary Right leg pain Pain in soft tissues of limb Somatic dysfunction of spine, cervical Somatic dysfunction of thoracic region Nonallopathic lesion of thoracic region, not elsewhere classified Somatic dysfunction of rib Somatic dysfunction of upper extremity Somatic dysfunction of lumbar region Nonallopathic lesion of lumbar region, not elsewhere classified Somatic dysfunction of lower extremity Tendinopathy of right gluteal region- Primary Chronic myofascial pain [facility]* Diagnosis Chronic bilateral low back pain without sciatica- Primary Right leg pain Pain in soft tissues of limb Somatic dysfunction of spine, cervical Somatic dysfunction of thoracic region Nonallopathic lesion of thoracic region, not elsewhere classified Somatic dysfunction of rib Somatic dysfunction of upper extremity Somatic dysfunction of lumbar region Nonallopathic lesion of lumbar region, not elsewhere classified Somatic dysfunction of lower extremity Chronic bilateral low back pain without sciatica- Primary Right hip pain Pain in joint, pelvic region and thigh Somatic dysfunction of pelvis region Nonallopathic lesion of pelvic region, not elsewhere classified Somatic dysfunction of lower extremity Somatic dysfunction of abdominal region [facility]* Diagnosis Chronic bilateral low back pain without sciatica- Primary Right leg pain Pain in soft tissues of limb Somatic dysfunction of spine, cervical Somatic dysfunction of thoracic region Nonallopathic lesion of thoracic region, not elsewhere classified Somatic dysfunction of rib Somatic dysfunction of upper extremity Somatic dysfunction of lumbar region Nonallopathic lesion of lumbar region, not elsewhere classified Somatic dysfunction of lower extremity Chronic bilateral low back pain without sciatica- Primary Right hip pain Pain in joint, pelvic region and thigh Somatic dysfunction of pelvis region Nonallopathic lesion of pelvic region, not elsewhere classified Somatic dysfunction of lower extremity Somatic dysfunction of abdominal region [facility] Diagnosis Post-inflammatory hyperpigmentation- Primary Dyschromia, unspecified Inflammatory papule Other specified disorder of skin Milial cyst Sebaceous cyst Rosacea [facility] Diagnosis Neoplasm of uncertain behavior of skin- Primary Open comedone Other acne [facility] Diagnosis Actinic skin damage- Primary Other chronic dermatitis due to solar radiation Multiple pigmented nevi Benign neoplasm of skin, site unspecified Lentigines Other dyschromia Actinic keratosis Dermatofibroma Benign neoplasm of skin, site unspecified Milial cyst Sebaceous cyst Neoplasm of uncertain behavior of skin History of basal cell carcinoma Personal history of other malignant neoplasm of skin [facility] Diagnosis Neoplasm of uncertain behavior of skin- Primary AK (actinic keratosis) Actinic keratosis Rosacea [facility] Attachments The following attachments cannot be sent through Care Everywhere. * Gluteal Strain: Rehab Exercises (Chilean) * Snapping Hip Syndrome: Exercises (Chilean) [facility]* Attachments The following attachments cannot be sent through Care Everywhere. * Gluteal Strain: Rehab Exercises (Chilean) * Snapping Hip Syndrome: Exercises (Chilean) documented in this encounter[facility]HealthReason for referral (narrative)* Consultation (Routine) - New Request Specialty Diagnoses / Procedures Referred By Contac t Referred To Contact Infectious Diseases Diagnoses Complicated UTI (urinary tract infection) Pavithra Chapin MD [address] [place] [id number] Referral ID Status Reason Start Date Expiration Date V isits Requested Visits Authorized [id number] New Request 07/05/2023 07/29/[address] [facility] for referral (narrative)* Consultation (Routine) - New Request Specialty Diagnoses / Procedures Referred By Contaminta t Referred To Contact Infectious Diseases Diagnoses Complicated UTI (urinary tract infection) Pavithra Chapin MD [address] [place] [phone] Referral ID Status Reason Start Date Expiration Date V isits Requested Visits Authorized [id number] New Request 11/04/2023 11/28/2024 1 1 [facility] Discharge Instructions * Trang Snyder MD - 02/16/2018 Formatting of this note may be different from the original. Palpitations: Care Instructions Your Care Instructions Heart palpitations are the uncomfortable sensation that your heart is beating fast or irregularly. You might feel pounding or fluttering in your chest. It might feel like your heart is skipping a beat. Although palpitations may be caused by a heart problem, they also occur because of stress, fatigue,or use of alcohol, caffeine, or nicotine. Many medicines, including diet pills, antihistamines, decongestants, and some herbal products, can cause heart palpitations. Nearly everyone has palpitationsfrom time to time. Depending on your symptoms, your doctor may need to do more tests to try to find the cause of your palpitations. Follow-up care is a sumner part of your treatment and safety. Be sure to make and go to all appointments, and call your doctor if you are having problems. It's also a good idea to know your test resultsand keep a list of the medicines you take. How can you care for yourself at home? Avoid caffeine, nicotine, and excess alcohol. Do not take illegal drugs, such as methamphetamines and cocaine. Do not take weight loss or diet medicines unless you talk with your doctor first. Get plenty of sleep. Do not overeat. If you have palpitations again, take deep breaths and try to relax. This may slow a racing heart. If you start to feel lightheaded, lie down to avoid injuries that might result if you pass out and fall down. Keep a record of your palpitations and bring it to your next doctor's appointment. Write down: The date and time. Your pulse. (If your heart is beating fast, it may be hard to count your pulse.) What you were doing when the palpitations started. How long the palpitations lasted. Any other symptoms. If an activity causes palpitations, slow down or stop. Talk to your doctor before you do that activity again. Take your medicines exactly as prescribed. Call your doctor if you think you are having a problem with your medicine. When should you call for help? Call 911 anytime you think you may need emergency care. For example, call if: ? You passed out (lost consciousness). ? You have symptoms of a heart attack. These may include: Chest pain or pressure, or a strange feeling in the chest. Sweating. Shortness of breath. Pain, pressure, or a strange feeling in the back, neck, jaw, or upper belly or in one or both shoulders or arms. Lightheadedness or sudden weakness. A fast or irregular heartbeat. After you call 911, the hard rock drill operator may tell you to chew 1 adult-strength or 2 to 4 low-dose aspirin. Wait for an ambulance. Do not try to drive yourself. ? You have symptoms of a stroke. These may include: Sudden numbness, tingling, weakness, or loss of movement in your face, arm, or leg, especially on only one side of your body. Sudden vision changes. Sudden trouble speaking. Sudden confusion or trouble understanding simple statements. Sudden problems with walking or balance. A sudden, severe headache that is different from past headaches. ?Call your doctor now or seek immediate medical care if: ? You have heart palpitations and: Are dizzy or lightheaded, or you feel like you may faint. Have new or increased shortness of breath. ?Watch closely for changes in your health, and be sure to contact your doctor if: ? You continue to have heart palpitations. Where can you learn more? Log into your personal health record on https://[employer] and enter R508 in the "Education" box to learn more about "Palpitations: Care Instructions." Current as of: August 10, 2017 Content Version: .[id number] [employer]. Care instructions adapted under license by your healthcare professional. If you have questions about a medical condition or this instruction, always ask your healthcare professional. [employer] disclaims any warranty or liability for your use of this information. in this encounter* Ramón Newman, DO - 04/07/2018 Formatting of this note may be different from the original. Dehydration: Care Instructions Your Care Instructions Dehydration happens when your body loses too much fluid. This might happen when you do not drink enough water or you lose large amounts of fluids from your body because of diarrhea, vomiting, or sweating. Severe dehydration can be life-threatening. Water and minerals called electrolytes help put your body fluids back in balance. Learn the early signs of fluid loss, and drink more fluids to prevent dehydration. Follow-up care is a sumner part of your treatment and safety. Be sure to make and go to all appointments, and call your doctor if you are having problems. It's also a good idea to know your test resultsand keep a list of the medicines you take. How can you care for yourself at home? To prevent dehydration, drink plenty of fluids, enough so that your urine is light yellow or clear like water. Choose water and other caffeine-free clear liquids until you feel better. If you have kidney, heart, or liver disease and have to limit fluids, talk with your doctor before you increase the amount of fluids you drink. If you do not feel like eating or drinking, try taking small sips of water, sports drinks, or otherrehydration drinks. Get plenty of rest. To prevent dehydration Add more fluids to your diet and daily routine, unless your doctor has told you not to. During hot weather, drink more fluids. Drink even more fluids if you exercise a lot. Stay away fromdrinks with alcohol or caffeine. Watch for the symptoms of dehydration. These include: A dry, sticky mouth. Dark yellow urine, and not much of it. Dry and sunken eyes. Feeling very tired. Learn what problems can lead to dehydration. These include: Diarrhea, fever, and vomiting. Any illness with a fever, such as pneumonia or the flu. Activities that cause heavy sweating, such as endurance races and heavy outdoor work in hot or humid weather. Alcohol or drug abuse or withdrawal. Certain medicines, such as cold and allergy pills (antihistamines), diet pills (diuretics), and laxatives. Certain diseases, such as diabetes, cancer, and heart or kidney disease. When should you call for help? Call 911 anytime you think you may need emergency care. For example, call if: ? You passed out (lost consciousness). ?Call your doctor now or seek immediate medical care if: ? You are confused and cannot think clearly. ? You are dizzy or lightheaded, or you feel like you may faint. ? You have signs of needing more fluids. You have sunken eyes and a dry mouth, and you pass only a little dark urine. ? You cannot keep fluids down. ?Watch closely for changes in your health, and be sure to contact your doctor if: ? You are not making tears. ? Your skin is very dry and sags slowly back into place after you pinch it. ? Your mouth and eyes are very dry. Where can you learn more? Log into your personal health record on https://[employer] and enter Q814 in the "Education" box to learn more about "Dehydration: Care Instructions." Current as of: July 25, 2017 Content Version: .20050629-6079 [employer]imb[employer]. Care instructions adapted under license by your healthcare professional. If you have questions about a medical condition or this instruction, always ask your healthcare professional. [employer] disclaims any warranty or liability for your use of this information. The following attachments cannot be sent through [employer] Everywhere. * Medication Side Effects (Chilean) in this encounter* Duane Higgins MD - 04/09/2018 Formatting of this note may be different from the original. Palpitations: Care Instructions Your Care Instructions Heart palpitations are the uncomfortable sensation that your heart is beating fast or irregularly. You might feel pounding or fluttering in your chest. It might feel like your heart is skipping a beat. Although palpitations may be caused by a heart problem, they also occur because of stress, fatigue,or use of alcohol, caffeine, or nicotine. Many medicines, including diet pills, antihistamines, decongestants, and some herbal products, can cause heart palpitations. Nearly everyone has palpitationsfrom time to time. Depending on your symptoms, your doctor may need to do more tests to try to find the cause of your palpitations. Follow-up care is a sumner part of your treatment and safety. Be sure to make and go to all appointments, and call your doctor if you are having problems. It's also a good idea to know your test resultsand keep a list of the medicines you take. How can you care for yourself at home? Avoid caffeine, nicotine, and excess alcohol. Do not take illegal drugs, such as methamphetamines and cocaine. Do not take weight loss or diet medicines unless you talk with your doctor first. Get plenty of sleep. Do not overeat. If you have palpitations again, take deep breaths and try to relax. This may slow a racing heart. If you start to feel lightheaded, lie down to avoid injuries that might result if you pass out and fall down. Keep a record of your palpitations and bring it to your next doctor's appointment. Write down: The date and time. Your pulse. (If your heart is beating fast, it may be hard to count your pulse.) What you were doing when the palpitations started. How long the palpitations lasted. Any other symptoms. If an activity causes palpitations, slow down or stop. Talk to your doctor before you do that activity again. Take your medicines exactly as prescribed. Call your doctor if you think you are having a problem with your medicine. When should you call for help? Call 911 anytime you think you may need emergency care. For example, call if: ? You passed out (lost consciousness). ? You have symptoms of a heart attack. These may include: Chest pain or pressure, or a strange feeling in the chest. Sweating. Shortness of breath. Pain, pressure, or a strange feeling in the back, neck, jaw, or upper belly or in one or both shoulders or arms. Lightheadedness or sudden weakness. A fast or irregular heartbeat. After you call 911, the hard rock drill operator may tell you to chew 1 adult-strength or 2 to 4 low-dose aspirin. Wait for an ambulance. Do not try to drive yourself. ? You have symptoms of a stroke. These may include: Sudden numbness, tingling, weakness, or loss of movement in your face, arm, or leg, especially on only one side of your body. Sudden vision changes. Sudden trouble speaking. Sudden confusion or trouble understanding simple statements. Sudden problems with walking or balance. A sudden, severe headache that is different from past headaches. ?Call your doctor now or seek immediate medical care if: ? You have heart palpitations and: Are dizzy or lightheaded, or you feel like you may faint. Have new or increased shortness of breath. ?Watch closely for changes in your health, and be sure to contact your doctor if: ? You continue to have heart palpitations. Where can you learn more? Log into your personal health record on [email or web address]://[employer] and enter R508 in the "Education" box to learn more about "Palpitations: Care Instructions." Current as of: August 10, 2017 Content Version: 07.11 Vimbly. Care instructions adapted under license by your healthcare professional. If you have questions about a medical condition or this instruction, always ask your healthcare professional. [employer] disclaims any warranty or liability for your use of this information. in this encounter* Luis Alfredo Lemus, DO - 05/14/2018 Formatting of this note may be different from the original. Fatigue: Care Instructions Your Care Instructions Fatigue is a feeling of tiredness, exhaustion, or lack of energy. You may feel fatigue because of too much or not enough activity. It can also come from stress, lack of sleep, boredom, and poor diet.Many medical problems, such as viral infections, can cause fatigue. Emotional problems, especially depression, are often the cause of fatigue. Fatigue is most often a symptom of another problem. Treatment for fatigue depends on the cause. Forexample, if you have fatigue because you have a certain health problem, treating this problem also treats your fatigue. If depression or anxiety is the cause, treatment may help. Follow-up care is a sumner part of your treatment and safety. Be sure to make and go to all appointments, and call your doctor if you are having problems. It's also a good idea to know your test resultsand keep a list of the medicines you take. How can you care for yourself at home? Get regular exercise. But don't overdo it. Go back and forth between rest and exercise. Get plenty of rest. Eat a healthy diet. Do not skip meals, especially breakfast. Reduce your use of caffeine, tobacco, and alcohol. Caffeine is most often found in coffee, tea, cola drinks, and chocolate. Limit medicines that can cause fatigue. This includes tranquilizers and cold and allergy medicines. When should you call for help? Watch closely for changes in your health, and be sure to contact your doctor if: ? You have new symptoms such as fever or a rash. ? Your fatigue gets worse. ? You have been feeling down, depressed, or hopeless. Or you may have lost interest in things that you usually enjoy. ? You are not getting better as expected. Where can you learn more? Log into your personal health record on [email or web address] and enter W864 in the "Education" box to learn more about "Fatigue: Care Instructions." Current as of: July 25, 2017 Content Version: 11.6 5023-0520 Vimbly. Care instructions adapted under license by your healthcare professional. If you have questions about a medical condition or this instruction, always ask your healthcare professional. [employer] disclaims any warranty or liability for your use of this information. Weakness: Care Instructions Your Care Instructions Weakness is a lack of physical or muscle strength. You may feel that you need to make extra effort to move your arms, legs, or other muscles. Generalized weakness means that you feel weak in most areas of your body. Another type of weakness may affect just one muscle or group of muscles. You may feel weak and tired after you have done too much activity, such as taking an extra-long hike. This is not a serious problem. It often goes away on its own. Feeling weak can also be caused by medical conditions like thyroid problems, depression, or a virus. Sometimes the cause can be serious. Your doctor may want to do more tests to try to find the causeof the weakness. The doctor has checked you carefully, but problems can develop later. If you notice any problems ornew symptoms, get medical treatment right away. Follow-up care is a sumner part of your treatment and safety. Be sure to make and go to all appointments, and call your doctor if you are having problems. It's also a good idea to know your test resultsand keep a list of the medicines you take. How can you care for yourself at home? Rest when you feel tired. Be safe with medicines. If your doctor prescribed medicine, take it exactly as prescribed. Call your doctor if you think you are having a problem with your medicine. You will get more details on the specific medicines your doctor prescribes. Do not skip meals. Eating a balanced diet may increase your energy level. Get some physical activity every day, but do not get too tired. When should you call for help? Call your doctor now or seek immediate medical care if: ? You have new or worse weakness. ? You are dizzy or lightheaded, or you feel like you may faint. ?Watch closely for changes in your health, and be sure to contact your doctor if: ? You do not get better as expected. Where can you learn more? Log into your personal health record on [email or web address] and enter V492 in the "Education" box to learn more about "Weakness: Care Instructions." Current as of: July 25, 2017 Content Version: 11.20055047-9237 [employer]imb[employer]. Care instructions adapted under license by your healthcare professional. If you have questions about a medical condition or this instruction, always ask your healthcare professional. [employer] disclaims any warranty or liability for your use of this information. in this encounter* Attachments The following attachments cannot be sent through Care Everywhere. * Armin's Syndrome (Chilean) * Insomnia (Chilean) documented in this encounter Assessments Diagnosis Palpitations - Primary Diagnosis Palpitations - Primary Dehydration Diagnosis Palpitations - Primary Adverse effect of drug, init ial encounter Diagnosis Weakness - Primary Other malaise and fatigue Fatigue, unspecified type Diagnosis Cushingoid side effect of steroids (HCC) Insomnia, unspecified type Summary Purpose Family History No Family History Records FoundNo Family History Records FoundNo Family History Records FoundNo Family History Records FoundNo Family History Records FoundNo Family History Records FoundNo Family History Records FoundNo Family History Records FoundNo Family History Records FoundNo Family History Records FoundNo Family History Records FoundNo Family History Records Found Advance Directives No Advanced Directives Records FoundDocuments on File Type Date Recorded 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 Advance Directives and Livin g Will 01/31/2020 2:00 PM Chief Complaint and Reason for Visit Chief Complaint SEE ORDER Reason for Referral Specialty Diagnoses / Procedures Referred By Michael hector Referred To Contact Physical Therapy Diagnoses Urge urinary incontinence Pavithra Chapin MD [address] [place] [address] Referral ID Status Reason Start Date Expiration Date V isits Requested Visits Authorized [id number] New Request 06/29/2022 07/24/2023 1 1 Scheduling Instructions [facility] [address] [place] [address] Fax [facility] the [facility] (Neck [facility]) [address], [place] [address] [phone] FAX [facility] [address] [place] [address] FAX [facility] [place] [address] [place] [address] FAX [facility] [address] [place] [address] [phone] FAX [facility] the [facility] [address], [place] [address] FAX [facility] [address] [place], [place] [address] FAX Continued on next page [facility] [address] [place] [address] FAX [facility] [address] [facility], [address] [place] [address] [phone] FAX Additional Source Comments ED Notes - Ed Palafox RN - 02/16/2018 11:40 PM EDTED Procedure Note - Trang Snyder MD - 02/16/2018 10:19 PM EDTED Notes - Bandar Sanchez - 02/16/2018 9:22 PM EDT Miscellaneous Notes (unrecog nized section and content) Patient discharged out of ED to home in no apparent distress. Pt ambulatory with steady gait after declining wheelchair. Pt is alert and oriented x 4, respirations even and unlabored, skin is pink/warm/dry. No additional needs or concerns at this time. Associated Order(s): ECG 12-LEAD EKG 12-lead Date/Time: 02/16/2018 10:19 PM Performed by: TRANG SNYDER Authorized by: TRANG SNYDER Interpreted by ED attending physician Comparison: not compared with previous ECG Previous ECG: no previous ECG available Rhythm: sinus rhythm BPM: 96 Conduction: conduction normal ST Segments: ST segments normal QRS axis: normal T Waves: T waves normal NH Interval: 156 QRS Interval: 88 QT Interval: 467 Clinical impression: normal ECG Formatting of this note may be different from the original. PCP: Jericho Hair MD Chief Complaint Patient presents with Shortness of Breath Palpitations HPI: Ms Rojo is a 47-year-old female who presents to the ER today feeling palpitations and feeling at times her heart is been racing since she donated blood this afternoon. She reports she feels short of breath palpitations but does not feel any discomfort with exertion or activity. She has no pleuritic pain, no nausea or diaphoresis with activity or rest either. She relates that she has a history of iron deficiency anemia, gets iron transfusions from her physician, and was told that they did not donate after she already had donated. Denies ever doing any blood previously. She been feeling fine up until today started having symptoms this afternoon and tonight. Appears well-appearing no acute distress denies other symptoms except as above. REVIEW OF SYSTEMS: Review of Systems Constitutional: Negative for chills and fever. Eyes: Negative for visual disturbance. Respiratory: Positive for shortness of breath. Negative for cough, choking and chest tightness. Cardiovascular: Positive for palpitations. Negative for chest pain and leg swelling. Gastrointestinal: Negative for abdominal pain, nausea and vomiting. Genitourinary: Negative for decreased urine volume. Musculoskeletal: Negative for arthralgias, back pain, myalgias, neck pain and neck stiffness. Skin: Negative for color change, pallor, rash and wound. Neurological: Negative for dizziness, weakness, light-headedness, numbness and headaches. Hematological: Negative for adenopathy. Does not bruise/bleed easily. Psychiatric/Behavioral: Negative for confusion. All other systems reviewed and are negative. Past Medical History: Past Medical History: Diagnosis Date Disease of thyroid gland Lyme disease Past medical history reviewed. Past Surgical History: Past Surgical History: Procedure Laterality Date SECTION CHOLECYSTECTOMY Past surgical history reviewed. Family History: History reviewed. No pertinent family history. Family history reviewed. Social History: Social History Social History Marital status: Spouse name: N/A Number of children: N/A Years of education: N/A Occupational History Not on file. Social History Main Topics Smoking status: Never Smoker Smokeless tobacco: Never Used Alcohol use No Drug use: No Sexual activity: Not on file Other Topics Concern Not on file Social History Narrative No narrative on file Social history reviewed. Allergies: Allergies Allergen Reactions Amoxicillin Ceftin [Cefuroxime Axetil] Dairy Aid [Lactase] Gluten Peanut Medications: Sara Rojo Home Medication Instructions Prior to Surgery [id number]:[id number] Printed on:02/16/18 Medication Information Take last dose on Take the morning of surgery Comment(s) amoxicillin (AMOXIL) 500 MG capsule Take 500 mg by mouth 3 (three) times a day. azithromycin (ZITHROMAX) 500 MG tablet Take 500 mg by mouth 2 (two) times a day. esomeprazole (NEXIUM) 20 MG capsule Take 20 mg by mouth every morning before breakfast ReasonsHeartburn METFORMIN HCL (METFORMIN ORAL) Take 1,000 mg by mouth 2 (two) times a day . NYSTATIN ORAL Take 2 tablets by mouth 2 (two) times a day . progesterone (PROMETRIUM) 100 MG capsule Take 100 mg by mouth nightly. rifaximin (XIFAXAN) 200 mg tablet Take 200 mg by mouth 3 (three) times a day THYROID ORAL Take 180 mg by mouth daily WP Thyroid- T3 /T4 Combo. valACYclovir (VALTREX) 1000 MG tablet Take 1,000 mg by mouth 2 (two) times a day. PHYSICAL EXAMINATION: Vital Signs BP 123/80 (BP Location: Right arm, Patient Position: Sitting) Pulse 97 Temp 98.3 F (36.8 C ) (Oral) Resp (!) 20 Ht 5' 4" Wt 99.8 kg (220 lb) SpO2 100% BMI 37.76 kg/m Physical Exam Constitutional: She is oriented to person, place, and time. She appears well-developed. No distress. HENT: Head: Normocephalic. Mouth/Throat: Oropharynx is clear and moist. No oropharyngeal exudate. Eyes: Pupils are equal, round, and reactive to light. No scleral icterus. Neck: Normal range of motion. No JVD present. Cardiovascular: Normal rate, regular rhythm, normal heart sounds and intact distal pulses. Exam reveals no gallop and no friction rub. No murmur heard. Pulmonary/Chest: Effort normal and breath sounds normal. No respiratory distress. She has no wheezes. She exhibits no tenderness. Abdominal: Soft. Bowel sounds are normal. She exhibits no distension. There is no tenderness. Musculoskeletal: Normal range of motion. She exhibits no edema or tenderness. Lymphadenopathy: She has no cervical adenopathy. Neurological: She is alert and oriented to person, place, and time. She has normal reflexes. She exhibits normal muscle tone. Skin: Skin is warm. Capillary refill takes less than 2 seconds. No rash noted. No erythema. No pallor. Nursing note and vitals reviewed. Vital Signs During ED Visit (as charted by nursing) Patient Vitals for the past 24 hrs: BP Temp Temp src Pulse Resp SpO2 Height Weight 02/16/18 2230 110/71 - - 87 17 98 % - - 02/16/18 2200 119/73 - - 92 (!) 19 96 % - - 02/16/18 2145 117/89 - - 87 12 98 % - - 02/16/18 2120 - - - 97 - - - - 02/16/18 2058 123/80 98.3 F (36.8 C ) Oral (!) 108 (!) 20 100 % 5' 4" 99.8 kg (220 lb) MEDICAL DECISION MAKING: Ms Rojo, update: EKG unremarkable, labs normal at this time as well as chest x-ray. She was sinus rhythm on monitor improved with IV fluids down to 80 at discharge, she is feeling much improved. Outpatient follow-up recommended primary care as well as with cardiology for outpatient Holter and possible echo. If she develops any chest pain pressure tightness with exertion or activity or that does not occur after donating blood or plasma the return ED for evaluation further workup. She is stable, astigmatic at time of discharge. IMPRESSION: SNOMED CT(R) 1. Palpitations PALPITATIONS DIAGNOSTICS: Laboratory (if any, during ED visit): Labs Reviewed BASIC METABOLIC PANEL - Abnormal; Notable for the following: Result Value Glucose 108 (*) All other components within normal limits Narrative: The eGFR should be used for monitoring renal function only and not for medication dosing. TROPONIN - Normal MAGNESIUM LEVEL - Normal CBC AND DIFFERENTIAL Narrative: The following orders were created for panel order CBC w/ Diff. Procedure Abnormality Status --------- ------ CBC Auto Differential[[id number]] Final result Please view results for these tests on the individual orders. RAINBOW DRAW Narrative: The following orders were created for panel order Renner Draw. Procedure Abnormality Status --------- ------ Lavender Top[[id number]] In process Mint Green Top[[id number]] In process Gold Top[[id number]] In process Light Blue Top[[id number]] In process Byrd Top[[id number]] In process Reasnor Top[[id number]] In process Please view results for these tests on the individual orders. LAVENDER TOP MINT GREEN TOP GOLD TOP LIGHT BLUE TOP BYRD TOP PINK TOP CBC WITH AUTO DIFFERENTIAL RADIOGRAPHIC IMAGING (if any, during ED visit): XR Chest AP/PA and LAT Final Result Negative chest x-rays. [facility]/[employer]aitments Workstation ID: [id number] MEDICATIONS ORDERED/GIVEN (if any, during ED visit): Medications sodium chloride (PF) (NS) flush 5 mL (not administered) sodium chloride 0.9% (NS) bolus 1,000 mL (1,000 mL Intravenous New Bag 02/16/18 3203) New Prescriptions No medications on file Trang Snyder MD 02/16/18 0960 This medic attempted IV access x2, unsuccessfully, (1 attempt in L AC, 1 attempt in R AC) MYLES Palafox notified. Pt reports heart palpitations since 130 this afternoon when she donated blood. Pt states "my heart feels like it has been racing all day". Pt denies chest pain. Reports shortness of breath with palpitations. Denies pain on inspiration. Denies nausea / vomiting. Denies history of heart problems.in this encounter Formatting of this note may be different from the original. ED PROVIDER NOTE [facility] EMERGENCY DEPARTMENT NAME: Sara Rojo AGE: 48 y.o. : 1970 VISIT DATE: 04/07/2018 CSN: [id number] PCP: Jericho Hair MD Chief Complaint Patient presents with Medication Reaction HPI 48-year-old female to the emergency department for evaluation of racing heart restlessness dizziness and feeling flushed. Patient states that she takes iron infusions and had an iron infusion this week and states that since then she has been feeling like her heart is racing that she is feeling very jittery anxious and flushed. She states that the heart is beating fast but not irregular. No chest pain with it or shortness of breath. No abdominal pain but she has had nausea. Patient states his been trying to take herbal supplements to calm herself down but it has not been effective. Past Medical History: Diagnosis Date Disease of thyroid gland Lyme disease Past Surgical History: Procedure Laterality Date SECTION CHOLECYSTECTOMY History reviewed. No pertinent family history. Social History Social History Marital status: Spouse name: N/A Number of children: N/A Years of education: N/A Occupational History Not on file. Social History Main Topics Smoking status: Never Smoker Smokeless tobacco: Never Used Alcohol use No Drug use: No Sexual activity: Not on file Other Topics Concern Not on file Social History Narrative No narrative on file Previous Medications AMOXICILLIN (AMOXIL) 500 MG CAPSULE Take 500 mg by mouth 3 (three) times a day. AZITHROMYCIN (ZITHROMAX) 500 MG TABLET Take 500 mg by mouth 2 (two) times a day. ESOMEPRAZOLE (NEXIUM) 20 MG CAPSULE Take 20 mg by mouth every morning before breakfast ReasonsHeartburn METFORMIN HCL (METFORMIN ORAL) Take 1,000 mg by mouth 2 (two) times a day . NYSTATIN ORAL Take 2 tablets by mouth 2 (two) times a day . PROGESTERONE (PROMETRIUM) 100 MG CAPSULE Take 100 mg by mouth nightly. RIFAXIMIN (XIFAXAN) 200 MG TABLET Take 200 mg by mouth 3 (three) times a day THYROID ORAL Take 180 mg by mouth daily WP Thyroid- T3 /T4 Combo. VALACYCLOVIR (VALTREX) 1000 MG TABLET Take 1,000 mg by mouth 2 (two) times a day. Allergies Allergen Reactions Amoxicillin Ceftin [Cefuroxime Axetil] Dairy Aid [Lactase] Gluten Peanut Review of Systems Constitutional: Negative for unexpected weight change. HENT: Negative for voice change. Eyes: Negative for itching. Respiratory: Negative for choking. Gastrointestinal: Negative for rectal pain. Endocrine: Negative for polyphagia. Skin: Negative for color change. Allergic/Immunologic: Negative for immunocompromised state. Neurological: Negative for facial asymmetry. Hematological: Does not bruise/bleed easily. Psychiatric/Behavioral: Negative for self-injury. Patient Vitals for the past 24 hrs: BP Temp Temp src Pulse Resp SpO2 Height Weight 04/07/18 1448 (!) 154/86 - - 88 16 99 % - - 04/07/18 1104 127/73 99.3 F (37.4 C ) Oral 88 16 99 % 5' 4" 99.8 kg (220 lb) Physical Exam Constitutional: She is oriented to person, place, and time. She appears well-developed and well-nourished. HENT: Head: Normocephalic and atraumatic. Mouth/Throat: Oropharynx is clear and moist. Eyes: Conjunctivae and EOM are normal. Neck: Normal range of motion. Neck supple. Cardiovascular: Normal rate and regular rhythm. No murmur heard. Pulmonary/Chest: Effort normal and breath sounds normal. No respiratory distress. Abdominal: Soft. Bowel sounds are normal. She exhibits no distension. Musculoskeletal: Normal range of motion. She exhibits no edema. Neurological: She is alert and oriented to person, place, and time. Skin: Skin is warm. Psychiatric: She has a normal mood and affect. Her behavior is normal. Laboratory & Radiographic Imaging (if done): Results for orders placed or performed during the hospital encounter of 04/07/18 Lavender Top Result Value Ref Range Extra Tube Hold for add-ons. Mint Green Top Result Value Ref Range Extra Tube Hold for add-ons. Gold Top Result Value Ref Range Extra Tube Hold for add-ons. Light Blue Top Result Value Ref Range Extra Tube Hold for add-ons. Byrd Top Result Value Ref Range Extra Tube Hold for add-ons. Comprehensive Metabolic Panel Result Value Ref Range Sodium 143 135 - 145 mmol/L Potassium 5.0 3.5 - 5.1 mmol/L Chloride 103 98 - 108 mmol/L Bicarbonate 28 21 - 32 mmol/L Anion Gap 17 10 - 20 mmol/L Glucose 103 (H) 65 - 99 mg/dL BUN 12 8 - 25 mg/dL Creatinine 0.59 0.40 - 1.10 mg/dL eGFR 110 >=60 mL/min/1.73 m2 BUN/Creatinine Ratio 20.3 (H) 10.0 - 20.0 Total Protein 7.7 6.0 - 8.0 g/dL Albumin 4.6 3.2 - 5.2 g/dL Calcium 9.9 8.4 - 10.2 mg/dL Alkaline Phosphatase 72 40 - 150 U/L AST 32 0 - 45 U/L ALT 46 (H) 0 - 40 U/L Total Bilirubin 0.3 0.0 - 1.3 mg/dL Lactic Acid, Plasma Result Value Ref Range Lactic Acid 3.4 (H) 0.6 - 2.0 mmol/L Repeat Lactate (in 4 hours) Result Value Ref Range Lactic Acid 0.7 0.6 - 2.0 mmol/L EKG 12-lead Result Value Ref Range Ventricular Rate 89 BPM Atrial Rate 89 BPM P-R Interval 170 ms QRS Duration 92 ms Q-T Interval 392 ms QTC Calculation (Bezet) 476 ms P [place] 56 degrees R [place] -14 degrees T [place] 23 degrees CBC Auto Differential Result Value Ref Range WBC 6.90 4.50 - 11.00 K/mcL RBC 4.48 4.00 - 5.20 M/mcL Hemoglobin 14.0 12.0 - 16.0 g/dL Hematocrit 41.9 36.0 - 46.0 % MCV 93.5 80.0 - 100.0 fL MCH 31.3 26.0 - 34.0 pg MCHC 33.4 31.0 - 37.0 g/dL Platelets 280 150 - 400 K/mcL RDW - CV 11.9 11.6 - 14.8 % MPV 10.3 9.0 - 15.5 fL Neutrophils 71.2 % Lymphocytes 22.0 % Monocytes 4.5 % Eosinophils 1.0 % Basophils 0.9 % IG Percent 0.40 % Neutrophils Abs 4.91 1.70 - 7.00 K/mcL Lymphocytes Abs 1.52 0.90 - 4.00 K/mcL Monocytes Abs 0.31 0.30 - 0.90 K/mcL Eosinophils Abs 0.07 0.00 - 0.50 K/mcL Basophils Abs 0.06 0.00 - 0.30 K/mcL IG Absolute 0.03 0.00 - 0.30 K/mcL Nucleated RBC 0.0 % Nucleated RBC Abs 0.00 0.00 - 0.00 K/mcL No orders to display Procedures MDM Patient's initial lactate was elevated at 3.4 after treatment here with fluids she appeared symptomatically better and her repeat lactate was 0.7. Remainder of her laboratory workup was unremarkable. Patient will be asked to follow-up with her primary care physician next week. She has requested something to help with anxiety and to give her a she small prescription of 10 tablets of Vistaril. The patient has been informed that they may have pre-hypertension or hypertension based on a blood pressure reading in the Emergency Department. I recommend that the patient call the primary care provider listed on their discharge instructions or a physician of their choice as soon as possible to arrange follow-up in the next 4 weeks for further evaluation of possible pre-hypertension or hypertension. . Clinical Impression: SNOMED CT(R) 1. Palpitations PALPITATIONS 2. Dehydration DEHYDRATION ED Disposition ED Disposition Condition Comment Discharge Sara Rojo discharged to home/self care in stable condition. Follow-up Information 1. Jericho Hair MD. Specialties: Internal Medicine, Sports Medicine [address] [place] [address] [address] [address] Contact information for after-discharge care Follow-up information has not been specified. New Prescriptions HYDROXYZINE (VISTARIL) 25 MG CAPSULE Take 1 (one) capsule (25 mg total) by mouth 3 (three) times a day as needed for anxiety. Ramón Newman, DO 04/07/18 6140 Pt admits to this RN that she has been inconsistent at taking her metformin at times. Pt states she has been either forgetting or splitting or doubling up on her medication. Educated the patient that she needed to be consistent in taking her meds Pt presents with c/c of racing heart, anxiety, dizziness, and flushing. Patient states that she takes iron infusions and is feeling like when her iron is high, she has had these symptoms in the past. Patient states inability to sleep due to the anxiety. Patient has been having these symptoms since the infusion yesterday afternoon. Patient has taken herbal supplements to calm self.in this encounter Formatting of this note may be different from the original. ED PROVIDER NOTE [facility] EMERGENCY DEPARTMENT NAME: Sara Rojo AGE: 48 y.o. : 1970 VISIT DATE: 04/09/2018 CSN: [id number] PCP: Jericho Hair MD Chief Complaint Patient presents with Palpitations HPI Patient is a 48-year-old who presents emergency department with multiple complaints. Patient was recently evaluated at [facility] emergency department where she had blood work obtained was noted to be dehydrated. She received IV fluids at that time. Patient states that she has chronic underlying Kevin-Wallace virus and normally takes Valtrex for this. She was prescribed acyclovir and took a dose yesterday when she began to develop some labial pain and swelling. She is having a vaginal discharge. She noted a rash to her low back area as well. She states that she is having some palpitations similar to that that she experienced 2 days ago and is requesting IV fluids for concern for possible dehydration. Past Medical History: Diagnosis Date Disease of thyroid gland Lyme disease Past Surgical History: Procedure Laterality Date SECTION CHOLECYSTECTOMY History reviewed. No pertinent family history. Social History Social History Marital status: Spouse name: N/A Number of children: N/A Years of education: N/A Occupational History Not on file. Social History Main Topics Smoking status: Never Smoker Smokeless tobacco: Never Used Alcohol use No Drug use: No Sexual activity: Not on file Other Topics Concern Not on file Social History Narrative No narrative on file Previous Medications ACYCLOVIR (ZOVIRAX) 400 MG TABLET Take 400 mg by mouth 2 (two) times a day. AMOXICILLIN (AMOXIL) 500 MG CAPSULE Take 500 mg by mouth 3 (three) times a day. AZITHROMYCIN (ZITHROMAX) 500 MG TABLET Take 500 mg by mouth 2 (two) times a day. ESOMEPRAZOLE (NEXIUM) 20 MG CAPSULE Take 20 mg by mouth every morning before breakfast ReasonsHeartburn HYDROXYZINE (VISTARIL) 25 MG CAPSULE Take 1 (one) capsule (25 mg total) by mouth 3 (three) times a day as needed for anxiety. LACTOBAC #2-BIFIDO #1-S. THERM (VSL#3 DS) 900 BILLION CELL PWPK Take 1 packet by mouth daily. LIOTHYRONINE (CYTOMEL) 5 MCG TABLET Take 10 mcg by mouth daily. METFORMIN (GLUCOPHAGE) 1000 MG TABLET Take 1,000 mg by mouth 2 (two) times a day with meals. NYSTATIN (MYCOSTATIN) 100,000 UNIT/ML SUSPENSION Take 500,000 Units by mouth 4 (four) times a day. PROGESTERONE (PROMETRIUM) 100 MG CAPSULE Take 100 mg by mouth nightly. RIFAXIMIN (XIFAXAN) 200 MG TABLET Take 200 mg by mouth 3 (three) times a day THYROID (ARMOUR) 60 MG TABLET Take 120 mg by mouth daily. TRAZODONE (DESYREL) 50 MG TABLET Take 50 mg by mouth nightly as needed. VALACYCLOVIR (VALTREX) 1000 MG TABLET Take 1,000 mg by mouth daily . Allergies Allergen Reactions Amoxicillin Ceftin [Cefuroxime Axetil] [place] Starch Dairy Aid [Lactase] Gluten Peanut Review of Systems Review of Systems Constitutional: No unexpected weight change HENT: No drooling Eyes: No discharge Respiratory: No stridor Endocrine: No polyphagia Skin: No color changes Neurologic: No facial asymmetry Psychiatry: No self harm Hematologic/Lymphatic: No new easy bruising Allergic/Immunilogic: No urticaria Patient Vitals for the past 24 hrs: BP Temp Temp src Pulse Resp SpO2 Height Weight 04/09/18 1321 (!) 117/51 - - 82 18 98 % - - 04/09/18 1226 (!) 142/70 98.7 F (37.1 C ) Oral (!) 109 (!) 20 - 5' 4" 99.8 kg (220 lb) Physical Exam Constitutional: She is oriented to person, place, and time. She appears well-developed and well-nourished. No distress. HENT: Head: Normocephalic and atraumatic. Mouth/Throat: Oropharynx is clear and moist and mucous membranes are normal. Eyes: Conjunctivae, EOM and lids are normal. Pupils are equal, round, and reactive to light. Neck: Trachea normal, normal range of motion and full passive range of motion without pain. Cardiovascular: Regular rhythm and normal heart sounds. Tachycardia present. Pulmonary/Chest: Effort normal and breath sounds normal. Abdominal: Soft. Bowel sounds are normal. There is no tenderness. Genitourinary: There is no rash on the right labia. There is no rash on the left labia. Genitourinary Comments: Mild erythema and slight swelling of the bilateral labia majora. Musculoskeletal: Normal range of motion. Neurological: She is alert and oriented to person, place, and time. She has normal strength. No cranial nerve deficit or sensory deficit. Skin: Skin is warm, dry and intact. No rash noted. Psychiatric: She has a normal mood and affect. Nursing note and vitals reviewed. Laboratory & Radiographic Imaging (if done): No results found for this visit on 04/09/18. No orders to display Procedures MDM During the patient's ED course she had IV established was provided with IV fluids. I did review the blood work that she just had obtained 2 days ago and did not feel it required repeating at this time. There is no evidence of infectious process on examination. I have a low suspicion that she was having a reaction to the acyclovir that she had been started on however she states that she has done better on Valtrex for which she was provided a prescription for. At this time she will be discharged to home in stable condition with outpatient follow-up. She is told to return for any worsening symptoms or concerns. . . Clinical Impression: SNOMED CT(R) 1. Palpitations PALPITATIONS 2. Adverse effect of drug, initial encounter ADVERSE REACTION TO DRUG ED Disposition ED Disposition Condition Comment Discharge Sara Rojo discharged to home/self care in stable condition. Follow-up Information 1. Jericho Hair MD. Specialties: Internal Medicine, Sports Medicine [address] [facility] [address] [place] [address] Contact information for after-discharge care Follow-up information has not been specified. New Prescriptions VALACYCLOVIR (VALTREX) 1000 MG TABLET Take 1 (one) tablet (1,000 mg total) by mouth 2 (two) times a day for 10 days. Duane Higgins MD 04/09/18 1336 Pt with vaginal swelling, blisters starting last night pt states due to kevin wallace. Pt also with palpitations after starting to take acyclovir. Pt states she was seen at [place] Tuesday and was treated with fluids and benadryl.in this encounter VSS, no distress noted, no questions at present, medications discussed, verbalizes d/c instructions. A&O, VSS, skin pink warm & dry, resp even & unlabored, no distress noted, no c/o or needs voiced at present, call light in reach, will continue to monitor. Formatting of this note may be different from the original. PCP - Paco Fernandez MD [id number] Chief Complaint Patient presents with Insect Bite HPI Dictation on: 05/14/2018 7:28 PM by: LUIS ALFREDO LEMUS [[id number]] Review of Systems Constitutional: no diaphoresis Skin: no rash Eyes: no discharge ENMT: No drooling Genitourinary: no dysuria Endocrine: no polyuria Neurologic: No facial droop Psychiatric: no self injury Hematologic/Lymphatic: No abnormal bruising Allergic/Immunologic: no urticaria Other pertinent positives and negatives in HPI Past Medical History Past Medical History: Diagnosis Date Disease of thyroid gland Lyme disease Past Surgical History Past Surgical History: Procedure Laterality Date SECTION CHOLECYSTECTOMY Social History Social History Social History Marital status: Spouse name: N/A Number of children: N/A Years of education: N/A Occupational History Not on file. Social History Main Topics Smoking status: Never Smoker Smokeless tobacco: Never Used Alcohol use No Drug use: No Sexual activity: Not on file Other Topics Concern Not on file Social History Narrative No narrative on file Family history History reviewed. No pertinent family history. Physical Exam Initial Vital Signs BP 133/74 (BP Location: Right arm, Patient Position: Sitting) Pulse 82 Temp 98.8 F (37.1 C ) (Oral) Resp 18 Ht 5' 4" Wt 99.8 kg (220 lb) SpO2 97% BMI 37.76 kg/m Vital Signs During ED Visit (as charted by nursing) Patient Vitals for the past 24 hrs: BP Temp Temp src Pulse Resp SpO2 Height Weight 05/14/18 1909 133/74 98.8 F (37.1 C ) Oral 82 18 97 % 5' 4" 99.8 kg (220 lb) Nursing notes reviewed General: A and O x 3, no distress, non-toxic Psych: normal mood and affect Skin: clear without eruption Hent: atraumatic, normal cephalic, nasal mucosa clear, oropharyx without erythema or exudates Eyes: pupils equal and reactive to light, extraocular muscles intact Neck: supple without JVD or carotid bruit, no meningismus Heart: Regular rate and rhythm Lungs: clear to auscultation Abd: soft, nondistended, nontender, Positive bowel sounds Ext: without clubbing, cyanosis or edema, cap refill less than 2 seconds Neuro: no focal deficits with cn 2-12 intact, strength 5+ U/LE, normal patellar reflexes, no saddle anesthesia Musculoskeletal: no joint ttp, redness, warmth or swelling : deffered at this time Procedures EKG: Interpreted by myself without formal cardiology interpretation NSR with rate of 80bpm. No acute ischemic changes without ST elevation or depression MDM Laboratory Results Labs Reviewed POC URINALYSIS DIPSTICK,AUTO - RALS - Abnormal; Notable for the following: Result Value Blood, UA Trace-intact (*) All other components within normal limits POC VBG (EPOC) WITH FULL PANEL - RALS - Abnormal; Notable for the following: pO2, [place] 43 (*) All other components within normal limits Narrative: The eGFR should be used for monitoring renal function only and not for medication dosing. POC LIVER PANEL PLUS RALS - Abnormal; Notable for the following: ALT (SGPT) 49 (*) All other components within normal limits POC , URINE - RALS - Normal Narrative: Dilute urine specimens, as indicated by a low specific gravity (<1.010) may not contain merchandiser retail representative levels of hCG. If is still suspected, a serum test or repeat urine test using a first morning urine specimen should be considered. BLOOD CULTURE AEROBIC/ANAEROBIC BLOOD CULTURE AEROBIC/ANAEROBIC POC CBC AND DIFFERENTIAL POC URINALYSIS DIPSTICK,AUTO POC , URINE POC VBG (EPOC) WITH FULL PANEL POC LIVER PANEL PLUS Imaging Results XR Chest AP/PA and LAT Non-public Result No acute cardiopulmonary disease. Workstation ID: [id number] Dictation on: 05/14/2018 8:30 PM by: LUIS ALFREDO LEMUS [[id number]] I gave the patient my usual discharge instructions The patient has been informed that they may have pre-hypertension or hypertension based on a blood pressure reading in the Emergency Department. I recommend that the patient call the primary care provider listed on their discharge instructions or a physician of their choice as soon as possible to arrange follow-up in the next 4 weeks for further evaluation of possible pre-hypertension or hypertension. . . art Lemus, DO 05/14/182029 Physician at bedside. Amb into ED states she was bit on the right hand by unknown insect 1 month ago & has not felt right since. C/o fatigue, flushed & fevers.in this encounter INFORMATION SOURCE (unrecogn ized section and content) DATE CREATED AUTHOR 05/26/2018 [facility] DATE CREATED AUTHOR AUTHOR'S ORGANIZ ATION 08/09/2019 [facility] DATE CREATED AUTHOR AUTHOR'S ORGANIZ ATION 06/11/2023 [facility] DATE CREATED AUTHOR AUTHOR'S ORGANIZ ATION 06/18/[address] [facility] DATE CREATED AUTHOR AUTHOR'S ORGANIZ ATION 06/24/2023 [facility] DATE CREATED AUTHOR AUTHOR'S ORGANIZ ATION 09/20/2023 [facility] DATE CREATED AUTHOR AUTHOR'S ORGANIZ ATION 09/20/2023 [facility] DATE CREATED AUTHOR AUTHOR'S ORGANIZ ATION 01/14/2024 [facility] DATE CREATED AUTHOR AUTHOR'S ORGANIZ ATION 02/23/2024 [facility] DATE CREATED AUTHOR AUTHOR'S ORGANIZ ATION 05/11/2024 [facility] DATE CREATED AUTHOR AUTHOR'S ORGANIZ ATION 11/19/2024 [facility] DATE CREATED AUTHOR AUTHOR'S ORGANIZ ATION 06/24/2025 [facility] Reason for Visit (unrecogniz ed section and content) Reason Comments Rash Reason Onset Date Comments Error 04/09/2021 Reason Onset Date Comments Back Pain 12/17/2021 Follow-up Patient presents for OMT. States that she just had a fall and landed on her back down the stairs. Reason Comments Skin Exam FBSE Reason Onset Date Comments Error 01/07/2022 Reason Comments Follow-up Reason Comments Follow-up prolapse Reason Comments Skin Exam Pt presents for FBSE Reason Onset Date Comments Back Pain 10/19/2022 Follow-up Pt reports today with lower and middle back pain. Dull achy pain with stiffness. Average pain is 3-4/10. Heat and stretching for pain control. Follow-up Reason Comments Remove PICC Reason Comments Follow-up Reason Comments Skin Exam -Spot on left lower leg, forehead at hairline Hx of BCC on right restorationist Father with hx of SCC Reason Comments Vaginal Bleeding Time Buyer Exam Reason Comments OMT Neck shoulders and b ack Reason Comments OMT Neck and back Reason Comments OMT neck Reason Comments Rash Did bring blood work with her Used to live in [place] had a was told she was not straight cath and now has multiple infectionsGot Bacterial swab results today from mouth and was positive for PrevotellaHad GI Maps testHas been using Clindamycin Reason Comments Consult Patient referred for dysfunction of both eustachian tubes. Specialty Diagnoses / Procedures Referred By Michael hector Referred To Contact Otolaryngology Diagnoses Acute otitis media, unspecified otitis media type Hypertrophy of nasal turbinates Dysfunction of Eustachian tube, unspecified laterality Zoltan Sharp MD [address] [place] [address] [facility] [address] [place] [address] Referral ID Status Reason Start Date Expiration Date V isits Requested Visits Authorized [id number] New Request 03/21/2024 04/15/2025 1 1 Reason Comments Follow-up Patient here for pos sible tube insertion. Patient c/o left ear fullness. Reason Comments Skin Lesion Patient has lesion o n vaginal area, thigh, and arm. Patient has a family hx of skin cancer. No pain or itching. Reason Comments Procedure omt Back Pain Reason Comments Skin Lesion Pt reports lesion on the left upper lipDuration: 4-5 monthsHx of BCC Reason Comments Procedure omt Back Pain Neck Pain abdomen pain Reason Comments Pain New patient c/o R hi p pain,reports pain radiates from groin to glut and down her HS,pain can be severe at times and is positional, TX consist of CSI x2 years ago reports no relief,has had OMT's notes relief,in PT for pelvic floor,no recent imaging. Reason Comments Procedure OMTRight hip, leg an d low back. Reason Comments Skin Lesion Recheck AK on upper lip. Redness on distal nose. White bump on the left side of nose. Reason Comments Skin Lesion Reason Comments Skin Exam Full body, spots on face Reason Comments Biopsy Repeat biopsy on nos maribelLuis Alfredo Bergman, DO - 01/31/2020 2:17 PM Derik Wade RN - 01/31/2020 1:39 PM EDT ED Notes (unrecognized secti on and content) PCP - Paco Fernandez MD [id number] Chief Complaint Patient presents with Rash HPI This is a 49-year-old female she comes in with a rash on her face she said her face gets red it seems to be intermittent she is actually had this rash on and off for years she has had extensive testing but they could never really find the reason why she had it so she recently saw her doctor put her antibiotics she said she take antibiotics for a day or 2 will get better than it will get worse to her doctor thought it might be cellulitis or MRSA she denies any fever denies any chills denies any visual problems she is on a long-term hydrocortisone for adrenal insufficiency she brought on a constant dose for the last 3 months no abdominal pain no nausea vomiting or diarrhea comes in here for evaluation. Review of Systems Constitutional: no diaphoresis Skin: positive rash Eyes: no discharge ENMT: No drooling Genitourinary: no dysuria Endocrine: no polyuria Neurologic: No facial droop Psychiatric: no self injury Hematologic/Lymphatic: No abnormal bruising Allergic/Immunologic: no urticaria Other pertinent positives and negatives in HPI Past Medical History Past Medical History: Diagnosis Date Disease of thyroid gland Past Surgical History Past Surgical History: Procedure Laterality Date SECTION CHOLECYSTECTOMY Social History Social History Socioeconomic History Marital status: Spouse name: Not on file Number of children: Not on file Years of education: Not on file Highest education level: Not on file Occupational History Not on file Social Needs Financial resource strain: Not on file Food insecurity Worry: Not on file Inability: Not on file Transportation needs Medical: Not on file Non-medical: Not on file Tobacco Use Smoking status: Never Smoker Smokeless tobacco: Never Used Substance and Sexual Activity Alcohol use: No Alcohol/week: 0.0 standard drinks Drug use: No Sexual activity: Not on file Lifestyle Physical activity Days per week: Not on file Minutes per session: Not on file Stress: Not on file Relationships Social connections Talks on phone: Not on file Gets together: Not on file Attends congregational service: Not on file Active member of club or organization: Not on file Attends meetings of clubs or organizations: Not on file Relationship status: Not on file Other Topics Concern Not on file Social History Narrative Not on file Family history No family history on file. Physical Exam Initial Vital Signs BP (!) 115/46 (BP Location: Right arm, Patient Position: Sitting) Pulse 77 Temp 97.2 F (36.2 C) (Oral) Resp 18 Ht 5' 4" Wt 108.9 kg (240 lb) SpO2 98% BMI 41.20 kg/m Vital Signs During ED Visit (as charted by nursing) Patient Vitals for the past 24 hrs: BP Temp Temp src Pulse Resp SpO2 Height Weight 01/31/20 1339 (!) 115/46 97.2 F (36.2 C) Oral 77 18 98 % 5' 4" 108.9 kg (240 lb) Nursing Notes reviewed Constitutional:vital signs as above, a and O x3 no acute distress Eyes: non-icteric, extraocular motions intact Cardiovascular: no JVD Respiratory: no labored breathing Gastrointestinal: abdomen not distended Musculoskeletal: moves extremities Skin: Mild redness hue with madrid face ease noted and obvious subcutaneous deposition to her posterior C7-T1 area Neuro: awake/alert Extremities: symmetric, no swelling Psych: oriented Procedures MDM Laboratory Results Labs Reviewed - No data to display Imaging Results No orders to display Clearly patient exhibits sign of chronic steroid use she has madrid face ease with redness and buffalo hump deposition we did discussed the side effects of long- term steroid use clearly this is the most likely reason she does not appear cellulitic or infected at this point in time her redness is very mild and again when you do talk to her it is actually been an issue ongoing for about a year to year and a half. I thought she could benefit from endocrinology evaluation. She did not wanted me to address her sleep issues she is been having trouble sleeping she would like me to prescribe Xanax for her sleeping because she said she took up to 7 Benadryl for to help I had a long lecture with her however that is unsafe to take that much of any type of medicine Xanax is not a sleep medicine that we would recommend for her and very addictive. I told her I would write her for a total of 3 Ambien to take 1 each night for the next 3 nights but she needs to keep her appointment with her doctor tomorrow. And she can asked to be referred to an ferryboat operator helper. I gave the patient my usual discharge instructions. . . . end Luis Alfredo Lemus DO 01/31/20 1420 Pt arrives at ed with mask in place. All staff wearing procedural masks for exam and triage. Pt to ed with redness/rash on face. Pt states has been going on for a couple of weeks. Pt has been seen for this and has been placed on atb but they seem to only work for a day or two then symptoms return. Pt speaking in full sentences no breathing issues no problems swallowing. Pt was told this was cellulitis with a staph component. States this is also impacting sleep. documented in this encounter Care Teams (unrecognized sec tion and content) Marine Equipment Design Engineer Relationship Specialty Start Date End Date Paco Blevins MD [address] [place] [id number] PCP - General Family Medicine 02/09/21 Marine Equipment Design Engineer Relationship Specialty Start Date End Date Paco Blevins MD [address] [place] [id number] PCP - General Family Medicine 02/09/21 Marine Equipment Design Engineer Relationship Specialty Start Date End Date Paco Blevins MD [address] [place] [id number] PCP - General Family Medicine 02/09/21 Marine Equipment Design Engineer Relationship Specialty Start Date End Date Paco Blevins MD [address] [place] [id number] PCP - General Family Medicine 02/09/21 Marine Equipment Design Engineer Relationship Specialty Start Date End Date Paco Blevisn MD [address] [place] [address] PCP - General Family Medicine 02/09/21 Marine Equipment Design Engineer Relationship Specialty Start Date End Date Paco Blevins MD [address] [place] [address] PCP - General Family Medicine 02/09/21 Marine Equipment Design Engineer Relationship Specialty Start Date End Date Paco Fernandez MD [address] [place] [address] PCP - General Family Medicine 05/14/18 Marine Equipment Design Engineer Relationship Specialty Start Date End Date Paco Fernandez MD [address] [place] [id number] PCP - General Family Medicine 05/14/18 Marine Equipment Design Engineer Relationship Specialty Start Date End Date Paco Fernandez MD [address] [place] [phone] PCP - General Family Medicine 05/14/18 Marine Equipment Design Engineer Relationship Specialty Start Date End Date Paco Fernandez MD [address] [place] [phone] PCP - General Family Medicine 05/14/18 Marine Equipment Design Engineer Relationship Specialty Start Date End Date Paco Fernandez MD [address] [place] [phone] PCP - General Family Medicine 05/14/18 Marine Equipment Design Engineer Relationship Specialty Start Date End Date Ursula Ruth CNP [address] [place] [address] [address] [place] [address] PCP - General Nurse Practitioner 06/09/23 Marine Equipment Design Engineer Relationship Specialty Start Date End Date Ursula Ruth CNP [address] [place] [address] [address] [place] [address] PCP - General Nurse Practitioner 06/09/23 Marine Equipment Design Engineer Relationship Specialty Start Date End Date Ursula Ruth CNP [address] [place] [phone] PCP - General Nurse Practitioner 06/09/23 Marine Equipment Design Engineer Relationship Specialty Start Date End Date Ursula Ruth CNP [address] [place] [phone] PCP - General Nurse Practitioner 06/09/23 Marine Equipment Design Engineer Relationship Specialty Start Date End Date Paco Fernandez MD [address] [place] [address] PCP - General Family Medicine 05/14/18 06/08/23 Marine Equipment Design Engineer Relationship Specialty Start Date End Date Paco Blevins MD [address] [place] [address] PCP - General Family Medicine 02/09/21 Marine Equipment Design Engineer Relationship Specialty Start Date End Date Paco Bleivns MD [address] [place] [address] PCP - General Family Medicine 02/09/21 Marine Equipment Design Engineer Relationship Specialty Start Date End Date Paco Blevins MD [address] [place] [address] PCP - General Family Medicine 02/09/21 Marine Equipment Design Engineer Relationship Specialty Start Date End Date Tiffany Ml [address] [place] [address] PCP - General Family Medicine 04/22/20 Marine Equipment Design Engineer Relationship Specialty Start Date End Date Tiffany Ml [address] [place] [address] PCP - General Family Medicine 04/22/20 Marine Equipment Design Engineer Relationship Specialty Start Date End Date Tiffany Ml [address] [place] [address] PCP - General Family Medicine 04/22/20 Marine Equipment Design Engineer Relationship Specialty Start Date End Date Paco Blevins MD [address] [place] [phone] PCP - General Family Medicine 02/09/21 Marine Equipment Design Engineer Relationship Specialty Start Date End Date Paco Blevins MD [address] [place] [phone] PCP - General Family Medicine 02/09/21 Marine Equipment Design Engineer Relationship Specialty Start Date End Date Paco Blevins MD [address] [place] [phone] PCP - General Family Medicine 02/09/21 Marine Equipment Design Engineer Relationship Specialty Start Date End Date Ursula Ruth CNP [address] [place] [address] [address] [place] [address] PCP - General Nurse Practitioner 06/09/23 Marine Equipment Design Engineer Relationship Specialty Start Date End Date Ursula Ruth CNP [address] [place] [address] 6 [place] [address] PCP - General Nurse Practitioner 06/09/23 Marine Equipment Design Engineer Relationship Specialty Start Date End Date Ursula Ruth CNP [facility] [address] [place] [address] PCP - General Nurse Practitioner 06/09/23 Marine Equipment Design Engineer Relationship Specialty Start Date End Date Ursula Ruth CNP [facility] [address] [place] [address] PCP - General Nurse Practitioner 06/09/23 Marine Equipment Design Engineer Relationship Specialty Start Date End Date Ursula Ruth CNP [address] [place] [address] [address] [place] [phone] PCP - General Nurse Practitioner 06/09/23 Marine Equipment Design Engineer Relationship Specialty Start Date End Date Ursula Ruth CNP [address] [place], [place] [address] [place] [address] PCP - General Nurse Practitioner 06/09/23 Marine Equipment Design Engineer Relationship Specialty Start Date End Date Ursula Ruth CNP [address] [place] [address] Road [address] [place] [phone] PCP - General Nurse Practitioner 06/09/23 Marine Equipment Design Engineer Relationship Specialty Start Date End Date Paco Blevins MD [address] [place] [address] PCP - General Family Medicine 02/09/21 Marine Equipment Design Engineer Relationship Specialty Start Date End Date Paco Blevins MD [address] [place] [address] PCP - General Family Medicine 02/09/21 Marine Equipment Design Engineer Relationship Specialty Start Date End Date Paco Blevins MD [address] [place] [address] PCP - General Family Medicine 02/09/21 Goals (unrecognized section and content) Goals may be documented in a n alternate sectionGoals may be documented in an alternate section FOR RECORDS PERTAINING TO PATIENTS WHO ARE OR HAVE BEEN ENROLLED IN A CHEMICAL DEPENDENCY/SUBSTANCEABUSE PROGRAM, SOME INFORMATION MAY BE OMITTED. This clinical summary was aggregated from multiple sources. Caution should be exercised in using it in the provision of clinical care. This summary normalizes information from multiple sources, and as a consequence, information in this document may materially change the coding, format and clinical context of patient data. In addition, data may be omitted in some cases. CLINICAL DECISIONS SHOULD BE BASED ON THE PRIMARY CLINICAL RECORDS. [facility]. provides no warranty or guarantee of the accuracy or completeness of information in this document.
[2025-06-25 20:34] LABS: Hematocrit 41.5 % (37-47); Hemoglobin 13.6 g/dL (12.0-15.0); Immature Granulocytes Count 0.010 X10^3/uL (0.0-0.0); Mean Corp Hgb Conc 32.8 g/dL (32-36); Mean Corpuscular Volume 89.1 fL (81-99); Mean Platelet Vol. 10.9 fl (6.2-12.0); NRBC Flagged by Analyzer 0 % (0-5); Platelet Count 399 K/mm3 (150-450); RBC Distribution Width CV 13.7 % (11.6-14.6); RBC Distribution Width SD 44.8 fl (35.1-43.9); Red Blood Count 4.66 M/mm3 (4.2-5.4); White Blood Count 3.8 K/mm3 (4.4-11.0)
[2025-06-25 20:55] LABS: AST(SGOT) 28 U/L (<=31); Alanine Aminotransfer ALT/SGPT 24 U/L (<=34); Albumin, Serum 4.3 g/dL (3.5-5.0); Alkaline Phosphatase 107 U/L (35-104); Anion Gap 11 (5-15); BUN 11 mg/dL (4-19); BUN/Creat Ratio 14.3 RATIO (10-20); Calcium,Total 9.9 mg/dL (7.6-11.0); Carbon Dioxide 26.0 mmol/L (21.0-32.0); Chloride 101 mmol/L (98-108); Free T3 3.9 pg/mL (2.18-3.98); Globulin 2.9 g/dL (2.2-4.2); Glucose 82 mg/dL (70-99); Magnesium 2.1 mg/dL (1.5-2.2); Potassium 4.5 mmol/L (3.3-5.1); Vitamin D,25 Hydroxy 41.4 ng/mL (30-100)
[2025-06-27 04:07] LABS: PROGESTERONE 1.0 ng/mL (.)
[2025-07-02 22:07] LABS: Copper, Serum or Plasma 128 ug/dL (80-158); Zinc, Plasma or Serum 70 ug/dL (44-115)
== END 2025-06-25 23:59 | disposition home or self-care (01) ==
LOC: LABSPEC 19:29
PROVIDERS: PCP Nurse Practitioner Family; Visit Provider Nurse Practitioner Family
DX: D68.69 Other thrombophilia (principal); R53.82 Chronic fatigue, unspecified; N39.0 Urinary tract infection, site not specified; A44.0 Systemic bartonellosis; E03.9 Hypothyroidism, unspecified; E28.39 Other primary ovarian failure; F41.9 Anxiety disorder, unspecified; E56.9 Vitamin deficiency, unspecified; D50.9 Iron deficiency anemia, unspecified; K21.9 Gastro-esophageal reflux disease without esophagitis; E28.9 Ovarian dysfunction, unspecified
CPT/HCPCS: 80053; 82306; 82525; 82627; 82670; 83735; 84144; 84403; 84439; 84443; 84481; 84630; 85025; 82626